=== PATIENT | female | born 1985 | race Caucasian/White ===

== ENCOUNTER 2023-03-22 15:07 | Outpatient (CLI) | payer OTHER, SELFPAY ==
[2023-03-22 16:23] LABS: Erythrocyte Sedimentation Rate 4 mm/hr (0-30)
[2023-03-22 16:25] LABS: Absolute Lymphocyte Count 2.37 X10^3/uL (0.83-4.51); Absolute Neutrophil Count 5.4 X10^3/uL (2.0-7.7); Basophil# 0.05 X10^3/uL; Basophil% 0.6 % (0-1); Eosinophil# 0.21 X10^3/uL; Eosinophils% 2.5 % (0-5); Hematocrit 44.7 % (37-47); Hemoglobin 14.4 g/dL (12.0-15.0); Lymphocyte # 2.37 X10^3/ul (0.83-4.51); Lymphocyte % 27.8 % (19-41); Mean Corp Hgb Conc 32.2 g/dL (32-36); Mean Corpuscular Hgb 28.8 pg (27.0-32.0); Mean Corpuscular Volume 89.4 fL (81-99); Mean Platelet Vol. 10.9 fl (6.2-12.0); Monocyte# 0.48 X10^3/uL; Monocyte% 5.6 % (0-10); NRBC Flagged by Analyzer 0 % (0-5); Neutrophil # 5.37 X10^3/uL (2.7-7.7); Neutrophil % 63.1 % (47-70); Platelet Count 319 K/mm3 (150-450); RBC Distribution Width CV 12.9 % (11.6-14.6); RBC Distribution Width SD 41.8 fl (35.1-43.9); White Blood Count 8.5 K/mm3 (4.4-11.0)
[2023-03-22 16:52] LABS: AST(SGOT) 18 U/L (15-37); Alanine Aminotransfer ALT/SGPT 47 U/L (13-56); Alkaline Phosphatase 62 U/L (45-117); Anion Gap 1 (5-15); BUN 10 mg/dL (7-18); BUN/Creat Ratio 11.5 RATIO (10-20); CRP < 2.90 mg/L (0.0-3.0); Calcium,Total 9.7 mg/dL (8.5-10.1); Chloride 105 mmol/L (98-107); Creatinine, Serum 0.87 mg/dL (0.55-1.02); EST Glomerular Filtration Rate 78 mL/min (>60); Est Glom Filt Rate - Afr Amer 94 mL/min (>60); Globulin 4.1 g/dL (2.2-4.2); Glucose 95 mg/dL (74-106); LDH 151 U/L (84-246); Potassium 4.1 mmol/L (3.5-5.1); Protein, Total 8.1 g/dL (6.4-8.2); Sodium Level 137 mmol/L (136-145); Thyroid Stim Hormone (TSH) 2.92 uIU/mL (0.358-3.74)
[2023-03-22 17:52] LABS: Hemoglobin A1c 5.1 % (3.8-5.6)
[2023-03-24 15:08] LABS: Endomysial Antibody IgA Negative (Negative); Immunoglobulin A 262 mg/dL (87-352); t-Transglutaminase IgA <2 U/mL (0-3)
[2023-03-28 16:09] LABS: Albumin 4.1 g/dL (2.9-4.4); Alpha-1-Globulins 0.2 g/dL (0.0-0.4); Alpha-2-Globulins 0.7 g/dL (0.4-1.0); Angiotensin Convert Enzyme 44 U/L (14-82); Cytoplasmic Ab (C-ANCA) <1:20 titer (Neg:<1:20); Gamma Globulin 1.2 g/dL (0.4-1.8); Immunoglobulin A 244 mg/dL (87-352); Immunoglobulin E 9 IU/mL (6-495); Immunoglobulin G 1259 mg/dL (586-1602); Immunoglobulin M 75 mg/dL (26-217); PROEL- TOTAL PROTEIN 7.5 g/dL (6.0-8.5); Perinuclear Ab (P-ANCA) <1:20 titer (Neg:<1:20)
[2023-03-29 10:09] LABS: Anti-Centromere B Ab <0.2 AI (0.0-0.9); Anti-Chromatin <0.2 AI (0.0-0.9); Anti-Jo <0.2 AI (0.0-0.9); Anti-Scleroderma-70 AB <0.2 AI (0.0-0.9); Anti-dsDNA Ab 2 IU/mL (0-9); Beef <0.10 kU/L (Class 0); Chocolate <0.10 kU/L (Class 0); Clam <0.10 kU/L (Class 0); Codfish <0.10 kU/L (Class 0); Corn <0.10 kU/L (Class 0); Egg, White <0.10 kU/L (Class 0); Egg, Whole <0.10 kU/L (Class 0); Milk (Cow) <0.10 kU/L (Class 0); Peanut <0.10 kU/L (Class 0); Pork <0.10 kU/L (Class 0); RNP Ab <0.2 AI (0.0-0.9); SCALLOP <0.10 kU/L (Class 0); SESAME SEED <0.10 kU/L (Class 0); SJOGREN'S Anti-SS-A test < 0.2 AI (0.0-0.9); SJOGREN'S Anti-SS-B test < 0.2 AI (0.0-0.9); Shrimp <0.10 kU/L (Class 0); Smith Ab <0.2 AI (0.0-0.9); Soybean <0.10 kU/L (Class 0); Walnut, (Food) <0.10 kU/L (Class 0); Wheat <0.10 kU/L (Class 0)
== END 2023-03-22 23:59 | disposition home or self-care (01) ==
PROVIDERS: PCP Family Medicine; Referring Provider Internal Medicine Gastroenterology; Visit Provider Internal Medicine Gastroenterology
DX: K59.00 Constipation, unspecified (principal)
CPT/HCPCS: 36415; 80053; 82164; 82784; 82785; 83036; 83516; 83615; 84165; 84443; 85025; 85652; 86003; 86005; 86140; 86225; 86235; 86255; 86256; 86334

== ENCOUNTER → 2023-04-19 | Outpatient (CLI) | payer OTHER, SELFPAY ==
--- NOTE | 2023-04-19 07:37 | RAD_ITS ---
EXAM: XR ABDOMEN, 1 VIEW CLINICAL INDICATION: SITZ1 TECHNIQUE: Frontal supine view of the abdomen/pelvis. COMPARISON: No relevant prior studies available. FINDINGS: LOWER THORAX: No acute pathology. GASTROINTESTINAL TRACT: There is moderate stool in the colon. Non-obstructive. No bowel or stomach distention. ORGANS: Unremarkable as visualized. No organomegaly. No abnormal calcifications. BONES/JOINTS: No acute pathology. SOFT TISSUES: There are bilateral tubal ligation clips. RAD/Abdomen Single View IMPRESSION: Moderate stool in the colon which may represent constipation. Electronically Signed: Dilan Poe MD at 19:31 EDT ,
== END | disposition home or self-care (01) ==
LOC: RAD 07:34
PROVIDERS: PCP Family Medicine; Referring Provider Internal Medicine Gastroenterology; Visit Provider Internal Medicine Gastroenterology
DX: K59.00 Constipation, unspecified (principal)
CPT/HCPCS: 74018

== ENCOUNTER → 2023-04-21 | Outpatient (CLI) | payer OTHER, SELFPAY ==
--- NOTE | 2023-04-21 07:48 | NM_ITS ---
INDICATION: bloating EXAMINATION: NUCLEAR MEDICINE GASTRIC EMPTYING - NM Gastric Emptying Study (solid, liquid or both) TECHNIQUE: Radiopharmaceutical (solid portion of the exam): 1.1 mCi of Tc99m Sulfur Colloid mixed with oat meal. Oral administration. Imagin minutes COMPARISON: 04/19/2023 x-ray FINDINGS: Gastric emptying time with solids: T1/2: 47 minutes, within normal limits. No gastroesophageal reflux. NM/Gastric Emptying Study IMPRESSION: Normal gastric emptying time with solids. Electronically Signed: Taye Rizvi ([place]), at 9:46 EDT ,
== END | disposition home or self-care (01) ==
PROVIDERS: PCP Family Medicine; Referring Provider Internal Medicine Gastroenterology; Visit Provider Internal Medicine Gastroenterology
DX: K59.00 Constipation, unspecified (principal)
CPT/HCPCS: 78264; A9541

== ENCOUNTER 2025-05-16 06:22 | Day surgery (SDC) | payer OTHER, SELFPAY ==
[2025-05-16] VITALS (9 sets, daily range): BP systolic 119–145; BP diastolic 79–94; PULSE 72–90; RESP 16–18; TEMP 36.6–37.4; O2SAT 99–100; BMI 43.0
--- OUTSIDE RECORDS SUMMARY | 2025-05-16 06:26 | XMS RPT_ITS | CCD ---
Author Organization [facility] Care Team Providers Care Corporate Director Talent Assessment Name Role Phone Mega Dietz MD Primary Care Provider Friend, Dr. Early Attending Provider Mega Dietz MD Primary Care Provider Mega Dietz MD Primary Care Provider CHARLEY NEFF CNP Primary Care Unavailable CHARLEY NEFF CNP Admitting Unavailable CHARLEY NEFF CNP Attending Unavailable CHARLEY NEFF CNP Consulting Unavailable PROVIDER, UNKNOWN Consulting Unavailable PROVIDER, UNKNOWN Consulting Unavailable CHARLEY NEFF CNP Admitting Unavailable TAWANDACHARLEY AN CNP Attending Unavailable CHARLEY NEFF CNP Consulting Unavailable CHARLEY NEFF CNP Primary Care Unavailable PROVIDER, UNKNOWN Consulting Unavailable PROVIDER, UNKNOWN Consulting Unavailable CHARLEY NEFF CNP Admitting Unavailable TAWANDACHARLEY AN CNP Attending Unavailable CHARLEY NEFF CNP Consulting Unavailable CHRALEY NEFF CNP Primary Care Unavailable PROVIDER, UNKNOWN Consulting Unavailable PROVIDER, UNKNOWN Consulting Unavailable CHARLEY NEFF CNP Consulting Unavailable UNGERER, EL SUPERVISOR CELL OPERATION Admitting Unavailable UNGERER, EL SUPERVISOR CELL OPERATION Attending Unavailable UNGERER, EL SUPERVISOR CELL OPERATION Primary Care Unavailable PROVIDER, UNKNOWN Consulting Unavailable PROVIDER, UNKNOWN Consulting Unavailable CHARLEY NEFF CNP Admitting Unavailable ALAYNA LAGUNA DO Consulting Unavailable CHARLEY NEFF CNP Attending Unavailable CHARLEY NEFF CNP Primary Care Unavailable PROVIDER, UNKNOWN Consulting Unavailable PROVIDER, UNKNOWN Consulting Unavailable Dillard CATERING SERVICE MANAGER.REGULATORY AFFAIRS ANALYST, Jeanette Unavailable [phone] Yang CATERING SERVICE MANAGER.FLAT GRINDER OPERATOR, Shanon Unavailable Yang CATERING SERVICE MANAGER.FLAT GRINDER OPERATOR, Shanon Unavailable Unavailable Primary Care Provider UnavailFABRICIO Perkins Attending Unavailable DEISI PIKE Referring Unavailable TALAMPAS, MEGA D Primary Care Unavailable SELF Referring Unavailable TALAMPAS, MEGA D Primary Care Unavailable MARLEY BUTLER Attending Unavailable MARISA MANN Attending Unavailable HAURYKALEB Attending Unavailable TALAMPAS, MEGA D Primary Care Unavailable KALEB CERNA Referring Unavailable TALAMPAS, MEGA D Primary Care Unavailable Cosmo Fuentes Attending Unavailable Frakowski, Alayna Primary Care Unavailable Frakowski, Alayna Referring Unavailable Frakowski, Alayna Referring Unavailable Leny Sanchez Attending Unavailable Frakowski, Alayna Primary Care Unavailable Cosmo Fuentes Attending Unavailable Cosmo Fuentes Referring Unavailable Frakowski, Alayna Primary Care Unavailable Sharath Gonzalez Attending Unavailable Frakowski, Alayna Primary Care Unavailable Frakowski, Alayna Primary Care Unavailable Cosmo Fuentes Attending Unavailable Frakowski, Alayna Referring Unavailable Allergies Allergy Classification Reported Allergen(s) Allergy Type Date of Onset Reaction(s) Facility (20 sources) Latex; Translations: [LATEX] Drug Allergy 09-24-20 19 Hives [facility] Work Phone: (20 sources) Phenylephrine / Promethazine; Translations: [PROMETHAZINE-PHE NYLEPHRINE] Drug Allergy 09-04-20 15 Mental Status Change [facility] Work Phone: (20 sources) [id number] Antimigraine Agents; Translations: [[id number]-[id number] ANTIMIGRAINE AGENTS] Drug Intolerance 07-13-20 Other: See Comments [facility] Work Phone: (3 sources) Promethazine; Translations: [promethazine HCl] Drug Allergy 01-06-20 [address] [facility] (2 sources) SUMAtriptan Drug Allergy 01-06-20 23 Chest tightness [facility] (8 sources) [id number] Antimigraine Agents Drug Intolerance 07-13-20 Other: See Comments [facility] Work Phone: (1 source) Latex Drug allergy (disorder) 05-12-[address] [facility] (1 source) SUMAtriptan Drug Allergy 05-12-[address] [facility] Medications Current Medications Medication Drug Class(es) Dates Sig (Normalized) Sig (Original) acetaminophen 325 mg / oxyCODONE hydrochloride 5 mg oral tablet (2 sources) Opioid Agonist Start: 04-15-2016 take 1 tablet by mouth every four hours as needed Oxycodone-Acetamin ophen Active 1 TABLET PO EVERY 4 HOURS NEEDED April 15, 2016 12:00am 24 hr buPROPion hydrochloride 150 mg extended release oral tablet (11 sources) Aminoketone Start: 05-14-2024 take 1 tablet by mouth every hour buPROPion XL (WELLBUTRIN XL) 150 mg 24 hr tablet Take 1 tablet by mouth every afternoon. 05/14/2024 Active escitalopram 20 mg oral tablet (16 sources) Serotonin Reuptake Inhibitor Start: 11-14-2022 End: 05-03-2023 take 1 tablet by mouth once daily escitalopram oxalate (LEXAPRO) 20 mg tablet Take 1 tablet by mouth once daily. 0 11/14/2022 05/03/2023 Discontinued (Side Effects) Start: 04-19-2022 End: 11-14-2022 escitalopram oxalate (LEXAPR O) 10 mg tablet 10 mg. 0 04/19/2022 11/14/2022 Discontinued Comment on above: 10 mg. Take 1 tablet by tyler th once daily. famotidine 20 mg oral tablet (20 sources) Histamine-2 Receptor Antagonist Start: End: take 1 tablet by mouth once daily famotidine (PEPCID) 20 mg tablet Take 20 mg by mouth once daily. 04/21/2022 06/06/2024 Discontinued Comment on above: Take 20 mg by mouth once daily. fexofenadine hydrochloride 180 mg oral tablet (11 sources) Histamine-1 Receptor Antagonist take 1 tablet by mouth once daily fexofenadine (ROSA) 180 mg tablet Take 180 mg by mouth once daily. Active 1 ml galcanezumab-gnlm 120 mg/ml auto-injector (20 sources) Start: End: inject 1 mL by subcutaneous injection every month galcanezumab-gnlm 120 mg/mL subcutaneous pen injector (EMGALITY) Indications: Migraine without aura and without status migrainosus, not intractable , Migraine with aura and without status migrainosus, not intractable Inject 1 mL subcutaneously once every month. Do not shake. 3 mL 3 01/17/2025 01/12/2026 Active Start: 08-12-2022 End: 08-12-2022 galcanezumab-gnlm 120 mg/mL subcutaneous pen injector (EMGALITY) Indications: Migraine without aura and without status migrainosus, not intractable , Migraine with aura and without status migrainosus, not intractable Inject 2 mL subcutaneously one time only for 1 dose. This is the loading dose. Do not shake. 2 mL 0 08/12/2022 08/12/2022 Active Start: 03-04-2022 inject 1 mL by subcu taneous injection every month galcanezumab-gnlm (EMGALITY PEN) 120 mg/mL pen Inject 1 mL subcutaneously once every month. Do not shake. 1 Pen 3 03/04/2022 Active Start: 03-04-2022 inject 1 mL by subcu taneous injection every month galcanezumab-gnlm (EMGALITY PEN) 120 mg/mL pen Inject 1 mL subcutaneously once every month. Do not shake. 1 Pen 3 03/04/2022 Active Start: 03-04-2022 inject 1 mL by subcu taneous injection every month galcanezumab-gnlm (EMGALITY PEN) 120 mg/mL pen Inject 1 mL subcutaneously once every month. Do not shake. 1 Pen 3 03/04/2022 Active Start: 02-11-2022 End: 02-11-2022 galcanezumab-gnlm (EMGALITY PEN) 120 mg/mL pen Inject 2 mL subcutaneously one time only for 1 dose. Do not shake. 2 Pen 0 02/11/2022 02/11/2022 Active Comment on above: Inject 2 mL subcutan eously one time only for 1 dose. Do not shake. Inject 1 mL subcutan eously once every month. Do not shake. Inject 2 mL subcutan eously one time only for 1 dose. This is the loading dose. Do not shake. ibuprofen 800 mg oral tablet (20 sources) Nonsteroidal Anti-inflammatory Drug Start: take 1 tablet by mouth every six hours as needed ibuprofen (MOTRIN) 800 mg tablet Take 1 tablet by mouth every 6 hours as needed. 30 tablet 1 01/19/2021 Active Start: 04-15-2016 take 600 mg by mouth every six hours as needed Ibuprofen Active 600 MG PO EVERY 6 HOURS NEEDED April 15, 2016 12:00am Comment on above: Take 1 tablet by tyler th every 6 hours as needed. lubiprostone 0.008 mg oral capsule (6 sources) Chloride Channel Activator take 1 capsule by mouth twice daily at mealtime lubiprostone (AMITIZA) 8 mcg capsule Take 8 mcg by mouth two times a day with meals. Active Multivitamin capsule (17 sources) End: 3 take 1 capsule by mouth once daily Multivitamin capsule Take 1 capsule by mouth once daily. 0 12/30/2022 Discontinued take 1 capsule by mouth once carlos ly Multivitamin capsule Take 1 capsule by mouth once daily. 0 Active Comment on above: Take 1 capsule by mo uth once daily. omeprazole 40 mg delayed release oral capsule (11 sources) Proton Pump Inhibitor take 1 capsule by mouth once daily omeprazole (PRILOSEC) 40 mg capsule Take 40 mg by mouth once daily. Active ondansetron 4 mg disintegrating oral tablet (20 sources) Serotonin-3 Receptor Antagonist Start: 09-29-20 End: 01-18-20 25 take 1 tablet by mouth every eight hours as needed for nausea ondansetron orally disintegrating (ZOFRAN ODT) 4 mg disintegrating tablet Indications: Migraine without aura and without status migrainosus, not intractable , Nausea Take 1 tablet by mouth every 8 hours as needed (for nausea with migraines). 20 tablet 5 01/17/2025 Active Start: 01-05-2023 take 4 mg by mouth e very eight hours Ondansetron Hcl Active 4 MG PO Q8H January 05, 2023 12:00am Start: 05-13-2022 take 1 tablet by tyler th every eight hours as needed for nausea and nausea ondansetron orally disintegrating (ZOFRAN ODT) 4 mg disintegrating tablet Indications: Nausea Take 1 tablet by mouth every 8 hours as needed (for nausea with migraines). 20 tablet 3 05/13/2022 Active Comment on above: Take 1 tablet by tyler th every 8 hours as needed (for nausea with migraines). Vit,[id number] (Prenatabs Fa) 1 TABLET tablet (2 sources) Start: 04-13-20 16 take 1 tablet by mouth once daily Vit,[id number] (Prenatabs Fa) 1 TABLET tablet Active 1 TABLET PO DAILY April 13, 2016 12:00am rimegepant 75 mg disintegrating oral tablet (6 sources) Start: 01-18-20 25 take 1 tablet by mouth once daily as needed for headache, then take 1 tablet by mouth every twenty-four hours as needed for headache rimegepant (NURTEC ODT) 75 mg disintegrating tablet Indications: Migraine without aura and without status migrainosus, not intractable , Migraine with aura and without status migrainosus, not intractable Take 1 tablet by mouth once daily as needed for migraine headache (see administration instructions). No more than 1 dose in 24 hours. Do not swallow whole. Allow tablet to dissolve in mouth. 16 tablet 11 01/17/2025 Active topiramate 25 mg oral tablet (20 sources) Start: 11-29-19 End: 05-03-20 23 take 2 tablets by mouth once daily at bedtime topiramate (TOPAMAX) 25 mg tablet Indications: Migraine without aura and without status migrainosus, not intractable , Migraine with aura and without status migrainosus, not intractable Take 2 tablets by mouth daily at bedtime. Take with 100 mg tab for a total of 150 mg at bedtime. 60 tablet 1 11/29/2022 05/03/2023 Discontinued (Course of therapy completed) Start: 06-03-2022 End: 05-03-2023 take 1 tablet by mouth once daily Topiramate (Topamax) 100 mg tablet Active 100 MG PO DAILY January 05, 2023 12:00am Start: 06-03-2022 take 1 tablet by tyler th once daily at bedtime topiramate (TOPAMAX) 100 mg tablet Indications: Migraine without aura and without status migrainosus, not intractable Take 1 tablet by mouth daily at bedtime. 30 tablet 3 06/03/2022 Active Start: 05-13-2022 End: 01-13-2023 take 1 tablet by mouth once daily at bedtime topiramate (TOPAMAX) 25 mg tablet Indications: Migraine without aura and without status migrainosus, not intractable , Migraine with aura and without status migrainosus, not intractable Take 1 tablet by mouth daily at bedtime. Take with 100 mg tab for a total of 125 mg at bedtime. 30 tablet 1 11/14/2022 11/29/2022 Discontinued Comment on above: Take 1 tablet by tyler th daily at bedtime for 7 days, THEN 2 tablets daily at bedtime for 7 days, THEN 3 tablets daily at bedtime for 7 days. Then switch to 100 mg tablet and stay at that dose.. Take 1 tablet by tyler th daily at bedtime. Take 1 tablet by tyler th daily at bedtime. Take with 100 mg tab for a total of 125 mg at bedtime. Take 1 tablet by tyler th daily at bedtime. Take with 25 mg tab for a total of 125 mg at bedtime. Take 2 tablets by mo uth daily at bedtime. Take with 100 mg tab for a total of 150 mg at bedtime. zonisamide 100 mg oral capsule (6 sources) Anti-epileptic Agent Start: 11-19-2023 End: 06-06-2024 take 1 capsule by mouth once daily zonisamide (ZONEGRAN) 100 mg capsule Indications: Status migrainosus Take 1 capsule by mouth once daily. Start this prescription once you reach the 100 mg dose and are tolerating 30 capsule 5 01/01/2024 06/06/2024 Discontinued Start: 10-20-2023 End: 01-01-2024 zonisamide (ZONEGRAN) 25 mg capsule Indications: Status migrainosus Take 25 mg at bedtime for 1 week. Then, increase by 25 mg at bedtime each week until at 100 mg. 70 capsule 0 10/20/2023 01/01/2024 Discontinued Comment on above: Take 25 mg at bedtim e for 1 week. Then, increase by 25 mg at bedtime each week until at 100 mg. Take 1 capsule by mo uth once daily. Start this prescription once you reach the 100 mg dose and are tolerating Completed/Discontinued Medications Medication Drug Class(es) Dates Sig (Normalized) Sig (Original) 1 ml erenumab-aooe 140 mg/ml auto-injector (3 sources) Start: 11-05-2021 End: 11-05-2022 inject 140 mg by subcutaneous injection every month erenumab-aooe (AIMOVIG AUTOINJECTOR) 140 mg/mL auto-injector INJECT 140 MG UNDER THE SKIN ONCE EVERY MONTH. 3 mL 3 11/05/2021 02/11/2022 Discontinued (Changing Therapy/Dosage Form) Comment on above: INJECT 140 MG UNDER THE SKIN ONCE EVERY MONTH. 1.5 ml fremanezumab-vfrm 150 mg/ml auto-injector (2 sources) Start: 03-03-2022 End: 05-13-2022 inject 1.5 mL by subcutaneous injection every month fremanezumab-vfrm (AJOVY AUTOINJECTOR) 225 mg/1.5 mL auto-injector Indications: Migraine without aura and without status migrainosus, not intractable Inject 1.5 mL subcutaneously once every month. Do not shake. 1 Pen 3 03/03/2022 05/13/2022 Discontinued (Not on Formulary) Comment on above: Inject 1.5 mL subcut aneously once every month. Do not shake. pantoprazole 40 mg delayed release oral tablet (8 sources) Proton Pump Inhibitor Start: 07-13-2020 End: 08-12-2022 take 1 tablet by mouth once daily pantoprazole DR (PROTONIX) 40 mg tablet Take 1 tablet by mouth once daily. 0 07/13/2020 08/12/2022 Discontinued Comment on above: Take 1 tablet by tyler once daily. spironolactone 50 mg oral tablet (17 sources) Aldosterone Antagonist Start: 05-09-2024 End: 01-29-2025 take 1 tablet by mouth once spironolactone (ALDACTONE) 50 mg tablet Take 1 tablet by mouth every afternoon. 05/09/2024 01/29/2025 Discontinued (Discontinued by Patient) Start: 08-10-2022 End: 12-30-2022 spironolactone (ALDACTONE) 5 0 mg tablet once daily. 0 08/10/2022 12/30/2022 Discontinued Comment on above: once daily. ubrogepant 100 mg oral tablet (20 sources) Start: 01-05-2023 take 1 tablet by mouth once Ubrogepant (Ubrelvy) 100 mg tablet Active 100 MG PO ONCE January 05, 2023 12:00am as a single dose; may repeat once in >=2 hours after first dose if needed Start: 11-05-2021 End: 07-08-2024 ubrogepant (UBRELVY) 100 mg tablet Indications: Migraine without aura and without status migrainosus, not intractable , Migraine with aura and without status migrainosus, not intractable Take 1 tablet by mouth as needed for migraine. Take at first sign of migraine. You may repeat 1 tablet 2 hours later if needed. Max daily dose 200 mg. 16 tablet 11 05/03/2023 07/08/2024 Discontinued (Lack of Efficacy) Comment on above: Take 1 tablet by tyler th as needed. Take 1 tablet by tyler th as needed (for migraine). Take at first sign of migraine. You may repeat 1 tablet 2 hours later if needed. Max daily dose 200 mg. Take 1 tablet by tyler th as needed for migraine. Take at first sign of migraine. You may repeat 1 tablet 2 hours later if needed. Max daily dose 200 mg. 24 hr divalproex sodium 500 mg extended release oral tablet (1 source) Mood Stabilizer, Anti-epileptic Agent Start: 09-29-2023 take 2 tablets by mouth every twenty-four hours at bedtime, then take 1 tablet by mouth at bedtime divalproex ER (DEPAKOTE ER) 500 mg 24 hr tablet Indications: Migraine without aura and without status migrainosus, not intractable , Status migrainosus Take 2 tabs by mouth at bedtime for 5 days; then take 1 tab at bedtime for 5 days; then stop. 15 tablet 0 09/29/2023 Active Comment on above: Take 2 tabs by mouth at bedtime for 5 days; then take 1 tab at bedtime for 5 days; then stop. Problems Active Problems Problem Classification Problem Date Documented Da te Episodic/Chronic Disorders of lipid metabolism (1 source) Hyperlipidemia, unspecified; Translations: [Hyperlipidemia, unspecified] Onset: 08-04-2023 Chronic Headache; including migraine (20 sources) Migraine without aura, not refractory ; Translations: [Migraine without aura, not intractable, without status migrainosus] Onset: 11-07-2019 11-07-2019 Chronic Nausea and vomiting (4 sources) Nausea; Translations: [Nausea] Episodic Nonmalignant breast conditions (1 source) Fibrocystic changes of bilateral breasts; Translations: [Diffuse cystic mastopathy of right breast] 01-29-2025 Chronic Nonmalignant breast conditions (5 sources) Unspecified lump in the left breast, unspecified quadrant; Translations: [Lump in lower inner quadrant of left breast] Onset: 07-26-2024 01-29-2025 Episodic Nonspecific chest pain (4 sources) Chest pain; Translations: [Chest pain, unspecified] 03-22-2023 Episodic Other aftercare (8 sources) Patient encounter status; Translations: [Other intermediate accountant (current) drug therapy] Episodic Other diseases of kidney and ureters (1 source) Disorder of kidney and ureter, unspecified; Translations: [Disorder of kidney and ureter, unspecified] Onset: 08-01-2024 Episodic Other gastrointestinal disorders (2 sources) Abdominal bloating; Translations: [Abdominal distension (gaseous)] 03-22-2023 Episodic Other gastrointestinal disorders (2 sources) Constipation; Translations: [Constipation, unspecified] 03-22-2023 Episodic Other inflammatory condition of skin (1 source) Psoriasis, unspecified; Translations: [Psoriasis, unspecified] Onset: 11-03-2023 Chronic Other nutritional; endocrine; and metabolic disorders (20 sources) Body mass index 40+ - severely obese; Translations: [Morbid (severe) obesity due to excess calories] Onset: 06-11-2020 06-11-2020 Chronic Other screening for suspected conditions (not mental disorders or infectious disease) (7 sources) Cancer cervix screening status; Translations: [Encounter for screening for malignant neoplasm of cervix] Onset: 08-04-2023 06-06-2024 Episodic Other skin disorders (1 source) Eruption; Translations: [Rash and other nonspecific skin eruption] 08-01-2024 Episodic Spondylosis; intervertebral disc disorders; other back problems (1 source) Neck pain; Translations: [Cervicalgia] Episodic Past or Other Problems Problem Classification Problem Date Documented Da te Episodic/Chronic Administrative/social admission (2 sources) Encounter for pre-employment examination; Translations: [Encounter for pre-employment examination] Onset: 02-06-2025 Episodic Anal and rectal conditions (1 source) Other specified diseases of anus and rectum; Translations: [Other specified diseases of anus and rectum] Onset: 12-18-2024 Episodic Cardiac dysrhythmias (1 source) Palpitations; Translations: [Palpitations] Onset: 09-22-2023 Episodic Headache; including migraine (20 sources) Chronic daily headache; Translations: [Chronic daily headache] Onset: 11-07-2019 11-07-2019 Episodic Hemorrhoids (1 source) Unspecified hemorrhoids; Translations: [Unspecified hemorrhoids] Onset: 12-18-2024 Episodic Immunizations and screening for infectious disease (1 source) Encounter for screening for infections with a predominantly sexual mode of transmission; Translations: [Screening for STD (sexually transmitted disease)] Onset: 06-06-2024 Episodic Other aftercare (1 source) Other intermediate accountant (current) drug therapy; Translations: [Medication management] Onset: 07-08-2024 Episodic Other complications of (11 sources) Maternal obesity complicating , childbirth and the puerperium, antepartum; Translations: [Obesity complicating , unspecified trimester] Onset: 09-04-2015 Resolved: 05-30-2016 05-30-2016 Chronic Other gastrointestinal disorders (3 sources) Abdominal distension (gaseous); Translations: [Flatulence, eructation, and gas pain] Onset: 12-18-2024 03-22-2023 Episodic Other gastrointestinal disorders (3 sources) Constipation, unspecified; Translations: [Constipation, unspecified] Onset: 12-18-2024 03-22-2023 Episodic Results Test Name Value Interpretation Reference Range [facility] IRLANDA [facility] ([id number]) 1985 F Date Time Provider Department 03/20/25 MARISA ORTEGA NREUS2 During your visit today, we recorded the following information about you: Marisa Ortega, Research Coordinator 03/20/2025 1:50 PM Signed 03.20.2025: Follow up call to patient regarding research study [id number] Pain Avoidance Migraine. She has decided to decline participation in this study at this time. Allergies As of Date: 03/20/2025 Noted Allergy Reaction LATEX 09/24/2019 4 - Hives PHENERGAN VC (PROMETHAZINE-PHENYL *09/04/2015 1 - Mental Status Change [id number] ANTIMIGRAINE [id number]/13/2020 14 - Other: See Comments Comments: Intense squeezing tightness, chest, neck throat and jaw Date Reviewed: 01/29/2025 Reviewed by: Taylor Mcmillan LPN - Fully Assessed Reason for Visit: Research [[id number]] Cmt: [id number] Pain Avoidance Behavior in Migraine Patients Prescriptions as of 03/20/2025 - lubiprostone (AMITIZA) 8 mcg capsule Take 8 mcg by mouth two times a day with meals. - galcanezumab-gnlm 120 mg/mL subcutaneous pen injector (EMGALITY) Inject 1 mL subcutaneously once every month. Do not shake. - ondansetron orally disintegrating (ZOFRAN ODT) 4 mg disintegrating tablet Take 1 tablet by mouth every 8 hours as needed (for nausea with migraines). - rimegepant (NURTEC ODT) 75 mg disintegrating tablet Take 1 tablet by mouth once daily as needed for migraine headache (see administration instructions). No more than 1 dose in 24 hours. Do not swallow whole. Allow tablet to dissolve in mouth. - buPROPion XL (WELLBUTRIN XL) 150 mg 24 hr tablet Take 1 tablet by mouth every afternoon. - omeprazole (PRILOSEC) 40 mg capsule Take 40 mg by mouth once daily. - fexofenadine (ROSA) 180 mg tablet Take 180 mg by mouth once daily. - ibuprofen (MOTRIN) 800 mg tablet Take 1 tablet by mouth every 6 hours as needed. Problem List As Of Date 03/20/2025 Noted Resolved Obesity complicating [O99.210] 09/04/2015 05/30/2016 Chronic daily headache [R51.9] 11/07/2019 Migraine without aura and without status migrai*11/07/2019 Migraine with aura and without status migrainos*11/07/2019 Chronic migraine without aura, with intractable*11/07/19 Intractable chronic migraine without aura and w*11/07/2019 Obesity, Class III, BMI >= 40 [E66.813] 06/11/2020 Encounter Status:Closed by MARISA ORTEGA on 03/20/25 [facility] Juan Carlos 02-18-2025 CNPN Telephone (NREUS2) GARRETTIRLANDA KNUTSON ([id number]) 1985 F Date Time Provider Department 02/18/25 MARISA ORTEGA NREUS2 During your visit today, we recorded the following information about you: Marisa Ortega, Research Coordinator 02/18/2025 1:52 PM Signed Patient was reviewed and referred for research study Pain Avoidance Behavior in Migraine Patients by Dr. Huff. 02.18.25: called and spoke with Irlanda and discussed the details of research study [id number]. 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 She mentioned she will reach back on if she would like to proceed or not with scheduling Allergies As of Date: 02/18/2025 Noted Allergy Reaction LATEX 09/24/2019 4 - Hives PHENERGAN VC (PROMETHAZINE-PHENYL *09/04/2015 1 - Mental Status Change [id number] ANTIMIGRAINE [id number]/13/2020 14 - Other: See Comments Comments: Intense squeezing tightness, chest, neck throat and jaw Date Reviewed: 01/29/2025 Reviewed by: Taylor Mcmillan LPN - Fully Assessed Reason for Visit: Research [293] Cmt: 02-310 Pain Avoidance Behavior in Migraine PAtients Prescriptions as of 02/18/2025 - lubiprostone (AMITIZA) 8 mcg capsule Take 8 mcg by mouth two times a day with meals. - galcanezumab-gnlm 120 mg/mL subcutaneous pen injector (EMGALITY) Inject 1 mL subcutaneously once every month. Do not shake. - ondansetron orally disintegrating (ZOFRAN ODT) 4 mg disintegrating tablet Take 1 tablet by mouth every 8 hours as needed (for nausea with migraines). - rimegepant (NURTEC ODT) 75 mg disintegrating tablet Take 1 tablet by mouth once daily as needed for migraine headache (see administration instructions). No more than 1 dose in 24 hours. Do not swallow whole. Allow tablet to dissolve in mouth. - buPROPion XL (WELLBUTRIN XL) 150 mg 24 hr tablet Take 1 tablet by mouth every afternoon. - omeprazole (PRILOSEC) 40 mg capsule Take 40 mg by mouth once daily. - fexofenadine (ROSA) 180 mg tablet Take 180 mg by mouth once daily. - ibuprofen (MOTRIN) 800 mg tablet Take 1 tablet by mouth every 6 hours as needed. Problem List As Of Date 02/18/2025 Noted Resolved Obesity complicating [O99.210] 09/04/2015 05/30/2016 Chronic daily headache [R51.9] 11/07/2019 Migraine without aura and without status migrai*11/07/2019 Migraine with aura and without status migrainos*11/07/2019 Chronic migraine without aura, with intractable*11/07/19 Intractable chronic migraine without aura and w*11/07/2019 Obesity, Class III, BMI >= 40 [E66.813] 06/11/2020 Encounter Status:Closed by MARISA ORTEGA on 02/18/25 [facility] Office Visit Reporton 2024 Office Visit Report [facility] [address] [place] [address] OFFICE VISIT Date of Service: 02/06/25 MR#: [id number] Acct: [id number] Patient: IRLANDA TUCKER Rep #: [id number] : 1985 Provider: EVANGELINA Juarez Age/Sex: 39/F Location: [facility] Status: Signed Intake Vital Signs 12/18/24 15:37 Height 5 ft 7 in Weight: 271 lb 5 oz BMI 42.5 BP 126/85 H Respiration 20 H Pulse 104 H Pulse Oximetry (%) 95 Oxygen Delivery Method room air Intake Visit Reasons: PE NON DOT FIT TEST, QUANTIFERON/ WEST VIEW Chief Complaint: hemorrhoids Allergies latex Allergy (Intermediate, Verified 02/06/25 16:27) Other sumatriptan Allergy (Intermediate, Verified 02/06/25 16:27) Chest tightness promethazine HCl (From Phenergan) Allergy (Verified 02/06/25 16:27) Other Office Procedures [facility] Billing Sheet Testing Pre-Employment PE: Yes Respirator Fit Testing: Yes Occquant-Quantiferon : Yes 02/13/25 1232 Date Cosmo HUTCHINSON Cosigner Signature: Date (if applicable) CC: Normal [facility] Quantiferon TB-Gold+on 02-08 QFT MITOGEN ADAM > 10.00 Normal . [facility] Comment on above: Performed By: #### L 3400.8000 #### [facility] [address] [place], [place], [id number] QFT NIL VALUE 0.03 IU/mL Normal . [facility] Comment on above: Performed By: #### L [id number] #### [facility] [address] [place], [place], [id number] QFT TB GOLD+ Comment Normal . [facility] Comment on above: Result Comment: Juan Ramon tiFERON-TB Gold Plus is a qualitative indirect test for M tuberculosis infection (including disease) and is intended for use in conjunction with risk assessment, radiography, and other medical and diagnostic evaluations. The QuantiFERON-TB Gold Plus result is determined by subtracting the Nil value from either TB antigen (Ag) value. The Mitogen tube serves as a control for the test. Performed By: #### L [id number] #### [facility] [address] [place], [place], [id number] QFT TB POS CRIT Negative Normal Negative [facility] Comment on above: Result Comment: No r esponse to M tuberculosis antigens detected. Infection with M tuberculosis is unlikely, but high risk individuals should be considered for additional testing (ATS/IDSA/CDC Clinical Practice Guidelines, 2017). The reference range is an Antigen minus Nil result of <0.35 IU/mL. The specimen received for QuantiFERON testing was incubated by the ordering institution. Specific procedures outlined in our Directory of Services and in the package insert for the QuantiFERON Gold (In Tube) test must be followed to enable for proper stimulation of cells for the production of interferon gamma. Chemiluminescence immunoassay methodology Performed at: [address] [id number] Painting Contractor: Nikita Lemus PhD, Phone: [phone] Performed By: #### L [id number] #### [facility] [address] [place], [address] QFT TB1+ AG ADAM 0.03 IU/mL Normal . [facility] Comment on above: Performed By: #### L [id number] #### [facility] [address] [place], [address] QFT TB2+ AG ADAM 0.03 IU/mL Normal . [facility] Comment on above: Performed By: #### L [id number] #### [facility] [address] [place], [address] Urgent Care Visit Reporton 0 02-06-2025 Urgent Care Visit Report [facility] [address], [address] [place], [place] [address] OFFICE VISIT Date of Service: 02/06/25 MR#: [id number] Acct: [id number] Name: IRLANDA TUCKER Rep #: [id number] : 1985 Provider: EVANGELINA Juarez Age/Sex: 39/F Location: [facility] Status: Signed Intake Vital Signs 12/18/24 15:37 Height 5 ft 7 in Weight: 271 lb 5 oz BMI 42.5 BP 126/85 H Respiration 20 H Pulse 104 H Pulse Oximetry (%) 95 Oxygen Delivery Method room air Intake Visit Reasons: PE NON DOT PHYSICAL/ WEST VIEW Accompanied by: Self Allergies latex Allergy (Intermediate, Verified 02/06/25 16:27) Other sumatriptan Allergy (Intermediate, Verified 02/06/25 16:27) Chest tightness promethazine HCl (From Phenergan) Allergy (Verified 02/06/25 16:27) Other Medications ???Medication ???Instructions ???Recorded ???Confirmed ???Type galcanezumab-gnlm 120 mg/mL 120 mg subcut QMONTH 01/05/23/02/07 History subcutaneous pen injector (Emgality Pen) ondansetron HCl 4 mg tablet 4 mg PO Q8H 01/05/23 12/18/24 Hist ory Diltiazem 2% / Lidocaine 5% #30 grams 12/18/24 12/18/24 Rx ointment (compound) bupropion HCl 150 mg 24 hr tablet, 150 mg PO QAM 12/18/24 02/06/25 History extended release (Wellbutrin XL) docusate sodium 100 mg capsule 200 mg PO QDAY 12/18/24 12/18/24 H istory (Colace) hydroxyzine pamoate 25 mg capsule 25 mg PO QHS 12/18/24 02/06/25 Hi story omeprazole 40 mg capsule,delayed 40 mg PO QDAY 12/18/24 02/06/25 Hi story release sodium sul 1.479 gram-potas ch See Rx Instructions PO PER PKG DIR 12/18/24 12/18/24 Rx 0.188 gram-magnes sul 0.225 gram #24 tabs tablet (Sutab) lubiprostone 8 mcg capsule 8 mcg PO BID #60 caps 01/07/25 Rx (Amitiza) Nurse's Note: Patient here for a pre-employment physical. [facility] Medical History Chronic migraine PCOS (polycystic ovarian syndrome) HLD (hyperlipidemia) PMDD (premenstrual dysphoric disorder) Unspecified perforation of tympanic membrane, right ear Hair loss Low back pain Left breast mass Localized edema Depression GERD (gastroesophageal reflux disease) Surgical History History of tympanoplasty Previous section History of tonsillectomy and adenoidectomy H/O tubal ligation Family History Grandmother Esophageal cancer CVA (cerebral vascular accident) Mother HLD (hyperlipidemia) Migraines Social History Smoking Status: Former smoker alcohol intake: current HPI HPI Details: IRLANDA TUCKER, is a 39 F who presents to the office today for preemployment physical. Please see corresponding scanned documents with today's date. Office Procedures Physical Exam Coding PE Coding Pre-employment PE: Yes Coding Level of Care Code No Charge Diagnoses Encounter for pre-employment health screening examination Z02.1 Assessment and Plan Assessment and Plan (1) Encounter for pre-employment health screening examination: Status: Acute Orders: Orders Quantiferon TB-Gold+ Today Z02.1 - Encounter for pre-employment examination 02/06/25 1645 Date Cosmo Persaud Signature: Date (if applicable) CC: [facility] 01-31-2025 [facility] Telephone (NHMNS2) IRLANDA TUCKER ([id number]) 1985 F Date Time Provider Department 01/31/25 MARLEY BUTLER [facility] During your visit today, we recorded the following information about you: Hoda Vivas 01/31/2025 9:42 AM Signed Prior authorization has been submitted via CoverMyMeds Included clinical notes from 01/17/25. Medication: Nurtec (rimegepant) Dosage/frequency: 75mg Insurance Name: [employer] Nowak (if available): [id number] Was authorization approved, denied, or still pending? PENDING If approved, effective dates: Shara Linton 02/25/2025 3:45 PM Signed Received denial via fax from [employer] for [facility]. An appeal can be filed by faxing to [phone]. Case ID [id number] Uploaded to chart via OnBase Allergies As of Date: 01/31/2025 Noted Allergy Reaction LATEX 09/24/2019 4 - Hives PHENERGAN VC (PROMETHAZINE-PHENYL *09/04/2015 1 - Mental Status Change [id number] ANTIMIGRAINE [id number]/13/2020 14 - Other: See Comments Comments: Intense squeezing tightness, chest, neck throat and jaw Date Reviewed: 01/29/2025 Reviewed by: Taylor Mcmillan LPN - Fully Assessed Reason for Visit: Insurance Authorization [1693] [facility] [Other] Prescriptions as of 2025 - lubiprostone (AMITIZA) 8 mcg capsule Take 8 mcg by mouth two times a day with meals. - galcanezumab-gnlm 120 mg/mL subcutaneous pen injector (EMGALITY) Inject 1 mL subcutaneously once every month. Do not shake. - ondansetron orally disintegrating (ZOFRAN ODT) 4 mg disintegrating tablet Take 1 tablet by mouth every 8 hours as needed (for nausea with migraines). - rimegepant (NURTEC ODT) 75 mg disintegrating tablet Take 1 tablet by mouth once daily as needed for migraine headache (see administration instructions). No more than 1 dose in 24 hours. Do not swallow whole. Allow tablet to dissolve in mouth. - buPROPion XL (WELLBUTRIN XL) 150 mg 24 hr tablet Take 1 tablet by mouth every afternoon. - omeprazole (PRILOSEC) 40 mg capsule Take 40 mg by mouth once daily. - fexofenadine (ROSA) 180 mg tablet Take 180 mg by mouth once daily. - ibuprofen (MOTRIN) 800 mg tablet Take 1 tablet by mouth every 6 hours as needed. Problem List As Of Date 01/31/2025 Noted Resolved Obesity complicating [O99.210] 09/04/2015 05/30/2016 Chronic daily headache [R51.9] 11/07/2019 Migraine without aura and without status migrai*11/07/2019 Migraine with aura and without status migrainos*11/07/2019 Chronic migraine without aura, with intractable*11/07/19 20 Intractable chronic migraine without aura and w*11/07/2019 Obesity, Class III, BMI >= 40 [E66.813] 06/11/2020 Encounter Status:Closed by HODA VIVAS on 01/31/25 [facility] Telephone (NHMNS2) IRLANDA TUCKER ([id number]) 1985 F Date Time Provider Department 01/31/25 MARLEY BUTLER [facility] During your visit today, we recorded the following information about you: Hoda Vivas 01/31/2025 9:43 AM Signed Prior authorization has been submitted via CoverMeds Included clinical notes from 01/17/25. Medication: Galcanezumab (Emgality) Dosage/frequency: 120 mg/mL Insurance Name: Maximo Nowak (if available): [id number] Was authorization approved, denied, or still pending? PENDING If approved, effective dates: Shara Linton 02/25/2025 2:47 PM Signed Rec'd approval via fax. Effective 02/01/25-02/01/26 Approval scanned to chart via OnBase Patient informed via [employer]. Allergies As of Date: 01/31/2025 Noted Allergy Reaction LATEX 09/24/2019 4 - Hives PHENERGAN VC (PROMETHAZINE-PHENYL *09/04/2015 1 - Mental Status Change [id number] ANTIMIGRAINE [id number]/13/2020 14 - Other: See Comments Comments: Intense squeezing tightness, chest, neck throat and jaw Date Reviewed: 01/29/2025 Reviewed by: Taylor Mcmillan LPN - Fully Assessed Reason for Visit: Insurance Authorization [1693] Em[employer]ality renewal, [employer] [Other] Prescriptions as of 02/25/2025 - lubiprostone (AMITIZA) 8 mcg capsule Take 8 mcg by mouth two times a day with meals. - galcanezumab-gnlm 120 mg/mL subcutaneous pen injector (EMGALITY) Inject 1 mL subcutaneously once every month. Do not shake. - ondansetron orally disintegrating (ZOFRAN ODT) 4 mg disintegrating tablet Take 1 tablet by mouth every 8 hours as needed (for nausea with migraines). - rimegepant (NURTEC ODT) 75 mg disintegrating tablet Take 1 tablet by mouth once daily as needed for migraine headache (see administration instructions). No more than 1 dose in 24 hours. Do not swallow whole. Allow tablet to dissolve in mouth. - buPROPion XL (WELLBUTRIN XL) 150 mg 24 hr tablet Take 1 tablet by mouth every afternoon. - omeprazole (PRILOSEC) 40 mg capsule Take 40 mg by mouth once daily. - fexofenadine (ROSA) 180 mg tablet Take 180 mg by mouth once daily. - ibuprofen (MOTRIN) 800 mg tablet Take 1 tablet by mouth every 6 hours as needed. Problem List As Of Date 01/31/2025 Noted Resolved Obesity complicating [O99.210] 09/04/2015 05/30/2016 Chronic daily headache [R51.9] 11/07/2019 Migraine without aura and without status migrai*11/07/2019 Migraine with aura and without status migrainos*11/07/2019 Chronic migraine without aura, with intractable*11/07/19 20 Intractable chronic migraine without aura and w*11/07/2019 Obesity, Class III, BMI >= 40 [E66.813] 06/11/2020 Encounter Status:Closed by HODA VIVAS on 01/31/25 [facility] Nusrat 01-29-2025 CNOV Office Visit (OBGYWM) IRLANDA TUCKER ([id number]) 1985 F Date Time Provider Department 01/29/25 9:30 AM MARISA MANN OBGYWBlanca During your visit today, we recorded the following information about you: Blood pressure Weight Last Period 124/78 123.1 kg 01/03/25 Marisa Mann APRN.CN 01/29/2025 9:53 AM Signed Patient declined spareribs trimmer. Irlanda Tucker is a 39 year old female who presents for problem visit lump (LT) breast for 1 week(s). Patient denied nipple discharge, breast pain. HPI: Approximately 1 week ago she felt a small bump in lower, inner area of left breast. She denies any pain or tenderness. No history of breast lumps or concerns. OB History Gravida4 Para3 Term3 Preterm0 AB1 Living3 SAB1 IAB0 Ectopic0 Multiple0 Live Births3 Comment: C/s for NRFHTs- 10 pounds 9 ounces, planned repeat 06/12/13 op report reviewed, LTCS, small adhesions Office Assistance History LMP: 05/22/2024, Having periods Age at Menarche: Age at First : Age at Menopause: Office Assistance History Comments: Sexual Activity: Yes; Male Contraception: Tubal Ligation PAST MEDICAL HISTORY Diagnosis Date GERD (gastroesophageal reflux disease) High cholesterol Diet Controlled Migraines PAST SURGICAL HISTORY Procedure Laterality Date DELIVERY ONLY , low transverse DELIVERY ONLY , low transverse DELIVERY ONLY 04/15/16 , low transverse LIG/TRNSXJ FLP TUBE ABDL/VAG APPR UNI/BI 04/15/16 Tubal ligation TONSILLECTOMY AND ADENOIDECTOMY Adenoids Removed Twice TYMPANIC MEMB RPR W/WO PREPJ PERFOR PATCH Tympanoplasty FAMILY HISTORY Problem Relation Age of Onset Lipids Mother other (Lung Issues) Mother other (Migraine) Mother Lipids Maternal Grandmother Cancer Maternal Grandmother Lipids Maternal Grandfather Heart Maternal Grandfather Coronary Artery Disease Maternal Grandfather 4 By-pass Surgeries Diabetes Maternal Grandfather Type 2 Lipids Daughter High Cholesterol Social History Tobacco Use Smoking status: Former Smokeless tobacco: Never Vaping Use Vaping status: Never Used Substance Use Topics Alcohol use: No Drug use: Never Current Outpatient Medications Medication Sig lubiprostone (AMITIZA) 8 mcg capsule Take 8 mcg by mouth two times a day with meals. galcanezumab-gnlm 120 mg/mL subcutaneous pen injector (EMGALITY) Inject 1 mL subcutaneously once every month. Do not shake. ondansetron orally disintegrating (ZOFRAN ODT) 4 mg disintegrating tablet Take 1 tablet by mouth every 8 hours as needed (for nausea with migraines). rimegepant (NURTEC ODT) 75 mg disintegrating tablet Take 1 tablet by mouth once daily as needed for migraine headache (see administration instructions). No more than 1 dose in 24 hours. Do not swallow whole. Allow tablet to dissolve in mouth. buPROPion XL (WELLBUTRIN XL) 150 mg 24 hr tablet Take 1 tablet by mouth every afternoon. omeprazole (PRILOSEC) 40 mg capsule Take 40 mg by mouth once daily. spironolactone (ALDACTONE) 50 mg tablet Take 1 tablet by mouth every afternoon. fexofenadine (ROSA) 180 mg tablet Take 180 mg by mouth once daily. ibuprofen (MOTRIN) 800 mg tablet Take 1 tablet by mouth every 6 hours as needed. No current facility-administere d medications for this visit. Allergies As of Date: 01/29/2025 Allergen Noted Reaction LATEX 09/24/2019 Jennifer GREY VC [PROMETHAZINE-PHENYL *09/04/2015 Mental Status Change FBAATEYJ-[id number] ANTIMIGRAINE [id number]/13/2020 Other: See Comments Fully Assessed 01/17/2025 REVIEW OF SYSTEMS Abdomen: No abdominal pain, nausea, vomiting, diarrhea, or constipation. Bladder: No dysuria, gross hematuria, urinary frequency, urinary urgency, or incontinence. Breast: Breast lump(s) noted. Expanded ROS: N/A Allergies and current medication updated:Yes SENSITIVE EXAM: The sensitive examination was discussed with the Patient or Patient's Authorized Deburrer Machine. As applicable, any other physician, advance practice provider, medical student, or other health professional student that will be observing or involved in the sensitive examination for educational or training purposes was discussed with the Patient or Authorized Deburrer Machine. The Patient or Authorized Deburrer Machine has agreed to proceed with the sensitive examination. (Sensitive examination includes inspection and/or palpation of the breasts, pelvis, prostate and anorectal regions). EXAM: LMP 05/22/2024 GENERAL: pleasant, female in no apparent distress BREAST: soft, non-tender, symmetric, normal nipple-areolar complex, no nipple discharge, fibrocystic changes, and small area lower inner quadrant of left breast with pea size, mobile bump. No tenderness with palpation. ASSESSMENT AND PLAN: Assessment AND Plan Mass of lower inner quadrant of left breast Fibrocystic melba (more content not included)... Normal [facility] Gastroenterology Visit Repor ton 12-18-2024 Gastroenterology Visit Report [facility]enter[facility] [address] [place] [address] OFFICE VISIT Date of Service: 12/18/24 MR#: [id number] Acct: [id number] Name: IRLANDA TUCKER Rep #: [id number] : 1985 Provider: SPENCER dominguez Age/Sex: 39/F Location: [facility] Status: Signed Intake Vital Signs 04/13/16 13:13 12/18/24 15:37 Height 5 ft 7 in 5 ft 7 in Weight: 271 lb 5 oz BMI 42.5 BP 126/85 H Respiration 20 H Pulse 104 H Pulse Oximetry (%) 95 Oxygen Delivery Method room air Intake Visit Reasons: Hemorrhoids Chief Complaint: hemorrhoids Dry Cleaner Hand Required: No Is patient in pain?: No Allergies latex Allergy (Intermediate, Verified 12/18/24 15:33) Other sumatriptan Allergy (Intermediate, Verified 12/18/24 15:33) Chest tightness promethazine HCl (From Phenergan) Allergy (Verified 12/18/24 15:33) Other Medications ???Medication ???Instructions ???Recorded ???Confirmed ???Type galcanezumab-gnlm 120 mg/mL 120 mg subcut QMONTH 01/05/23/03/09 History subcutaneous pen injector (Emgality Pen) ondansetron HCl 4 mg tablet 4 mg PO Q8H 01/05/23 12/18/24 Hist ory Diltiazem 2% / Lidocaine 5% #30 grams 12/18/24 12/18/24 Rx ointment (compound) bupropion HCl 150 mg 24 hr tablet, 150 mg PO QAM 12/18/24 12/18/24 History extended release (Wellbutrin XL) docusate sodium 100 mg capsule 200 mg PO QDAY 12/18/24 12/18/24 H istory (Colace) hydroxyzine pamoate 25 mg capsule 25 mg PO QHS 12/18/24 12/18/24 Hi story linaclotide 145 mcg capsule 145 mcg PO QAM #90 caps 12/18/24 0 12/18/24 Rx (Linzess) omeprazole 40 mg capsule,delayed 40 mg PO QDAY 12/18/24 12/18/24 Hi story release sodium sul 1.479 gram-potas ch See Rx Instructions PO PER PKG DIR 12/18/24 12/18/24 Rx 0.188 gram-magnes sul 0.225 gram #24 tabs tablet (Sutab) PFSH Medical History Chronic migraine PCOS (polycystic ovarian syndrome) HLD (hyperlipidemia) PMDD (premenstrual dysphoric disorder) Unspecified perforation of tympanic membrane, right ear Hair loss Low back pain Left breast mass Localized edema Depression GERD (gastroesophageal reflux disease) Surgical History History of tympanoplasty Previous section History of tonsillectomy and adenoidectomy H/O tubal ligation Family History Grandmother Esophageal cancer CVA (cerebral vascular accident) Mother HLD (hyperlipidemia) Migraines Social History Smoking Status: Former smoker alcohol intake: current HPI HPI Chief Complaint: hemorrhoids Details: IRLANDA TUCKER, is a 39 F who presents to the office today for 39y/o female presents for consultation with complaints of hemorrhoids. She was last seen by Dr. Gonzalez 03/22/2023 for CIC and GERD. Food allergen testing, IBD panel, GES were all unremarkable. KUB completed 04/19/2023 revealed moderate stool retention, no retained sitz markers. GES 04/21/2023 normal KUB 04/19/2023 Moderate stool in the colon which may represent constipation. - c/o external hemorrhoids - tried witch akin, hemorrhoids OTC creams - chronic constipation - feels like she tore her ass hole - has tried ice packs - BRBPR - symptoms present x2 months - does not want to have a BM due to the pain - has a BM One a week - with Colace she can go 2 maybe 3x a week - she has always had hard infrequent stools - denies any abdominal pain - denies any family h/o colon CA - denies any weight loss - reports her water intake is really good B: avocado L: parker chicken wrap - reports she does eat vegetables - she tried a Metamucil in the past - causes vomiting - Benefiber did not help - she will take Dulcolax laxative PRN but causes nausea - Mag Citrate 1/2 bottle when needed - Senna and Correctol caused too much pain/cramping - Miralax daily in coffee - Omeprazole 40mg daily - has been on this since July 2024 - has been on and off PPI for the past 20+ years - Maternal GM with esophageal CA - reports EGD many years ago was negative ROS Const Constitutional: No fatigue, fever(s) or weight change ENT ENT: No difficulty swallowing Gastro GI: Positive for bloating, constipation, heartburn and Blood in stool; No abdominal pain, belching, change in bowel habits, change in stool character, coffee ground emesis, cramping, diarrhea, difficulty swallowing, feeling full early, excessive flatus, incontinent of stools, Vomiting blood/hematemesis, loose stools, Black,tarry stools, nausea/dyspepsia, pain with swallowing, vomiting or other Musc Musculoskeletal: No anabella (more content not included)... Normal [facility] CMP with eGFRon 08-01-2024 AGE 39 years Normal [facility] Comment on above: Performed By: #### 2 [id number] #### [facility],[address] [place] [address] Albumin [Mass/Vol] 3.9 g/dL Normal 3.4 - 5.0 [facility] Comment on above: Performed By: #### [id number] #### [facility],[address] [place] [address] Albumin/Globulin [Mass ratio] 0.9 {ratio} Normal 0.9 - 1.6 [facility] Comment on above: Performed By: #### 2 [id number] #### [facility],[address] [place] [id number] ALK PHOS 55 U/L Normal 46 - 116 [facility] Comment on above: Performed By: #### 2 [id number] #### [facility],[address] [place] [address] ALT [Catalytic activity/Vol] 33 U/L Normal 16 - 63 [facility] Comment on above: Performed By: #### 2 [id number] #### [facility],[address] [place] [address] Anion gap [Moles/Vol] 13 mmol/L Normal 10 - 20 [facility] Comment on above: Performed By: #### 2 54468 #### [facility],[address] [place], [place] [id number] AST [Catalytic activity/Vol] 17 U/L Normal 13 - 39 [facility] Comment on above: Performed By: #### 2 59750 #### [facility],[address] [place] [address] 03109 B/C RATIO 9 ratio Normal 0 - 30 [facility] Comment on above: Performed By: #### 2 32521 #### [facility],[address] [place] [address] 84027 Bilirubin [Mass/Vol] 0.4 mg/dL Normal 0.2 - 1.0 [facility] Comment on above: Performed By: #### 2 99657 #### [facility],[address] [place] [address] 02069 Calcium [Mass/Vol] 9.2 mg/dL Normal 8.5 - 10.1 [facility] Comment on above: Performed By: #### 2 70898 #### [facility],[address] [place], [place] [id number] Chloride [Moles/Vol] 104 mmol/L Normal 98 - 107 [facility] Comment on above: Performed By: #### 2 70945 #### [facility],[address] [place] [address] 99726 CMP with eGFR Normal [facility] Comment on above: Result Comment: COMP REHENSIVE METABOLIC PANEL Performed By: #### 2 31777 #### [facility],[address] [place] [address] 37149 CO2 [Moles/Vol] 26.6 mmol/L Normal 21.0 - 32.0 [facility] Comment on above: Performed By: #### 2 11345 #### [facility],[address] [place] [address] Creatinine [Mass/Vol] 1.13 mg/dL High 0.55 - 1.02 [facility] Comment on above: Performed By: #### 2 37320 #### [facility],[address] [place], [place] [id number] eGFR 54 ML/MINUTE Low 60 - 999 [facility] Comment on above: Performed By: #### 2 48023 #### [facility],[address] [place] [address] 53152 GFR/1.73 sq M.predicted among non-blacks MDRD (S/P/Bld) [Vol rate/Area] mL/min/{1.73_m2} Normal 60 - 999 [facility] Comment on above: Result Comment: ACCO RDING TO THE NATIONAL KIDNEY DISEASE EDUCATION PROGRAM(NKDE), A NORMAL eGFR IS A VALUE GREATER THAN OR EQUAL TO 60 ML/MIN/1.73 SQ METERS. CHRONIC KIDNEY DISEASE: <60mL/MIN/1.73 SQ METERS KIDNEY FAILURE: <15mL/MIN/1.73 SQ METERS THIS TEST SHOULD ONLY BE USED FOR PATIENTS 18 YEARS OF AGE AND OLDER. Performed By: #### 2 28310 #### [facility],[address] [place] [address] 60444 Globulin (S) [Mass/Vol] 4.2 g/dL High 1.5 - 3.8 [facility] Comment on above: Performed By: #### 2 77871 #### [facility],[address] [place] [address] 12717 Glucose [Mass/Vol] 89 mg/dL Normal 74 - 106 [facility] Comment on above: Performed By: #### 2 31041 #### [facility],[address] [place] [address] 69287 Potassium [Moles/Vol] 4.5 mmol/L Normal 3.5 - 5.1 [facility] Comment on above: Performed By: #### 2 23692 #### [facility],[address] [place] [address] 42520 Protein [Mass/Vol] 8.1 g/dL Normal 6.4 - 8.2 [facility] Comment on above: Performed By: #### 2 10948 #### [facility],[address] [place] [address] 47317 Sodium [Moles/Vol] 139 mmol/L Normal 136 - 145 [facility] Comment on above: Performed By: #### 2 92489 #### [facility],[address] [place] [address] 31310 Urea nitrogen [Mass/Vol] 10 mg/dL Normal 7 - 18 [facility] Comment on above: Performed By: #### 2 58936 #### [facility],[address] [place] [address] 52837 CBC + DIFFon 07-26-2024 Baso # 0.02 x10EE3/UL Normal 0.00 - 0.10 [facility] Comment on above: Performed By: #### 2 44704 #### [facility],[address] [place] [address] 60531 Basophils/100 WBC (Bld) 0.2 % Normal 0.0 - 2.0 [facility] Comment on above: Performed By: #### 2 68980 #### [facility],[address] [place] [address] 55060 CBC + DIFF Normal [facility] Comment on above: Result Comment: CBC- COMPLETE BLOOD COUNT Performed By: #### 2 59087 #### [facility],[address] [place] [address] 49713 EO # 0.14 x10EE3/UL Normal 0.00 - 0.50 [facility] Comment on above: Performed By: #### 2 99733 #### [facility],[address] [place] [address] 18763 Eosinophils/100 WBC (Bld) 2.2 % Normal 0.0 - 7.0 [facility] Comment on above: Performed By: #### 2 07821 #### [facility],[address] [place] [address] Erythrocyte distribution width (RBC) [Ratio] 13.6 % Normal 12.0 - 15.6 [facility] Comment on above: Performed By: #### 2 48773 #### [facility],[address] [place], [place] [phone] Hematocrit (Bld) [Volume fraction] 41.6 % Normal 34.0 - 46.0 [facility] Comment on above: Performed By: #### 2 98830 #### [facility],[address] [place], [place] [address] Hemoglobin (Bld) [Mass/Vol] 13.8 g/dL Normal 12.0 - 16.0 [facility] Comment on above: Performed By: #### 2 34244 #### [facility],[address] [place] [address] 18810 Lymph # 1.58 x10EE3/UL Normal 0.80 - 2.80 [facility] Comment on above: Performed By: #### 2 89277 #### [facility],[address] [place] [address] 11735 Lymphocytes/100 WBC (Bld) 24.3 % Normal 20.0 - 45.0 [facility] Comment on above: Performed By: #### 2 99203 #### [facility],[address] [place] [address] MANUAL DIFF N/A Normal [facility] Comment on above: Performed By: #### 2 12326 #### [facility],[address] [place] [address] MCH (RBC) [Entitic mass] 29 pg Normal 27 - 33 [facility] Comment on above: Performed By: #### 2 71636 #### [facility],[address] [place] [address] MCHC 33 X10 3 Normal 32 - 36 [facility] Comment on above: Performed By: #### 2 70028 #### [facility],[address] [place] [address] MCV (RBC) [Entitic vol] 87 fL Normal 80 - 99 [facility] Comment on above: Performed By: #### 2 22087 #### [facility],[address] [place] [address] Throckmorton # 0.36 x10EE3/UL Normal 0.20 - 1.00 [facility] Comment on above: Performed By: #### 2 89873 #### [facility],[address] [place] [address] MONOS % 5.5 % Normal 0.0 - 10.0 [facility] Comment on above: Performed By: #### 2 45854 #### [facility],[address] [place], [place] [phone] Morphology Bryan (Bld) [Interp] N/A Normal [facility] Comment on above: Performed By: #### 2 86164 #### [facility],[address] [place] [address] Neut # 4.41 x10EE3/UL Normal 1.50 - 7.10 [facility] Comment on above: Performed By: #### 2 55837 #### [facility],[address] [place] [address] 91111 Neutrophils/100 WBC (Bld) 67.8 % Normal 46.0 - 76.0 [facility] Comment on above: Performed By: #### 2 29797 #### [facility],[address] [place] [address] 51363 PLATELET 345 x10EE3/UL Normal 150 - 450 [facility] Comment on above: Performed By: #### 2 08668 #### [facility],[address] [place] [address] 66818 Platelet mean volume (Bld) [Entitic vol] 9.2 fL Normal 6.6 - 10.5 [facility] Comment on above: Result Comment: AUTO MATED DIFFERENTIAL Performed By: #### 2 15299 #### [facility],[address] [place] [address] 73351 RBC 4.79 x 10EE6/UL Normal 4.10 - 5.30 [facility] Comment on above: Performed By: #### 2 79273 #### [facility],[address] [place] [address] 98184 WBC 6.5 x 10EE3/UL Normal 4.5 - 10.8 [facility] Comment on above: Performed By: #### 2 18298 #### [facility],[address] [place] [address] 75631 CMP with eGFRon 07-26-2024 AGE 39 years Normal [facility] Comment on above: Performed By: #### 2 58569 #### [facility],[address] [place] [address] 24843 Albumin [Mass/Vol] 3.6 g/dL Normal 3.4 - 5.0 [facility] Comment on above: Performed By: #### 2 69554 #### [facility],[address] [place] [address] 10952 Albumin/Globulin [Mass ratio] 0.9 {ratio} Normal 0.9 - 1.6 [facility] Comment on above: Performed By: #### 2 08076 #### [facility],[address] [place] [address] 74691 ALK PHOS 54 U/L Normal 46 - 116 [facility] Comment on above: Performed By: #### 2 48874 #### [facility],[address] [place] [address] 87047 ALT [Catalytic activity/Vol] 33 U/L Normal 16 - 63 [facility] Comment on above: Performed By: #### 2 22151 #### [facility],[address] [place] [address] 76611 Anion gap [Moles/Vol] 9 mmol/L Low 10 - 20 [facility] Comment on above: Performed By: #### 2 67795 #### [facility],[address] [place], [place] [id number] AST [Catalytic activity/Vol] 13 U/L Normal 13 - 39 [facility] Comment on above: Performed By: #### 2 45927 #### [facility],[address] [place] [address] 53873 B/C RATIO 8 ratio Normal 0 - 30 [facility] Comment on above: Performed By: #### 2 36217 #### [facility],[address] [place] [address] 28957 Bilirubin [Mass/Vol] 0.4 mg/dL Normal 0.2 - 1.0 [facility] Comment on above: Performed By: #### 2 27056 #### [facility],[address] [place] [address] 12506 Calcium [Mass/Vol] 9.3 mg/dL Normal 8.5 - 10.1 [facility] Comment on above: Performed By: #### 2 13788 #### [facility],[address] [place] [address] 98609 Chloride [Moles/Vol] 103 mmol/L Normal 98 - 107 [facility] Comment on above: Performed By: #### 2 20618 #### [address] [address] CMP with eGFR Normal [facility] Comment on above: Result Comment: COMP REHENSIVE METABOLIC PANEL Performed By: #### 2 07619 #### [address] [address] CO2 [Moles/Vol] 29.2 mmol/L Normal 21.0 - 32.0 [facility] Comment on above: Performed By: #### 2 69966 #### [place] [id number] Creatinine [Mass/Vol] 1.11 mg/dL High 0.55 - 1.02 [facility] Comment on above: Performed By: #### 2 16764 #### [facility],[address] [place], [place] [id number] eGFR 55 ML/MINUTE Low 60 - 999 [facility] Comment on above: Performed By: #### 2 63134 #### [address] [address] GFR/1.73 sq M.predicted among non-blacks MDRD (S/P/Bld) [Vol rate/Area] mL/min/{1.73_m2} Normal 60 - 999 [facility] Comment on above: Result Comment: ACCO RDING TO THE NATIONAL KIDNEY DISEASE EDUCATION PROGRAM(NKDE), A NORMAL eGFR IS A VALUE GREATER THAN OR EQUAL TO 60 ML/MIN/1.73 SQ METERS. CHRONIC KIDNEY DISEASE: <60mL/MIN/1.73 SQ METERS KIDNEY FAILURE: <15mL/MIN/1.73 SQ METERS THIS TEST SHOULD ONLY BE USED FOR PATIENTS 18 YEARS OF AGE AND OLDER. Performed By: #### 2 41862 #### [facility],[address] [place] [address] 28730 Globulin (S) [Mass/Vol] 3.9 g/dL High 1.5 - 3.8 [facility] Comment on above: Performed By: #### 2 62301 #### [facility],[address] [place] [address] 79355 Glucose [Mass/Vol] 89 mg/dL Normal 74 - 106 [facility] Comment on above: Performed By: #### 2 09326 #### [facility],[address] [place] [address] 42389 Potassium [Moles/Vol] 4.0 mmol/L Normal 3.5 - 5.1 [facility] Comment on above: Performed By: #### 2 48561 #### [facility],[address] [place] [address] 49947 Protein [Mass/Vol] 7.5 g/dL Normal 6.4 - 8.2 [facility] Comment on above: Performed By: #### 2 37250 #### [facility],[address] [place] [address] 56886 Sodium [Moles/Vol] 137 mmol/L Normal 136 - 145 [facility] Comment on above: Performed By: #### 2 67441 #### [facility],[address] [place] [address] 75280 Urea nitrogen [Mass/Vol] 9 mg/dL Normal 7 - 18 [facility] Comment on above: Performed By: #### 2 25634 #### [facility],[address] [place] [address] 03629 LIPID PROFILEon 07-26-2024 Cholesterol [Mass/Vol] 191 mg/dL Normal 0 - 240 [facility] Comment on above: Performed By: #### 2 07347 #### [facility],[address] [place] [address] 37994 Cholesterol in HDL [Mass/Vol] 48 mg/dL Normal 40 - 60 [facility] Comment on above: Performed By: #### 2 67423 #### [facility],[address] [place] [address] 60071 Cholesterol in LDL [Mass/Vol] 119 mg/dL Normal 0 - 129 [facility] Comment on above: Performed By: #### 2 07909 #### [facility],[address] [place] [address] 23839 Cholesterol.total/Choles terol in HDL [Mass ratio] 4.0 {ratio} Normal 0.0 - 5.0 [facility] Comment on above: Performed By: #### 2 89169 #### [facility],[address] [place] [address] 73860 Lipid 1996 panel Normal [facility] Comment on above: Result Comment: LIPI D PROFILE Performed By: #### 2 76124 #### [facility],[address] [place] [address] 46762 Triglyceride [Mass/Vol] 119 mg/dL Normal 0 - 150 [facility] Comment on above: Performed By: #### 2 18612 #### [facility],[address] [place] [address] 10328 C. trachomatis+N. gonorrhoea e DNA CONSUELO+probe Ql (Unsp spec)on 06-06-2024 C. trachomatis rRNA CONSUELO+probe Ql (Unsp spec) Negative Normal Negative for Chlamydia trachomatis by amplificaton [facility] Comment on above: Order Comment: Speci men Type: SWABOrdering Facility: [facility] Address: [address] [place] [address] Performed By: #### T RVAMP, 92955-0 ####[facility] LABCLIA [id number] [place] [address] [place] N. gonorrhoeae rRNA CONSUELO+probe Ql (Unsp spec) Negative Normal Negative for Neisseria gonorrhoeae by amplification [facility] Comment on above: Order Comment: Speci men Type: SWABOrdering Facility: [facility] Address: [address] [place] [address] Performed By: #### T RVAMP, 08932-5 ####[facility] LABKARL [id number] [place] [id number] [place] CNOVon 06-06-2024 CNOV Office Visit (OBGYWM) IRLANDA TUCKER ([id number]) 1985 F Date Time Provider Department 06/06/24 7:45 AM KALEB CERNA OBGYWM During your visit today, we recorded the following information about you: Blood pressure Weight Height Last Period 118/78 126.1 kg 1.702 m 05/22/24 Kaleb Cerna APRN.FLAT GRINDER OPERATOR 06/06/2024 8:12 AM Signed Hoop Punch And Coiler Operator offered: Patient declinesEdgar Fournier is a 39 year old who presents for an annual gynecologic exam without complaints. Recently had a rash to left groin that she took Valtrex ofr and used clobetasol cream. It has resolved. Was itchy, not painful. Menses: cycles every 30 days and 5-7 days of flow. Contraception: tubal sterilization HPV vaccine: No Last Pap: 10/25/2019 normal HPV: 10/27/2019 negative History of abnormal pap: Yes, thinks around [phone] Last mammogram: Has had mastitis - was hospitalized Sexually active: Sometimes History of STDS: Yes, but unknown , possible HSV? Patient concerns for STD exposure: No. Pain with intercourse: No Postcoital bleeding: No Exercise: daily, running OB History T3 L3 SAB1 IAB0 Ectopic0 Multiple0 Live Births3 Comment: C/s for NRFHTs- 10 pounds 9 ounces, planned repeat 06/12/13 op report reviewed, LTCS, small adhesions Office Assistance History LMP: 05/22/2024, Having periods Age at Menarche: Age at First : Age at Menopause: Office Assistance History Comments: Sexual Activity: Yes; Male Contraception: Tubal Ligation PAST MEDICAL HISTORY No date: GERD (gastroesophageal reflux disease) No date: High cholesterol Comment: Diet Controlled No date: MigrainesPAST SURGICAL HISTORY No date: DELIVERY ONLY Comment: , low transverse No date: DELIVERY ONLY Comment: , low transverse 04/15/16: DELIVERY ONLY Comment: , low transverse 04/15/16: LIG/TRNSXJ FLP TUBE ABDL/VAG APPR UNI/BI Comment: Tubal ligation No date: TONSILLECTOMY AND ADENOIDECTOMY Comment: Adenoids Removed Twice No date: TYMPANIC MEMB RPR W/WO PREPJ PERFOR PATCH Comment: Tympanoplasty FAMILY HISTORY Problem Relation Age of Onset Lipids Mother other (Lung Issues) Mother other (Migraine) Mother Lipids Maternal Grandmother Cancer Maternal Grandmother Lipids Maternal Grandfather Heart Maternal Grandfather Coronary Artery Disease Maternal Grandfather 4 By-pass Surgeries Diabetes Maternal Grandfather Type 2 Lipids Daughter High Cholesterol SOCIAL HISTORY Social History Tobacco Use Smoking status: Former Smokeless tobacco: Never Vaping Use Vaping status: Never Used Substance Use Topics Alcohol use: No Drug use: Never REVIEW OF SYSTEMS Abdomen: No abdominal pain, nausea, vomiting, diarrhea, or constipation. No bloating, early satiety, indigestion, or increased flatulence. + hemorrhoids Bladder: No dysuria, gross hematuria, urinary frequency, urinary urgency, or incontinence. Breast: No breast lumps, nipple d/c, overlying skin changes, redness or skin retraction. Allergies and current medication updated:Yes EXAM: BP 118/78 Ht 5' 7 (1.70m) Wt 278 lb (126.1kg) LMP 05/22/2024 BMI 43.53 kg/(m2). GENERAL: pleasant, female in no apparent distress HEENT: Normocephalic, atraumatic, mucus membranes moist, and no lesions NECK: Supple, full range of motion, no adenopathy, and thyroid normal DERMATOLOGY: Normal, without lesions, non-icteric, and non-hirsute + resolving rash to left groin BREAST: soft, non-tender, symmetric, no dominant mass, normal nipple-areolar complex, no lymphadenopathy, and no nipple discharge CHEST: Normal inspiratory effort ABDOMEN: soft, non-tender, and no masses PELVIC: external genitalia normal, normal Bartholin's glands, urethra, Rushmore's glands, no vulvar lesions, no cervical lesions, good vaginal support, physiologic discharge present, normal appearing perineal body and perianal region BIMANUAL: uterus normal size, shape and consistency, no adnexal masses, and non-tender, limited due to habitus RECTOVAGINAL: deferred. NEURO: alert and oriented x3,exam grossly non-focal EXTREMITIES: normal ASSESSMENT/PLAN: 1) Health maintenance: Pap done with HPV. Nutrition, exercise and routine health maintenance exams reviewed. HPV vaccine: interested, literature given 2) Contraception: tubal sterilization. 3) STD screening: Accepted STD check for Gonorrhea and Chlamydia. 4) Follow up one year or sooner as needed RTO if rash occurs again and annually or sooner as needed. LUCIANO Abbott Emily, APRN.CNP 06/06/2024 7:55 AM Signed A 3-dose schedule is recommended for people who get the first dose on or after their 15th birthday, and for people with certain immunocompromising conditions. In a 3-dose series, the second dose should be given 1-2 months after the first dose, and the third dose should b (more content not included)... Normal [facility] HBV surface Ag Ser Qlon 05-17 HBV surface Ag Ql (S) Negative Normal Negative [facility] Comment on above: Order Comment: Speci men Type: BLOOD SPECIMENOrdering Facility: [facility] Address: [address] [place] [address] Performed By: #### 3 1201-7, 56090-6, 5195-3 ####[facility] LABCLIA [id number] [place] [address] [place] HCV Ab Ser Qlon 06-06-2024 HCV Ab Ql (S) Negative Normal Negative [facility] Comment on above: Order Comment: Speci men Type: BLOOD SPECIMENOrdering Facility: [facility] Address: [address] [place] [address] Result Comment: The result suggests no evidence of active infection with Hepatitis C virus. Should recent infection be suspected, repeat testing may be considered 4-6 weeks after this draw. Performed By: #### 1 6128-1 ####[facility] LABIA [id number] [place] [address] [place] HIGH RISK HUMAN PAPILLOMA SANTIAGO (HPV), PCR FOR DETECTION AND GENOTYPINGon 06-06-2024 HPV 16 Ag Ql (Unsp spec) Not detected Normal Not detec dinesh [facility] Comment on above: Order Comment: Speci men Type: FLUID SPECIMENOrdering Facility: [facility] Address: [address] [place] [address] Performed By: #### L [id number], HPVHRT ####[facility] [id number] [place] [address] [place] HPV 18 Ag Ql (Unsp spec) Not detected Normal Not detec dinesh [facility] Comment on above: Order Comment: Speci men Type: FLUID SPECIMENOrdering Facility: [facility] Address: [address] [place] [address] Performed By: #### L [id number], HPVHRT ####[facility] [id number] [place] [address] [place] HPV 31+33+35+39+45+51+52+56+ 58+59+66+68 DNA CONSUELO+probe Ql (Cvx) Not detected Normal Not detected [facility] Comment on above: Order Comment: Speci men Type: FLUID SPECIMENOrdering Facility: [facility] Address: [address] [place] [address] Result Comment: High Risk HPV Other Type includes HPV types 31, 33, 35, 39, 45, 51, 52, 56, 58, 59, 66 and 68. Performed By: #### L [id number], HPVHRT ####[facility] [id number] [place] [address] [place] HIV 1+2 Ab IA Qlon 4 HIV 1 and 2 Ab IA.rapid Nom (S/P/Bld) Normal [facility] Comment on above: Order Comment: Speci men Type: BLOOD SPECIMENOrdering Facility: [facility] Address: [address] [place] [address] Result Comment: Test not indicated. Performed By: #### 3 1201-7, 28126-1, 5195-3 ####[facility] LABCLIA [id number] [place] [address] [place] HIV 1+2 Ab+HIV1 p24 Ag IA Ql Non-Reactive Normal Nonreactive [facility] Comment on above: Order Comment: Speci men Type: BLOOD SPECIMENOrdering Facility: [facility] Address: [address] [place] [address] Performed By: #### 3 1201-7, 74195-5, 5195-3 ####[facility] LABIA [id number] [place] [address] [place] HIV immunoassay testing algorithm interpretation (S/P/Bld) [Interp] Normal [facility] Comment on above: Order Comment: Speci men Type: BLOOD SPECIMENOrdering Facility: [facility] Address: [address] [place] [address] Result Comment: No e vidence of HIV-1 or HIV-2 infection. Should recent infection be suspected, repeat testing may be considered 2-3 weeks after this draw. [place] Rev. Code 3701.243(E): This information has been disclosed to you from confidential records protected from disclosure by state law. ???You shall make no further disclosure of this information without the specific, written, and informed release of the individual to whom it pertains or as otherwise permitted by state law. A general authorization for the release of medical or other information is not sufficient for the purpose of the release of HIV test results or diagnoses. Performed By: #### 3 1201-7, 77808-2, 5195-3 ####[facility] LABIA [id number] [place] [address] [place] PAP TESTon 06-06-2024 ADEQUACY Normal [facility] Comment on above: Order Comment: Speci men Type: FLUID SPECIMENOrdering Facility: [facility] Address: [address] [place] [address] Result Comment: Sati sfactory for interpretation. No endocervical component Performed By: #### L [id number], HPVHRT ####[facility] LABCLIA [id number] [place] [address] [place] CASE REPORT Normal [facility] Comment on above: Order Comment: Speci men Type: FLUID SPECIMENOrdering Facility: [facility] Address: [address] [place] [address] Result Comment: Gyne cologic Cytology Report Case: [id number] Authorizing Provider: Kaleb Cerna APRN.FLAT GRINDER OPERATOR Collected: 06/06/2024 08:16 AM Ordering Location: OB/Gynecology Received: 06/06/2024 12:03 PM First Screen: Clapacs, Viky Specimen: Pap Test, ThinPrep, Cervix Performed By: #### L [id number], HPVHRT ####[facility] LABCLIA [id number] [place] [address] [place] CLINICAL HISTORY, CYTOLOGY, LATHE OPERATOR Routine Exam Normal [facility] Comment on above: Order Comment: Speci men Type: FLUID SPECIMENOrdering Facility: [facility] Address: [address] [place] [address] Performed By: #### L [id number], HPVHRT ####[facility] LABCLIA [id number] [place] [address] [place] CYTOLOGY PAP OTHER INT Predominance of coccobacilli consistent with shift in vaginal laurie Normal [facility] Comment on above: Order Comment: Speci men Type: FLUID SPECIMENOrdering Facility: [facility] Address: [address] [place] [address] Performed By: #### L [id number], HPVHRT ####[facility] LABCLIA [id number] [place] [address] [place] FINAL PERFORMING LAB Normal [facility] Comment on above: Order Comment: Speci men Type: FLUID SPECIMENOrdering Facility: [facility] Address: [address] [place], [place] [id number] Result Comment: Tech nical component, logistics research engineer screening performed at [facility], [address] [place] [address] [place] [address] CLIA# [id number] Diagnostic interpretation performed at [facility], [address] [place] [address] [place] [address] CLIA# [id number] Knitting Machine Operator: Thee Eugene M.D. Performed By: #### L [id number], HPVHRT ####[facility] LABCLIA [id number] [place] [address] [place] HPV REFLEX Yes HPV Normal [facility] Comment on above: Order Comment: Speci men Type: FLUID SPECIMENOrdering Facility: [facility] Address: [address] [place] [address] Performed By: #### L [id number], HPVHRT ####[facility] LABCLIA [id number] [place] [address] [place] INTERPRETATION, CYTOLOGY, LATHE OPERATOR Normal [facility] Comment on above: Order Comment: Speci men Type: FLUID SPECIMENOrdering Facility: [facility] Address: [address] [place] [address] Result Comment: Nega tive for intraepithelial lesion or malignancy. Performed By: #### L [id number], HPVHRT ####[facility] LABCLIA [id number] [address] [address] [place] LMP 05/22/[address] [facility] Comment on above: Order Comment: Speci men Type: FLUID SPECIMENOrdering Facility: [facility] Address: [address] [place] [address] Performed By: #### L [id number], HPVHRT ####[facility] LABCLIA [id number] [place] [id number] [place] PAP DISCLAIMER COMMENT The Pap Smear is a screening test for cervical cancer. False negative results occur with all screening tests, emphasizing the need for rescreening at recommended intervals, and clinical correlation. Normal [facility] Comment on above: Order Comment: Speci men Type: FLUID SPECIMENOrdering Facility: [facility] Address: [address] [place] [address] Performed By: #### L [id number], HPVHRT ####[facility] LABIA [id number] [place] [address] [place] PAP WET SANDER COMMENT This specimen has been analyzed by the ThinPrep Imaging System, an automated imaging and review system, which assists the laboratory in evaluating cells on ThinPrep Pap tests. Following automated imaging, selected arredondo from every slide are reviewed by a logistics research engineer. Normal [facility] Comment on above: Order Comment: Speci men Type: FLUID SPECIMENOrdering Facility: [facility] Address: [address] [place] [address] Performed By: #### L [id number], HPVHRT ####[facility] LABIA [id number] [place] [address] [place] Reagin and Treponema pallidu m IgG and IgM [Interp]on 06-06-2024 T. pallidum IgG+IgM IA Ql (S) Non-Reactive Normal Nonreactive [facility] Comment on above: Order Comment: Speci [facility] Type: BLOOD SPECIMENOrdering Facility: [facility] Address: [address] [place] [address] Performed By: #### 3 1201-7, 11396-9, 5195-3 ####[facility] LABIA [id number] [place] [address] [place] Reagin+T pallidum IgG+IgM Se rPl-Impon 06-06-2024 Reagin and Treponema pallidum IgG and IgM [Interp] Cannot exclude recent Treponemal infection if specimen collected within 7-10 days after appearance of suspect lesions or 2-3 weeks after an exposure. Clinical correlation is required. Normal [facility] Comment on above: Order Comment: Speci men Type: BLOOD SPECIMENOrdering Facility: [facility] Address: [address] [place] [address] Performed By: #### 3 1201-7, 45226-5, 5195-3 ####[facility] LABCLIA [id number] [place] [address] [place] TRICHOMONAS VAGINALIS NAATon 06-06-2024 T. vaginalis DNA CONSUELO+probe Ql (Unsp spec) Negative Normal Negative for Trichomonas vaginalis by amplification [facility] Comment on above: Order Comment: Speci men Type: SWABOrdering Facility: [facility] Address: [address] [place] [address] Performed By: #### T RVAMP, 06427-1 ####[facility] LABCLIA [id number] [place] [address] [place] COTY BY IFA SCREEN [CCL]on Nuclear Ab IF (S) [Titer] Negative Normal Negative [facility] Comment on above: Result Comment: Anti -nuclear antibody test is used as an aid in diagnosis of systemic autoimmune diseases. Where positive and clinically warranted, follow-up using disease-specific testing is recommended. Low positive titers are not uncommon with advanced age, certain chronic infections, and malignancies among others. Test methodology: Indirect fluorescence immunoassay (IFA) using HEp-2 cells. [facility] [employer] [address] [place] [address] Thee Eugene III, M.D. [id number] Performed By: #### 2 84498 #### [facility],[address] [place] [address] RHEUMATOID FACTOR [CCL]on Rheumatoid Factor <10 Normal <16 [facility] Comment on above: Result Comment: [facility] [employer] [address] [place] [address] Thee Eugene III, M.D. [id number] Performed By: #### 2 97941 #### [facility],[address] [place] [address]10 T4-FREE (FREE THYROXINE)on 0 11-03-2023 Free T4 [Mass/Vol] 0.90 ng/dL Normal 0.76 - 1.46 [facility] Comment on above: Result Comment: P otential of falsely elevated results when biotin concentrations are > 10 ng/mL. Performed By: #### 2 62506 #### [facility],[address] [place] [address]109 TSHon 11-03-2023 TSH Qn 2.25 m[IU]/L Normal 0.35 - 3.74 [facility] Comment on above: Performed By: #### 2 84859 #### [facility],[address] [place] [address] 48747 CBC + DIFFon 08-04-2023 Baso # 0.10 x10EE3/UL Normal 0.00 - 0.10 [facility] Comment on above: Performed By: #### 2 92411 #### [facility],[address] [place] [address] 14024 Basophils/100 WBC (Bld) 1.1 % Normal 0.0 - 2.0 [facility] Comment on above: Performed By: #### 2 40244 #### [facility],[address] [place] [address] 19185 CBC + DIFF Normal [facility] Comment on above: Result Comment: CBC- COMPLETE BLOOD COUNT Performed By: #### 2 20860 #### [facility],[address] [place] [address] 54026 EO # 0.30 x10EE3/UL Normal 0.00 - 0.50 [facility] Comment on above: Performed By: #### 2 55836 #### [facility],[address] [place] [address] 41693 Eosinophils/100 WBC (Bld) 4.1 % Normal 0.0 - 7.0 [facility] Comment on above: Performed By: #### 2 01004 #### [facility],[address] [place] [address] Erythrocyte distribution width (RBC) [Ratio] 13.8 % Normal 12.0 - 15.6 [facility] Comment on above: Performed By: #### 2 67757 #### [facility],[address] [place] [address] Hematocrit (Bld) [Volume fraction] 41.1 % Normal 34.0 - 46.0 [facility] Comment on above: Performed By: #### 2 81409 #### [facility],[address] [place] [address] Hemoglobin (Bld) [Mass/Vol] 13.3 g/dL Normal 12.0 - 16.0 [facility] Comment on above: Performed By: #### 2 77265 #### [facility],[address] [place] [address] Lymph # 2.10 x10EE3/UL Normal 0.80 - 2.80 [facility] Comment on above: Performed By: #### 2 53290 #### [facility],[address] [place] [address] Lymphocytes/100 WBC (Bld) 29.8 % Normal 20.0 - 45.0 [facility] Comment on above: Performed By: #### 2 73432 #### [facility],[address] [place], [place] [id number] MANUAL DIFF N/A Normal [facility] Comment on above: Performed By: #### 2 20491 #### [facility],[address] [place], [place] [phone] MCH (RBC) [Entitic mass] 28 pg Normal 27 - 33 [facility] Comment on above: Performed By: #### 2 98066 #### [facility],[address] [place] [address] MCHC 32 X10 3 Normal 32 - 36 [facility] Comment on above: Performed By: #### 2 82628 #### [facility],[address] [place], [place] [phone] MCV (RBC) [Entitic vol] 87 fL Normal 80 - 99 [facility] Comment on above: Performed By: #### 2 80260 #### [facility],[address] [place] [address] Throckmorton # 0.50 x10EE3/UL Normal 0.20 - 1.00 [facility] Comment on above: Performed By: #### 2 78018 #### [facility],[address] [place] [address] MONOS % 6.4 % Normal 0.0 - 10.0 [facility] Comment on above: Performed By: #### 2 45345 #### [place] [address] Morphology Bryan (Bld) [Interp] N/A Normal [facility] Comment on above: Result Comment: {CD] Performed By: #### 2 21729 #### [place] [address] Neut # 4.20 x10EE3/UL Normal 1.50 - 7.10 [facility] Comment on above: Performed By: #### 2 29443 #### [place] [address] Neutrophils/100 WBC (Bld) 58.6 % Normal 46.0 - 76.0 [facility] Comment on above: Performed By: #### 2 12363 #### [place] [id number] PLATELET 263 x10EE3/UL Normal 150 - 450 [facility] Comment on above: Performed By: #### 2 58963 #### [place] [address] Platelet mean volume (Bld) [Entitic vol] 9.8 fL Normal 6.6 - 10.5 [facility] Comment on above: Result Comment: AUTO MATED DIFFERENTIAL Performed By: #### 2 24728 #### [facility],[address] [place] [address]6863 RBC 4.75 x 10EE6/UL Normal 4.10 - 5.30 [facility] Comment on above: Performed By: #### 2 75119 #### [facility],[address] [place] [address]32 WBC 7.2 x 10EE3/UL Normal 4.5 - 10.8 [facility] Comment on above: Performed By: #### 2 29887 #### [facility],[address] [place] [address]15 CMP with eGFRon 08-04-2023 AGE 38 years Normal [facility] Comment on above: Performed By: #### 2 17075 #### [facility],[address] [place] [address] 79465 Albumin [Mass/Vol] 3.7 g/dL Normal 3.4 - 5.0 [facility] Comment on above: Performed By: #### 2 24324 #### [facility],[address] [place] [address] 87959 Albumin/Globulin [Mass ratio] 1.1 {ratio} Normal 0.9 - 1.6 [facility] Comment on above: Performed By: #### 2 73514 #### [facility],[address] [place] [address] 33630 ALK PHOS 48 U/L Normal 46 - 116 [facility] Comment on above: Performed By: #### 2 05917 #### [facility],[address] [place] [address] 01141 ALT [Catalytic activity/Vol] 30 U/L Normal 14 - 59 [facility] Comment on above: Performed By: #### 2 30485 #### [facility],[address] [place] [address] 07867 Anion gap [Moles/Vol] 11 mmol/L Normal 10 - 20 [facility] Comment on above: Performed By: #### 2 77943 #### [facility],[address] [place] [address] 83721 AST [Catalytic activity/Vol] 14 U/L Normal 13 - 39 [facility] Comment on above: Performed By: #### 2 90360 #### [facility],[address] [place] [address] 98002 B/C RATIO 11 ratio Normal 0 - 30 [facility] Comment on above: Performed By: #### 2 96065 #### [facility],[address] [place] [address] 14296 Bilirubin [Mass/Vol] 0.4 mg/dL Normal 0.2 - 1.0 [facility] Comment on above: Performed By: #### 2 18087 #### [facility],[address] [place] [address] 31100 Calcium [Mass/Vol] 8.7 mg/dL Normal 8.5 - 10.1 [facility] Comment on above: Performed By: #### 2 48766 #### [facility],[address] [place] [address]389 Chloride [Moles/Vol] 105 mmol/L Normal 98 - 107 [facility] Comment on above: Performed By: #### 2 08042 #### [facility],[address] [place] [address]1981 CMP with eGFR Normal [facility] Comment on above: Result Comment: COMP REHENSIVE METABOLIC PANEL Performed By: #### 2 70943 #### [facility],[address] [place] [address] 07509 CO2 [Moles/Vol] 29.1 mmol/L Normal 21.0 - 32.0 [facility] Comment on above: Performed By: #### 2 61888 #### [facility],[address] [place] [address] 21548 Creatinine [Mass/Vol] 0.90 mg/dL Normal 0.55 - 1.02 [facility] Comment on above: Performed By: #### 2 03115 #### [facility],[address] [place] [address] 41511 GFR/1.73 sq M.predicted among non-blacks MDRD (S/P/Bld) [Vol rate/Area] mL/min/{1.73_m2} Normal 60 - 999 [facility] Comment on above: Performed By: #### 2 69568 #### [facility],[address] [place], [place] [address] Result Comment: ACCO RDING TO THE NATIONAL KIDNEY DISEASE EDUCATION PROGRAM(NKDE), A NORMAL eGFR IS A VALUE GREATER THAN OR EQUAL TO 60 ML/MIN/1.73 SQ METERS. CHRONIC KIDNEY DISEASE: <60mL/MIN/1.73 SQ METERS KIDNEY FAILURE: <15mL/MIN/1.73 SQ METERS THIS TEST SHOULD ONLY BE USED FOR PATIENTS 18 YEARS OF AGE AND OLDER. Globulin (S) [Mass/Vol] 3.5 g/dL Normal 1.5 - 3.8 [facility] Comment on above: Performed By: #### 2 96622 #### [facility],[address] [place] [address] 24631 Glucose [Mass/Vol] 89 mg/dL Normal 74 - 106 [facility] Comment on above: Performed By: #### 2 00596 #### [facility],[address] [place] [address] 74031 Potassium [Moles/Vol] 4.6 mmol/L Normal 3.5 - 5.1 [facility] Comment on above: Performed By: #### 2 50183 #### [facility],[address] [place] [address] 30318 Protein [Mass/Vol] 7.2 g/dL Normal 6.4 - 8.2 [facility] Comment on above: Performed By: #### 2 04261 #### [facility],[address] [place] [address] 59432 Sodium [Moles/Vol] 140 mmol/L Normal 136 - 145 [facility] Comment on above: Performed By: #### 2 41318 #### [facility],[address] [place] [address] 85227 Urea nitrogen [Mass/Vol] 10 mg/dL Normal 7 - 18 [facility] Comment on above: Performed By: #### 2 45581 #### [facility],[address] [place] [address] 99355 LIPID PROFILEon 08-04-2023 Cholesterol [Mass/Vol] 176 mg/dL Normal 0 - 240 [facility] Comment on above: Performed By: #### 2 61061 #### [facility],[address] [place] [address] 98569 Cholesterol in HDL [Mass/Vol] 51 mg/dL Normal 40 - 60 [facility] Comment on above: Performed By: #### 2 70673 #### [facility],[address] [place] [address] 05917 Cholesterol in LDL [Mass/Vol] 104 mg/dL Normal 0 - 129 [facility] Comment on above: Performed By: #### 2 72008 #### [facility],[address] [place] [address] 41403 Cholesterol.total/Choles terol in HDL [Mass ratio] 3.5 {ratio} Normal 0.0 - 5.0 [facility] Comment on above: Performed By: #### 2 41577 #### [facility],[address] [place] [address] 20620 Lipid 1996 panel Normal [facility] Comment on above: Result Comment: LIPI D PROFILE Performed By: #### 2 18878 #### [facility],[address] [place] [address] 92697 Triglyceride [Mass/Vol] 104 mg/dL Normal 0 - 150 [facility] Comment on above: Performed By: #### 2 43336 #### [facility],[address] [place] [address] Absolute lymphocyte countOrd ered By: Sharath Gonzalez on 03-22-2023 Lymphocytes Auto (Unsp spec) [#/Vol] 2.37 10*3/uL 0.83-4.[address] [facility] Albumin Elph [Mass/Vol]Order ed By: Sharath Gonzalez on 03-22-2023 Albumin [Mass/Vol] 4.1 g/dL 2.9-4.4 [facility] Atypical perinuclear antineu trophil cytoplasmic antibodies measurementOrdered By: Sharath Gonzalez on 03-22-2023 Neutrophil cytoplasmic Ab.perinuclear.atypical IF (S) [Titer] <1:20 titer Neg:<1:[address] [facility] Comment on above: The atypical pANCA p attern has been observed in asignificant percentage of patients with ulcerative colitis,primary sclerosing cholangitis and autoimmune hepatitis. Basophil percentageOrdered B y: Sharath Gonzalez on 03-22-2023 Basophil percentage < 0.2 AI 0.0-0.9 [facility] Basophils/100 WBC (Bld) 0.6 % 0-1 [facility] Bilirubin [Mass/Vol] 0.30 mg/dL 0.20-1.00 [facility] Comment on above: For patients on eltr ombopag therapy, use of Dimension [place] TBIL is not recommended. Chloride [Moles/Vol] 105 mmol/L 98-107 [facility] Eosinophils/100 WBC (Bld) 2.5 % 0-[address] [facility] Glucose [Mass/Vol] 95 mg/dL 74-106 [facility] LDH [Catalytic activity/Vol] 151 U/L 84-[address] [facility] Neutrophils (Bld) [#/Vol] 5.4 10*3/uL 2.0-7.[address] [facility] Neutrophils/100 WBC (Bld) 63.1 % 47-[address] [facility] Potassium [Moles/Vol] 4.1 mmol/L 3.5-5.1 [facility] Protein [Mass/Vol] 8.1 g/dL 6.4-8.2 [facility] Sodium [Moles/Vol] 137 mmol/L 136-145 [facility] WBC (Bld) [#/Vol] 8.5 10*3/uL 4.4-11.0 [facility] Blood erythrocytes count (nu mber/volume)Ordered By: Sharath Gonzalez on 03-22-2023 RBC (Bld) [#/Vol] 5.00 10*6/uL 4.2-5.4 [facility] Blood hemoglobin measurement (mass/volume)Ordered By: Sharath Gonzalez on 03-22-2023 Hemoglobin (Bld) [Mass/Vol] 14.4 g/dL 12.0-15.[address] [facility] Blood lymphocytes/100 leukoc ytesOrdered By: Sharath Gonzalez on 03-22-2023 Lymphocytes/100 WBC (Bld) 27.8 % 19-[address] [facility] Blood monocytes/100 leukocyt esOrdered By: Sharath Gonzalez on 03-22-2023 Monocytes/100 WBC (Bld) 5.6 % 0-10 [facility] Blood platelet mean volumeOr dered By: Sharath Gonzalez on 03-22-2023 Platelet mean volume (Bld) [Entitic vol] 10.9 fL 6.2-12.[address] [facility] Chocolate RASTOrdered By: Ra meron Gonzalez on 03-22-2023 Chocolate IgE Qn (S) <0.10 kU/L Class 0 [facility] Comment on above: Performed at: [address] [id number] Director: Nikita Lemus PhD, Phone: [phone] at: - [facility] [id number] Director: Darian Fields MD, Phone: [phone] Determination of erythrocyte mean corpuscular volume (MCV)Ordered By: Sharath Gonzalez on 03-22-2023 MCV (RBC) [Entitic vol] 89.4 fL 81-99 [facility] Erythrocyte sedimentation ra teOrdered By: Sharath Gonzalez on 03-22-2023 ESR (Bld) [Velocity] 4 mm/h 0-30 [facility] Hematocrit Auto (Bld) [Volum e fraction]Ordered By: Sharath Gonzalez on 03-22-2023 Hematocrit (Bld) [Volume fraction] 44.7 % 37-[address] [facility] Interpretation of serum or p lasma protein pattern by immunofixation (narrative resultOrdered By: Sharath Gonzalez on 03-22-2023 Protein Fractions Immunofixation Bryan [Interp] See comment [facility] Comment on above: NOT OBSERVED Laboratory - Chemistry and C hemistry - challengeOrdered By: Sharath Gonzalez on 03-22-2023 ALP [Catalytic activity/Vol] 62 U/L 45-[address] [facility] ALT [Catalytic activity/Vol] 47 U/L 13-[address] [facility] CO2 [Moles/Vol] 31.0 mmol/L 21.0-32.[address] [facility] Urea nitrogen/Creatinine [Mass ratio] 11.5 mg/mg 10-[address] [facility] Laboratory - Hematology and Cell countsOrdered By: Sharath Gonzalez on 03-22-2023 Erythrocyte distribution width (RBC) [Entitic vol] 41.8 fL 35.1-43.[address] [facility] Erythrocyte distribution width (RBC) [Ratio] 12.9 % 11.6-14.[address] [facility] Immature granulocytes/100 WBC (Bld) 0.400 % 0.0-0.[address] [facility] Comment on above: IG% - Immature Granu locytes (promyelocytes, myelocytes and metamyelocytes) > 1% indicates that a LEFT SHIFT is Present. MCH (RBC) [Entitic mass] 28.8 pg 27.0-32.[address] [facility] Nucleated RBC/100 WBC (Bld) [Ratio] 0 % 0-[address] [facility] Laboratory - Miscellaneous t estsOrdered By: Sharath Gonzalez on 03-22-2023 Service comment (Unsp spec) [Interp] Comment . [facility] Comment on above: Levels of Specific I gE Class Description of Class ----- < 0.10 0 Negative 0.10 - 0.31 0/I Equivocal/Low 0.32 - 0.55 I Low 0.56 - 1.40 II Moderate 1.41 - 3.90 III High 3.91 - 19.00 IV Very High 19.01 - 100.00 V Very High >100.00 Very High MCHC Auto (RBC) [Mass/Vol]Or dered By: Sharath Gonzalez on 03-22-2023 MCHC (RBC) [Mass/Vol] 32.2 g/dL 32-36 [facility] No Panel InformationOrdered By: Sharath Gonzalez on 03-22-2023 Addendum Document Comment . [facility] Comment on above: Protein electrophore sis scan will follow via computer,mail, or door opener delivery. Centromere B Antibody <0.2 AI 0.0-0.9 [facility] Endomysial IgA Antibody Negative Negative [facility] Estimated GFR (MDRD) Amer 94 mL/min >[address] [facility] Comment on above: GFR Calc Estimated GFR (MDRD) Non-Af Amer 78 mL/min >[address] [facility] Comment on above: Non- GFR Calc Immunoglobulin E 9 IU/mL 6-[address] [facility] Comment on above: Performed at: [address] [id number] Director: Nikita Lemus PhD, Phone: [phone] at: [facility] Lab[address] [id number] Director: Darian Fields MD, Phone: [phone] TIER IN Antibody <0.2 AI 0.0-0.[address] [facility] Scallop Allergen <0.10 kU/L Class [address] [facility] Seafood Group Allergens (RAST) Negative . [facility] Comment on above: Allergens in this mi x are: Blue mussel Fish Sciota Shrimp Tuna Sesame Seed Allergen IgE Antibody <0.10 kU/L Class [address] [facility] Shrimp Allergen <0.10 kU/L Class [address] [facility] Thyroid Stimulating Hormone (TSH) 2.92 uIU/mL 0.358-3.[address] [facility] Platelets bldOrdered By: Jeanmarie Gonzalez on 03-22-2023 Platelets (Bld) [#/Vol] 319 10*3/uL 150-[address] [facility] Serum DNA double strand anti body assay (units/volume)Ordered By: Sharath Gonzalez on 03-22-2023 DNA double strand Ab Qn (S) 2 [IU]/mL 0-[address] [facility] Comment on above: Negative <5 Equivoca l 5 - 9 Positive >9 Serum Anabella-1 antibody assay (u nits/volume)Ordered By: Sharath Gonzalez on 03-22-2023 Anabella-1 extractable nuclear Ab Qn (S) <0.2 AI 0.0-0.[address] [facility] Serum Scl-70 extractable nuc lear antibody assay (units/volume)Ordered By: Sharath Gonzalez on 03-22-2023 SCL-70 extractable nuclear Ab Qn (S) <0.2 AI 0.0-0.[address] [facility] Serum Colon extractable nucl ear antibody detectionOrdered By: Sharath Gonzalez on 03-22-2023 Colon extractable nuclear Ab Ql (S) <0.2 AI 0.0-0.[address] [facility] Serum lehec-1-nygdcblv measu rement by electrophoresisOrdered By: Sharath Gonzalez on 03-22-2023 Alpha 1 globulin Elph [Mass/Vol] 0.2 g/dL 0.0-0.[address] [facility] Alpha 1 globulin Elph [Mass/Vol] 0.7 g/dL 0.4-1.[address] [facility] Serum beef IgE antibody assa y (units/volume)Ordered By: Sharath Gonzalez on 03-22-2023 Beef IgE Qn (S) <0.10 kU/L Class [address] [facility] Serum black walnut IgE antib keith assay (units/volume)Ordered By: Sharath Gonzalez on 03-22-2023 Black Magna IgE Qn (S) <0.10 kU/L Class 0 [facility] Serum clam IgE antibody assa y (units/volume)Ordered By: Sharath Gonzalez on 03-22-2023 Clam IgE Qn (S) <0.10 kU/L Class [address] [facility] Serum classic neutrophil cyt oplasmic antibody assay (units/volume)Ordered By: Sharath Gonzalez on 03-22-2023 Neutrophil cytoplasmic Ab.classic Qn (S) <1:20 titer Neg:<1:[address] [facility] Serum codfish IgE antibody a ssay (units/volume)Ordered By: Sharath Gonzalez on 03-22-2023 Codfish IgE Qn (S) <0.10 kU/L Class 0 [facility] Serum corn IgE antibody assa y (units/volume)Ordered By: Sharath Gonzalez on 03-22-2023 Glenvil IgE Qn (S) <0.10 kU/L Class [address] [facility] Serum cow milk IgE antibody assay (units/volume)Ordered By: Sharath Gonzalez on 03-22-2023 Cow milk IgE Qn (S) <0.10 kU/L Class 0 [facility] Serum egg white IgE antibody assay (units/volume)Ordered By: Sharath Gonzalez on 03-22-2023 Egg white IgE Qn (S) <0.10 kU/L Class 0 [facility] Serum globulin measurement ( mass/volume)Ordered By: Sharath Gonzalez on 03-22-2023 Globulin (S) [Mass/Vol] 3.4 g/dL 2.2-3.9 [facility] Serum or plasma C reactive p rotein measurement (mass/volume)Ordered By: Sharath Gonzalez on 03-22-2023 CRP [Mass/Vol] mg/L 0.0-3.[address] [facility] Comment on above: C-Reactive Protein ( CRP) provides useful information for thediagnosis, therapy and monitoring of inflammatory processesand associated diseases. For the evaluation of Relative Riskfor Cardiovascular Disease, a High Sensitivity CRP (HSCRP)should be ordered. Serum or plasma IgA measurem ent (mass/volume)Ordered By: Sharath Gonzalez on 03-22-2023 IgA [Mass/Vol] 244 mg/dL 87-[address] [facility] Serum or plasma IgG measurem ent (mass/volume)Ordered By: Sharath Gonzaelz on 03-22-2023 IgG [Mass/Vol] 1259 mg/dL [phone] [facility] Serum or plasma IgM measurem ent (mass/volume)Ordered By: Sharath Gonzalez on 03-22-2023 IgM [Mass/Vol] 75 mg/dL 26-[address] [facility] Serum or plasma albumin naye urement (mass/volume)Ordered By: Sharath Gonzalez on 03-22-2023 Albumin [Mass/Vol] 4.0 g/dL 3.2-5.0 [facility] Serum or plasma albumin/glob ulin mass ratioOrdered By: Sharath Gonzalez on 03-22-2023 Albumin/Globulin [Mass ratio] 1.0 {ratio} 0.9-2.[address] [facility] Serum or plasma angiotensin converting enzyme measurement (enzymatic activity/volume)Ordered By: Sharath Gonzalez on 03-22-2023 Angiotensin converting enzyme [Catalytic activity/Vol] 44 U/L 14-[address] [facility] Serum or plasma beta globuli n measurement by electrophoresis (mass/volume)Ordered By: Sharath Gonzalez on 03-22-2023 Beta globulin Elph [Mass/Vol] 1.2 g/dL 0.7-1.[address] [facility] Serum or plasma calcium naye urement (mass/volume)Ordered By: Sharath Gonzalez on 03-22-2023 Calcium [Mass/Vol] 9.7 mg/dL 8.5-10.1 [facility] Serum or plasma creatinine m easurement (mass/volume)Ordered By: Sharath Gonzalez on 03-22-2023 Creatinine [Mass/Vol] 0.87 mg/dL 0.55-1.02 [facility] Comment on above: The validity of the calculated GFR & GFRAA in patients over 70 years has not been determined. Clinical correlation is essential. Serum or plasma gamma globul in measurement by electrophoresis (mass/volume)Ordered By: Sharath Gonzalez on 03-22-2023 Gamma globulin Elph [Mass/Vol] 1.2 g/dL 0.4-1.[address] [facility] Serum or plasma immunoelectr ophoresis interpretation (nominal result)Ordered By: Sharath Gonzalez on 03-22-2023 Interpretation IEP [Interp] Comment . [facility] Comment on above: No monoclonality det ected. Serum or plasma urea nitroge n measurement (mass/volume)Ordered By: Sharath Gonzaelz on 03-22-2023 Urea nitrogen [Mass/Vol] 10 mg/dL 7-[address] [facility] Serum peanut IgE antibody as say (units/volume)Ordered By: Sharath Gonzalez on 03-22-2023 Peanut IgE Qn (S) <0.10 kU/L Class [address] [facility] Serum perinuclear neutrophil cytoplasmic antibody titer by immunofluorescenceOrdered By: Sharath Gonzalez on 03-22-2023 Neutrophil cytoplasmic Ab.perinuclear IF (S) [Titer] <1:20 titer Neg:<1:[address] [facility] Comment on above: The presence of posi tive fluorescence exhibiting P-ANCA orC-ANCA patterns alone is not specific for the diagnosis ofWegener's Granulomatosis (WG) or microscopic polyangiitis.Decisions about treatment should not be based solely onANCA IFA results. The International ANCA Group Consensusrecommends follow up testing of positive sera with both CO-3 and MPO-ANCA enzyme immunoassays. As many as 5% serumsamples are positive only by EIA. Ref. AM J Clin [id number];111:507-513. Serum pork IgE antibody assa y (units/volume)Ordered By: Sharath Gonzalez on 03-22-2023 Pork IgE Qn (S) <0.10 kU/L Class [address] [facility] Serum soybean IgE antibody a ssay (units/volume)Ordered By: Sharath Gonzalez on 03-22-2023 Soybean IgE Qn (S) <0.10 kU/L Class 0 [facility] Serum tissue transglutaminas e IgA antibody assay (units/volume)Ordered By: Sharath Gonzalez on 03-22-2023 tTG IgA Qn (S) <2 U/mL 0-[address] [facility] Comment on above: Negative 0 - 3 Weak Positive 4 - 10 Positive >10 Tissue Transglutaminase (tTG) has been identified as the endomysial antigen. Studies have demonstr- ated that endomysial IgA antibodies have over 99% specificity for gluten sensitive enteropathy. Serum wheat IgE antibody ass ay (units/volume)Ordered By: Sharath Gonzalez on 03-22-2023 Wheat IgE Qn (S) <0.10 kU/L Class [address] [facility] Serum whole egg IgE antibody assay (units/volume)Ordered By: Sharath Gonzalez on 03-22-2023 Whole Egg IgE Qn (S) <0.10 kU/L Class 0 [facility] Thin prep Papanicolaou smear with manual screeningOrdered By: Sharath Gonzalez on 03-22-2023 Thin prep Papanicolaou smear with manual screening 18 U/L 15-[address] [facility] Thin prep Papanicolaou smear with manual screening 1 5-[address] [facility] Thin prep Papanicolaou smear with manual screening 1.3 0.7-1.[address] [facility] Total protein bloodOrdered B y: Sharath Gonzalez on 03-22-2023 Protein [Mass/Vol] 7.5 g/dL 6.0-8.5 [facility] Whole blood hemoglobin A1c/t otal hemoglobin ratio (mass fraction)Ordered By: Sharath Gonzalez on 03-22-2023 HbA1c (Bld) [Mass fraction] 5.1 % 3.8-5.[address] [facility] Comment on above: Normal < 5.7 % Predi abetic 5.7 - 6.4 % Diabetic >or= 6.5 % Please note range changes. Office Assistance Cytology Reporton 2020 Office Assistance Cytology Report . Pathology Reports Accession: Collected Date/Time: Received Date/Time: Pathologist: [id number] 08/20/2021 12:46 EDT 08/20/2021 18:00 EDT Office Assistance Cytology Report SPECIMEN: Specimen Description: Liquid Prep w/ HPV Specimen: Cervical Screening or Diagnostic: Screening RELEVANT HISTORY: LMP: 07-20-21 [id number] SPECIMEN ADEQUACY: SATISFACTORY FOR EVALUATION ENDOCERVICAL/TRANSFO RMATIONAL ZONE COMPONENT PRESENT INTERPRETATION/RESUL TS: NEGATIVE FOR INTRAEPITHELIAL LESION OR MALIGNANCY. ABUNDANT BACTERIA PRESENT. HIGH RISK HPV TESTING: High Risk HPV Typing: Negative HPV Types 16, 18, 31, 33, 35, 39, 45, 51, 52, 56, 58, 59, 66 and 68 DNA were undetectable or below the pre-set threshold. The elder High-Risk HPV DNA Test is not intended for use as a screening device for Pap normal women under age 30 and is not intended to substitute for regular Pap screening. The elder High-Risk HPV DNA Test is designed to augment existing methods for the detection of cervical disease and should be used in conjunction with clinical information derived from other diagnostic and screening tests, physical examinations and full medical history in accordance with appropriate patient management procedures. NOTE: A negative result does not preclude the presence of HPV infection because results depend on adequate specimen collection, absence of inhibitors and sufficient DNA to be detected. COMMENT: This Pap Test was successfully processed and evaluated with the assistance of the [employer] ThinPrep Test Imaging System. Electronically Signed by Pathology report verified by [facility] Screened by: KK Electronically signed by Vera CHAND (ASCP) Sign-Out Date: 08/31/2021 15:22 Performing Lab: [facility], [address] [place] [address] Disclaimer The Pap test is a screening test for cervical cancer. As evidenced by published data, it is subject to both inherent false negative and false positive results. Your patient's results should be interpreted in context with pertinent clinical history including gynecological examination. Normal [facility] [place] HPVon 08-27-2021 HPV Interp Normal See Interp HPVN [facility] [place] Comment on above: Order Comment: Order placed by AP_HPV_ORDER rule from [id number] Result Comment: High Risk HPV Typing: NEGATIVE HPV types 16, 18, 31, 33, 35, 39, 45, 51, 52, 56, 58, 59, 66 and 68 DNA were undetectable or below the pre-set threshold. The elder High-Risk HPV DNA Test is not intended for use as a screening device for Pap normal women under age 30 and is not intended to substitute for regular Pap screening. The elder High-Risk HPV DNA Test is designed to augment existing methods for the detection of cervical disease and should be used in conjunction with clinical information derived from other diagnostic and screening tests, physical examinations and full medical history in accordance with appropriate patient management procedures. NOTE: A negative result does not preclude the presence of HPV infection because results depend on adequate specimen collection, absence of inhibitors and sufficient DNA to be detected. See Interp HPVN Performed By: #### H PV #### [address] [address] HPV Source Cervix Normal [facility] [place] Comment on above: Order Comment: Order placed by AP_HPV_ORDER rule from [id number] Performed By: #### H PV #### [facility] [address] [place], [place] [address] B TestoSHBG,fem,chilon 06-21 Sex Hormon Bind Glb 28 nmol/L Low 30-135 [facility] Reference Lab Comment on above: Performed By: #### H BA1C #### [facility] Routine Lab [address] [place], [place] [address] Testos Bioavail 18.5 ng/dL Normal 4.1-25.5 [facility] Reference Lab Comment on above: Performed By: #### H BA1C #### [facility] Routine Lab [address] [place], [place] [address] Testosterone [Mass/Vol] 36 ng/dL Normal 9-55 C [facility] Reference Lab Comment on above: Performed By: #### H BA1C #### [facility] Routine Lab [address] [place] [phone] Testosterone Free 6.4 pg/mL Normal 1.3-9.2 [facility] Reference Lab Comment on above: Performed By: #### H BA1C #### [facility] Routine Lab [address] [place], [place] [address] Hemoglobin A1con 06-17-2021 Glucose [Mass/Vol] 103 mg/dL Normal [facility] Reference Lab Comment on above: Performed By: #### H BA1C #### [facility] Routine Lab [address] [place], [place] [address] HbA1c (Bld) [Mass fraction] 5.2 % Normal 4.3-5.6 [facility] Reference Lab Comment on above: Performed By: #### H BA1C #### [facility] Routine Lab [address] [place], [place] [id number] HepB SurfaceAb,Quanton 01-21 HepB SurfaceAb,Quant 70.78 mIU/mL High <8.00 [facility] Reference Lab Comment on above: Performed By: #### M EASLG, AHBSQ, MUMPSG, RUBIGG #### [facility] Routine Lab [address] [place], [place] [address] Measles IgG Antibodyon 01-21 Measles IgG Ab, Qual Abnormal Negative [facility] Lab Comment on above: Result Comment: Posi tive Presence of detectable measles virus IgG antibodies. A positive result generally indicates exposure to measles virus or previous vaccination. Performed By: #### M EASLG, AHBSQ, MUMPSG, RUBIGG #### [facility] Routine Lab [address] [place], [place] [address] Measles IgG Antibody Normal [facility] Lab Comment on above: Result Comment: 96.4 AU/mL Negative Specimens <13.5 Equivocal Specimens >=13.5 to <16.5 Positive Specimens >=16.5 The magnitude of the measured result, above the cutoff, is not indicative of the amount of antibody present. Value Negative Specimens <13.5 Equivocal Specimens >=13.5 to <16.5 Positive Specimens >=16.5 The magnitude of the measured result, above the cutoff, is not indicative of the amount of antibody present. interpreted as Negative Specimens <13.5 Equivocal Specimens >=13.5 to <16.5 Positive Specimens >=16.5 The magnitude of the measured result, above the cutoff, is not indicative of the amount of antibody present. follows: Negative Specimens <13.5 Equivocal Specimens >=13.5 to <16.5 Positive Specimens >=16.5 The magnitude of the measured result, above the cutoff, is not indicative of the amount of antibody present. Performed By: #### M EASLG, AHBSQ, MUMPSG, RUBIGG #### [facility] Routine Lab [address] [place], [place] [address] Mumps IgG Abon 01-21-2021 Mumps IgG Ab 63.2 AU/mL Normal [facility] Lab Comment on above: Performed By: #### M EASLG, AHBSQ, MUMPSG, RUBIGG #### [facility] Routine Lab [address] [place], [place] [address] Mumps IgG, Qual Positive Abnormal Negative [facility] Reference Lab Comment on above: Performed By: #### M EASLG, AHBSQ, MUMPSG, RUBIGG #### [facility] Routine Lab [address] [place], [place] [address] Rubella IgG Antibodyon 01-21 Rubella IgG Ab 1.33 Index Value Normal [facility] Reference Lab Comment on above: Performed By: #### M EASLG, AHBSQ, MUMPSG, RUBIGG #### [facility] Routine Lab [address] [place], [place] [address] Rubella IgG Ab, Qual Positive Abnormal Negative [facility] Reference Lab Comment on above: Performed By: #### M EASLG, AHBSQ, MUMPSG, RUBIGG #### [facility] Routine Lab [address] [place], [place] [address] NOVEL CORONAVIRUS (COVID-19) on 04-07-2020 SARS-COV-2 Not Detected Normal Not Detected [facility] Comment on above: Order Comment: This assay was performed by Nucleic Acid Amplification (CONSUELO) on the Aptima??? [place]??? System ([employer] [place], [place]) using Ore Smelter Mediated Amplification (TMA) technology. This test was developed, and its performance characteristics determined by [facility] [employer]. The Aptima??? SARS-CoV-2 assay is for use only under Emergency Use Authorization (EUA) in the [place] laboratories certified under the Clinical Laboratory Improvement Amendments of 1988 (CLIA), 42 U.S.C. ???263a, to perform high complexity tests. Performed By: #### C OVID19 #### [facility] [address] [place], [address] T-SPOT TBon 11-06-2019 T-SPOT LIMITS SEE COMMENT Normal [facility] Comment on above: Order Comment: T-SPO T SENT TO [facility] LAB 11/05/19 0837 PURA TANG Result Comment: MURRAY MORRISON - 1.) A FALSE NEGATIVE result can be caused by incorrect blood sample collection or improper handling of the specimen, affecting lymphocyte function. 2.) The performance of T-SPOT.TB has not been adequately evaluated with specimens from individuals younger than 17 years, in pregnatnt women, and in patients with hemophilia. 3.) A FALSE POSITIVE result was obtained for T-SPOT.TB when tested in subjects with M.xenopi, M.kansasii, and M.gordonae. While ESAT-6 and CFP-10 antigens are absent from BCG strains of M.bovis and from most enviromental mycobacteria, it is possible that a POSITIVE T-SPOT.TB result may be due to infection with M.kansasii, M.szulgai, M.gordonae, or M.marinum. Alternative tests would be required if these infections are suspected. 4.) A NEGATIVE test result does not exclude the possiblility of exposure to, or infection with M.tuberculosis. Patients with recent exposure to TB infected individuals exhibiting a negative T-SPOT.TB should be considered for retesting within 6 weeks or if other relevant clinical symptoms indicate possible infections. 5.) A POSITIVE test result does not rule in active TB disease: other tests should be performed to confirm the diagnosis of active TB disease such as sputum smear and culture, PCR and chest radiography. 6.) T-SPOT.TB test has not been evaluated in subjects who have received >1 month of anti-TB therapy. 7.) Refrigerated and frozen samples are not recommended for use with T-SPOT.TB test. TESTING PERFORMED AT [facility], [address] [place] [address]. Performed By: #### L 700.72323 #### [address] [phone] T-SPOT NOTE SEE COMMENT [facility] Comment on above: Order Comment: T-SPO T SENT TO [facility] LAB 11/05/19 0837 PURA TANG Result Comment: NOTE : Diagnosing or excluding Tuberculosis disease, and assessing the probability of LTBI, requires a combination of epidemiological, historical, medical and diagnostic findings that should be taken into account when interpreting T-SPOT.TB. Refer to the most rescent CDC Guidance (HTTP://WWW.CDC.GOV/NCHSTP/TB) for detailed recommendations about diagnosing TB infections (including disease) and selecting persons for testing. Performed By: #### L 700.99866 #### [facility] [address] [place] [address] T-SPOT RESULT Negative Normal NEGATIVE [facility] Comment on above: Order Comment: T-SPO T SENT TO [facility] LAB 11/05/19 0837 PURA TANG Blanca Performed By: #### L 700.87832 #### [facility] [address] [place] [address] MUMPS IGG ABon 11-05-2019 MUMPS IGG AB 81.3 AU/mL Normal Immune >10.9 [facility] Comment on above: Order Comment: Nilsonu s: NC Result Comment: Nega tive <9.0 Equivocal 9.0 - 10.9 Positive >10.9 A positive result generally indicates past exposure to Mumps virus or previous vaccination. Performed By: #### L 750.02681, L750.58435, L750.47726 #### [facility] [address] [place] [address] RUBEOLA IGG ABon 11-05-2019 RUBEOLA IGG AB 131.0 AU/mL Normal Immune >16.4 [facility] Comment on above: Order Comment: Nilsonu s: NC Result Comment: Nega tive <13.5 Equivocal 13.5 - 16.4 Positive >16.4 Presence of antibodies to Rubeola is presumptive evidence of immunity except when acute infection is suspected. Performed At: [facility] [address] [place], [place] [id number] Mariah Shelton PhD [phone] Performed By: #### L 750.26965, L750.43155, L750.85691 #### [facility] [address] [place] [address] V ZOSTER IGG ABon 11-05-2019 V ZOSTER IGG AB 717 index Normal Immune >165 [facility] Comment on above: Order Comment: Campu s: NC Result Comment: Nega tive <135 Equivocal 135 - 165 Positive >165 A positive result generally indicates exposure to the pathogen or administration of specific immunoglobulins, but it is not indication of active infection or stage of disease. Performed By: #### L 750.24898, L750.41524, L750.14428 #### [address] [address] HEP B AB QUANTon 11-04-2019 HEP B AB QUANT 37.90 mIU/mL High 0.00-9.99 [facility] Comment on above: Order Comment: Johana s: NABIL SPECIMEN SOURCE: BLOOD Result Comment: STAT US OF IMMUNITY Protective Immunity: greater than or equal to 10 mIU/mL (Traceable to WHO International Reference Preparation) No Protective Immuniity: less than 10 mIU/mL Note: The magnitude of the measured result above the cutoff is not indicative of the total amount of antibody present. Performed By: #### L 540.60346 #### LABORATORY [address] [place] [address] RUBELLA IGG ABon 11-04-2019 RUBELLA IGG AB IMMUNE Normal [facility] Comment on above: Order Comment: Johana sparks: NABIL Result Comment: <5 I U/ML- Non-Immune for IgG antibodies to Rubella Virus. >= 5-9.9 IU/ML- Equivocal for IgG antibodies to Rubella Virus. Obtain a new specimen and test using Centaur Rubella IgG assay. >= 10 IU/ML- Immune for IgG antibodies to Rubella Virus. <5 IU/ML- Non-Immune for IgG antibodies to Rubella Virus. >= 5-9.9 IU/ML- Equivocal for IgG antibodies to Rubella Virus. Obtain a new specimen and test using Centaur Rubella IgG assay. >= 10 IU/ML- Immune for IgG antibodies to Rubella Virus. Performed By: #### L [id number] #### LABORATORY [address] [place] [address] Vital Signs Date Time Vital Sign Value Performing Clinician Tyi litkarina 01-29-2025 09:24-0400 Body mass index (BMI) [Ratio] 42.51 kg/m2 Marisa Plotts CATERING SERVICE MANAGER.CNM Work Phone: [facility] 01-29-2025 09:24-0400 Body weight 123.11 kg Marisa Plotts CATERING SERVICE MANAGER.CNM Work Phone: [facility] 01-29-2025 09:24-0400 Diastolic blood pressure 78 mm[Hg] Marisa Plotts CATERING SERVICE MANAGER.CNM Work Phone: [facility] 01-29-2025 09:24-0400 Systolic blood pressure 124 mm[Hg] Marisa Plotts CATERING SERVICE MANAGER.CNM Work Phone: [facility] 06-06-2024 07:41-0400 Body height 170.2 cm Kaleb Haury CATERING SERVICE MANAGER.FLAT GRINDER OPERATOR Work Phone: [facility] 06-06-2024 07:41-0400 Body mass index (BMI) [Ratio] 43.54 kg/m2 Kaleb Haury CATERING SERVICE MANAGER.FLAT GRINDER OPERATOR Work Phone: [facility] 06-06-2024 07:41-0400 Body weight 126.1 kg Kaleb Haury CATERING SERVICE MANAGER.FLAT GRINDER OPERATOR Work Phone: [facility] 06-06-2024 07:41-0400 Diastolic blood pressure 78 mm[Hg] Kaleb Haury CATERING SERVICE MANAGER.FLAT GRINDER OPERATOR Work Phone: [facility] 06-06-2024 07:41-0400 Systolic blood pressure 118 mm[Hg] Kaleb Haury CATERING SERVICE MANAGER.FLAT GRINDER OPERATOR Work Phone: [facility] Encounters Encounter Date Encounter Type Care Provider Facility Start: 03-20-2025 End: 03-20-2025 Telephone encounter Marisa Ortega Research Coordinator Work Phone: [facility] Comment on above: Research ([id number] Karine n Avoidance Behavior in Migraine Patients) Start: 02-18-2025 End: 02-18-2025 Telephone encounter Marisa Ortega Research Coordinator Work Phone: [facility] Comment on above: Research ([id number] Karine n Avoidance Behavior in Migraine PAtients) Start: 02-06-2025 End: 02-06-2025 ambulatory Cosmo HUTCHINSON Facility:[facility] Start: 01-31-2025 End: 01-31-2025 Telephone encounter Marley Butler LUCIANO Work Phone: Neurology Comment on above: Insurance Authorizat ion; [employer], [employer] Insurance Authorizat ion; Emgality renewal, [employer] Start: 01-29-2025 End: 01-29-2025 Patient encounter procedure Marisa Mann APRN.CNM Work Phone: OB/Gynecology Comment on above: Mass of lower inner quadrant of left breast (Primary Dx); Fibrocystic breast changes of both breasts Start: 01-29-2025 End: 01-29-2025 ambulatory MARISA MANN Facility:[facility] Start: 01-17-2025 End: 01-17-2025 ambulatory Marley Butler LUCIANO Work Phone: Neurology Comment on above: Migraine without aur a and without status migrainosus, not intractable; Migraine with aura and without status migrainosus, not intractable; Nausea Start: 01-17-2025 End: 01-17-2025 Telemedicine consultation with patient Marley Butler LUCIANO Work Phone: Neurology Start: 12-18-2024 End: 12-18-2024 ambulatory Alayna Laguna Facility:[facility] Start: 10-07-2024 End: 10-07-2024 ambulatory No Pcp CATERING SERVICE MANAGER Appointment Center Start: 10-07-2024 End: 10-07-2024 Patient encounter procedure No Pcp CATERING SERVICE MANAGER Appointment Center Start: 09-30-2024 End: 09-30-2024 ambulatory No Pcp CATERING SERVICE MANAGER Appointment Center Start: 09-30-2024 End: 09-30-2024 Patient encounter procedure No Pcp CATERING SERVICE MANAGER Appointment Center Start: 08-01-2024 End: 08-01-2024 ambulatory CHARLEY GOLDENLER Rafa [facility] Start: 07-31-2024 End: 08-01-2024 ambulatory Kaleb Cerna APRN.CNP Work Phone: OB/Gynecology Comment on above: Following up Start: 07-26-2024 End: 07-26-2024 ambulatory [facility] Start: 07-08-2024 End: 07-08-2024 Telemedicine consultation with patient Fabricio Infante APRAUDELIA Work Phone: Neurology Start: 07-08-2024 End: 07-08-2024 ambulatory Fabricio Infante LUCIANO Work Phone: Neurology Comment on above: Migraine without aur a and without status migrainosus, not intractable; Migraine with aura and without status migrainosus, not intractable Start: 06-06-2024 End: 06-06-2024 ambulatory KALEB CERNA Facility:[facility] Start: 06-06-2024 End: 06-06-2024 ambulatory KALEB CERNA Facility:[facility] Start: 06-06-2024 End: 06-06-2024 Patient encounter procedure Kaleb Cerna APRN.CNP Work Phone: OB/Gynecology Comment on above: Encounter for gyneco logical examination (general) (routine) without abnormal findings (Primary Dx); Screening for cervical cancer; Encounter for screening for human papillomavirus (HPV); Screening for STD (sexually transmitted disease) Start: 06-06-2024 End: 06-06-2024 Patient encounter status Kaleb Nehemiah WOLF Work Phone: [facility] Start: 01-01-2024 End: 01-01-2024 ambulatory Deisi Shahzad WOLF Work Phone: Neurology Headache [facility] Comment on above: Medication managemen t (Primary Dx); Migraine without aura and without status migrainosus, not intractable; Status migrainosus Start: 01-01-2024 End: 01-01-2024 Telemedicine consultation with patient Deisi Pike LUCIANO Work Phone: [facility] Start: 11-20-2023 Telephone encounter Karlene huerta RN Work Phone: [facility] Home Delivery Comment on above: Insurance Authorizat ion (Emgality 120MG/ML auto-injectors (migraine)/) Start: 11-03-2023 End: 11-03-2023 ambulatory CHARLEY NIELSEN [facility] Start: 10-02-2023 ambulatory Leny Tessa perry CATERING SERVICE MANAGERAUDELIA Work Phone: Neurology Comment on above: Cycle breaker Start: 09-22-2023 End: 09-22-2023 ambulatory CHARLEY NIELSEN [facility] Start: 08-04-2023 End: 08-04-2023 ambulatory CHARLEY NIELSEN [facility] Start: 07-25-2023 Telephone encounter Leny hurst APRN.CNP Work Phone: Neurology Comment on above: Insurance Authorizat ion (Ubrelvy ) Start: 05-03-2023 End: 05-03-2023 ambulatory Leny Sae CATERING SERVICE MANAGERAUDELIA Work Phone: Neurology Comment on above: Migraine without aur a and without status migrainosus, not intractable (Primary Dx); Medication management; Migraine with aura and without status migrainosus, not intractable Start: 05-03-2023 End: 05-03-2023 Telemedicine consultation with patient Leny Sae WOLF Work Phone: [facility] Start: 04-21-2023 End: 04-21-[address] Sharath Gonzalez Work Phone: [facility] Work Phone: Start: 04-21-2023 End: 04-21-[address] Sharath Gonzalez Work Phone: [facility]-Nuclear Medicine, [facility] Work Phone: Start: 04-19-2023 End: 04-19-[address] Sharath Gonzalez Work Phone: [facility] Work Phone: Start: 04-19-2023 End: 04-19-[address] Sharath Gonzalez Work Phone: [facility]-Radiology, [facility] Work Phone: Start: 03-22-2023 End: 03-22-[address] Sharath Gonzalez Work Phone: [facility]-Laboratory Work Phone: Start: 03-22-2023 End: 03-22-[address] Sharath Gonzalez Work Phone: [facility] Work Phone: Start: 02-13-2023 Telephone encounter Karlene huerta RN Work Phone: [facility] Home Delivery Comment on above: Insurance Authorizat ion (Ubrelvy 100MG tablets/) Start: 12-30-2022 End: 12-30-2022 ambulatory Leny Biddlecom CATERING SERVICE MANAGER.FLAT GRINDER OPERATOR Work Phone: Neurology Comment on above: Medication managemen t (Primary Dx); Migraine without aura and without status migrainosus, not intractable; Migraine with aura and without status migrainosus, not intractable; Nausea Start: 12-30-2022 End: 12-30-2022 Telemedicine consultation with patient Leny Josepdlecom CATERING SERVICE MANAGER.FLAT GRINDER OPERATOR Work Phone: [facility] Start: 11-28-2022 ambulatory Leny Biddl ecom CATERING SERVICE MANAGER.FLAT GRINDER OPERATOR Work Phone: Neurology Comment on above: Topamax Start: 11-25-2022 ambulatory Leny Biddl ecom CATERING SERVICE MANAGER.FLAT GRINDER OPERATOR Work Phone: Neurology Comment on above: Emgality denial Start: 11-14-2022 End: 11-14-2022 ambulatory Leny Biddlecom CATERING SERVICE MANAGER.FLAT GRINDER OPERATOR Work Phone: Neurology Comment on above: Migraine without aur a and without status migrainosus, not intractable (Primary Dx); Migraine with aura and without status migrainosus, not intractable; Medication management Start: 11-14-2022 End: 11-14-2022 Telemedicine consultation with patient Leny Cardlecom CATERING SERVICE MANAGER.FLAT GRINDER OPERATOR Work Phone: [facility] Start: 11-08-2022 Telephone encounter Karlene huerta RN Work Phone: [facility] Home Delivery Comment on above: Insurance Authorizat ion (Emgality) Start: 10-14-2022 Refill Leny perry APRN.CNP Work Phone: Neurology Comment on above: Refill Request Start: 10-13-2022 Patient Update Lidia Looney [facility] Home Delivery Comment on above: Medication Update (R efill Auth Consent/ ) Start: 08-18-2022 Telephone encounter Karlene huerta RN Work Phone: [facility] Home Delivery Comment on above: Insurance Authorizat ion (Emgality 120MG/ML auto-injectors (migraine)/) Start: 08-15-2022 ambulatory No Pcp [employer] Start: 08-12-2022 End: 08-12-2022 ambulatory Leny Phelps APRN.FLAT GRINDER OPERATOR Work Phone: Neurology Comment on above: Migraine without aur a and without status migrainosus, not intractable (Primary Dx); Migraine with aura and without status migrainosus, not intractable; Nausea Start: 08-12-2022 End: 08-12-2022 Telemedicine consultation with patient Leny Phelps APRN.CNP Work Phone: [facility] Start: 05-13-2022 End: 05-13-2022 ambulatory Leny Phelps APRN.FLAT GRINDER OPERATOR Work Phone: Neurology Comment on above: Migraine without aur a and without status migrainosus, not intractable (Primary Dx); Nausea; Medication management; Cervicalgia; Chronic migraine w/o aura w/o status migrainosus, not intractable Start: 05-13-2022 End: 05-13-2022 Telemedicine consultation with patient Leny Phelps APRN.CNP Work Phone: [facility] Start: 03-10-2022 Telephone encounter Karlene huerta RN Work Phone: [facility] Home Delivery Comment on above: Insurance Authorizat ion (AJOVY (fremanezumab-vfrm) injection 225MG/1.5ML auto-injectors) Start: 02-28-2022 Telephone encounter Karlene huerta RN Work Phone: [facility] Home Delivery Comment on above: Insurance Authorizat ion (Ubrelvy 100MG tablets) Insurance Authorizat ion (Emgality 120MG/ML auto-injectors (migraine)) Start: 02-11-2022 End: 02-11-2022 ambulatory Marcia Ohara APRN.FLAT GRINDER OPERATOR Work Phone: Neurology Comment on above: Migraine without aur a and without status migrainosus, not intractable (Primary Dx); Migraine with aura and without status migrainosus, not intractable; Chronic migraine w/o aura w/o status migrainosus, not intractable Start: 02-11-2022 End: 02-11-2022 Telemedicine consultation with patient Marcia Lev VELASQUEZFLAT GRINDER OPERATOR Work Phone: [facility] Start: 02-07-2022 ambulatory Christine french APRN.FLAT GRINDER OPERATOR Work Phone: Neurology Comment on above: Migraines Start: 11-05-2021 Telephone encounter Christine Griffith APRN.FLAT GRINDER OPERATOR Work Phone: Neurology Comment on above: Insurance Authorizat ion (Ubrelvy) Procedures Date Procedure Procedure Detail Performing Clinician Start: 04-21-[address]23 [address] empt[address] study Dr. Sharath Gonzalez Work Phone: Start: 04-19-2023 Diagnostic radiograp hy of abdomen Dr. Sharath Gonzalez Work Phone: Start: 05-12-2022 Adult depression scr eening assessment Leny Phelps APRN.FLAT GRINDER OPERATOR Work Phone: Start: 02-11-2022 Adult depression scr eening assessment Marcia Ohara APRN.FLAT GRINDER OPERATOR Work Phone: Start: 01-17-2021 Adult depression scr eening assessment Christine Pineda APRN.FLAT GRINDER OPERATOR Work Phone: Plan of Treatment Date Care Activity Detail Author Start: 06-06-2029 Screening for malign ant neoplasm of cervix Cervical Cancer Screening [facility] Start: 02-03-2026 Urine microalbumin profile [facility] Start: 06-16-2025 Influenza vaccination Influenz a Vaccine (Season Ended) [facility] Start: 06-06-2025 End: 06-06-2025 Patient encounter procedure 06/06/2025 7:15 AM EDT Office Visit OB/Gynecology [address] [place] [address] Kaleb Cerna APRN.FLAT GRINDER OPERATOR [address] [place] [address] Annual OB/Gynecology Comment on above: Annual Start: 05-16-2025 ambulatory Ambulatory Facility:[facility] Start: 03-12-2025 End: 03-12-2025 Patient encounter procedure Mammogram Comment on above: Mass of lower inner quadrant of left breast [N63.24] Start: 10-23-2024 HPV TESTING HPV TESTING [facility] Start: 10-23-2024 PAP TESTING PAP TESTING [facility] Start: 10-23-2024 Screening for malign ant neoplasm of cervix [facility] Start: 07-08-2024 End: 07-08-2024 Follow-up encounter 07/08/2024 5:00 PM EDT [facility] [address] [place] [address] Fabricio Infante, CATERING SERVICE MANAGER.FLAT GRINDER OPERATOR [address] [place] [address] Follow up, prior auth for medication Neurology Comment on above: Follow up, prior aut h for medication Start: 06-16-2024 Covid-19 Vaccine ( season) Covid-19 Vaccine ( season) [facility] Start: 06-16-2024 Influenza vaccination Influenza Vacc ine (#1) [facility] Start: 06-06-2024 End: 06-06-2024 ambulatory 06/06/2024 2:30 PM EDT Results Only [facility] Draw Station [address] [place] [address] [place] [facility] Draw Station Start: 06-06-2024 End: 09-05-2024 Hepatitis B virus surface Ag [Presence] in Serum HEPATITIS B SURFACE ANTIGEN Lab Routine Screening for STD (sexually transmitted disease) Expected: 06/06/2024, Expires: 09/05/2024 [facility] Comment on above: Expected: 06/06/2024 , Expires: 09/05/2024 Start: 06-06-2024 End: 09-05-2024 Hepatitis C virus Ab [Presence] in Serum HEPATITIS C ANTIBODY IA WITH CONFIRMATION Lab Routine Screening for STD (sexually transmitted disease) Expected: 06/06/2024, Expires: 09/05/2024 [facility] Comment on above: Expected: 06/06/2024 , Expires: 09/05/2024 Start: 06-06-2024 End: 09-05-2024 HIV 1+2 Ab [Presence] in Serum or Plasma by Immunoassay HIV 1/2 COMBO WITH REFLEX TO DIFFERENTIATION Lab Routine Screening for STD (sexually transmitted disease) Expected: 06/06/2024, Expires: 09/05/2024 [facility] Comment on above: Expected: 06/06/2024 , Expires: 09/05/2024 Start: 06-06-2024 End: 09-05-2024 SYPHILIS TOTAL W/REFLEX SYPHILIS TOTAL W/REFLEX Lab Routine Screening for STD (sexually transmitted disease) Expected: 06/06/2024, Expires: 09/05/2024 [facility] Work Phone: Comment on above: Expected: 06/06/2024 , Expires: 09/05/2024 Start: 10-16-2023 [facility] Start: 06-16-2023 Covid-19 Vaccine () Covid-19 Vaccine () [facility] Start: 06-16-2023 Influenza vaccination [facility] Start: 05-12-2023 Adult depression screening assessment DEPRESSION SCREENING [facility] Start: 02-11-2023 Adult depression screening assessment DEPRESSION SCREENING [facility] Start: 10-16-2022 DEPRESSION ASSESSMENT DEPRESSION ASS ESSMENT [facility] Start: 06-16-2022 Influenza vaccination [facility] Start: 05-13-2022 End: 05-13-2023 CBC panel - Blood by Automated count CBC Lab Routine Medication management Expected: 05/13/2022, Expires: 05/13/2023 [facility] Work Phone: Comment on above: Expected: 05/13/2022 , Expires: 05/13/2023 Start: 05-13-2022 End: 05-13-2023 Comprehensive metabolic 2000 panel - Serum or Plasma COMP METABOLIC PANEL Lab Routine Medication management Expected: 05/13/2022, Expires: 05/13/2023 [facility] Work Phone: Comment on above: Expected: 05/13/2022 , Expires: 05/13/2023 Start: 01-17-2022 Adult depression screening assessment DEPRESSION SCREENING [facility] Start: 10-16-2021 DEPRESSION ASSESSMENT DEPRESSION ASS [facility] Start: 10-13-2021 COVID-19 VACCINE (4 - Booster for Pfizer series) COVID-19 VACCINE (4 - Booster for Pfizer series) [facility] Start: 10-13-2021 COVID-19 VACCINE (4 - Pfizer series) COVID-19 VACCINE (4 - Pfizer series) [facility] Start: 2005 Hepatitis B Vaccine (1 of 3 - 19+ 3-dose series) Hepatitis B Vaccine (1 of 3 - 19+ 3-dose series) [facility] Start: 02-27-2004 Anxiety Screening Anxiety Screening [facility] Start: 02-27-2004 Depression Screening Depression Scre ening [facility] Start: 02-27-2004 HEPATITIS C SCREENING HEPATITIS C [facility] Start: 02-27-2004 Hepatitis C screening Hepatitis C [facility] Start: 1986 HEPATITIS B (1 of 3 - 3-dose series) HEPATITIS B (1 of 3 - 3-dose series) [facility] Start: 1986 Hepatitis B Vaccine (1 of 3 - 3-dose series) Hepatitis B Vaccine (1 of 3 - 3-dose series) [facility] Chlamydia trachomatis+Neisseria gonorrhoeae DNA [Presence] in Unspecified specimen by CONSUELO with probe detection GONORRHEA/CHLAMYDIA NAAT Lab Routine Screening for STD (sexually transmitted disease) 06/06/2024 8:16 AM EDT [facility] End: 02-28-2026 MG Breast - left Diagnostic for implant [facility] LEFT Radiology Routine Mass of lower inner quadrant of left breast 1 Occurrences starting 01/29/2025 until 02/28/2026 [facility] Work Phone: Comment on above: 1 Occurrences starti ng 01/29/2025 until 02/28/2026 PAP TEST PAP TEST Lab [place] Screening for cervical cancer Encounter for screening for human papillomavirus (HPV) 06/06/2024 8:16 AM EDT [facility] TRICHOMONAS VAGINALI S NAAT TRICHOMONAS VAGINALIS NAAT Lab Routine Screening for STD (sexually transmitted disease) 06/06/2024 8:16 AM EDT [facility] End: 02-28-2026 US Breast - left limited US BREAST LTD LEFT Radiology Routine Mass of lower inner quadrant of left breast 1 Occurrences starting 01/29/2025 until 02/28/2026 [facility] Comment on above: 1 Occurrences starti ng 01/29/2025 until 02/28/2026 XR Abdomen Single view [facility] Immunizations Immunization Date Immunization Notes Care Provider [facility] 07-27-2020 influenza virus vacc ine, unspecified formulation Leny Phelps APRN.CNP Work Phone: [facility] 02-04-2016 tetanus toxoid, redu yoel diphtheria toxoid, and acellular pertussis vaccine, adsorbed Christine Pineda APRN.FLAT GRINDER OPERATOR Work Phone: [facility] Payers Date Payer Category Payer Self-pay 2021 Private Health Insurance MMO [employer] PPO [id number] 2021 Unknown MMO MMO [employer] [id number] 2021-Present [phone] [address] [place] [address] PPO [id number] 2021 Unknown [id number] 2021 Unknown [id number] 2015 Unknown ANTHEM [id number] 1986 Unknown [id number] 1986 Unknown [id number] 1986 Unknown [id number] 1986 Unknown [id number] 1986 Unknown [id number] 651 Unknown [id number] Unknown [id number] 462 Unknown [id number] Unknown [id number] 462 Unknown [id number] Social History Date Type Detail Facility Start: 09-04-2015 End: 06-06-2024 Tobacco smoking status NHIS Ex-smoker [facility] Work Phone: Start: 09-04-2015 End: 06-06-2024 Tobacco use and exposure Smokeless tobacco non-user [facility] Work Phone: Start: 09-17-2020 End: 01-29-2025 Alcohol intake Current non-drinker of alcohol (finding) [facility] Start: 09-17-2020 History SDOH Alcohol Frequency 3 [facility] Start: 09-17-2020 History SDOH Alcohol Std Drinks 2 [facility] Start: 09-17-2020 History SDOH Social Connections Phone 1 [facility] Start: 09-17-2020 History SDOH Social Connections Get Together 5 [facility] Start: 09-16-2020 Education 15 [facility] Start: 1985 Sex Assigned At Female C [facility] Start: 01-31-2022 End: 02-10-2022 Exposure to SARS-CoV-2 (event) Not sure [facility] History of tobacco use Current smoker [facility] Work Phone: Start: 03-22-2023 Tobacco smoking stat us WIIS Unknown if ever smoked [facility] Start: 09-16-2020 End: 09-29-2023 History of Social function [facility] Start: 09-16-2020 End: 09-29-2023 Social connection and isolation panel [facility] Do you belong to any clubs or organizations such as oriental orthodox groups, unions, fraternal or athletic groups, or school groups? No [facility] Are you now , , , , never or living with a partner? [facility] How often to you hav e a drink containing alcohol? 2-4 times a month [facility] How many standard dr inks containing alcohol do you have on a typical day? 3 or 4 [facility] How often do you hav e 6 or more drinks on 1 occasion? Less than monthly [facility] How hard is it for y ou to pay for the very basics like food, housing, medical care, and heating Not hard at all [facility] Do you feel stress - tense, restless, nervous, or anxious, or unable to sleep at night because your mind is troubled all the time - these days [OSQ] To some extent [facility] (I/We) worried wheth er (my/our) food would run out before (I/we) got money to buy more. Never true [facility] Start: 07-09-2020 Gender identity Identifies as female gender (finding) [facility] Clinical Notes 09-04-2015 to 03-20-2025 Telephone Encounter - Marisa Ortega Research Coordinator - 03/20/2025 1:48 PM EDTTelephone Encounter - Marisa Ortega Research Coordinator - 03/20/2025 1:48 PM EDTPatient Instructions Note Date & Type Note Facility 03-20-2025 Telephone encounter Note 03.20.2025: Follow up call to patient regarding research study [id number] Pain Avoidance Migraine. She has decided to decline participation in this study at this time. [facility] Work Phone: 03-20-2025 Miscellaneous Notes 03.20.2025: Follow up call to patient regarding research study [id number] Pain Avoidance Migraine. She has decided to decline participation in this study at this time. documented in this encounter [facility] 02-18-2025 Telephone encounter Note Patient was reviewed and referred for research study Pain Avoidance Behavior in Migraine Patients by Dr. Huff. 5..25: called and spoke with Irlanda and discussed the details of research study [id number]. 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 She mentioned she will reach back on if she would like to proceed or not with scheduling [facility] Work Phone: 02-18-2025 Miscellaneous Notes Patient was reviewed and referred for research study Pain Avoidance Behavior in Migraine Patients by Dr. Huff. 525: called and spoke with Irlanda and discussed the details of research study [id number]. 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 She mentioned she will reach back on if she would like to proceed or not with scheduling documented in this encounter [facility] 02-08-2025 Note HNO ID: [id number] Author: ABEL HUFF MD Service: ? Author Type: Physician Type: Progress Notes Filed: 02/08/2025 21:39 Note Text: IRB#: [id number] Rn Clinical Research: Dr. Manoj Adames Study Name: Neurophysiological Correlates of Pain Avoidance Behavior in Migraine Patients Date: February 08, 2025 Patient I have reviewed this patient's chart and deemed them as eligible for the Pain Avoidance Behavior in Migraine Patients research study (IRB #[id number]) based on the inclusion/exclusion criteria. Research coordinators are able to initiate contact with the patient to see if they are interested in participation. Please indicate below Yes or No for the following: Super Responder: Yes Non -Responder: No Abel Huff MD [facility] 01-31-2025 Telephone encounter Note Prior authorization has been submitted via CoverMyMeds Included clinical notes from 01/17/25. Medication: Galcanezumab (Emgality) Dosage/frequency: 120 mg/mL Insurance Name: Maximo Nowak (if available): [id number] Was authorization approved, denied, or still pending? PENDING If approved, effective dates: [facility] 01-31-2025 Miscellaneous Notes Prior authorization has been submitted via CoverMyMeds Included clinical notes from 01/17/25. Medication: Galcanezumab (Emgality) Dosage/frequency: 120 mg/mL Insurance Name: Boitus Nowak (if available): [id number] Was authorization approved, denied, or still pending? PENDING If approved, effective dates: documented in this encounter [facility] 01-31-2025 Telephone encounter Note Prior authorization has been submitted via CoverMyMeds Included clinical notes from 01/17/25. Medication: Nurtec (rimegepant) Dosage/frequency: 75mg Insurance Name: Boitus Nowak (if available): [id number] Was authorization approved, denied, or still pending? PENDING If approved, effective dates: [facility] 01-31-2025 Miscellaneous Notes Prior authorization has been submitted via CoverMyMeds Included clinical notes from 01/17/25. Medication: Nurtec (rimegepant) Dosage/frequency: 75mg Insurance Name: Boitus Nowak (if available): [id number] Was authorization approved, denied, or still pending? PENDING If approved, effective dates: documented in this encounter [facility] 01-29-2025 Note HNO ID: [id number] Author: MARISA MANN APRN.CNM Service: ? Author Type: Construction Specialist Type: Progress Notes Filed: 01/29/2025 09:53 Note Text: Patient declined spareribs trimmer. Irlanda Tucker is a 39 year old female who presents for problem visit lump (LT) breast for 1 week(s). Patient denied nipple discharge, breast pain. HPI: Approximately 1 week ago she felt a small bump in lower, inner area of left breast. She denies any pain or tenderness. No history of breast lumps or concerns. OB History Gravida4 Para3 Term3 Preterm0 AB1 Living3 SAB1 IAB0 Ectopic0 Multiple0 Live Births3 Comment: C/s for NRFHTs- 10 pounds 9 ounces, planned repeat 06/12/13 op report reviewed, LTCS, small adhesions Office Assistance History LMP: 05/22/2024, Having periods Age at Menarche: Age at First : Age at Menopause: Office Assistance History Comments: Sexual Activity: Yes; Male Contraception: Tubal Ligation PAST MEDICAL HISTORY Diagnosis Date GERD (gastroesophageal reflux disease) High cholesterol Diet Controlled Migraines PAST SURGICAL HISTORY Procedure Laterality Date DELIVERY ONLY , low transverse DELIVERY ONLY , low transverse DELIVERY ONLY 04/15/16 , low transverse LIG/TRNSXJ FLP TUBE ABDL/VAG APPR UNI/BI 04/15/16 Tubal ligation TONSILLECTOMY AND ADENOIDECTOMY Adenoids Removed Twice TYMPANIC MEMB RPR W/WO PREPJ PERFOR PATCH Tympanoplasty FAMILY HISTORY Problem Relation Age of Onset Lipids Mother other (Lung Issues) Mother other (Migraine) Mother Lipids Maternal Grandmother Cancer Maternal Grandmother Lipids Maternal Grandfather Heart Maternal Grandfather Coronary Artery Disease Maternal Grandfather 4 By-pass Surgeries Diabetes Maternal Grandfather Type 2 Lipids Daughter High Cholesterol Social History Tobacco Use Smoking status: Former Smokeless tobacco: Never Vaping Use Vaping status: Never Used Substance Use Topics Alcohol use: No Drug use: Never Current Outpatient Medications Medication Sig lubiprostone (AMITIZA) 8 mcg capsule Take 8 mcg by mouth two times a day with meals. galcanezumab-gnlm 120 mg/mL subcutaneous pen injector (EMGALITY) Inject 1 mL subcutaneously once every month. Do not shake. ondansetron orally disintegrating (ZOFRAN ODT) 4 mg disintegrating tablet Take 1 tablet by mouth every 8 hours as needed (for nausea with migraines). rimegepant (NURTEC ODT) 75 mg disintegrating tablet Take 1 tablet by mouth once daily as needed for migraine headache (see administration instructions). No more than 1 dose in 24 hours. Do not swallow whole. Allow tablet to dissolve in mouth. buPROPion XL (WELLBUTRIN XL) 150 mg 24 hr tablet Take 1 tablet by mouth every afternoon. omeprazole (PRILOSEC) 40 mg capsule Take 40 mg by mouth once daily. spironolactone (ALDACTONE) 50 mg tablet Take 1 tablet by mouth every afternoon. fexofenadine (ROSA) 180 mg tablet Take 180 mg by mouth once daily. ibuprofen (MOTRIN) 800 mg tablet Take 1 tablet by mouth every 6 hours as needed. No current facility-administered medications for this visit. Allergies As of Date: 01/29/2025 Allergen Noted Reaction LATEX 09/24/2019 Hives PHENERGAN VC [PROMETHAZINE-PHENYL*09/04/2015 Mental Status Change [id number] ANTIMIGRAINE [id number]/13/2020 Other: See Comments Fully Assessed 01/17/2025 REVIEW OF SYSTEMS Abdomen: No abdominal pain, nausea, vomiting, diarrhea, or constipation. Bladder: No dysuria, gross hematuria, urinary frequency, urinary urgency, or incontinence. Breast: Breast lump(s) noted. Expanded ROS: N/A Allergies and current medication updated:Yes SENSITIVE EXAM: The sensitive examination was discussed with the Patient or Patient's Authorized Deburrer Machine. As applicable, any other physician, advance practice provider, medical student, or other health professional student that will be observing or involved in the sensitive examination for educational or training purposes was discussed with the Patient or Authorized Deburrer Machine. The Patient or Authorized Deburrer Machine has agreed to proceed with the sensitive examination. (Sensitive examination includes inspection and/or palpation of the breasts, pelvis, prostate and anorectal regions). EXAM: LMP 05/22/2024 GENERAL: pleasant, female in no apparent distress BREAST: soft, non-tender, symmetric, normal nipple-areolar complex, no nipple discharge, fibrocystic changes, and small area lower inner quadrant of left breast with pea size, mobile bump. No tenderness with palpation. ASSESSMENT AND PLAN: Assessment AND Plan Mass of lower inner quadrant of left breast Fibrocystic breast changes of both breasts - Left breast- diagnostic mammogram - Left breast ultrasound - Reviewed fibrocystic changes in bilateral breasts - Will follow up with patient after imaging Marisa Mann APRN.[facility] 01-29-2025 History of Present illness Narrative Patient declined spareribs trimmer. Irlanda Tucker is a 39 year old female who presents for problem visit lump (LT) breast for 1 week(s). Patient denied nipple discharge, breast pain. HPI: Approximately 1 week ago she felt a small bump in lower, inner area of left breast. She denies any pain or tenderness. No history of breast lumps or concerns. OB History Gravida4 Para3 Term3 Preterm0 AB1 Living3 SAB1 IAB0 Ectopic0 Multiple0 Live Births3 Comment: C/s for NRFHTs- 10 pounds 9 ounces, planned repeat 06/12/13 op report reviewed, LTCS, small adhesions Office Assistance History LMP: 05/22/2024, Having periods Age at Menarche: Age at First : Age at Menopause: Office Assistance History Comments: Sexual Activity: Yes; Male Contraception: Tubal Ligation PAST MEDICAL HISTORY Diagnosis Date GERD (gastroesophageal reflux disease) High cholesterol Diet Controlled Migraines PAST SURGICAL HISTORY Procedure Laterality Date DELIVERY ONLY , low transverse DELIVERY ONLY , low transverse DELIVERY ONLY 04/15/16 , low transverse LIG/TRNSXJ FLP TUBE ABDL/VAG APPR UNI/BI 04/15/16 Tubal ligation TONSILLECTOMY & ADENOIDECTOMY <AGE 13 Adenoids Removed Twice TYMPANIC MEMB RPR W/WO PREPJ PERFOR PATCH Tympanoplasty FAMILY HISTORY Problem Relation Age of Onset Lipids Mother other (Lung Issues) Mother other (Migraine) Mother Lipids Maternal Grandmother Cancer Maternal Grandmother Lipids Maternal Grandfather Heart Maternal Grandfather Coronary Artery Disease Maternal Grandfather 4 By-pass Surgeries Diabetes Maternal Grandfather Type 2 Lipids Daughter High Cholesterol Social History Tobacco Use Smoking status: Former Smokeless tobacco: Never Vaping Use Vaping status: Never Used Substance Use Topics Alcohol use: No Drug use: Never Current Outpatient Medications Medication Sig lubiprostone (AMITIZA) 8 mcg capsule Take 8 mcg by mouth two times a day with meals. galcanezumab-gnlm 120 mg/mL subcutaneous pen injector (EMGALITY) Inject 1 mL subcutaneously once every month. Do not shake. ondansetron orally disintegrating (ZOFRAN ODT) 4 mg disintegrating tablet Take 1 tablet by mouth every 8 hours as needed (for nausea with migraines). rimegepant (NURTEC ODT) 75 mg disintegrating tablet Take 1 tablet by mouth once daily as needed for migraine headache (see administration instructions). No more than 1 dose in 24 hours. Do not swallow whole. Allow tablet to dissolve in mouth. buPROPion XL (WELLBUTRIN XL) 150 mg 24 hr tablet Take 1 tablet by mouth every afternoon. omeprazole (PRILOSEC) 40 mg capsule Take 40 mg by mouth once daily. spironolactone (ALDACTONE) 50 mg tablet Take 1 tablet by mouth every afternoon. fexofenadine (ROSA) 180 mg tablet Take 180 mg by mouth once daily. ibuprofen (MOTRIN) 800 mg tablet Take 1 tablet by mouth every 6 hours as needed. No current facility-administered medications for this visit. Allergies As of Date: 01/29/2025 Allergen Noted Reaction LATEX 09/24/2019 Hives PHENERGAN VC [PROMETHAZINE-PHENYL*09/04/2015 Mental Status Change [id number] ANTIMIGRAINE [id number]/13/2020 Other: See Comments Fully Assessed 01/17/2025 REVIEW OF SYSTEMS Abdomen: No abdominal pain, nausea, vomiting, diarrhea, or constipation. Bladder: No dysuria, gross hematuria, urinary frequency, urinary urgency, or incontinence. Breast: Breast lump(s) noted. Expanded ROS: N/A Allergies and current medication updated:Yes SENSITIVE EXAM: The sensitive examination was discussed with the Patient or Patient's Authorized Deburrer Machine. As applicable, any other physician, advance practice provider, medical student, or other health professional student that will be observing or involved in the sensitive examination for educational or training purposes was discussed with the Patient or Authorized Deburrer Machine. The Patient or Authorized Deburrer Machine has agreed to proceed with the sensitive examination. (Sensitive examination includes inspection and/or palpation of the breasts, pelvis, prostate and anorectal regions). EXAM: LMP 05/22/2024 GENERAL: pleasant, female in no apparent distress BREAST: soft, non-tender, symmetric, normal nipple-areolar complex, no nipple discharge, fibrocystic changes, and small area lower inner quadrant of left breast with pea size, mobile bump. No tenderness with palpation. ASSESSMENT AND PLAN: Assessment & Plan Mass of lower inner quadrant of left breast Fibrocystic breast changes of both breasts - Left breast- diagnostic mammogram - Left breast ultrasound - Reviewed fibrocystic changes in bilateral breasts - Will follow up with patient after imaging Marisa Mann APRN.CNM documented in this encounter [facility] 01-17-2025 Instructions Marley Butler APRN.CNP - 01/17/2025 9:18 AM EDT Rimegepant ([facility]) - 75 mg ODT CGRP antagonist. Take 1 tablet at onset of headache/migraine. Only take 1 tablet as single dose in 24 hour period. Potential side effects include nausea. Can use up to 20 times per month without rebound headache risk. 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 [facility] - Follow up Virtual Visit This visit was conducted as a virtual visit, with patient's permission, via Zoom. Patient location - [place], [place] Irlanda Tucker was identified by name and and consented to the video evaluation and its limitations. Based on this evaluation it may be necessary for them to schedule a follow up evaluation with me or other neurologists for formal physical examination and if necessary,other studies. I have communicated my name and active licensure. The patient's identity and physical location were verified at the time of this visit. Either the patient or their legal independent sales representative has been informed of the risks and benefits of -- and alternatives to -- treatment through a remote evaluation and consents to proceed with the evaluation remotely. Accompanied by: Self Primary Problem List: ACTIVE PROBLEM LIST Chronic Daily Headache Migraine Without Aura and Without Status Migrainosus, Not Intractable Migraine With Aura and Without Status Migrainosus, Not Intractable Chronic Migraine Without Aura, With Intractable Migraine, So Stated, With Status Migrainosus Intractable Chronic Migraine Without Aura and Without Status Migrainosus Obesity, Class III, BMI >= 40 Chief Complaint: migraines Impression and Plan from last visit: 07/08/24 with Fabricio Infante APRN-[facility] IMPRESSION: Migraine without aura and without status migrainosus, not intractable Migraine with aura and without status migrainosus, not intractable Irlanda Tucker is a 39 year old year old female, with a history of GERD, HLD who presents with episodic migraines on Emgality. Her neurological examination is essentially normal at this visit. No longer on Zonisamide as her headaches remain well controlled. She is happy with her current treatment plan and would not like to make any changes at this time. Will see her back in 6 months, or sooner if needed. PLAN: -Continue Emgality for migraine prevention -Continue Ibuprofen PRN -Follow up 6 months Interval Headache History: Irlanda Tucker is a 39 year old year old female, with a history of GERD, HLD, IBS with chronic constipation, and migraines presenting today for 6 month follow up. Overall, she does very well with Emgality with 1-2 migraines per month. She has had repeated issues with [facility] pharmacy getting her her medications on time, so she is often late with Emgality injection. She had been doing so well, that she skipped December injection to see what would happen. This turned into daily AM migraine. She self-administered last dose this past Monday, and today is without migraine. She generally uses excedrin for rescue, which works half of the time. She had used Ubrelvy previously, which stopped working for her. She cannot tolerate triptans. Of note, she was recently started on Amitiza for chronic constipation. She reports that Emgality does not make her constipation worse. Headache 1 Location: occipital, retro-orbital, right and left Quality/Description: squeezing, pressure and throbbing (shooting pain on left side retroorbitally and radiating back) Associated Symptoms: Photophobia: yes Phonophobia: yes Nausea: yes Vomiting: no Other symptoms: osmophobia, dizziness and neck pain Worse with activity: yes Number of migraine headache days/month: 25 Migraine headache severity: 5/10 Number of NON-migraine headache days/month: 0 Total Number of headache days/month: 25 Number of headache free days/month: 5 Current preventive treatment: Emgality Current abortive treatment: Excedrin Triggers: weather changes, stress, odors, flickering lights and bright lights Relieving factors: ice pack, meds, Most common time of day for headache to begin: anytime Prodrome: none Aura: loss of peripheral vision - blue/green. Days missed from work or school in the last month: 2 days Headache status since the last visit: worse Preventative: Emgality Abortive: Excedrin, zofran Analgesic Butalbital/acetaminophen/caffeine (Fioricet) Anti-Convulsant Topiramate (Topamax, Trokendi XL, Qudexy) helpful, but was able to wean after starting CGRP mAb Anti-Depressant and Antipsychotic Amitriptyline (Elavil) Escitalopram (Lexapro) Fluoxetine (Prozac) Antiemetics Promethazine Anti-Migraine Eletriptan (Relpax) intense squeezing tightness in neck chest throat and jaw Naratriptan (Amerge) with all the triptans Rizatriptan (Maxalt) Sumatriptan (Imitrex, Sumavel) Sumatriptan/naproxen sodium (Treximet) Zolmitriptan (Zomig) Blood Pressure Propranolol (Inderal) MABs Erenumab (Aimovig) building up tolerance, not working as well; causing constipation Fremanezumab (Ajovy) Galcanezumab (Emgality) GEPANTS Ubrogepant (Ubrelvy) lack of efficacy Over the Counter Medications Acetaminophen/Aspirin/Caffeine (Excedrin, Goody s) Ibuprofen (Advil, Motrin) Naproxen sodium (Aleve) PAST MEDICAL HISTORY Diagnosis Date GERD (gastroesophageal reflux disease) High cholesterol Diet Controlled Migraines PAST SURGICAL HISTORY Procedure Laterality Date DELIVERY ONLY , low transverse DELIVERY ONLY , low transverse DELIVERY ONLY 04/15/16 , low transverse LIG/TRNSXJ FLP TUBE ABDL/VAG APPR UNI/BI 04/15/16 Tubal ligation TONSILLECTOMY & ADENOIDECTOMY <AGE 13 Adenoids Removed Twice TYMPANIC MEMB RPR W/WO PREPJ PERFOR PATCH Tympanoplasty ALLERGIES Allergen Reactions Latex Hives Phenergan Vc [Prome* Mental Status Change [id number]-[id number] Anti* Other: See Comments Intense squeezing tightness, chest, neck throat and jaw Current Medications: lubiprostone (AMITIZA) 8 mcg capsule Take 8 mcg by mouth two times a day with meals. buPROPion XL (WELLBUTRIN XL) 150 mg 24 hr tablet Take 1 tablet by mouth every afternoon. omeprazole (PRILOSEC) 40 mg capsule Take 40 mg by mouth once daily. fexofenadine (ROSA) 180 mg tablet Take 180 mg by mouth once daily. galcanezumab-gnlm 120 mg/mL subcutaneous pen injector (EMGALITY) Inject 1 mL subcutaneously once every month. Do not shake. ondansetron orally disintegrating (ZOFRAN ODT) 4 mg disintegrating tablet Take 1 tablet by mouth every 8 hours as needed (for nausea with migraines). rimegepant (NURTEC ODT) 75 mg disintegrating tablet Take 1 tablet by mouth once daily as needed for migraine headache (see administration instructions). No more than 1 dose in 24 hours. Do not swallow whole. Allow tablet to dissolve in mouth. spironolactone (ALDACTONE) 50 mg tablet Take 1 tablet by mouth every afternoon. ibuprofen (MOTRIN) 800 mg tablet Take 1 tablet by mouth every 6 hours as needed. I have reviewed the Health Status Assessment responses and discussed these with the patient: yes Marley Butler APRN.FLAT GRINDER OPERATOR HEADACHE SCORES: 12/30/2023 07/01/2024 01/16/2025 Headache Questions ER visits since last office visit: 0 0 0 Hospital stays since last office visit 0 0 0 Limited ADLs in the last month: 2 2 2 Days missed from work or school in the last month: 0 0 0 Days headache pain free in the last month: 28 28 21 Days per month with ALL of the following symptoms - decreased productivity, light sensitivity and nausea: 2 2 2 Initial improvement of headache after botox injection at last visit: Not applicable, I did not have a botox injection at my last visit Not applicable, I did not have a botox injection at my last visit Not applicable, I did not have a botox injection at my last visit PRN medication usage in the last month: 2 2 7 Patient impression of improvement since last visit: Much improved Much improved Minimally worse 12/30/2023 07/01/2024 01/16/2025 HIT-6 HIT-6 65 (Severe impact) 68 (Severe impact) 68 (Severe impact) 12/30/2023 07/01/2024 01/16/2025 TERRENCE - 2/7 SCORES TERRENCE-2 Score 0 0 0 12/30/2023 07/01/2024 01/16/2025 Migraine Specific QOL - Higher scores indicate better HRQL Role Function-Restrictive Transformed Score (range: 0-100) 60 80 60 Role Function-Preventive Transformed Score (range: 0-100) 70 90 80 Emotional Function Transformed Score (range: 0-100) 53.33 66.67 13.33 12/30/2023 07/01/2024 01/16/2025 PHQ-9 Score 0 0 4 Studies to Review: No MRI Head/Brain - Last 2 Impressions No resulted procedures found. MRA Head and/or Neck - Last 2 Impressions No resulted procedures found. MRI Cervical Spine - Last 2 Impressions No resulted procedures found. CT Head/Brain - Last 2 Impressions No resulted procedures found. CTA Head and/or Neck - Last 2 No resulted procedures found. Labs to Review: No - Most recent CMP and CBC below Latest Ref Rng & Units 06/11/2020 CMP Sodium 136 - 144 mmol/L 140 Potassium 3.7 - 5.1 mmol/L 4.6 Chloride 97 - 105 mmol/L 106 CO2 22 - 30 mmol/L 25 Glucose 74 - 99 mg/dL 96 BUN 7 - 21 mg/dL 8 Creatinine 0.58 - 0.96 mg/dL 0.85 EGFR-All Other Races . >60 EGFR- >60 Protein, Total 6.3 - 8.0 g/dL 6.8 Albumin 3.9 - 4.9 g/dL 4.2 Calcium 8.5 - 10.2 mg/dL 9.3 Bilirubin, Total 0.2 - 1.3 mg/dL 0.2 AST 13 - 35 U/L 19 ALT 7 - 38 U/L 31 Alkaline Phosphatase 34 - 123 U/L 42 Latest Ref Rng & Units 06/11/2020 CBC WBC 3.70 - 11.00 k/uL 6.29 RBC 3.90 - 5.20 m/uL 4.50 Hemoglobin 11.5 - 15.5 g/dL 13.2 Hematocrit 36.0 - 46.0 % 40.8 MCV 80.0 - 100.0 fL 90.7 MCH 26.0 - 34.0 pG 29.3 MCHC 30.5 - 36.0 g/dL 32.4 RDW-CV 11.5 - 15.0 % 13.3 Platelet Count 150 - 400 k/uL 235 MPV 9.0 - 12.7 fL 11.6 Baso% % 0.8 Abs Neut (ANC) 1.45 - 7.50 k/uL 3.54 Abs Lymph 1.00 - 4.00 k/uL 2.09 Abs Throckmorton <0.87 k/uL 0.45 Abs Eosin <0.46 k/uL 0.14 Abs Baso <0.11 k/uL 0.05 Diff Type Auto Diff New Health Issues: No Review of Systems: Review of system: unchanged from the previous visit unless otherwise stated in HPI (sleep patterns, mood, energy, appetite, stress, exercising). Physical Examination: Vital Signs: No vital signs taken for this visit due to nature of virtual visit. General: well appearing, in no acute distress, alert Pain Behaviors: no pain behaviors observed Neurological: Mental Status: Alert and oriented to person, place and time. Affect is normal. Speech is spontaneous and fluent without dysarthria. Short and detention memory, cognition and general fund of knowledge are good. Attention span and concentration are excellent. HEENT: Head is normocephalic and features were symmetric. Musculoskeletal: Patient able to sit up right in chair for entirety of visit. Cranial Nerves: III, IV, -EOMI: full. VII-face is symmetric without evidence of weakness. VIII-hearing intact. IMPRESSION: Migraine without aura and without status migrainosus, not intractable Migraine with aura and without status migrainosus, not intractable Nausea Irlanda Tucker is a 39 year old year old female, with a history of GERD, HLD, IBS with chronic constipation and migraines. Her neurological examination is essentially normal at this visit although this is limited due to nature of telehealth. She does well when she is on Emgality - recommend continuing. Will send to local pharmacy going forward so that she can ensure she is receiving and administering medication on time. Previously, her insurance had wanted Ubrelvy as rescue over nurtec. Ubrelvy is ineffective, so will submit PA for nurtec and trial that as abortive. Reviewed dosing, administration, and side effects. She should follow up in 3 months for nurtec follow up, or sooner if needed. Patient agreeable to plan of care, and all questions answered. PLAN: Prevention: Continue Emgality Abortive: Trial nurtec 75mg ODT PRN -OK to use excedrin, limiting use to no more than 2 days per week, or <10 days per month to reduce risk of MOH Follow up in 3 months, PRN Headache education was done. Discussed lifestyle modification including increased oral hydration, decreased caffeine, exercise and stress management. Discussed treatment options including preventive and acute medications, natural supplements. Discussed medication overuse headache and to limit use of acute treatments to no more than 2 days/week or 10 days/month. Discussed medication side effects, adverse reactions and drug interactions. Written educational materials and patient instructions outlining all of the above were given. Prior Authorization: Irlanda Tucker has been previously approved for Calcitonin Gene Related Peptide Monoclonal Antibody (CGRP MAB) (Galcanezumab). The patient has demonstrated the following: Patient reduction in overall migraine days: Yes Patient reduction in moderate-severe migraine days: Yes Individual has obtained clinical benefit deemed significant by individual or prescriber: Yes Patient's quality of life and ability to perform ADLs has improved: Yes We suggest the patient continue treatment with CGRP MAB Galcanezumab. The following preventative medications have been tried for three or more months without benefit: Anti-Convulsant Topiramate (Topamax, Trokendi XL, Qudexy) helpful, but was able to wean after starting CGRP mAb Anti-Depressant and Antipsychotic Amitriptyline (Elavil) Escitalopram (Lexapro) Fluoxetine (Prozac) Blood Pressure Propranolol (Inderal) MABs Erenumab (Aimovig) building up tolerance, not working as well; causing constipation Fremanezumab (Ajovy) Galcanezumab (Emgality) The following abortive medications have been tried but require high frequency use which can lead to Medication Overuse Headache: Analgesic Butalbital/acetaminophen/caffeine (Fioricet) Anti-Migraine Eletriptan (Relpax) intense squeezing tightness in neck chest throat and jaw Naratriptan (Amerge) with all the triptans Rizatriptan (Maxalt) Sumatriptan (Imitrex, Sumavel) Sumatriptan/naproxen sodium (Treximet) Zolmitriptan (Zomig) GEPANTS Ubrogepant (Ubrelvy) lack of efficacy Over the Counter Medications Acetaminophen/Aspirin/Caffeine (Excedrin, Goody s) Ibuprofen (Advil, Motrin) Naproxen sodium (Aleve) We will request a precertification for a Calcitonin Gene-Related Peptide Receptor Antagonist (GEPANT) Rimegepant for the rescue treatment of chronic migraine . This patient meets ICHD-3 criteria for treatment of migraine with a small molecule CGRP antagonist GEPANT. The FDA has approved GEPANTS for the treatment of migraine. Specifically, the patient has 25 headaches per month, lasting 4 or more hours/day associated with photophobia, phonophobia, osmophobia, nausea, neck pain for three or more months. Medication overuse headache has been ruled out.Patient will not use with another GEPANT. The patient has a contraindication TRIPTAN ALLERGY The following preventative medications have been tried without benefit: Anti-Convulsant Topiramate (Topamax, Trokendi XL, Qudexy) helpful, but was able to wean after starting CGRP mAb Anti-Depressant and Antipsychotic Amitriptyline (Elavil) Escitalopram (Lexapro) Fluoxetine (Prozac) Blood Pressure Propranolol (Inderal) MABs Erenumab (Aimovig) building up tolerance, not working as well; causing constipation Fremanezumab (Ajovy) Galcanezumab (Emgality) The following abortive medications have been tried but require high frequency use which can lead to Medication Overuse Headache: Analgesic Butalbital/acetaminophen/caffeine (Fioricet) Anti-Migraine Eletriptan (Relpax) intense squeezing tightness in neck chest throat and jaw Naratriptan (Amerge) with all the triptans Rizatriptan (Maxalt) Sumatriptan (Imitrex, Sumavel) Sumatriptan/naproxen sodium (Treximet) Zolmitriptan (Zomig) GEPANTS Ubrogepant (Ubrelvy) lack of efficacy Over the Counter Medications Acetaminophen/Aspirin/Caffeine (Excedrin, Goody s) Ibuprofen (Advil, Motrin) Naproxen sodium (Aleve) HEADACHE MANAGEMENT: (You are the primary guardian of your health and headache. Keep track of all medications: This includes the reason for use, side effects and benefits.) MEDICATION TREATMENT: Medications to Start Taking galcanezumab-gnlm 120 mg/mL subcutaneous pen injector (EMGALITY) Inject 1 mL subcutaneously once every month. Do not shake. ondansetron orally disintegrating (ZOFRAN ODT) 4 mg disintegrating tablet Take 1 tablet by mouth every 8 hours as needed (for nausea with migraines). rimegepant (NURTEC ODT) 75 mg disintegrating tablet Take 1 tablet by mouth once daily as needed for migraine headache (see administration instructions). No more than 1 dose in 24 hours. Do not swallow whole. Allow tablet to dissolve in mouth. Follow-up: 3 months, PRN Level of service: Est level 3 (20-29 min). Time spent 20 min on the day of service, which included preparing to see the patient, [id number] patient care, completing clinical documentation, obtaining and/or reviewing separately obtained history, performing a medically appropriate examination, counseling and educating the patient/family/caregiver, ordering medications, tests, or procedures, and care coordination (not separately reported). Marley Butler APRN.CNP Headache Section [facility] January 17, 2025 documented in this encounter [facility] 01-17-2025 Note HNO ID: [id number] Author: MARLEY BUTLER APRN.CNP Service: ? Author Type: Nurse Practitioner Type: Progress Notes Filed: 01/17/2025 09:18 Note Text: Headache Center - Follow up Virtual Visit This visit was conducted as a virtual visit, with patient's permission, via Zoom. Patient location - [place], [place] Irlanda Tucker was identified by name and and consented to the video evaluation and its limitations. Based on this evaluation it may be necessary for them to schedule a follow up evaluation with me or other neurologists for formal physical examination and if necessary,other studies. I have communicated my name and active licensure. The patient's identity and physical location were verified at the time of this visit. Either the patient or their legal independent sales representative has been informed of the risks and benefits of -- and alternatives to -- treatment through a remote evaluation and consents to proceed with the evaluation remotely. Accompanied by: Self Primary Problem List: ACTIVE PROBLEM LIST Chronic Daily Headache Migraine Without Aura and Without Status Migrainosus, Not Intractable Migraine With Aura and Without Status Migrainosus, Not Intractable Chronic Migraine Without Aura, With Intractable Migraine, So Stated, With Status Migrainosus Intractable Chronic Migraine Without Aura and Without Status Migrainosus Obesity, Class III, BMI >= 40 Chief Complaint: migraines Impression and Plan from last visit: 07/08/24 with Mohammad Hamdan CATERING SERVICE MANAGER-FLAT GRINDER OPERATOR IMPRESSION: Migraine without aura and without status migrainosus, not intractable Migraine with aura and without status migrainosus, not intractable Irlanda Tucker is a 39 year old year old female, with a history of GERD, HLD who presents with episodic migraines on Emgality. Her neurological examination is essentially normal at this visit. No longer on Zonisamide as her headaches remain well controlled. She is happy with her current treatment plan and would not like to make any changes at this time. Will see her back in 6 months, or sooner if needed. PLAN: -Continue Emgality for migraine prevention -Continue Ibuprofen PRN -Follow up 6 months Interval Headache History: Irlanda Tucker is a 39 year old year old female, with a history of GERD, HLD, IBS with chronic constipation, and migraines presenting today for 6 month follow up. Overall, she does very well with Emgality with 1-2 migraines per month. She has had repeated issues with [facility] pharmacy getting her her medications on time, so she is often late with Emgality injection. She had been doing so well, that she skipped December injection to see what would happen. This turned into daily AM migraine. She self-administered last dose this past Monday, and today is without migraine. She generally uses excedrin for rescue, which works half of the time. She had used Ubrelvy previously, which stopped working for her. She cannot tolerate triptans. Of note, she was recently started on Amitiza for chronic constipation. She reports that Emgality does not make her constipation worse. Headache 1 Location: occipital, retro-orbital, right and left Quality/Description: squeezing, pressure and throbbing (shooting pain on left side retroorbitally and radiating back) Associated Symptoms: Photophobia: yes Phonophobia: yes Nausea: yes Vomiting: no Other symptoms: osmophobia, dizziness and neck pain Worse with activity: yes Number of migraine headache days/month: 25 Migraine headache severity: 5/10 Number of NON-migraine headache days/month: 0 Total Number of headache days/month: 25 Number of headache free days/month: 5 Current preventive treatment: Emgality Current abortive treatment: Excedrin Triggers: weather changes, stress, odors, flickering lights and bright lights Relieving factors: ice pack, meds, Most common time of day for headache to begin: anytime Prodrome: none Aura: loss of peripheral vision - blue/green. Days missed from work or school in the last month: 2 days Headache status since the last visit: worse Preventative: Emgality Abortive: Excedrin, zofran Analgesic Butalbital/acetaminophen/caffeine (Fioricet) Anti-Convulsant Topiramate (Topamax, Trokendi XL, Qudexy) helpful, but was able to wean after starting CGRP mAb Anti-Depressant and Antipsychotic Amitriptyline (Elavil) Escitalopram (Lexapro) Fluoxetine (Prozac) Antiemetics Promethazine Anti-Migraine Eletriptan (Relpax) intense squeezing tightness in neck chest throat and jaw Naratriptan (Amerge) with all the triptans Rizatriptan (Maxalt) Sumatriptan (Imitrex, Sumavel) Sumatriptan/naproxen sodium (Treximet) Zolmitriptan (Zomig) Blood Pressure Propranolol (Inderal) MABs Erenumab (Aimovig) building up tolerance, not working as well; causing constipation Fremanezumab (Ajovy) Galcanezumab (Emgality) GEPANTS Ubrogepant (Ubrelvy) lack of (more content not included)... [facility] 10-07-2024 Note HNO ID: [id number] Author: ?, ?, ? Service: ? Author Type: ? Type: Progress Notes Filed: 10/07/2024 09:07 Note Text: POPULATION HEALTH NAVIGATION OUTREACH Action/FYI RP Patient Outreach - 2nd Attempt - Left voicemail for patient to call back to schedule Provider ordered Follow up in Neurology. (Please see Epic order dated for (07/08/2024). Any agent can assist with scheduling. Reason for Outreach Care Gap/HCC or Scheduling Wellness Visits Care Gaps due: Follow-up Appointment Patient Contacted: Unable or unnecessary to reach patient: Left message Navigation Signature: Niru Verdugo [facility] October 07, 2024 9:[address] [facility] 10-07-2024 History of Present illness Narrative POPULATION HEALTH NAVIGATION OUTREACH Action/FYI RP Patient Outreach - 2nd Attempt - Left voicemail for patient to call back to schedule Provider ordered Follow up in Neurology. (Please see Parking[facility] order dated for (07/08/2024). Any agent can assist with scheduling. Reason for Outreach Care Gap/HCC or Scheduling Wellness Visits Care Gaps due: Follow-up Appointment Patient Contacted: Unable or unnecessary to reach patient: Left message Navigation Signature: Niru Verdugo Caryl October 07, 2024 9:07 AM documented in this encounter [facility] 10-07-2024 Note Patient Outreach (AC CC) IRLANDA TUCKER ([id number]) 1985 F Date Time Provider Department 10/07/24 NO PCP [facility] During your visit today, we recorded the following information about you: Niru Ray 10/07/2024 9:07 AM Signed POPULATION HEALTH NAVIGATION OUTREACH Action/FYI RP Patient Outreach - 2nd Attempt - Left voicemail for patient to call back to schedule Provider ordered Follow up in Neurology. (Please see Epic order dated for (07/08/2024). Any agent can assist with scheduling. Reason for Outreach Care Gap/HCC or Scheduling Wellness Visits Care Gaps due: Follow-up Appointment Patient Contacted: Unable or unnecessary to reach patient: Left message Navigation Signature: Niru Verdugo [facility] October 07, 2024 9:07 AM Allergies As of Date: 10/07/2024 Noted Allergy Reaction LATEX 09/24/2019 4 - Hives PHENERGAN VC (PROMETHAZINE-PHENYL*09/04/2015 1 - Mental Status Change [id number] ANTIMIGRAINE [id number]/13/2020 14 - Other: See Comments Comments: Intense squeezing tightness, chest, neck throat and jaw Date Reviewed: 07/08/2024 Reviewed by: Fabricio Infante APRN.FLAT GRINDER OPERATOR - Fully Assessed Prescriptions as of 10/07/2024 - galcanezumab-gnlm 120 mg/mL subcutaneous pen injector (EMGALITY) Inject 1 mL subcutaneously once every month. Do not shake. - buPROPion XL (WELLBUTRIN XL) 150 mg 24 hr tablet Take 1 tablet by mouth every afternoon. - omeprazole (PRILOSEC) 40 mg capsule Take 40 mg by mouth once daily. - spironolactone (ALDACTONE) 50 mg tablet Take 1 tablet by mouth every afternoon. - fexofenadine (ROSA) 180 mg tablet Take 180 mg by mouth once daily. - ondansetron orally disintegrating (ZOFRAN ODT) 4 mg disintegrating tablet Take 1 tablet by mouth every 8 hours as needed (for nausea with migraines). - ibuprofen (MOTRIN) 800 mg tablet Take 1 tablet by mouth every 6 hours as needed. Problem List As Of Date 10/07/2024 Noted Resolved Obesity complicating [O99.210] 09/04/2015 05/30/2016 Chronic daily headache [R51.9] 11/07/2019 Migraine without aura and without status migrai*11/07/2019 Migraine with aura and without status migrainos*11/07/2019 Chronic migraine without aura, with intractable*11/07/2019 Intractable chronic migraine without aura and w*11/07/2019 Obesity, Class III, BMI >= 40 [E66.01] 06/11/2020 Encounter Status:Closed by AMARILYS MARKS, NIRU ULLOA on 10/07/[address] [facility] 09-30-2024 Note HNO ID: [id number] Author: ?, ?, ? Service: ? Author Type: ? Type: Progress Notes Filed: 09/30/2024 12:07 Note Text: POPULATION HEALTH NAVIGATION OUTREACH Action/FYI RP Patient Outreach - Left voicemail for patient to call back to schedule Provider ordered Follow up in Neurology. (Please see Epic order dated for (07/08/2024). Any agent can assist with scheduling. Reason for Outreach Care Gap/HCC or Scheduling Wellness Visits Care Gaps due: Follow-up Appointment Patient Contacted: Unable or unnecessary to reach patient: Left message Navigation Signature: Niru Ulloa Amarilys Marks September 30, 2024 12:[address] [facility] 09-30-2024 History of Present illness Narrative POPULATION HEALTH NAVIGATION OUTREACH Action/FYI RP Patient Outreach - Left voicemail for patient to call back to schedule Provider ordered Follow up in Neurology. (Please see Park[facility] order dated for (07/08/2024). Any agent can assist with scheduling. Reason for Outreach Care Gap/HCC or Scheduling Wellness Visits Care Gaps due: Follow-up Appointment Patient Contacted: Unable or unnecessary to reach patient: Left message Navigation Signature: Niru Verdugo Caryl September 30, 2024 12:06 PM documented in this encounter [facility] 09-30-2024 Note Patient Outreach (AC CC) IRLANDA TUCKER ([id number]) 1985 F Date Time Provider Department 09/30/24 NO PCP [facility] During your visit today, we recorded the following information about you: Niru Ray 09/30/2024 12:07 PM Signed POPULATION HEALTH NAVIGATION OUTREACH Action/FYI RP Patient Outreach - Left voicemail for patient to call back to schedule Provider ordered Follow up in Neurology. (Please see [facility] order dated for (07/08/2024). Any agent can assist with scheduling. Reason for Outreach Care Gap/HCC or Scheduling Wellness Visits Care Gaps due: Follow-up Appointment Patient Contacted: Unable or unnecessary to reach patient: Left message Navigation Signature: Niru Verdugo Pss September 30, 2024 12:06 PM Allergies As of Date: 09/30/2024 Noted Allergy Reaction LATEX 09/24/2019 4 - Hives PHENERGAN VC (PROMETHAZINE-PHENYL*09/04/2015 1 - Mental Status Change [id number] ANTIMIGRAINE [id number]/13/2020 14 - Other: See Comments Comments: Intense squeezing tightness, chest, neck throat and jaw Date Reviewed: 07/08/2024 Reviewed by: Fabricio Infante APRN.FLAT GRINDER OPERATOR - Fully Assessed Prescriptions as of 09/30/2024 - galcanezumab-gnlm 120 mg/mL subcutaneous pen injector (EMGALITY) Inject 1 mL subcutaneously once every month. Do not shake. - buPROPion XL (WELLBUTRIN XL) 150 mg 24 hr tablet Take 1 tablet by mouth every afternoon. - omeprazole (PRILOSEC) 40 mg capsule Take 40 mg by mouth once daily. - spironolactone (ALDACTONE) 50 mg tablet Take 1 tablet by mouth every afternoon. - fexofenadine (ROSA) 180 mg tablet Take 180 mg by mouth once daily. - ondansetron orally disintegrating (ZOFRAN ODT) 4 mg disintegrating tablet Take 1 tablet by mouth every 8 hours as needed (for nausea with migraines). - ibuprofen (MOTRIN) 800 mg tablet Take 1 tablet by mouth every 6 hours as needed. Problem List As Of Date 09/30/2024 Noted Resolved Obesity complicating [O99.210] 09/04/2015 05/30/2016 Chronic daily headache [R51.9] 11/07/2019 Migraine without aura and without status migrai*11/07/2019 Migraine with aura and without status migrainos*11/07/2019 Chronic migraine without aura, with intractable*11/07/2019 Intractable chronic migraine without aura and w*11/07/2019 Obesity, Class III, BMI >= 40 [E66.01] 06/11/2020 Encounter Status:Closed by NIRU RAY on 09/30/[address] [facility] 07-08-2024 History of Present illness Narrative Images from the original note were not included. Answers submitted by the patient for this visit: Headache Questionnaire (Submitted on 07/01/2024) How many days of work or school have you missed due to headaches in the last month? : 0 In the last month, how many headache days did you experience ALL of the following symptoms: decreased productivity, light sensitivity and nausea?: 2 How many days have you been completely free of headache pain in the last month? : 28 Headache Center - Follow up Virtual Visit Patient's headache clinic evaluation was scheduled as a virtual visit using the following platform Zoom Irlanda Tucker was identified by name and and consented to the video evaluation and its limitations. Based on this evaluation it may be necessary for them to schedule a follow up evaluation with me or other neurologists for formal physical examination and if necessary, other studies. I have communicated my name and active licensure. The patient's identity and physical location were verified at the time of this visit. Either the patient or their legal independent sales representative has been informed of the risks and benefits of -- and alternatives to -- treatment through a remote evaluation and consents to proceed with the evaluation remotely. Accompanied by: Self Primary Problem List: ACTIVE PROBLEM LIST Chronic Daily Headache Migraine Without Aura and Without Status Migrainosus, Not Intractable Migraine With Aura and Without Status Migrainosus, Not Intractable Chronic Migraine Without Aura, With Intractable Migraine, So Stated, With Status Migrainosus Intractable Chronic Migraine Without Aura and Without Status Migrainosus Obesity, Class III, BMI >= 40 Chief Complaint: headache follow-up LV: 01/01/24 Jolly Pike CNP Impression and Plan from last visit: No diagnosis found. Irlanda Tucker is a 38 year old year old female, with a history of GERD, HLD, and migraines, much improved with the addition of zonisamide, which she is tolerating well. This in combination with Emgality is working well to prevent her headaches. Their neurological examination is essentially normal at this visit although this is limited due to nature of telehealth. PLAN: She will send recent lab results Cont zonisamide 100 qhs Cont emgality monthly Cont ubrelvy or ibuprofen prn Interval Headache History: Irlanda Tucker is a 39 year old year old female, with a history of GERD, HLD, and migraines following up today virtually for medication refills. Since the last visit, the patient states that her headaches have not changed. She is no longer on Zonisamide, although she did find it to be helpful she is trying to reduce the amount of medications she is on. Continues to do well on Emgality, denies any injection site pain or reaction. Will typically use ibuprofen as needed. Was late on most recent Emgality injection due to shipping issues with home delivery, this had caused her migraines to worsen temporarily. Headache 1 Number of migraine headache days/month: 2 Number of headache free days/month: 28 Days missed from work or school in the last month: 0 days Preventative: emgality, Abortive: ibuprofen, zofran Medications effective? yes # of doses of abortive medications per month: 2 Analgesic Butalbital/acetaminophen/caffeine (Fioricet) Anti-Convulsant Topiramate (Topamax, Trokendi XL, Qudexy) helpful, but was able to wean after starting CGRP mAb Anti-Depressant and Antipsychotic Amitriptyline (Elavil) Escitalopram (Lexapro) Fluoxetine (Prozac) Antiemetics Promethazine Anti-Migraine Eletriptan (Relpax) intense squeezing tightness in neck chest throat and jaw Naratriptan (Amerge) with all the triptans Rizatriptan (Maxalt) Sumatriptan (Imitrex, Sumavel) Sumatriptan/naproxen sodium (Treximet) Zolmitriptan (Zomig) Blood Pressure Propranolol (Inderal) MABs Erenumab (Aimovig) building up tolerance, not working as well; causing constipation Fremanezumab (Ajovy) Galcanezumab (Emgality) GEPANTS Ubrogepant (Ubrelvy) works well! Over the Counter Medications Acetaminophen/Aspirin/Caffeine (Excedrin, Goody s) Ibuprofen (Advil, Motrin) Naproxen sodium (Aleve) PAST MEDICAL HISTORY Diagnosis Date GERD (gastroesophageal reflux disease) High cholesterol Diet Controlled Migraines PAST SURGICAL HISTORY Procedure Laterality Date DELIVERY ONLY , low transverse DELIVERY ONLY , low transverse DELIVERY ONLY 04/15/16 , low transverse LIG/TRNSXJ FLP TUBE ABDL/VAG APPR UNI/BI 04/15/16 Tubal ligation TONSILLECTOMY & ADENOIDECTOMY <AGE 12 Adenoids Removed Twice TYMPANIC MEMB RPR W/WO PREPJ PERFOR PATCH Tympanoplasty ALLERGIES Allergen Reactions Latex Hives Phenergan Vc [Prome* Mental Status Change Ilqegipi-4-Xe7 Anti* Other: See Comments Intense squeezing tightness, chest, neck throat and jaw Current Medications: galcanezumab-gnlm 120 mg/mL subcutaneous pen injector (EMGALITY) Inject 1 mL subcutaneously once every month. Do not shake. buPROPion XL (WELLBUTRIN XL) 150 mg 24 hr tablet Take 1 tablet by mouth every afternoon. omeprazole (PRILOSEC) 40 mg capsule Take 40 mg by mouth once daily. spironolactone (ALDACTONE) 50 mg tablet Take 1 tablet by mouth every afternoon. fexofenadine (ROAS) 180 mg tablet Take 180 mg by mouth once daily. ondansetron orally disintegrating (ZOFRAN ODT) 4 mg disintegrating tablet Take 1 tablet by mouth every 8 hours as needed (for nausea with migraines). ibuprofen (MOTRIN) 800 mg tablet Take 1 tablet by mouth every 6 hours as needed. I have reviewed the [place] Status Assessment responses and discussed these with the patient: yes Fabricio Infante APRN.FLAT GRINDER OPERATOR HEADACHE SCORES: 10/19/2023 12/30/2023 07/01/2024 Headache Questions ER visits since last office visit: 0 0 Hospital stays since last office visit 0 0 Limited ADLs in the last month: 2 2 Days missed from work or school in the last month: 0 0 Days headache pain free in the last month: 28 28 Days per month with ALL of the following symptoms - decreased productivity, light sensitivity and nausea: 2 2 Initial improvement of headache after botox injection at last visit: Not applicable, I did not have a botox injection at my last visit Not applicable, I did not have a botox injection at my last visit PRN medication usage in the last month: 2 2 Patient impression of improvement since last visit: Minimally improved Much improved Much improved 09/28/2023 12/30/2023 07/01/2024 HIT-6 HIT-6 69 (Severe impact) 65 (Severe impact) 68 (Severe impact) 09/28/2023 12/30/2023 07/01/2024 TERRENCE - 2/7 SCORES TERRENCE-2 Score 4 0 0 TERRENCE-7 Score 6 09/28/2023 12/30/2023 07/01/2024 Migraine Specific QOL - Higher scores indicate better HRQL Role Function-Restrictive Transformed Score (range: 0-100) 40 60 80 Role Function-Preventive Transformed Score (range: 0-100) 50 70 90 Emotional Function Transformed Score (range: 0-100) 0 53.33 66.67 09/28/2023 12/30/2023 07/01/2024 PHQ-9 Score 4 0 0 Studies to Review: No Labs to Review: No New Health Issues: No New Family History: No Review of Systems: Review of system: unchanged from the previous visit (sleep patterns, mood, energy, appetite, stress, exercising). Physical Examination: Vital Signs: [facility] 05/22/2024 General: well appearing, in no acute distress, alert Pain Behaviors: no pain behaviors observed Neurological: Mental Status: Alert and oriented to person, place and time. Affect is normal and appropriate. Speech is spontaneous and fluent without dysarthria, normal in rate, volume and articulation, and clear, coherent, and relevant. Short and intermediate accountant memory, cognition and general fund of knowledge are good. Attention span and concentration are excellent. HEENT: Head is normocephalic and features were symmetric. Musculoskeletal: Patient able to sit up right in chair for entirety of visit. Cranial Nerves: III, IV, -EOMI: full. VII-face is symmetric without evidence of weakness. VIII-hearing intact. IMPRESSION: Migraine without aura and without status migrainosus, not intractable Migraine with aura and without status migrainosus, not intractable Irlanda Tucker is a 39 year old year old female, with a history of GERD, HLD who presents with episodic migraines on Emgality. Her neurological examination is essentially normal at this visit. No longer on Zonisamide as her headaches remain well controlled. She is happy with her current treatment plan and would not like to make any changes at this time. Will see her back in 6 months, or sooner if needed. PLAN: -Continue Emgality for migraine prevention -Continue Ibuprofen PRN -Follow up 6 months Prior Authorization: Irlanda Tucker has been previously approved for Calcitonin Gene Related Peptide Monoclonal Antibody (CGRP MAB) (Galcanezumab). The patient has demonstrated the following: Patient reduction in overall migraine days: Yes Patient reduction in moderate-severe migraine days: Yes Individual has obtained clinical benefit deemed significant by individual or prescriber: Yes Patient's quality of life and ability to perform ADLs has improved: Yes We suggest the patient continue treatment with CGRP MAB Galcanezumab. The following preventative medications have been tried for three or more months without benefit: Anti-Convulsant Topiramate (Topamax, Trokendi XL, Qudexy) helpful, but was able to wean after starting CGRP mAb Anti-Depressant and Antipsychotic Amitriptyline (Elavil) Escitalopram (Lexapro) Fluoxetine (Prozac) Blood Pressure Propranolol (Inderal) MABs Erenumab (Aimovig) building up tolerance, not working as well; causing constipation Fremanezumab (Ajovy) Galcanezumab (Emgality) The following abortive medications have been tried but require high frequency use which can lead to Medication Overuse Headache: Analgesic Butalbital/acetaminophen/caffeine (Fioricet) Anti-Migraine Eletriptan (Relpax) intense squeezing tightness in neck chest throat and jaw Naratriptan (Amerge) with all the triptans Rizatriptan (Maxalt) Sumatriptan (Imitrex, Sumavel) Sumatriptan/naproxen sodium (Treximet) Zolmitriptan (Zomig) GEPANTS Ubrogepant (Ubrelvy) works well! Over the Counter Medications Acetaminophen/Aspirin/Caffeine (Excedrin, Goody s) Ibuprofen (Advil, Motrin) Naproxen sodium (Aleve) HEADACHE MANAGEMENT: (You are the primary guardian of your health and headache. Keep track of all medications: This includes the reason for use, side effects and benefits.) MEDICATION TREATMENT: Medications to Start Taking galcanezumab-gnlm 120 mg/mL subcutaneous pen injector (EMGALITY) Inject 1 mL subcutaneously once every month. Do not shake. Discussed pathophysiology of headache. Discussed use of headache diary. Discussed triggers and lifestyle modifications including limiting caffeine consumption. Discussed treatment options, both abortive and preventive medications. Instructed patient about medications. Headache education was done. Discussed lifestyle modification including increased oral hydration, decreased caffeine, exercise and stress management. Discussed treatment options including preventive and acute medications, natural supplements, and infusion therapy. Discussed medication overuse headache and to limit use of acute treatments to no more than 2 days/week or 10 days/month. Discussed medication side effects, adverse reactions and drug interactions. Written educational materials and patient instructions outlining all of the above were given. RESEARCH: None at this time Follow-up: 6 months Level of Service: Virtual Visit 30 minutes Fabricio Infante APRN.CNP Headache Section [facility] July 08, 2024 documented in this encounter [facility] 07-08-2024 Note HNO ID: [id number] Author: FABRICIO INFANTE APRN.FLAT GRINDER OPERATOR Service: ? Author Type: Nurse Practitioner Type: Progress Notes Filed: 07/08/2024 17:06 Note Text: Answers submitted by the patient for this visit: Headache Questionnaire (Submitted on 07/01/2024) How many days of work or school have you missed due to headaches in the last month? : 0 In the last month, how many headache days did you experience ALL of the following symptoms: decreased productivity, light sensitivity and nausea?: 2 How many days have you been completely free of headache pain in the last month? : 28 Headache Center - Follow up Virtual Visit Patient's headache clinic evaluation was scheduled as a virtual visit using the following platform Zoom Irlanda Tucker was identified by name and and consented to the video evaluation and its limitations. Based on this evaluation it may be necessary for them to schedule a follow up evaluation with me or other neurologists for formal physical examination and if necessary, other studies. I have communicated my name and active licensure. The patient's identity and physical location were verified at the time of this visit. Either the patient or their legal independent sales representative has been informed of the risks and benefits of -- and alternatives to -- treatment through a remote evaluation and consents to proceed with the evaluation remotely. Accompanied by: Self Primary Problem List: ACTIVE PROBLEM LIST Chronic Daily Headache Migraine Without Aura and Without Status Migrainosus, Not Intractable Migraine With Aura and Without Status Migrainosus, Not Intractable Chronic Migraine Without Aura, With Intractable Migraine, So Stated, With Status Migrainosus Intractable Chronic Migraine Without Aura and Without Status Migrainosus Obesity, Class III, BMI >= 40 Chief Complaint: headache follow-up LV: 01/01/24 Jolly Pike CNP Impression and Plan from last visit: No diagnosis found. Irlanda Tucker is a 38 year old year old female, with a history of GERD, HLD, and migraines, much improved with the addition of zonisamide, which she is tolerating well. This in combination with Emgality is working well to prevent her headaches. Their neurological examination is essentially normal at this visit although this is limited due to nature of telehealth. PLAN: She will send recent lab results Cont zonisamide 100 qhs Cont emgality monthly Cont ubrelvy or ibuprofen prn Interval Headache History: Irlanda Tucker is a 39 year old year old female, with a history of GERD, HLD, and migraines following up today virtually for medication refills. Since the last visit, the patient states that her headaches have not changed. She is no longer on Zonisamide, although she did find it to be helpful she is trying to reduce the amount of medications she is on. Continues to do well on Emgality, denies any injection site pain or reaction. Will typically use ibuprofen as needed. Was late on most recent Emgality injection due to shipping issues with home delivery, this had caused her migraines to worsen temporarily. Headache 1 Number of migraine headache days/month: 2 Number of headache free days/month: 28 Days missed from work or school in the last month: 0 days Preventative: emgality, Abortive: ibuprofen, zofran Medications effective? yes # of doses of abortive medications per month: 2 Analgesic Butalbital/acetaminophen/caffeine (Fioricet) Anti-Convulsant Topiramate (Topamax, Trokendi XL, Qudexy) helpful, but was able to wean after starting CGRP mAb Anti-Depressant and Antipsychotic Amitriptyline (Elavil) Escitalopram (Lexapro) Fluoxetine (Prozac) Antiemetics Promethazine Anti-Migraine Eletriptan (Relpax) intense squeezing tightness in neck chest throat and jaw Naratriptan (Amerge) with all the triptans Rizatriptan (Maxalt) Sumatriptan (Imitrex, Sumavel) Sumatriptan/naproxen sodium (Treximet) Zolmitriptan (Zomig) Blood Pressure Propranolol (Inderal) MABs Erenumab (Aimovig) building up tolerance, not working as well; causing constipation Fremanezumab (Ajovy) Galcanezumab (Emgality) GEPANTS Ubrogepant (Ubrelvy) works well! Over the Counter Medications Acetaminophen/Aspirin/Caffeine (Excedrin, Goody?s) Ibuprofen (Advil, Motrin) Naproxen sodium (Aleve) PAST MEDICAL HISTORY Diagnosis Date GERD (gastroesophageal reflux disease) High cholesterol Diet Controlled Migraines PAST SURGICAL HISTORY Procedure Laterality Date DELIVERY ONLY , low transverse DELIVERY ONLY , low transverse DELIVERY ONLY 04/15/16 , low transverse LIG/TRNSXJ FLP TUBE ABDL/VAG APPR UNI/BI 04/15/16 Tubal ligation TONSILLECTOMY AND ADENOIDECTOMY Adenoids Removed Twice TYMPANIC MEMB RPR W/WO PREPJ PERFOR PATCH Tympanoplasty ALLERGIES Allergen Reactions Latex Hives Phenergan Vc [Prome* Mental Status Change (more content not included)... [facility] 06-06-2024 Instructions Kaleb Cerna APRN.MORALES - 06/06/2024 7:55 AM EDT A 3-dose schedule is recommended for people who get the first dose on or after their 15th birthday, and for people with certain immunocompromising conditions. In a 3-dose series, the second dose should be given 1-2 months after the first dose, and the third dose should be given 6 months after the first dose (0, 1-2, 6-month schedule). The minimum intervals are 4 weeks between the first and second dose, 12 weeks between the second and third doses, and 5 months between the first and third doses. If a vaccine dose is administered after a shorter interval, it should be re-administered after another minimum interval has elapsed since the most recent dose. If the vaccination schedule is interrupted, vaccine doses do not need to be repeated (no maximum interval). documented in this encounter [facility] 06-06-2024 Note HNO ID: [id number] Author: KALEB CERNA APRN.MORALES Service: ? Author Type: Nurse Practitioner Type: Progress Notes Filed: 06/06/2024 08:12 Note Text: Hoop Punch And Coiler Operator offered: Patient declines. Irlanda is a 39 year old who presents for an annual gynecologic exam without complaints. Recently had a rash to left groin that she took Valtrex ofr and used clobetasol cream. It has resolved. Was itchy, not painful. Menses: cycles every 30 days and 5-7 days of flow. Contraception: tubal sterilization HPV vaccine: No Last Pap: 10/25/2019 normal HPV: 10/27/2019 negative History of abnormal pap: Yes, thinks around [id number] Last mammogram: Has had mastitis - was hospitalized Sexually active: Sometimes History of STDS: Yes, but unknown , possible HSV? Patient concerns for STD exposure: No. Pain with intercourse: No Postcoital bleeding: No Exercise: daily, running OB History T3 L3 SAB1 IAB0 Ectopic0 Multiple0 Live Births3 Comment: C/s for NRFHTs- 10 pounds 9 ounces, planned repeat 06/12/13 op report reviewed, LTCS, small adhesions Office Assistance History LMP: 05/22/2024, Having periods Age at Menarche: Age at First : Age at Menopause: Office Assistance History Comments: Sexual Activity: Yes; Male Contraception: Tubal Ligation PAST MEDICAL HISTORY No date: GERD (gastroesophageal reflux disease) No date: High cholesterol Comment: Diet Controlled No date: MigrainesPAST SURGICAL HISTORY No date: DELIVERY ONLY Comment: , low transverse No date: DELIVERY ONLY Comment: , low transverse 04/15/16: DELIVERY ONLY Comment: , low transverse 04/15/16: LIG/TRNSXJ FLP TUBE ABDL/VAG APPR UNI/BI Comment: Tubal ligation No date: TONSILLECTOMY AND ADENOIDECTOMY Comment: Adenoids Removed Twice No date: TYMPANIC MEMB RPR W/WO PREPJ PERFOR PATCH Comment: Tympanoplasty FAMILY HISTORY Problem Relation Age of Onset Lipids Mother other (Lung Issues) Mother other (Migraine) Mother Lipids Maternal Grandmother Cancer Maternal Grandmother Lipids Maternal Grandfather Heart Maternal Grandfather Coronary Artery Disease Maternal Grandfather 4 By-pass Surgeries Diabetes Maternal Grandfather Type 2 Lipids Daughter High Cholesterol SOCIAL HISTORY Social History Tobacco Use Smoking status: Former Smokeless tobacco: Never Vaping Use Vaping status: Never Used Substance Use Topics Alcohol use: No Drug use: Never REVIEW OF SYSTEMS Abdomen: No abdominal pain, nausea, vomiting, diarrhea, or constipation. No bloating, early satiety, indigestion, or increased flatulence. + hemorrhoids Bladder: No dysuria, gross hematuria, urinary frequency, urinary urgency, or incontinence. Breast: No breast lumps, nipple d/c, overlying skin changes, redness or skin retraction. Allergies and current medication updated:Yes EXAM: BP 118/78 Ht 5' 7 (1.70m) Wt 278 lb (126.1kg) LMP 05/22/2024 BMI 43.53 kg/(m2). GENERAL: pleasant, female in no apparent distress HEENT: Normocephalic, atraumatic, mucus membranes moist, and no lesions NECK: Supple, full range of motion, no adenopathy, and thyroid normal DERMATOLOGY: Normal, without lesions, non-icteric, and non-hirsute + resolving rash to left groin BREAST: soft, non-tender, symmetric, no dominant mass, normal nipple-areolar complex, no lymphadenopathy, and no nipple discharge CHEST: Normal inspiratory effort ABDOMEN: soft, non-tender, and no masses PELVIC: external genitalia normal, normal Bartholin's glands, urethra, Rushmore's glands, no vulvar lesions, no cervical lesions, good vaginal support, physiologic discharge present, normal appearing perineal body and perianal region BIMANUAL: uterus normal size, shape and consistency, no adnexal masses, and non-tender, limited due to habitus RECTOVAGINAL: deferred. NEURO: alert and oriented x3,exam grossly non-focal EXTREMITIES: normal ASSESSMENT/PLAN: 1) Health maintenance: Pap done with HPV. Nutrition, exercise and routine health maintenance exams reviewed. HPV vaccine: interested, literature given 2) Contraception: tubal sterilization. 3) STD screening: Accepted STD check for Gonorrhea and Chlamydia. 4) Follow up one year or sooner as needed RTO if rash occurs again and annually or sooner as needed. Kaleb Cerna APRN.[facility] 06-06-2024 History of Present illness Narrative Hoop Punch And Coiler Operator offered: Patient declines. Irlanda is a 39 year old who presents for an annual gynecologic exam without complaints. Recently had a rash to left groin that she took Valtrex ofr and used clobetasol cream. It has resolved. Was itchy, not painful. Menses: cycles every 30 days and 5-7 days of flow. Contraception: tubal sterilization HPV vaccine: No Last Pap: 10/25/2019 normal HPV: 10/27/2019 negative History of abnormal pap: Yes, thinks around [id number] Last mammogram: Has had mastitis - was hospitalized Sexually active: Sometimes History of STDS: Yes, but unknown , possible HSV? Patient concerns for STD exposure: No. Pain with intercourse: No Postcoital bleeding: No Exercise: daily, running OB History T3 L3 SAB1 IAB0 Ectopic0 Multiple0 Live Births3 Comment: C/s for NRFHTs- 10 pounds 9 ounces, planned repeat 06/12/13 op report reviewed, LTCS, small adhesions Office Assistance History LMP: 05/22/2024, Having periods Age at Menarche: Age at First : Age at Menopause: Office Assistance History Comments: Sexual Activity: Yes; Male Contraception: Tubal Ligation PAST MEDICAL HISTORY No date: GERD (gastroesophageal reflux disease) No date: High cholesterol Comment: Diet Controlled No date: MigrainesPAST SURGICAL HISTORY No date: DELIVERY ONLY Comment: , low transverse No date: DELIVERY ONLY Comment: , low transverse 04/15/16: DELIVERY ONLY Comment: , low transverse 04/15/16: LIG/TRNSXJ FLP TUBE ABDL/VAG APPR UNI/BI Comment: Tubal ligation No date: TONSILLECTOMY & ADENOIDECTOMY <AGE 12 Comment: Adenoids Removed Twice No date: TYMPANIC MEMB RPR W/WO PREPJ PERFOR PATCH Comment: Tympanoplasty FAMILY HISTORY Problem Relation Age of Onset Lipids Mother other (Lung Issues) Mother other (Migraine) Mother Lipids Maternal Grandmother Cancer Maternal Grandmother Lipids Maternal Grandfather Heart Maternal Grandfather Coronary Artery Disease Maternal Grandfather 4 By-pass Surgeries Diabetes Maternal Grandfather Type 2 Lipids Daughter High Cholesterol SOCIAL HISTORY Social History Tobacco Use Smoking status: Former Smokeless tobacco: Never Vaping Use Vaping status: Never Used Substance Use Topics Alcohol use: No Drug use: Never REVIEW OF SYSTEMS Abdomen: No abdominal pain, nausea, vomiting, diarrhea, or constipation. No bloating, early satiety, indigestion, or increased flatulence. + hemorrhoids Bladder: No dysuria, gross hematuria, urinary frequency, urinary urgency, or incontinence. Breast: No breast lumps, nipple d/c, overlying skin changes, redness or skin retraction. Allergies and current medication updated:Yes EXAM: BP 118/78 Ht 5' 7 (1.70m) Wt 278 lb (126.1kg) LMP 05/22/2024 BMI 43.53 kg/(m^2). GENERAL: pleasant, female in no apparent distress HEENT: Normocephalic, atraumatic, mucus membranes moist, and no lesions NECK: Supple, full range of motion, no adenopathy, and thyroid normal DERMATOLOGY: Normal, without lesions, non-icteric, and non-hirsute + resolving rash to left groin BREAST: soft, non-tender, symmetric, no dominant mass, normal nipple-areolar complex, no lymphadenopathy, and no nipple discharge CHEST: Normal inspiratory effort ABDOMEN: soft, non-tender, and no masses PELVIC: external genitalia normal, normal Bartholin's glands, urethra, Rushmore's glands, no vulvar lesions, no cervical lesions, good vaginal support, physiologic discharge present, normal appearing perineal body and perianal region BIMANUAL: uterus normal size, shape and consistency, no adnexal masses, and non-tender, limited due to habitus RECTOVAGINAL: deferred. NEURO: alert and oriented x3,exam grossly non-focal EXTREMITIES: normal ASSESSMENT/PLAN: 1) Health maintenance: Pap done with HPV. Nutrition, exercise and routine health maintenance exams reviewed. HPV vaccine: interested, literature given 2) Contraception: tubal sterilization. 3) STD screening: Accepted STD check for Gonorrhea and Chlamydia. 4) Follow up one year or sooner as needed RTO if rash occurs again and annually or sooner as needed. Kaleb Cerna APRN.MORALES documented in this encounter [facility] 01-01-2024 History of Present illness Narrative Images from the original note were not included. Headache Center - Follow up Virtual Visit This visit was conducted as a virtual visit, with patient's permission, via Zoom. Patient location - [place] Tucker was identified by name and and consented to the video evaluation and its limitations. Based on this evaluation it may be necessary for them to schedule a follow up evaluation with me or other neurologists for formal physical examination and if necessary,other studies. I have communicated my name and active licensure. The patient's identity and physical location were verified at the time of this visit. Either the patient or their legal independent sales representative has been informed of the risks and benefits of -- and alternatives to -- treatment through a remote evaluation and consents to proceed with the evaluation remotely. Accompanied by: Self Primary Problem List: ACTIVE PROBLEM LIST Chronic Daily Headache Migraine Without Aura and Without Status Migrainosus, Not Intractable Migraine With Aura and Without Status Migrainosus, Not Intractable Chronic Migraine Without Aura, With Intractable Migraine, So Stated, With Status Migrainosus Intractable Chronic Migraine Without Aura and Without Status Migrainosus Obesity, Class III, BMI >= 40 Chief Complaint: headaches Impression and Plan from last visit 10/20/2023, Hamdan: IMPRESSION: Status migrainosus (primary encounter diagnosis) Migraine without aura and without status migrainosus, not intractable Irlanda Tucker is a 38 year old year old female, with a history of GERD, migraines, and HLD who presents with status migrainosus. Her neurological examination is essentially normal at this visit. Depakote helped provide some relief for her last headache cycle but her headaches have since returned. She was previously doing very well on combination of Emgality and Ubrelvy. She has not identified any particular triggers for her current headache cycle, will provide Toradol bridge to help break the current cycle. She has been on and off Topamax for the last 20 years, reports this was mostly effective but did have some side effects. Will add on zonisamide in hopes of better tolerability and reevaluate her headaches in 3 months. If headaches do not improve we may consider switching Emgality to Vyepti which was also discussed with patient. Patient agreeable to plan. PLAN: -Toradol x 5 days to break current headache cycle -Zonisamide trial -Continue Emgality for migraine prevention -Continue Ubrelvy for migraine rescue -Future considerations: Vyepti, Qulipta (both were discussed) Interval Headache History: Irlanda Tucker is a 38 year old year old female, with a history of GERD, migraines, and HLD following up today virtually for headaches. Since the last visit, the patient states that their headaches have improved. Zonisamide is working beautifully just like Topamax did, but with no side effects! No h/o kidney stones or plans for . No ae with this or Emgality, and she is functioning much better now. Headache 1 Number of migraine headache days/month: 2 Number of headache free days/month: 28 Days missed from work or school in the last month: 0 days Preventative: emgality, zonisamide 100 qhs Abortive: ubrelvy, ibuprofen Analgesic Butalbital/acetaminophen/caffeine (Fioricet) Anti-Convulsant Topiramate (Topamax, Trokendi XL, Qudexy) helpful, but was able to wean after starting CGRP mAb Anti-Depressant and Antipsychotic Amitriptyline (Elavil) Escitalopram (Lexapro) Fluoxetine (Prozac) Antiemetics Promethazine Anti-Migraine Eletriptan (Relpax) intense squeezing tightness in neck chest throat and jaw Naratriptan (Amerge) with all the triptans Rizatriptan (Maxalt) Sumatriptan (Imitrex, Sumavel) Sumatriptan/naproxen sodium (Treximet) Zolmitriptan (Zomig) Blood Pressure Propranolol (Inderal) MABs Erenumab (Aimovig) building up tolerance, not working as well; causing constipation Fremanezumab (Ajovy) Galcanezumab (Emgality) GEPANTS Ubrogepant (Ubrelvy) works well! Over the Counter Medications Acetaminophen/Aspirin/Caffeine (Excedrin, Goody s) Ibuprofen (Advil, Motrin) Naproxen sodium (Aleve) PAST MEDICAL HISTORY Diagnosis Date GERD (gastroesophageal reflux disease) High cholesterol Diet Controlled Migraines PAST SURGICAL HISTORY Procedure Laterality Date DELIVERY ONLY , low transverse DELIVERY ONLY , low transverse DELIVERY ONLY 04/15/16 , low transverse LIG/TRNSXJ FLP TUBE ABDL/VAG APPR UNI/BI 04/15/16 Tubal ligation TONSILLECTOMY & ADENOIDECTOMY <AGE 12 Adenoids Removed Twice TYMPANIC MEMB RPR W/WO PREPJ PERFOR PATCH Tympanoplasty ALLERGIES Allergen Reactions Latex Hives Phenergan Vc [Prome* Mental Status Change [id number] Anti* Other: See Comments Intense squeezing tightness, chest, neck throat and jaw Current Medications: zonisamide (ZONEGRAN) 25 mg capsule Take 25 mg at bedtime for 1 week. Then, increase by 25 mg at bedtime each week until at 100 mg. zonisamide (ZONEGRAN) 100 mg capsule Take 1 capsule by mouth once daily. Start this prescription once you reach the 100 mg dose and are tolerating ondansetron orally disintegrating (ZOFRAN ODT) 4 mg disintegrating tablet Take 1 tablet by mouth every 8 hours as needed (for nausea with migraines). galcanezumab-gnlm 120 mg/mL subcutaneous pen injector (EMGALITY) Inject 1 mL subcutaneously once every month. Do not shake. ubrogepant (UBRELVY) 100 mg tablet Take 1 tablet by mouth as needed for migraine. Take at first sign of migraine. You may repeat 1 tablet 2 hours later if needed. Max daily dose 200 mg. famotidine (PEPCID) 20 mg tablet Take 20 mg by mouth once daily. ibuprofen (MOTRIN) 800 mg tablet Take 1 tablet by mouth every 6 hours as needed. I have reviewed the Health Status Assessment responses and discussed these with the patient: yes Deisi Pike APRN.FLAT GRINDER OPERATOR HEADACHE SCORES: 09/28/2023 10/19/2023 12/30/2023 Headache Questions ER visits since last office visit: 0 0 Hospital stays since last office visit 0 0 Limited ADLs in the last month: 15 2 Days missed from work or school in the last month: 2 0 Days headache pain free in the last month: 6 28 Days per month with ALL of the following symptoms - decreased productivity, light sensitivity and nausea: 15 2 Initial improvement of headache after botox injection at last visit: Not applicable, I did not have a botox injection at my last visit Not applicable, I did not have a botox injection at my last visit PRN medication usage in the last month: 15 2 Patient impression of improvement since last visit: Much worse Minimally improved Much improved 05/02/2023 09/28/2023 12/30/2023 HIT-6 HIT-6 64 (Severe impact) 69 (Severe impact) 65 (Severe impact) 05/02/2023 09/28/2023 12/30/2023 TERRENCE - 2/7 SCORES TERRENCE-2 Score 0 4 0 TERRENCE-7 Score 6 05/02/2023 09/28/2023 12/30/2023 Migraine Specific QOL - Higher scores indicate better HRQL Role Function-Restrictive Transformed Score (range: 0-100) 62.86 40 60 Role Function-Preventive Transformed Score (range: 0-100) 80 50 70 Emotional Function Transformed Score (range: 0-100) 66.67 0 53.33 12/30/2023 09/28/2023 05/02/2023 PHQ-9 Score 0 4 0 Studies to Review: No MRI Head/Brain - Last 2 Impressions No resulted procedures found. MRA Head and/or Neck - Last 2 Impressions No resulted procedures found. MRI Cervical Spine - Last 2 Impressions No resulted procedures found. CT Head/Brain - Last 2 Impressions No resulted procedures found. CTA Head and/or Neck - Last 2 No resulted procedures found. Labs to Review: No - Most recent CMP and CBC below Latest Ref Rng & Units 06/11/2020 CMP Sodium 136 - 144 mmol/L 140 Potassium 3.7 - 5.1 mmol/L 4.6 Chloride 97 - 105 mmol/L 106 CO2 22 - 30 mmol/L 25 Glucose 74 - 99 mg/dL 96 BUN 7 - 21 mg/dL 8 Creatinine 0.58 - 0.96 mg/dL 0.85 EGFR-All Other Races . >60 EGFR- >60 Protein, Total 6.3 - 8.0 g/dL 6.8 Albumin 3.9 - 4.9 g/dL 4.2 Calcium 8.5 - 10.2 mg/dL 9.3 Bilirubin, Total 0.2 - 1.3 mg/dL 0.2 AST 13 - 35 U/L 19 ALT 7 - 38 U/L 31 Alkaline Phosphatase 34 - 123 U/L 42 Latest Ref Rng & Units 06/11/2020 CBC WBC 3.70 - 11.00 k/uL 6.29 RBC 3.90 - 5.20 m/uL 4.50 Hemoglobin 11.5 - 15.5 g/dL 13.2 Hematocrit 36.0 - 46.0 % 40.8 MCV 80.0 - 100.0 fL 90.7 MCH 26.0 - 34.0 pG 29.3 MCHC 30.5 - 36.0 g/dL 32.4 RDW-CV 11.5 - 15.0 % 13.3 Platelet Count 150 - 400 k/uL 235 MPV 9.0 - 12.7 fL 11.6 Baso% % 0.8 Abs Neut (ANC) 1.45 - 7.50 k/uL 3.54 Abs Lymph 1.00 - 4.00 k/uL 2.09 Abs Throckmorton <0.87 k/uL 0.45 Abs Eosin <0.46 k/uL 0.14 Abs Baso <0.11 k/uL 0.05 Diff Type Auto Diff New Health Issues: No Review of Systems: Review of system: unchanged from the previous visit (sleep patterns, mood, energy, appetite, stress, exercising). Physical Examination: Vital Signs: No vital signs taken for this visit due to nature of virtual visit. General: well appearing, in no acute distress, alert Pain Behaviors: no pain behaviors observed Neurological: Mental Status: Alert and oriented to person, place and time. Affect is normal. Speech is spontaneous and fluent without dysarthria. Short and intermediate accountant memory, cognition and general fund of knowledge are good. Attention span and concentration are excellent. HEENT: Head is normocephalic and features were symmetric. Musculoskeletal: Patient able to sit up right in chair for entirety of visit. Cranial Nerves: III, IV, -EOMI: full. VII-face is symmetric without evidence of weakness. VIII-hearing intact. IMPRESSION: No diagnosis found. Irlanda Tucker is a 38 year old year old female, with a history of GERD, HLD, and migraines, much improved with the addition of zonisamide, which she is tolerating well. This in combination with Emgality is working well to prevent her headaches. Their neurological examination is essentially normal at this visit although this is limited due to nature of telehealth. PLAN: She will send recent lab results Cont zonisamide 100 qhs Cont emgality monthly Cont ubrelvy or ibuprofen prn Prior Authorization: Irlanda Tucker has been previously approved for Calcitonin Gene Related Peptide Monoclonal Antibody (CGRP MAB) (Galcanezumab). The patient has demonstrated the following: Patient reduction in overall migraine days: Yes Patient reduction in moderate-severe migraine days: Yes Individual has obtained clinical benefit deemed significant by individual or prescriber: Yes Patient's quality of life and ability to perform ADLs has improved: Yes We suggest the patient continue treatment with CGRP MAB Galcanezumab. The following preventative medications have been tried for three or more months without benefit: Anti-Convulsant Topiramate (Topamax, Trokendi XL, Qudexy) helpful, but was able to wean after starting CGRP mAb Anti-Depressant and Antipsychotic Amitriptyline (Elavil) Escitalopram (Lexapro) Fluoxetine (Prozac) Blood Pressure Propranolol (Inderal) MABs Erenumab (Aimovig) building up tolerance, not working as well; causing constipation Fremanezumab (Ajovy) Galcanezumab (Emgality) The following abortive medications have been tried but require high frequency use which can lead to Medication Overuse Headache: Analgesic Butalbital/acetaminophen/caffeine (Fioricet) Anti-Migraine Eletriptan (Relpax) intense squeezing tightness in neck chest throat and jaw Naratriptan (Amerge) with all the triptans Rizatriptan (Maxalt) Sumatriptan (Imitrex, Sumavel) Sumatriptan/naproxen sodium (Treximet) Zolmitriptan (Zomig) GEPANTS Ubrogepant (Ubrelvy) works well! Over the Counter Medications Acetaminophen/Aspirin/Caffeine (Excedrin, Goody s) Ibuprofen (Advil, Motrin) Naproxen sodium (Aleve) Irlanda Tucker has been previously approved for an Oral Calcitonin Gene-Related Peptide Receptor Antagonist (GEPANT) Ubrogepant for the treatment of abortive use. The patient has demonstrated the following: Provider attests patient has had a positive clinical response: Yes Patient will not use with another Oral Calcitonin Gene-Related Peptide Receptor Antagonist (GEPANT): Yes Patient's quality of life and ability to perform ADLs has improved: Yes The patient has tried and failed the following : We suggest the patient continue treatment with GEPANT Ubrogepant. The following preventative medications have been tried for three or more months without benefit: Anti-Convulsant Topiramate (Topamax, Trokendi XL, Qudexy) helpful, but was able to wean after starting CGRP mAb Anti-Depressant and Antipsychotic Amitriptyline (Elavil) Escitalopram (Lexapro) Fluoxetine (Prozac) Blood Pressure Propranolol (Inderal) MABs Erenumab (Aimovig) building up tolerance, not working as well; causing constipation Fremanezumab (Ajovy) Galcanezumab (Emgality) The following abortive medications have been tried but require high frequency use which can lead to Medication Overuse Headache: Analgesic Butalbital/acetaminophen/caffeine (Fioricet) Anti-Migraine Eletriptan (Relpax) intense squeezing tightness in neck chest throat and jaw Naratriptan (Amerge) with all the triptans Rizatriptan (Maxalt) Sumatriptan (Imitrex, Sumavel) Sumatriptan/naproxen sodium (Treximet) Zolmitriptan (Zomig) GEPANTS Ubrogepant (Ubrelvy) works well! Over the Counter Medications Acetaminophen/Aspirin/Caffeine (Excedrin, Goody s) Ibuprofen (Advil, Motrin) Naproxen sodium (Aleve) HEADACHE MANAGEMENT: (You are the primary guardian of your health and headache. Keep track of all medications: This includes the reason for use, side effects and benefits.) MEDICATION TREATMENT: Medications to Start Taking None Follow-up: 6 months, PRN Level of Service: Virtual Visit 30 minutes Deisi Pike APRN.FLAT GRINDER OPERATOR Headache Section [facility] January 01, 2024 documented in this encounter [facility] 11-28-2023 Miscellaneous Notes Ambulatory Pharmacy Prior Authorization Note Provider Intervention Required?: No- Pharmacy completed on your behalf. Rx Plan: Other: [facility] Drug: Emgality 120MG/ML auto-injectors (migraine) Cover My Meds [place]: [id number] Determination: Approved Prior Authorization/Case #: n/a Prior Authorization Expiration: 11/27/24 Time to PA Submission in CMM: 15 min Time to PA Determination in CMM: >7 days Additional Information: PLEASE NOTE: Pt will need follow up office visit to review/document efficacy and tolerability of treatment before prior auth expiration. Please ensure a future follow up appt is scheduled with your patient. This will ensure no interruption in patient's ability to obtain medication refills. Prescriptions will now be processed through [facility] for determination of next steps. For questions relating to this submission, please contact [facility] at [phone] [facility] received prescription(s) for Emgality 120MG/ML auto-injectors (migraine). Benefits investigation was conducted, indicating that a prior authorization is required. PA was initiated and pending review through [employer]. All pertinent clinical information was submitted to insurance. [facility] [place]: [id number] Ordering Provider: Karlene Gray RN [facility] P: , F: documented in this encounter [facility] 10-03-2023 Miscellaneous Notes Patient last seeno n 09/29/23. documented in this encounter [facility] 07-25-2023 Miscellaneous Notes Images from the original note were not included. Approval letter attached to chart via Onbase. Recall letter submitted. For additional details please see encounter from 07/13/23. documented in this encounter [facility] 05-03-2023 Instructions Leny Phelps APRN.CNP - 05/03/2023 8:34 AM EDT PLAN: Continue working on lifestyle factors that can impact headaches/migraines: getting 7-9 hours restful sleep every night, staying hydrated with water, limiting caffeine to 200 mg/day, exercise (walking is great exercise), reducing stress levels, eating a healthy/balanced diet, etc. Prevention: Emgality Rescue: Ubrelvy, ibuprofen, zofran prn. Limit pain meds and triptans to no more than 2 days per week to avoid medication overuse headache. This includes limiting OTC pain meds such as tylenol, ibuprofen, Excedrin, aleve, etc. documented in this encounter [facility] 05-03-2023 History of Present illness Narrative Images from the original note were not included. [facility] - Follow up Virtual Visit Zoom- in [place] Irlanda Tucker was identified by name and and consented to the video evaluation and its limitations. Based on this evaluation it may be necessary for them to schedule a follow up evaluation with me or other neurologists for formal physical examination and, if necessary, other studies. I have communicated my name and active licensure. The patient's identity and physical location were verified at the time of this visit. Either the patient or their legal independent sales representative has been informed of the risks and benefits of -- and alternatives to -- treatment through a remote evaluation and consents to proceed with the evaluation remotely. Accompanied by: Self Primary Problem List: ACTIVE PROBLEM LIST Chronic Daily Headache Migraine Without Aura and Without Status Migrainosus, Not Intractable Migraine With Aura and Without Status Migrainosus, Not Intractable Chronic Migraine Without Aura, With Intractable Migraine, So Stated, With Status Migrainosus Intractable Chronic Migraine Without Aura and Without Status Migrainosus Obesity, Class III, BMI >= 40 Chief Complaint: migraines Impression and Plan from last visit: 12/30/22 w/ me IMPRESSION: Irlanda Tucker is a 37 year old year old female, with a history of GERD, migraines, and HLD. Her neurological examination is essentially normal at this visit. Ms. Irlanda Pappass migraines have improved and converted from chronic to episodic with use of topamax and emgality. With emgality, migraines have improved significantly. She'd like to wean off topamax and see how see does without it. Ubrelvy is a good rescue medication. She is seeing PCP today for symptoms she is having with exercise/exertion and she will update us. Red Flags: none PLAN: Labs - get CMP & CBC drawn. You do not have to fast. Hydrate with water before your lab draw. If you are getting lab work completed at a non-[facility] facility/lab, please call our office to have us print and mail your lab order to you (may take 2 weeks to arrive by mail). You can also provide us with the lab's fax # and we can fax them the lab order. You can have the lab fax the results back to us. [facility] . If you are getting your labs at a [facility] lab, then your order is already in the system and you can make an appt OR walk-in to the lab. Prevention: Emgality Wean off topamax. Decrease by 25 mg each week. If headaches increase in frequency or severity as you are tapering off, please let us know. Rescue: Ubrelvy, zofran prn. Ibuprofen prn. Limit pain meds and triptans to no more than 2 days per week to avoid medication overuse headache. This includes limiting OTC pain meds such as tylenol, ibuprofen, Excedrin, aleve, etc. Future Considerations: muscle relaxer, cymbalta Interval Headache History: Irlanda Tucker is a 38 year old year old female, with a history of GERD, migraines, and HLD, following up today virtually for migraine. Since the last visit, the patient states that her headaches have improved. Emgality has helped improved JAIN frequency & severity Preventative: emgality - usually does it around the 5th every month Abortive: ubrelvy, zofran, ibuprofen Medication SEs: none Contraceptive:tubal ligation Medications effective? yes # of doses of abortive medications per month: 4 days ubrelvy - one day she had to take it twice History of [place]/CAD/Stroke: No Concerns today: f/u Headache 1 Location: occipital, retro-orbital, right and left Quality/Description: squeezing, pressure and throbbing (shooting pain on left side retroorbitally and radiating back) Associated Symptoms: Photophobia: yes Phonophobia: yes Nausea: yes Vomiting: no Other symptoms: osmophobia, dizziness and neck pain Worse with activity: yes Number of migraine headache days/month: 4 Migraine headache severity: 5/10 Number of NON-migraine headache days/month: 0 Total Number of headache days/month: 4 Number of headache free days/month: 26 Duration of headaches with treatment: 30 minutes (0.5 hours) Triggers: weather changes, stress, odors, flickering lights and bright lights Relieving factors: ice pack, meds, Most common time of day for headache to begin: anytime Prodrome: none Aura: loss of peripheral vision - blue/green. Days missed from work or school in the last month: 0 days Headache status since the last visit: better Prior Therapies Duration of Use Dose Reason for Discontinuation Analgesic Butalbital/acetaminophen/caffeine (Fioricet) Anti-Convulsant Topiramate (Topamax, Trokendi XL, Qudexy) helpful, but was able to wean after starting CGRP mAb Anti-Depressant and Antipsychotic Amitriptyline (Elavil) Escitalopram (Lexapro) Fluoxetine (Prozac) Antiemetics Promethazine Anti-Migraine Eletriptan (Relpax) intense squeezing tightness in neck chest throat and jaw Naratriptan (Amerge) with all the triptans Rizatriptan (Maxalt) Sumatriptan (Imitrex, Sumavel) Sumatriptan/naproxen sodium (Treximet) Zolmitriptan (Zomig) Blood Pressure Propranolol (Inderal) MABs Erenumab (Aimovig) building up tolerance, not working as well; causing constipation Fremanezumab (Ajovy) Galcanezumab (Emgality) GEPANTS Ubrogepant (Ubrelvy) works well! Over the Counter Medications Acetaminophen/Aspirin/Caffeine (Excedrin, Goody s) Ibuprofen (Advil, Motrin) Naproxen sodium (Aleve) PAST MEDICAL HISTORY Diagnosis Date GERD (gastroesophageal reflux disease) High cholesterol Diet Controlled Migraines PAST SURGICAL HISTORY Procedure Laterality Date DELIVERY ONLY , low transverse DELIVERY ONLY , low transverse DELIVERY ONLY 04/15/16 , low transverse LIG/TRNSXJ FLP TUBE ABDL/VAG APPR UNI/BI 04/15/16 Tubal ligation TONSILLECTOMY & ADENOIDECTOMY <AGE 12 Adenoids Removed Twice TYMPANIC MEMB RPR W/WO PREPJ PERFOR PATCH Tympanoplasty ALLERGIES Allergen Reactions Latex Hives Phenergan Vc [Prome* Mental Status Change [id number] Anti* Other: See Comments Intense squeezing tightness, chest, neck throat and jaw Current Medications: galcanezumab-gnlm 120 mg/mL subcutaneous pen injector (EMGALITY) Inject 1 mL subcutaneously once every month. Do not shake. topiramate (TOPAMAX) 25 mg tablet Take 2 tablets by mouth daily at bedtime. Take with 100 mg tab for a total of 150 mg at bedtime. escitalopram oxalate (LEXAPRO) 20 mg tablet Take 1 tablet by mouth once daily. ubrogepant (UBRELVY) 100 mg tablet Take 1 tablet by mouth as needed (for migraine). Take at first sign of migraine. You may repeat 1 tablet 2 hours later if needed. Max daily dose 200 mg. topiramate (TOPAMAX) 100 mg tablet Take 1 tablet by mouth daily at bedtime. Take with 25 mg tab for a total of 125 mg at bedtime. famotidine (PEPCID) 20 mg tablet Take 20 mg by mouth once daily. ondansetron orally disintegrating (ZOFRAN ODT) 4 mg disintegrating tablet Take 1 tablet by mouth every 8 hours as needed (for nausea with migraines). ibuprofen (MOTRIN) 800 mg tablet Take 1 tablet by mouth every 6 hours as needed. I have reviewed the [place] Status Assessment responses and discussed these with the patient: yes Leny Phelps APRN.FLAT GRINDER OPERATOR HEADACHE SCORES: Headache Questions 05/12/2022 08/11/2022 11/13/2022 ID Migraine Screener: - - - ER visits in the last year: - - - ER visits since last office visit: 0 0 0 Hospital stays in the last year: - - - Hospital stays since last office visit 0 0 0 Limited ADLs in the last month: 16 10 0 Days missed from work or school in the last month: 0 0 0 Days headache pain free in the last month: 14 20 25 Days per month with ALL of the following symptoms - decreased productivity, light sensitivity and nausea: 16 10 6 Initial improvement of headache after botox injection at last visit: Not applicable, I did not have a botox injection at my last visit Not applicable, I did not have a botox injection at my last visit Not applicable, I did not have a botox injection at my last visit PRN medication usage in the last month: 16 10 6 Patient impression of improvement since last visit: Much worse Minimally improved Minimally improved HIT-6 08/11/2022 11/13/2022 12/30/2022 HIT-6 66 (Severe impact) 69 (Severe impact) 66 (Severe impact) TERRENCE - 2/7 SCORES 08/11/2022 11/13/2022 12/30/2022 TERRENCE-2 Score 0 2 0 TERRENCE-7 Score - - - Migraine Specific QOL - Higher scores indicate better HRQL 08/11/2022 11/13/2022 12/30/2022 Role Function-Restrictive Transformed Score (range: 0-100) 40 45.71 65.71 Role Function-Preventive Transformed Score (range: 0-100) 75 50 90 Emotional Function Transformed Score (range: 0-100) 0 0 46.67 PHQ-9 08/11/2022 11/13/2022 12/30/2022 Score 1 0 0 MRI Head/Brain - Last 2 Impressions No resulted procedures found. MRA Head and/or Neck - Last 2 Impressions No resulted procedures found. Labs to Review: Yes, [facility] [place] 03/22/23: CMP & CBC stable New Health Issues: GI issues- labs came back normal and will see Pattern Illustrator in the fall Review of Systems: Review of system: unchanged from the previous visit (sleep patterns, mood, energy, appetite, stress, exercising). Physical Examination: Vital Signs: No vital signs taken due to virtual visit. General: well appearing, in no acute distress, alert Pain Behaviors: no pain behaviors observed Neurological: Mental Status: Alert and oriented to person, place and time. Affect is normal and appropriate. Speech is spontaneous and fluent without dysarthria, normal in rate, volume and articulation, and clear, coherent, and relevant. Short and intermediate accountant memory, cognition and general fund of knowledge are good. Attention span and concentration are good. HEENT: Head is normocephalic and features were symmetric. Musculoskeletal: Patient able to sit upright for visit. Cranial Nerves: III, IV, -EOMI: full. VII-face is symmetric without evidence of weakness. VIII-hearing intact. Physical exam limited due to virtual visit. IMPRESSION: Irlanda Tucker is a 38 year old year old female, with a history of GERD, migraines, and HLD. Her neurological examination is essentially normal at this visit. Ms. Irlanda Tucker's migraines have improved significantly with emgality. It has helped decrease migraine frequency and severity. Ubrelvy is an effective rescue. No changes today as she is happy with her current treatment plan. ICHD-3 Diagnosis: Episodic Migraine Red Flags: none PLAN: Continue working on lifestyle factors that can impact headaches/migraines: getting 7-9 hours restful sleep every night, staying hydrated with water, limiting caffeine to 200 mg/day, exercise (walking is great exercise), reducing stress levels, eating a healthy/balanced diet, etc. Prevention: Emgality Rescue: Ubrelvy, ibuprofen, zofran prn. Limit pain meds and triptans to no more than 2 days per week to avoid medication overuse headache. This includes limiting OTC pain meds such as tylenol, ibuprofen, Excedrin, aleve, etc. Future Considerations: muscle relaxer, cymbalta, ajovy Patient verbalized understanding and agreed to the treatment plan. Many labs have been done looking for underlying reasons of headache and are not necessary at this time. HEADACHE MANAGEMENT: (You are the primary guardian of your health and headache. Keep track of all medications: This includes the reason for use, side effects and benefits.) MEDICATION TREATMENT: Medications to Start Taking ubrogepant (UBRELVY) 100 mg tablet Take 1 tablet by mouth as needed (for migraine). Take at first sign of migraine. You may repeat 1 tablet 2 hours later if needed. Max daily dose 200 mg. galcanezumab-gnlm 120 mg/mL subcutaneous pen injector (EMGALITY) Inject 1 mL subcutaneously once every month. Do not shake. Discussed testing. Written educational materials given. Headache education was done. Discussed triggers and lifestyle modification including increased oral hydration, decreased caffeine, exercise and stress management. Discussed treatment options including preventive and acute medications, natural supplements, and infusion therapy. Discussed medication overuse headache and to limit use of acute treatments to no more than 2 days/week or 10 days/month. Discussed medication side effects, adverse reactions and drug interactions. Written educational materials and patient instructions provided. Prior Authorization: Irlanda Tucker has been previously approved for Calcitonin Gene Related Peptide Monoclonal Antibody (CGRP MAB) (Galcanezumab). The patient has demonstrated the following: Patient reduction in overall migraine days: Yes Patient reduction in moderate-severe migraine days: Yes Individual has obtained clinical benefit deemed significant by individual or prescriber: Yes Patient's quality of life and ability to perform ADLs has improved: Yes We suggest the patient continue treatment with CGRP MAB Galcanezumab. The following preventative medications have been tried for three or more months without benefit: Anti-Convulsant Topiramate (Topamax, Trokendi XL, Qudexy) Anti-Depressant and Antipsychotic Amitriptyline (Elavil) Escitalopram (Lexapro) Fluoxetine (Prozac) Blood Pressure Propranolol (Inderal) MABs Erenumab (Aimovig) building up tolerance, not working as well; causing constipation The following abortive medications have been tried but require high frequency use which can lead to Medication Overuse Headache: Analgesic Butalbital/acetaminophen/caffeine (Fioricet) Anti-Migraine Eletriptan (Relpax) intense squeezing tightness in neck chest throat and jaw Naratriptan (Amerge) with all the triptans Rizatriptan (Maxalt) Sumatriptan (Imitrex, Sumavel) Sumatriptan/naproxen sodium (Treximet) Zolmitriptan (Zomig) GEPANTS Ubrogepant (Ubrelvy) works well! Over the Counter Medications Acetaminophen/Aspirin/Caffeine (Excedrin, Goody s) Ibuprofen (Advil, Motrin) Naproxen sodium (Aleve) Irlanda Tucker has been previously approved for an Oral Calcitonin Gene-Related Peptide Receptor Antagonist (GEPANT) Ubrogepant for the treatment of acute migraine. The patient has demonstrated the following: Provider attests patient has had a positive clinical response: Yes Patient will not use with another Oral Calcitonin Gene-Related Peptide Receptor Antagonist (GEPANT): Yes Patient's quality of life and ability to perform ADLs has improved: Yes We suggest the patient continue treatment with GEPANT Ubrogepant. The following preventative medications have been tried for three or more months without benefit: Anti-Convulsant Topiramate (Topamax, Trokendi XL, Qudexy) Anti-Depressant and Antipsychotic Amitriptyline (Elavil) Escitalopram (Lexapro) Fluoxetine (Prozac) Blood Pressure Propranolol (Inderal) MABs Erenumab (Aimovig) building up tolerance, not working as well; causing constipation The following abortive medications have been tried but require high frequency use which can lead to Medication Overuse Headache: Analgesic Butalbital/acetaminophen/caffeine (Fioricet) Anti-Migraine Eletriptan (Relpax) intense squeezing tightness in neck chest throat and jaw Naratriptan (Amerge) with all the triptans Rizatriptan (Maxalt) Sumatriptan (Imitrex, Sumavel) Sumatriptan/naproxen sodium (Treximet) Zolmitriptan (Zomig) GEPANTS Ubrogepant (Ubrelvy) works well! Over the Counter Medications Acetaminophen/Aspirin/Caffeine (Excedrin, Goody s) Ibuprofen (Advil, Motrin) Naproxen sodium (Aleve) RESEARCH: None at this time Follow-up: 3-6 months, PRN Level of service: Est level 3 (20-29 min). Time spent 25 min on the day of service, which included preparing to see the patient, [id number] patient care, completing clinical documentation, obtaining and/or reviewing separately obtained history, performing a medically appropriate examination, counseling and educating the patient/family/caregiver, and ordering medications, tests, or procedures. Leny Phelps APRN.MORALES Headache Section [facility] May 03, 2023 documented in this encounter [facility] 02-20-2023 Miscellaneous Notes Ambulatory Pharmacy Prior Authorization Note Provider Intervention Required?: No- Pharmacy completed on your behalf. Rx Plan: Other: [facility] Drug: Ubrelvy 100MG tablets Cover My Meds [place]: [id number] Determination: Approved Prior Authorization/Case #: n/a Prior Authorization Expiration: until further notice Time to PA Submission in CMM: 15 min Time to PA Determination in CMM: 3 days Additional Information: PLEASE NOTE: Pt will need follow up office visit to review/document efficacy and tolerability of treatment before prior auth expiration. Please ensure a future follow up appt is scheduled with your patient. This will ensure no interruption in patient's ability to obtain medication refills. Prescriptions will now be processed through [facility] for determination of next steps. For questions relating to this submission, please contact [facility] [phone] [facility] received prescription(s) for Ubrelvy 100MG tablets. Benefits investigation was conducted, indicating that a prior authorization is required. PA was initiated and pending review through [employer]. All pertinent clinical information was submitted to insurance. CM [place]ak: [id number] Ordering Provider: Leny Phelps APRN.Karlene Medrano RN [facility] P: , F: documented in this encounter [facility] 12-30-2022 Instructions Leny Phelps APRN.MORALES - 12/30/2022 7:32 AM EDT PLAN: Labs - get CMP & CBC drawn. You do not have to fast. Hydrate with water before your lab draw. If you are getting lab work completed at a non-[facility] facility/lab, please call our office to have us print and mail your lab order to you (may take 2 weeks to arrive by mail). You can also provide us with the lab's fax # and we can fax them the lab order. You can have the lab fax the results back to us. [facility] . If you are getting your labs at a [facility] lab, then your order is already in the system and you can make an appt OR walk-in to the lab. Prevention: Emgality Wean off topamax. Decrease by 25 mg every 7 days. If headaches increase in frequency or severity as you are tapering off, please let us know. Rescue: Ubrelvy, zofran prn. Ibuprofen prn. Limit pain meds and triptans to no more than 2 days per week to avoid medication overuse headache. This includes limiting OTC pain meds such as tylenol, ibuprofen, Excedrin, aleve, etc. General Headache Education and Headache Prevention Strategies: 1. Maintain a headache diary; learn to identify and avoid triggers. Common triggers include: Emotional triggers: Emotional/Upset family or friends Emotional/Upset occupation Business reversal/success Anticipation anxiety Crisis-serious Post-crisis periodNew job/position Physical triggers: Vacation Day Weekend Strenuous Exercise High Altitude Location New Move Day Physical Illness Oversleep/Not enough sleep Weather changes Light: Photophobia or light sesnitivity treatment involves a balance between desensitization and reduction in overly strong input. Use dark polarized glasses outside, but not inside. Avoid bright or fluorescent light, but do not dim environment to the point that going into a normally lit room hurts. Consider FL-41 tint lenses, which reduce the most irritating wavelengths without blocking too much light. These can be obtained at [employer] or [employer]: see list below. 2. Limit use of acute treatments (jnum-uvp-lpzlvhq medications, triptans, etc.) to no more than 2 days per week or 10 days per month to prevent medication overuse headache (rebound headache). 3. Follow a regular schedule (including weekends and holidays): Don't skip meals. Eat a balanced diet. 8 hours of sleep nightly. Minimize stress. Exercise 30 minutes per day. Walking is great exercise. Being overweight is associated with a 5 times increased risk of chronic migraine. Keep well hydrated and drink 6-8 glasses of water per day. Limit caffeine to 200 mg per day. 4. Initiate non-pharmacologic measures at the earliest onset of your headache. Rest and quiet environment. Relax and reduce stress. Ocmluol0Edpxp is a free lamin that can instruct you on some simple relaxtion and breathing techniques. Http://[employer].TellMi is a free website that provides teaching videos on relaxation. Also, there are many apps that can be downloaded for mindful relaxation. An lamin called YOGA NIDRA will help walk you through mindfulness. Cold compresses. 5. Don't wait!! Take the maximum allowable dosage of prescribed medication at the first sign of migraine. 6. Compliance: Take prescribed medication regularly as directed and at the first sign of a migraine. 7. Communicate: Call your physician when problems arise, especially if your headaches change, increase in frequency/severity, or become associated with neurological symptoms (weakness, numbness, slurred speech, etc.). 8. Headache/pain management therapies: Consider various complementary methods, including meditation, behavioral therapy, psychological counselling, biofeedback, massage therapy, acupuncture, dry needling, and other modalities. Such measures may reduce the need for medications. Counseling for pain management, where patients learn to function and ignore/minimize their pain, seems to work very well. 9. Recommend changing family's attention and focus away from patient's headaches. Instead, emphasize daily activities. If first question of day is 'How are your headaches/Do you have a headache today?', then patient will constantly think about headaches, thus making them worse. Goal is to re-direct attention away from headaches, toward daily activities and other distractions. 10. Helpful Websites: www.AmericanHeadacheSociety.org www.migrainetrust.org www.headaches.org www.migraine.org.uk www.achenet.org 11. HEADACHE EXPECTATIONS: There are many types of headaches, and only a rare few in which complete relief can be expected. In general, there is no cure for headache, especially migraine based headaches. There is nothing available that completely prevents headaches from occurring, breaking through, or having periodic flare-ups and fluctuations. Regardless of what you are using on a daily basis for prevention, episodic headaches should still be expected, and periods where frequency may escalate and fluctuate are unavoidable. There is no quick fix for most headaches. Furthermore, the longer you have had high frequency headaches (such as chronic daily headache), the longer it will likely take to expect any improvement. In fact, some people will never improve, regardless of how many medications or other treatments we try. Our treatment strategy is to evaluate for possible causes of your headache, although testing is usually always normal, even in cases of daily continuous headaches for years. Most types of headache such as migraine are electrical brain disorders (similar to how epilepsy is an electrical brain disorders). Therefore, there is no testing that will reveal this dysfunctional electrical circuitry such on MRI, or other testing. We try to find a medication that may help lessen the frequency and/or severity of your headaches. The goal is not to completely stop them from happening, although if that happens, great! Different people respond to different medications, and some people just don't respond to anything, so it's usually a matter of trying different options. We can not predict if or when exactly you will respond to a treatment that we provide. Preventive headache medications take 4-6 weeks to start working, and 2-3 months to see full effect, assuming you reach an effective dose. Therefore, calling or messaging frequently because you have a headache flare prior to the 3 month héctor is unlikely to change anything, and unfortunately there is nothing available that will expedite this, so please try to avoid this. Our recommendation will generally be to give it adequate time first. If you are unable to wait it out for medications to work, we can also try IV infusions for some temporary relief. In general, the best that preventive medications or other treatments (including Botox) are able to offer in migraine management (variable in other headache types) is a 50% improvement in frequency and/or severity of headache. That is our goal, and any additional benefit is considered a bonus. Some people do significantly better than this, others do not get close to this. Therefore, if your headaches are not improving by at least 3 months on your preventive strategy, contact us and we can discuss further adjustments. Keep in mind that complete headache cure is not a realistic expectation. Our Team: The nursing staff, and medical assistants are a major part of YOUR TREATMENT TEAM and will be handling your phone calls and inquiries, if any. Unless explicitly told otherwise at the time of your office visit, your study results and ensuing treatment plans will be released via [employer] and discussed during your follow-up appointment. Follow-up appointments are primarily provided by the Nurse Practitioners and Physician s Assistants in order to provide timely, accessible care. [employer]: Please ask the schedulers to give you an activation code. The main way of communication is by [employer] rather than phone lines, so if you have not signed up, please do so. [employer] is also the way that you can review your labs and testing. We are not able to contact everyone to tell them results are normal. If you do not hear back from us regarding testing you have had, it should be considered normal or within normal range. If you have any questions about the results, you are free to message us. [employer] is meant for simple questions regarding medications, possible side effects, or other simple straight forward questions in limited sentences, rather than multiple paragraphs of discussion. [employer] is not meant for, or efficient for these complex questions, extensive questions, extensive medication adjustments, complex new symptoms or concerns. These issues beyond simple questions require a follow up visit with myself, one of our physician assistants, nurse practitioners, or a Virtual Visit via computer or smart phone, as detailed further down. Please contact [employer] if you are having issues with [employer] or logging in to your virtual visit appointment. You can reach them at [phone] Refills: Please pay attention to when your refills will need to be renewed. Due to the volume of phone calls daily, this could potentially take a few days, although we certainly try to honor your refill requests as soon as we can. You should call at least 1 week in advance of needing a refill to ensure you do not run out of medication. Keep in mind that refill requests on Fridays may not be filled until the following week. The Headache and Facial Pain Section does not complete disability or any other insurance-related forms/documention. We will complete FMLA forms. All of the office notes, study results, and other pertinent documentation generated as part of your evaluation will be available to you and to your Primary Care Physician (PCP). Use of this material to complete such forms will be at the discretion of your PCP/referring physician. HEADACHE DIET: Foods and beverages which may trigger migraine Note that only 20% of headache patients are food sensitive. You will know if you are food sensitive if you get a headache consistently 20 minutes to 2 hours after eating a certain food. Only cut out a food if it causes headaches, otherwise you might remove foods you enjoy! What matters most for diet is to eat a well balanced healthy diet full of vegetables and low fat protein, and to not miss meals. Chocolate, other sweets ALL cheeses except cottage and cream cheese Dairy products, yogurt, sour cream, ice cream Liver Meat extracts (Bovril, Marmite, meat tenderizers) Meats or fish which have undergone aging, fermenting, pickling or smoking. These include: Hotdogs,salami,Lox,sausage, mortadellas,smoked salmon, pepperoni, Pickled black Pods of broad john (Lao beans, Cay[place] Islander pea pods, Angolan (jono) beans, davila and navy beans Ripe avocado, ripe banana Yeast extracts or active yeast preparations such as Tomas's or Monik's (commercial bakes goods are permitted) Tomato based foods, pizza (lasagna, etc.) MSG (monosodium glutamate) is disguised as many things; look for these common aliases: Monopotassium glutamate Autolysed yeast Hydrolysed protein Sodium caseinate flavorings all natural preservatives Nutrasweet Avoid all other foods that convincingly provoke headaches. documented in this encounter [facility] 12-30-2022 History of Present illness Narrative Images from the original note were not included. [facility] - Follow up Virtual Visit Gloria Tucker was identified by name and and consented to the video evaluation and its limitations. Based on this evaluation it may be necessary for them to schedule a follow up evaluation with me or other neurologists for formal physical examination and, if necessary, other studies. I have communicated my name and active licensure. The patient's identity and physical location were verified at the time of this visit. Either the patient or their legal independent sales representative has been informed of the risks and benefits of -- and alternatives to -- treatment through a remote evaluation and consents to proceed with the evaluation remotely. Accompanied by: Self Primary Problem List: ACTIVE PROBLEM LIST Chronic Daily Headache Migraine Without Aura and Without Status Migrainosus, Not Intractable Migraine With Aura and Without Status Migrainosus, Not Intractable Chronic Migraine Without Aura, With Intractable Migraine, So Stated, With Status Migrainosus Intractable Chronic Migraine Without Aura and Without Status Migrainosus Obesity, Class III, BMI >= 40 Chief Complaint: migraine Impression and Plan from last visit: 11/14/22 w/ me IMPRESSION: Irlanda Tucker is a 37 year old year old female, with a history of GERD, migraines, and HLD. Her neurological examination is essentially normal at this visit. Ms. Irlanda Tucker is doing well on her current treatment plan. Rx insurance changed, so emgality has been delayed and she needs new PA completed. Emgality has helped decrease JAIN frequency & severity. Since emgality has been delayed for 2 weeks she has noticed JAIN worsening over past 2 weeks. She is interested in weaning off topamax, but will wait until she's back on the emgality consistently for a couple months to ensure JAIN are better controlled. Ubrelvy still a great rescue. Labs needed for continued refills. ICHD-3 Diagnosis: Episodic Migraine Red Flags: none PLAN: If JAIN don't improve once back on emgality, and still getting shooting pain on left side, schedule an in-person office visit so we can do an exam and consider if imaging is needed. We will mail your labs. Get CMP & CBC drawn. You do not have to fast. Hydrate with water before your lab draw. If you are getting lab work completed at a non-[facility] facility/lab, please call our office to have us print and mail your lab order to you (may take 2 weeks to arrive by mail). You can also provide us with the lab's fax # and we can fax them the lab order. You can have the lab fax the results back to us. [facility] . If you are getting your labs at a [facility] lab, then your order is already in the system and you can make an appt OR walk-in to the lab. Prevention: Continue topamax and emgality. In about 2 months (once you've been on the emgality consistently), if JAIN are well-controlled and you are interested in weaning off topamax, we will do a slow wean and decrease by 25 mg every 2 weeks. Rescue: Ubrelvy, zofran prn Ibuprofen prn. Limit pain meds and triptans to no more than 2 days per week to avoid medication overuse headache. This includes limiting OTC pain meds such as tylenol, ibuprofen, Excedrin, aleve, etc. Future Considerations: muscle relaxer Interval Headache History: Irlanda Tucker is a 37 year old year old female, with a history of GERD, migraines, and HLD following up today virtually for migraine. Since the last visit, the patient states that her headaches have improved. Emgality appeal sent 11/29/22. Appeal was granted and emgality is approved until nov 2023. She went about 2 months without emgality. She did her injection in early December. She is going to see PCP today for symptoms when working out over the past month: chest pain/tightness, SOB, vision changes (white spots), headache, projectile vomiting, syncopal episodes. Has not need ubrelvy as much now that migraines are better controlled. Labs: not yet drawn Preventative: topamax 150 mg, emgality Abortive: zofran, ibuprofen, ubrelvy Contraceptive: tubal ligation Medications effective? yes Headache 1 Location: occipital, retro-orbital, right and left Quality/Description: squeezing, pressure and throbbing (shooting pain on left side retroorbitally and radiating back) Associated Symptoms: Photophobia: yes Phonophobia: yes Nausea: yes Vomiting: no Other symptoms: osmophobia, dizziness and neck pain Worse with activity: yes Number of migraine headache days/month: 1 Number of NON-migraine headache days/month: 0 Total Number of headache days/month: 1 Duration of headaches with treatment: 30 minutes (0.5 hours) Triggers: weather changes, stress, odors, flickering lights and bright lights Relieving factors: ice pack, meds, Most common time of day for headache to begin: anytime Prodrome: none Aura: loss of peripheral vision - blue/green. Days missed from work or school in the last month: 0 days Headache status since the last visit: better Prior Therapies Duration of Use Dose Reason for Discontinuation Analgesic Butalbital/acetaminophen/caffeine (Fioricet) Anti-Convulsant Topiramate (Topamax, Trokendi XL, Qudexy) Anti-Depressant and Antipsychotic Amitriptyline (Elavil) Escitalopram (Lexapro) Fluoxetine (Prozac) Antiemetics Promethazine Anti-Migraine Eletriptan (Relpax) intense squeezing tightness in neck chest throat and jaw Naratriptan (Amerge) with all the triptans Rizatriptan (Maxalt) Sumatriptan (Imitrex, Sumavel) Sumatriptan/naproxen sodium (Treximet) Zolmitriptan (Zomig) Blood Pressure Propranolol (Inderal) MABs Erenumab (Aimovig) building up tolerance, not working as well; causing constipation GEPANTS Ubrogepant (Ubrelvy) works well! Over the Counter Medications Acetaminophen/Aspirin/Caffeine (Excedrin, Goody s) Ibuprofen (Advil, Motrin) Naproxen sodium (Aleve) PAST MEDICAL HISTORY Diagnosis Date GERD (gastroesophageal reflux disease) High cholesterol Diet Controlled Migraines PAST SURGICAL HISTORY Procedure Laterality Date DELIVERY ONLY , low transverse DELIVERY ONLY , low transverse DELIVERY ONLY 04/15/16 , low transverse LIG/TRNSXJ FLP TUBE ABDL/VAG APPR UNI/BI 04/15/16 Tubal ligation TONSILLECTOMY & ADENOIDECTOMY <AGE 12 Adenoids Removed Twice TYMPANIC MEMB RPR W/WO PREPJ PERFOR PATCH Tympanoplasty ALLERGIES Allergen Reactions Latex Hives Phenergan Vc [Prome* Mental Status Change [id number] Anti* Other: See Comments Intense squeezing tightness, chest, neck throat and jaw Current Medications: topiramate (TOPAMAX) 25 mg tablet Take 2 tablets by mouth daily at bedtime. Take with 100 mg tab for a total of 150 mg at bedtime. escitalopram oxalate (LEXAPRO) 20 mg tablet Take 1 tablet by mouth once daily. galcanezumab-gnlm 120 mg/mL subcutaneous pen injector (EMGALITY) Inject 1 mL subcutaneously once every month. Do not shake. ubrogepant (UBRELVY) 100 mg tablet Take 1 tablet by mouth as needed (for migraine). Take at first sign of migraine. You may repeat 1 tablet 2 hours later if needed. Max daily dose 200 mg. topiramate (TOPAMAX) 100 mg tablet Take 1 tablet by mouth daily at bedtime. Take with 25 mg tab for a total of 125 mg at bedtime. spironolactone (ALDACTONE) 50 mg tablet once daily. famotidine (PEPCID) 20 mg tablet Take 20 mg by mouth once daily. ondansetron orally disintegrating (ZOFRAN ODT) 4 mg disintegrating tablet Take 1 tablet by mouth every 8 hours as needed (for nausea with migraines). ibuprofen (MOTRIN) 800 mg tablet Take 1 tablet by mouth every 6 hours as needed. Multivitamin capsule Take 1 capsule by mouth once daily. I have reviewed the Bradly Status Assessment responses and discussed these with the patient: no, patient did not complete Leny Phelps APRN.FLAT GRINDER OPERATOR HEADACHE SCORES: Headache Questions 05/12/2022 08/11/2022 11/13/2022 ID Migraine Screener: - - - ER visits in the last year: - - - ER visits since last office visit: 0 0 0 Hospital stays in the last year: - - - Hospital stays since last office visit 0 0 0 Limited ADLs in the last month: 16 10 0 Days missed from work or school in the last month: 0 0 0 Days headache pain free in the last month: 14 20 25 Days per month with ALL of the following symptoms - decreased productivity, light sensitivity and nausea: 16 10 6 Initial improvement of headache after botox injection at last visit: Not applicable, I did not have a botox injection at my last visit Not applicable, I did not have a botox injection at my last visit Not applicable, I did not have a botox injection at my last visit PRN medication usage in the last month: 16 10 6 Patient impression of improvement since last visit: Much worse Minimally improved Minimally improved HIT-6 05/12/2022 08/11/2022 11/13/2022 HIT-6 68 (Severe impact) 66 (Severe impact) 69 (Severe impact) TERRENCE - 2/7 SCORES 05/12/2022 08/11/2022 11/13/2022 TERRENCE-2 Score 1 0 2 TERRENCE-7 Score - - - Migraine Specific QOL - Higher scores indicate better HRQL 05/12/2022 08/11/2022 11/13/2022 Role Function-Restrictive Transformed Score (range: 0-100) 34.29 40 45.71 Role Function-Preventive Transformed Score (range: 0-100) 55 75 50 Emotional Function Transformed Score (range: 0-100) 20 0 0 PHQ-9 05/12/2022 08/11/2022 11/13/2022 Score 3 1 0 MRI Head/Brain - Last 2 Impressions No resulted procedures found. MRA Head and/or Neck - Last 2 Impressions No resulted procedures found. Labs to Review: No New Health Issues: No Review of Systems: Review of system: unchanged from the previous visit (sleep patterns, mood, energy, appetite, stress, exercising). Physical Examination: Vital Signs: No vital signs taken due to virtual visit. General: well appearing, in no acute distress, alert, obese Pain Behaviors: rubbing affected body part Neurological: Mental Status: Alert and oriented to person, place and time. Affect is normal and appropriate. Speech is spontaneous and fluent without dysarthria, normal in rate, volume and articulation, and clear, coherent, and relevant. Short and detention memory, cognition and general fund of knowledge are good. Attention span and concentration are good. HEENT: Head is normocephalic and features were symmetric. Musculoskeletal: Patient able to sit upright for visit. Cranial Nerves: III, IV, -EOMI: full. VII-face is symmetric without evidence of weakness. VIII-hearing intact. Physical exam limited due to virtual visit. IMPRESSION: Irlanda Tucker is a 37 year old year old female, with a history of GERD, migraines, and HLD. Her neurological examination is essentially normal at this visit. Ms. Irlanda Tucker's migraines have improved and converted from chronic to episodic with use of topamax and emgality. With emgality, migraines have improved significantly. She'd like to wean off topamax and see how see does without it. Ubrelvy is a good rescue medication. She is seeing PCP today for symptoms she is having with exercise/exertion and she will update us. Red Flags: none PLAN: Labs - get CMP & CBC drawn. You do not have to fast. Hydrate with water before your lab draw. If you are getting lab work completed at a non-[facility] facility/lab, please call our office to have us print and mail your lab order to you (may take 2 weeks to arrive by mail). You can also provide us with the lab's fax # and we can fax them the lab order. You can have the lab fax the results back to us. [facility] . If you are getting your labs at a [facility], then your order is already in the system and you can make an appt OR walk-in to the lab. Prevention: Emgality Wean off topamax. Decrease by 25 mg each week. If headaches increase in frequency or severity as you are tapering off, please let us know. Rescue: Ubrelvy, zofran prn. Ibuprofen prn. Limit pain meds and triptans to no more than 2 days per week to avoid medication overuse headache. This includes limiting OTC pain meds such as tylenol, ibuprofen, Excedrin, aleve, etc. Future Considerations: muscle relaxer, cymbalta Patient verbalized understanding and agreed to the treatment plan. HEADACHE MANAGEMENT: (You are the primary guardian of your health and headache. Keep track of all medications: This includes the reason for use, side effects and benefits.) MEDICATION TREATMENT: Medications to Start Taking galcanezumab-gnlm 120 mg/mL subcutaneous pen injector (EMGALITY) Inject 1 mL subcutaneously once every month. Do not shake. Discussed testing. Written educational materials given. Headache education was done. Discussed triggers and lifestyle modification including increased oral hydration, decreased caffeine, exercise and stress management. Discussed treatment options including preventive and acute medications, natural supplements, and infusion therapy. Discussed medication overuse headache and to limit use of acute treatments to no more than 2 days/week or 10 days/month. Discussed medication side effects, adverse reactions and drug interactions. Written educational materials and patient instructions provided. Prior Authorization: Irlanda Tucker has been previously approved for Calcitonin Gene Related Peptide Monoclonal Antibody (CGRP MAB) (Galcanezumab). The patient has demonstrated the following: Patient reduction in overall migraine days: Yes Patient reduction in moderate-severe migraine days: Yes Individual has obtained clinical benefit deemed significant by individual or prescriber: Yes Patient's quality of life and ability to perform ADLs has improved: Yes We suggest the patient continue treatment with CGRP MAB Galcanezumab. The following preventative medications have been tried for three or more months without benefit: Anti-Convulsant Topiramate (Topamax, Trokendi XL, Qudexy) Anti-Depressant and Antipsychotic Amitriptyline (Elavil) Escitalopram (Lexapro) Fluoxetine (Prozac) Blood Pressure Propranolol (Inderal) MABs Erenumab (Aimovig) building up tolerance, not working as well; causing constipation The following abortive medications have been tried but require high frequency use which can lead to Medication Overuse Headache: Analgesic Butalbital/acetaminophen/caffeine (Fioricet) Anti-Migraine Eletriptan (Relpax) intense squeezing tightness in neck chest throat and jaw Naratriptan (Amerge) with all the triptans Rizatriptan (Maxalt) Sumatriptan (Imitrex, Sumavel) Sumatriptan/naproxen sodium (Treximet) Zolmitriptan (Zomig) GEPANTS Ubrogepant (Ubrelvy) works well! Over the Counter Medications Acetaminophen/Aspirin/Caffeine (Excedrin, Goody s) Ibuprofen (Advil, Motrin) Naproxen sodium (Aleve) Irlanda Tucker has been previously approved for an Oral Calcitonin Gene-Related Peptide Receptor Antagonist (GEPANT) Ubrogepant for the treatment of acute migraine. The patient has demonstrated the following: Provider attests patient has had a positive clinical response: Yes Patient will not use with another Oral Calcitonin Gene-Related Peptide Receptor Antagonist (GEPANT): Yes Patient's quality of life and ability to perform ADLs has improved: Yes We suggest the patient continue treatment with GEPANT Ubrogepant. The following preventative medications have been tried for three or more months without benefit: Anti-Convulsant Topiramate (Topamax, Trokendi XL, Qudexy) Anti-Depressant and Antipsychotic Amitriptyline (Elavil) Escitalopram (Lexapro) Fluoxetine (Prozac) Blood Pressure Propranolol (Inderal) MABs Erenumab (Aimovig) building up tolerance, not working as well; causing constipation The following abortive medications have been tried but require high frequency use which can lead to Medication Overuse Headache: Analgesic Butalbital/acetaminophen/caffeine (Fioricet) Anti-Migraine Eletriptan (Relpax) intense squeezing tightness in neck chest throat and jaw Naratriptan (Amerge) with all the triptans Rizatriptan (Maxalt) Sumatriptan (Imitrex, Sumavel) Sumatriptan/naproxen sodium (Treximet) Zolmitriptan (Zomig) GEPANTS Ubrogepant (Ubrelvy) works well! Over the Counter Medications Acetaminophen/Aspirin/Caffeine (Excedrin, Goody s) Ibuprofen (Advil, Motrin) Naproxen sodium (Aleve) RESEARCH: None at this time Follow-up: 4 months, PRN Level of service: Est level 4 (30-39 min). Time spent 30 min on the day of service, which included preparing to see the patient, [id number] patient care, completing clinical documentation, obtaining and/or reviewing separately obtained history, performing a medically appropriate examination, counseling and educating the patient/family/caregiver, and ordering medications, tests, or procedures. Leny Phelps APRN.MORALES Headache [facility] December 30, 2022 documented in this encounter [facility] 11-29-2022 Miscellaneous Notes The following approved medication requests have been transmitted electronically. Requested Prescriptions Signed Prescriptions Disp Refills topiramate (TOPAMAX) 25 mg tablet 60 tablet 1 Sig: Take 2 tablets by mouth daily at bedtime. Take with 100 mg tab for a total of 150 mg at bedtime. Leny Phelps APRN.CNP This patient gave consent to this Medical Advice Message and is aware that it may result in a bill to their insurance, as well as the possibility of receiving a bill for a copay and/or deductible. They are an established patient, but are not seeking information exclusively about a problem treated during an in person or video visit in the last seven days. I did not recommend an in person or video visit within seven days of my reply. See the [employer] message reply for my assessment and plan. I spent a total of 15 minutes reviewing the patient's prior medical records and current request for medical advice, prescribing medications or ordering tests (if applicable), replying to the patient, and documenting the encounter. Patient last seen on 11/14/22 documented in this encounter [facility] 11-28-2022 Miscellaneous Notes Please appeal emgality denial. Leny Phelps APRN.CNP Patient last seen 11/14/2022. This is what patient found out in regards to her Emgality denial. documented in this encounter [facility] 11-14-2022 Instructions Leny Phelps APRN.CNP - 11/14/2022 8:42 AM EST PLAN: If JAIN don't improve once back on emgality, and still getting shooting pain on left side, schedule an in-person office visit so we can do an exam and consider if imaging is needed. We will mail your labs. Get CMP & CBC drawn. You do not have to fast. Hydrate with water before your lab draw. If you are getting lab work completed at a non-[facility] facility/lab, please call our office to have us print and mail your lab order to you (may take 2 weeks to arrive by mail). You can also provide us with the lab's fax # and we can fax them the lab order. You can have the lab fax the results back to us. [facility] . If you are getting your labs at a [facility] lab, then your order is already in the system and you can make an appt OR walk-in to the lab. Prevention: Continue topamax and emgality. In about 2 months (once you've been on the emgality consistently), if JAIN are well-controlled and you are interested in weaning off topamax, we will do a slow wean and decrease by 25 mg every 2 weeks. Rescue: Ubrelvy, zofran prn Ibuprofen prn. Limit pain meds and triptans to no more than 2 days per week to avoid medication overuse headache. This includes limiting OTC pain meds such as tylenol, ibuprofen, Excedrin, aleve, etc. General Headache Education and Headache Prevention Strategies: 1. Maintain a headache diary; learn to identify and avoid triggers. Common triggers include: Emotional triggers: Emotional/Upset family or friends Emotional/Upset occupation Business reversal/success Anticipation anxiety Crisis-serious Post-crisis periodNew job/position Physical triggers: Vacation Day Weekend Strenuous Exercise High Altitude Location New Move Menstrual Day Physical Illness Oversleep/Not enough sleep Weather changes Light: Photophobia or light sesnitivity treatment involves a balance between desensitization and reduction in overly strong input. Use dark polarized glasses outside, but not inside. Avoid bright or fluorescent light, but do not dim environment to the point that going into a normally lit room hurts. Consider FL-41 tint lenses, which reduce the most irritating wavelengths without blocking too much light. These can be obtained at [employer] or [employer]: see list below. 2. Limit use of acute treatments (txph-wtk-rudelaz medications, triptans, etc.) to no more than 2 days per week or 10 days per month to prevent medication overuse headache (rebound headache). 3. Follow a regular schedule (including weekends and holidays): Don't skip meals. Eat a balanced diet. 8 hours of sleep nightly. Minimize stress. Exercise 30 minutes per day. Walking is great exercise. Being overweight is associated with a 5 times increased risk of chronic migraine. Keep well hydrated and drink 6-8 glasses of water per day. Limit caffeine to 200 mg per day. 4. Initiate non-pharmacologic measures at the earliest onset of your headache. Rest and quiet environment. Relax and reduce stress. [id number] is a free lamin that can instruct you on some simple relaxtion and breathing techniques. Http://Nextance is a free website that provides teaching videos on relaxation. Also, there are many apps that can be downloaded for mindful relaxation. An lamin called YOGA NIDRA will help walk you through mindfulness. Cold compresses. 5. Don't wait!! Take the maximum allowable dosage of prescribed medication at the first sign of migraine. 6. Compliance: Take prescribed medication regularly as directed and at the first sign of a migraine. 7. Communicate: Call your physician when problems arise, especially if your headaches change, increase in frequency/severity, or become associated with neurological symptoms (weakness, numbness, slurred speech, etc.). 8. Headache/pain management therapies: Consider various complementary methods, including meditation, behavioral therapy, psychological counselling, biofeedback, massage therapy, acupuncture, dry needling, and other modalities. Such measures may reduce the need for medications. Counseling for pain management, where patients learn to function and ignore/minimize their pain, seems to work very well. 9. Recommend changing family's attention and focus away from patient's headaches. Instead, emphasize daily activities. If first question of day is 'How are your headaches/Do you have a headache today?', then patient will constantly think about headaches, thus making them worse. Goal is to re-direct attention away from headaches, toward daily activities and other distractions. 10. Helpful Websites: www.AmericanHeadacheSociety.org www.migrainetrust.org www.headaches.org www.migraine.org.uk www.achenet.org 11. HEADACHE EXPECTATIONS: There are many types of headaches, and only a rare few in which complete relief can be expected. In general, there is no cure for headache, especially migraine based headaches. There is nothing available that completely prevents headaches from occurring, breaking through, or having periodic flare-ups and fluctuations. Regardless of what you are using on a daily basis for prevention, episodic headaches should still be expected, and periods where frequency may escalate and fluctuate are unavoidable. There is no quick fix for most headaches. Furthermore, the longer you have had high frequency headaches (such as chronic daily headache), the longer it will likely take to expect any improvement. In fact, some people will never improve, regardless of how many medications or other treatments we try. Our treatment strategy is to evaluate for possible causes of your headache, although testing is usually always normal, even in cases of daily continuous headaches for years. Most types of headache such as migraine are electrical brain disorders (similar to how epilepsy is an electrical brain disorders). Therefore, there is no testing that will reveal this dysfunctional electrical circuitry such on MRI, or other testing. We try to find a medication that may help lessen the frequency and/or severity of your headaches. The goal is not to completely stop them from happening, although if that happens, great! Different people respond to different medications, and some people just don't respond to anything, so it's usually a matter of trying different options. We can not predict if or when exactly you will respond to a treatment that we provide. Preventive headache medications take 4-6 weeks to start working, and 2-3 months to see full effect, assuming you reach an effective dose. Therefore, calling or messaging frequently because you have a headache flare prior to the 3 month hétcor is unlikely to change anything, and unfortunately there is nothing available that will expedite this, so please try to avoid this. Our recommendation will generally be to give it adequate time first. If you are unable to wait it out for medications to work, we can also try IV infusions for some temporary relief. In general, the best that preventive medications or other treatments (including Botox) are able to offer in migraine management (variable in other headache types) is a 50% improvement in frequency and/or severity of headache. That is our goal, and any additional benefit is considered a bonus. Some people do significantly better than this, others do not get close to this. Therefore, if your headaches are not improving by at least 3 months on your preventive strategy, contact us and we can discuss further adjustments. Keep in mind that complete headache cure is not a realistic expectation. Our Team: The nursing staff, and medical assistants are a major part of YOUR TREATMENT TEAM and will be handling your phone calls and inquiries, if any. Unless explicitly told otherwise at the time of your office visit, your study results and ensuing treatment plans will be released via [employer] and discussed during your follow-up appointment. Follow-up appointments are primarily provided by the Nurse Practitioners and Physician s Assistants in order to provide timely, accessible care. [employer]: Please ask the schedulers to give you an activation code. The main way of communication is by [employer] rather than phone lines, so if you have not signed up, please do so. [employer] is also the way that you can review your labs and testing. We are not able to contact everyone to tell them results are normal. If you do not hear back from us regarding testing you have had, it should be considered normal or within normal range. If you have any questions about the results, you are free to message us. [employer] is meant for simple questions regarding medications, possible side effects, or other simple straight forward questions in limited sentences, rather than multiple paragraphs of discussion. [employer] is not meant for, or efficient for these complex questions, extensive questions, extensive medication adjustments, complex new symptoms or concerns. These issues beyond simple questions require a follow up visit with myself, one of our physician assistants, nurse practitioners, or a Virtual Visit via computer or smart phone, as detailed further down. Please contact [employer] if you are having issues with [employer] or logging in to your virtual visit appointment. You can reach them at [phone] Refills: Please pay attention to when your refills will need to be renewed. Due to the volume of phone calls daily, this could potentially take a few days, although we certainly try to honor your refill requests as soon as we can. You should call at least 1 week in advance of needing a refill to ensure you do not run out of medication. Keep in mind that refill requests on Fridays may not be filled until the following week. The Headache and Facial Pain Section does not complete disability or any other insurance-related forms/documention. We will complete FMLA forms. All of the office notes, study results, and other pertinent documentation generated as part of your evaluation will be available to you and to your Primary Care Physician (PCP). Use of this material to complete such forms will be at the discretion of your PCP/referring physician. HEADACHE DIET: Foods and beverages which may trigger migraine Note that only 20% of headache patients are food sensitive. You will know if you are food sensitive if you get a headache consistently 20 minutes to 2 hours after eating a certain food. Only cut out a food if it causes headaches, otherwise you might remove foods you enjoy! What matters most for diet is to eat a well balanced healthy diet full of vegetables and low fat protein, and to not miss meals. Chocolate, other sweets ALL cheeses except cottage and cream cheese Dairy products, yogurt, sour cream, ice cream Liver Meat extracts (Bovril, Marmite, meat tenderizers) Meats or fish which have undergone aging, fermenting, pickling or smoking. These include: Hotdogs,salami,Lox,sausage, mortadellas,smoked salmon, pepperoni, Pickled black Pods of broad john (Lao beans, [place] Islander pea pods, Angolan (jono) beans, davila and navy beans Ripe avocado, ripe banana Yeast extracts or active yeast preparations such as Tomas's or Monik's (commercial bakes goods are permitted) Tomato based foods, pizza (lasagna, etc.) MSG (monosodium glutamate) is disguised as many things; look for these common aliases: Monopotassium glutamate Autolysed yeast Hydrolysed protein Sodium caseinate flavorings all natural preservatives Nutrasweet Avoid all other foods that convincingly provoke headaches. documented in this encounter [facility] 11-14-2022 History of Present illness Narrative Images from the original note were not included. [facility] - Follow up Virtual Visit Gloria Tucker was identified by name and and consented to the video evaluation and its limitations. Based on this evaluation it may be necessary for them to schedule a follow up evaluation with me or other neurologists for formal physical examination and, if necessary, other studies. Accompanied by: Self Primary Problem List: ACTIVE PROBLEM LIST Chronic Daily Headache Migraine Without Aura and Without Status Migrainosus, Not Intractable Migraine With Aura and Without Status Migrainosus, Not Intractable Chronic Migraine Without Aura, With Intractable Migraine, So Stated, With Status Migrainosus Intractable Chronic Migraine Without Aura and Without Status Migrainosus Obesity, Class III, BMI >= 40 Chief Complaint: migraine Impression and Plan from last visit: 08/12/22 w. Me IMPRESSION: Irlanda Tucker is a 37 year old year old female, with a history of GERD, migraines, and HLD. Her neurological examination is essentially normal at this visit. She reports her most recent cholesterol levels are excellent. Mrs. Irlanda Tucker is responding well to topamax and is now episodic migraine. She is still getting about 10 migraines per month, so we will increase topamax and add in a monthly injectable for better coverage to get more improvement in her migraines. Because she is no longer chronic migraine, she cannot do botox for treatment. Now that she has converted to episodic migraine, emgality is a great choice for her migraine prevention. She will likely respond well to emgality b/c she responded well to aimovig, but it eventually lost efficacy & caused constipation. She is still responding very well to ubrelvy for rescue. PLAN: Get labs drawn in the next 2-3 months. Orders were placed last visit. Prevention: Increase topamax to 125 mg daily at bedtime. Start emgality monthly injection for migraine prevention. Rescue: Continue ubrelvy prn. Continue zofran. Continue ibuprofen as needed. Limit pain meds and triptans to no more than 2 days per week to avoid medication overuse headache. This includes limiting OTC pain meds such as tylenol, ibuprofen, Excedrin, aleve, etc. Interval Headache History: Irlanda Tucker is a 37 year old year old female, with a history of GERD, migraines, and HLD, following up today virtually for migraines. Since the last visit, the patient states that her headaches have improved. Last couple weeks she has had more JAIN b/c her emgality has been delayed by about 2 weeks. Emgality helped improved frequency and severity. She hasn't noticed as much nausea and has not needed zofran. She had shooting pain on the left side for 1 day. Emgality: it's going good. Last injection was due 10/30/22, but did not go through insurance approval yet. Her insurance recently changed so she needs PA for new insurance. She had loading dose of emgality and then another month of emgality, but this 3rd month's injection has been delayed for 2 weeks. Preventative: topamax 125 mg, emgality Abortive: ubrelvy, zofran, ibuprofen Medication SEs: altered taste w/ topamax- sodas are flat; SE are tolerable Contraceptive: Tubal ligation Medications effective? yes # of doses of abortive medications per month: Denies OTC pain meds in past month; ubrelvy: 6 days. Had to repeat dose once it was helpful. History of [place]/CAD/Stroke: No Concerns today: F/u Headache 1 This is the current headache. Location: occipital, retro-orbital, right and left Quality/Description: squeezing, pressure and throbbing (shooting pain on left side retroorbitally and radiating back) Associated Symptoms: Photophobia: yes Phonophobia: yes Nausea: yes Vomiting: no Other symptoms: osmophobia, dizziness and neck pain Worse with activity: yes Number of migraine headache days/month: 6 Migraine headache severity: 6/10 Number of NON-migraine headache days/month: 0 Number of headache free days/month: 24 Duration of headaches with treatment: 30 minutes (0.5 hours) Triggers: weather changes, stress, odors, flickering lights and bright lights Relieving factors: ice pack, meds, Most common time of day for headache to begin: anytime Prodrome: none Aura: loss of peripheral vision - blue/green-had an aura 3-4 times last month. Days missed from work or school in the last month: 0 days Headache status since the last visit: better Lifestyle: Sleep: same Diet: same Exercise: same Prior Therapies Duration of Use Dose Reason for Discontinuation Analgesic Butalbital/acetaminophen/caffeine (Fioricet) Anti-Convulsant Topiramate (Topamax, Trokendi XL, Qudexy) Anti-Depressant and Antipsychotic Amitriptyline (Elavil) Escitalopram (Lexapro) Fluoxetine (Prozac) Antiemetics Promethazine Anti-Migraine Eletriptan (Relpax) intense squeezing tightness in neck chest throat and jaw Naratriptan (Amerge) with all the triptans Rizatriptan (Maxalt) Sumatriptan (Imitrex, Sumavel) Sumatriptan/naproxen sodium (Treximet) Zolmitriptan (Zomig) Blood Pressure Propranolol (Inderal) MABs Erenumab (Aimovig) building up tolerance, not working as well; causing constipation GEPANTS Ubrogepant (Ubrelvy) works well! Over the Counter Medications Acetaminophen/Aspirin/Caffeine (Excedrin, Goody s) Ibuprofen (Advil, Motrin) Naproxen sodium (Aleve) PAST MEDICAL HISTORY Diagnosis Date GERD (gastroesophageal reflux disease) High cholesterol Diet Controlled Migraines PAST SURGICAL HISTORY Procedure Laterality Date DELIVERY ONLY , low transverse DELIVERY ONLY , low transverse DELIVERY ONLY 04/15/16 , low transverse LIG/TRNSXJ FLP TUBE ABDL/VAG APPR UNI/BI 04/15/16 Tubal ligation TONSILLECTOMY & ADENOIDECTOMY <AGE 13 Adenoids Removed Twice TYMPANIC MEMB RPR W/WO PREPJ PERFOR PATCH Tympanoplasty ALLERGIES Allergen Reactions Latex Hives Phenergan Vc [Prome* Mental Status Change [id number] Anti* Other: See Comments Intense squeezing tightness, chest, neck throat and jaw Current Medications: spironolactone (ALDACTONE) 50 mg tablet once daily. topiramate (TOPAMAX) 100 mg tablet Take 1 tablet by mouth daily at bedtime. Take with 25 mg tab for a total of 125 mg at bedtime. topiramate (TOPAMAX) 25 mg tablet Take 1 tablet by mouth daily at bedtime. Take with 100 mg tab for a total of 125 mg at bedtime. galcanezumab-[facility] 120 mg/mL subcutaneous pen injector (EMGALITY) Inject 1 mL subcutaneously once every month. Do not shake. escitalopram oxalate (LEXAPRO) 10 mg tablet 10 mg. famotidine (PEPCID) 20 mg tablet Take 20 mg by mouth once daily. ondansetron orally disintegrating (ZOFRAN ODT) 4 mg disintegrating tablet Take 1 tablet by mouth every 8 hours as needed (for nausea with migraines). ubrogepant (UBRELVY) 100 mg tablet Take 1 tablet by mouth as needed (for migraine). Take at first sign of migraine. You may repeat 1 tablet 2 hours later if needed. Max daily dose 200 mg. ibuprofen (MOTRIN) 800 mg tablet Take 1 tablet by mouth every 6 hours as needed. Multivitamin capsule Take 1 capsule by mouth once daily. I have reviewed the [place] Status Assessment responses and discussed these with the patient: yes Leny Phelps APRN.FLAT GRINDER OPERATOR HEADACHE SCORES: Headache Questions 05/12/2022 08/11/2022 11/13/2022 ID Migraine Screener: - - - ER visits in the last year: - - - ER visits since last office visit: 0 0 0 Hospital stays in the last year: - - - Hospital stays since last office visit 0 0 0 Limited ADLs in the last month: 16 10 0 Days missed from work or school in the last month: 0 0 0 Days headache pain free in the last month: 14 20 25 Days per month with ALL of the following symptoms - decreased productivity, light sensitivity and nausea: 16 10 6 Initial improvement of headache after botox injection at last visit: Not applicable, I did not have a botox injection at my last visit Not applicable, I did not have a botox injection at my last visit Not applicable, I did not have a botox injection at my last visit PRN medication usage in the last month: 16 10 6 Patient impression of improvement since last visit: Much worse Minimally improved Minimally improved HIT-6 02/11/2022 05/12/2022 08/11/2022 HIT-6 65 (Severe impact) 68 (Severe impact) 66 (Severe impact) TERRENCE - 2/7 SCORES 02/11/2022 05/12/2022 08/11/2022 TERRENCE-2 Score 2 1 0 TERRENCE-7 Score - - - Migraine Specific QOL - Higher scores indicate better HRQL 02/11/2022 05/12/2022 08/11/2022 Role Function-Restrictive Transformed Score (range: 0-100) 11.43 34.29 40 Role Function-Preventive Transformed Score (range: 0-100) 60 55 75 Emotional Function Transformed Score (range: 0-100) 13.33 20 0 PHQ-9 02/11/2022 05/12/2022 08/11/2022 Score 13 3 1 MRI Head/Brain - Last 2 Impressions No resulted procedures found. MRA Head and/or Neck - Last 2 Impressions No resulted procedures found. Labs to Review: No New Health Issues: No Review of Systems: Review of system: unchanged from the previous visit (sleep patterns, mood, energy, appetite, stress, exercising). Physical Examination: Vital Signs: No vital signs taken due to virtual visit. General: well appearing, in no acute distress, alert Pain Behaviors: rubbing affected body part Neurological: Mental Status: Alert and oriented to person, place and time. Affect is normal and appropriate. Speech is spontaneous and fluent without dysarthria, normal in rate, volume and articulation, and clear, coherent, and relevant. Short and detention memory, cognition and general fund of knowledge are good. Attention span and concentration are good. HEENT: Head is normocephalic and features were symmetric. Musculoskeletal: Patient able to sit upright for visit. Cranial Nerves: III, IV, -EOMI: full. VII-face is symmetric without evidence of weakness. VIII-hearing intact. Physical exam limited due to virtual visit. IMPRESSION: Irlanda Tucker is a 37 year old year old female, with a history of GERD, migraines, and HLD. Her neurological examination is essentially normal at this visit. Ms. Irlanda Tucker is doing well on her current treatment plan. Rx insurance changed, so emgality has been delayed and she needs new PA completed. Emgality has helped decrease JAIN frequency & severity. Since emgality has been delayed for 2 weeks she has noticed JAIN worsening over past 2 weeks. She is interested in weaning off topamax, but will wait until she's back on the emgality consistently for a couple months to ensure JAIN are better controlled. Ubrelvy still a great rescue. Labs needed for continued refills. ICHD-3 Diagnosis: Episodic Migraine Red Flags: none PLAN: If JAIN don't improve once back on emgality, and still getting shooting pain on left side, schedule an in-person office visit so we can do an exam and consider if imaging is needed. We will mail your labs. Get CMP & CBC drawn. You do not have to fast. Hydrate with water before your lab draw. If you are getting lab work completed at a non-[facility] facility/lab, please call our office to have us print and mail your lab order to you (may take 2 weeks to arrive by mail). You can also provide us with the lab's fax # and we can fax them the lab order. You can have the lab fax the results back to us. [facility] . If you are getting your labs at a [facility] lab, then your order is already in the system and you can make an appt OR walk-in to the lab. Prevention: Continue topamax and emgality. In about 2 months (once you've been on the emgality consistently), if JAIN are well-controlled and you are interested in weaning off topamax, we will do a slow wean and decrease by 25 mg every 2 weeks. Rescue: Ubrelvy, zofran prn Ibuprofen prn. Limit pain meds and triptans to no more than 2 days per week to avoid medication overuse headache. This includes limiting OTC pain meds such as tylenol, ibuprofen, Excedrin, aleve, etc. Future Considerations: muscle relaxer Patient verbalized understanding and agreed to the treatment plan. HEADACHE MANAGEMENT: (You are the primary guardian of your health and headache. Keep track of all medications: This includes the reason for use, side effects and benefits.) MEDICATION TREATMENT: Medications to Start Taking escitalopram oxalate (LEXAPRO) 20 mg tablet Take 1 tablet by mouth once daily. galcanezumab-gnlm 120 mg/mL subcutaneous pen injector (EMGALITY) Inject 1 mL subcutaneously once every month. Do not shake. ubrogepant (UBRELVY) 100 mg tablet Take 1 tablet by mouth as needed (for migraine). Take at first sign of migraine. You may repeat 1 tablet 2 hours later if needed. Max daily dose 200 mg. topiramate (TOPAMAX) 100 mg tablet Take 1 tablet by mouth daily at bedtime. Take with 25 mg tab for a total of 125 mg at bedtime. topiramate (TOPAMAX) 25 mg tablet Take 1 tablet by mouth daily at bedtime. Take with 100 mg tab for a total of 125 mg at bedtime. Discussed testing. Written educational materials given. Headache education was done. Discussed triggers and lifestyle modification including increased oral hydration, decreased caffeine, exercise and stress management. Discussed treatment options including preventive and acute medications, natural supplements, and infusion therapy. Discussed medication overuse headache and to limit use of acute treatments to no more than 2 days/week or 10 days/month. Discussed medication side effects, adverse reactions and drug interactions. Written educational materials and patient instructions provided. Prior Authorization: Irlanda Tucker has been previously approved for Calcitonin Gene Related Peptide Monoclonal Antibody (CGRP MAB) (Galcanezumab). The patient has demonstrated the following: Patient reduction in overall migraine days: Yes Patient reduction in moderate-severe migraine days: Yes Individual has obtained clinical benefit deemed significant by individual or prescriber: Yes Patient's quality of life and ability to perform ADLs has improved: Yes We suggest the patient continue treatment with CGRP MAB Galcanezumab. The following preventative medications have been tried for three or more months without benefit: Anti-Convulsant Topiramate (Topamax, Trokendi XL, Qudexy) Anti-Depressant and Antipsychotic Amitriptyline (Elavil) Escitalopram (Lexapro) Fluoxetine (Prozac) Blood Pressure Propranolol (Inderal) MABs Erenumab (Aimovig) building up tolerance, not working as well; causing constipation The following abortive medications have been tried but require high frequency use which can lead to Medication Overuse Headache: Analgesic Butalbital/acetaminophen/caffeine (Fioricet) Anti-Migraine Eletriptan (Relpax) intense squeezing tightness in neck chest throat and jaw Naratriptan (Amerge) with all the triptans Rizatriptan (Maxalt) Sumatriptan (Imitrex, Sumavel) Sumatriptan/naproxen sodium (Treximet) Zolmitriptan (Zomig) GEPANTS Ubrogepant (Ubrelvy) works well! Over the Counter Medications Acetaminophen/Aspirin/Caffeine (Excedrin, Goody s) Ibuprofen (Advil, Motrin) Naproxen sodium (Aleve) Irlanda Tucker has been previously approved for an Oral Calcitonin Gene-Related Peptide Receptor Antagonist (GEPANT) Ubrogepant for the treatment of acute migraine. The patient has demonstrated the following: Provider attests patient has had a positive clinical response: Yes Patient will not use with another Oral Calcitonin Gene-Related Peptide Receptor Antagonist (GEPANT): Yes Patient's quality of life and ability to perform ADLs has improved: Yes We suggest the patient continue treatment with GEPANT Ubrogepant. The following preventative medications have been tried for three or more months without benefit: Anti-Convulsant Topiramate (Topamax, Trokendi XL, Qudexy) Anti-Depressant and Antipsychotic Amitriptyline (Elavil) Escitalopram (Lexapro) Fluoxetine (Prozac) Blood Pressure Propranolol (Inderal) MABs Erenumab (Aimovig) building up tolerance, not working as well; causing constipation The following abortive medications have been tried but require high frequency use which can lead to Medication Overuse Headache: Analgesic Butalbital/acetaminophen/caffeine (Fioricet) Anti-Migraine Eletriptan (Relpax) intense squeezing tightness in neck chest throat and jaw Naratriptan (Amerge) with all the triptans Rizatriptan (Maxalt) Sumatriptan (Imitrex, Sumavel) Sumatriptan/naproxen sodium (Treximet) Zolmitriptan (Zomig) GEPANTS Ubrogepant (Ubrelvy) works well! Over the Counter Medications Acetaminophen/Aspirin/Caffeine (Excedrin, Goody s) Ibuprofen (Advil, Motrin) Naproxen sodium (Aleve) RESEARCH: None at this time Follow-up: 2 months, PRN Level of service: Est level 5 (40-54 min). Time spent 40 min on the day of service, which included preparing to see the patient, [id number] patient care, completing clinical documentation, obtaining and/or reviewing separately obtained history, performing a medically appropriate examination, counseling and educating the patient/family/caregiver, and ordering medications, tests, or procedures. Leny Phelps APRN.CNP Headache Section [facility] November 14, 2022 documented in this encounter [facility] 11-08-2022 Miscellaneous Notes Pt has visit scheduled on 11/14/22. Documentation of efficacy will provided at that time. Leny Phelps APRN.CNP Medication Emgality PA renewal is required; however, there is no follow up office visit to review/document efficacy and tolerability on treatment to justify continuation of therapy. Please send new eRx after office visit to [facility] if plan to continue therapy thereafter. PA renewal will be held until then. Thank you! Karlene Brownlee RN [facility] P: , F: documented in this encounter [facility] 10-14-2022 Miscellaneous Notes Pt has refills at pharmacy. The following approved medication requests have been transmitted electronically. Requested Prescriptions Refused Prescriptions Disp Refills topiramate (TOPAMAX) 100 mg tablet 30 tablet 3 Sig: Take 1 tablet by mouth daily at bedtime. Take with 25 mg tab for a total of 125 mg at bedtime. Refused By: LENY PHELPS Reason for Refusal: Patient has requested refill too soon Leny Phelps APRN.FLAT GRINDER OPERATOR Physician: Sae Call from patient requesting refill. Please E-Scribe Last office visit 08/12/2022 with Sae virtual Next office visit 11/14/2022 with Sae virtual Requested Prescriptions Pending Prescriptions Disp Refills topiramate (TOPAMAX) 100 mg tablet 30 tablet 3 Sig: Take 1 tablet by mouth daily at bedtime. Take with 25 mg tab for a total of 125 mg at bedtime. Pharmacy Name: [facility] documented in this encounter [facility] 10-13-2022 History of Present illness Narrative Refill Authorization Consent Irlanda Tucker was encountered by text or mychart message to obtain consent for pharmacist managed refill authorization. Patient gives consent to the authorization of prescriptions by a pharmacist. Karlene Brownlee RN 10/13/2022 documented in this encounter [facility] 08-22-2022 Miscellaneous Notes Ambulatory Pharmacy Prior Authorization Note Provider Intervention Required?: No- Pharmacy completed on your behalf. Drug: Emgality 120MG/ML auto-injectors (migraine) Cover My Meds [place]: [id number] Determination: Approved Prior Authorization/Case #: [id number] Prior Authorization Expiration: 11/17/22 Time to PA Submission in CMM: 15 min Time to PA Determination in CMM: 2 days Additional Information: PLEASE NOTE: Pt will need follow up office visit to review/document efficacy and tolerability of treatment before prior auth expiration. Please ensure a future follow up appt is scheduled with your patient. This will ensure no interruption in patient's ability to obtain medication refills. Prescriptions will now be processed through [facility] for determination of next steps. For questions relating to this submission, please contact [facility] [phone] [facility] received prescription(s) for Emgality 120MG/ML auto-injectors (migraine) . Benefits investigation was conducted, indicating that a prior authorization is required. PA was initiated and pending review through [employer]. All pertinent clinical information was submitted to insurance. [facility] [place]: [id number] Ordering Provider: Karlene Patricia RN [facility] P: , F: documented in this encounter [facility] 08-15-2022 History of Present illness Narrative POPULATION HEALTH NAVIGATION OUTREACH Action/I Patient Outreach: Left voicemail for patient to call back to schedule in Neurology. (please see Epic order dated for (08/12/2022). Any agent can assist with scheduling. Pt identified by name and : NO Outreach Outcome/Action Unable to reach patient: Left message Did you use a PCP flex slot to schedule this appointment? No Reason for Outreach Care Gap or Scheduling/Wellness visits Payer: Payor: MMO / Plan: MMO SU[employer] PLUS / Product Type: PPO / Care Gap Reviewed:: Follow-up appointment Reminder: Reminder note to check Health Maintenance for items below Health Maintenance items due: HEPATITIS B(1 of 3 - 3-dose series) Never done HEPATITIS C SCREENING Never done COVID-19 VACCINE(4 - Booster for Pfizer series) due on 10/13/2021 DEPRESSION ASSESSMENT Never done INFLUENZA(1) due on 06/16/2022 Message Sent to Practice: No Navigation Signature: Niru Marks August 15, 2022 4:13 PM documented in this encounter [facility] 08-12-2022 Instructions Leny Phelps APRN.FLAT GRINDER OPERATOR - 08/12/2022 9:49 AM EDT PLAN: Get labs drawn in the next 2-3 months. Orders were placed last visit- CMP & CBC. Prevention: Increase topamax to 125 mg daily at bedtime. Start emgality monthly injection for migraine prevention. Rescue: Continue ubrelvy prn. Continue zofran. Continue ibuprofen as needed. Limit pain meds and triptans to no more than 2 days per week to avoid medication overuse headache. This includes limiting OTC pain meds such as tylenol, ibuprofen, Excedrin, aleve, etc. Get labs drawn. You do not have to fast. Hydrate with water before your lab draw. If you are getting lab work completed at a non-[facility] facility/lab, please call our office to have us print and mail your lab order to you (may take 2 weeks to arrive by mail). You can also provide us with the lab's fax # and we can fax them the lab order. You can have the lab fax the results back to us. [facility]ache Clinic . If you are getting your labs at a [facility] lab, then your order is already in the system and you can make an appt OR walk-in to the lab. Emgality Information Start Emgality (also known as: galcanezumab-gnlm) once monthly injection for migraine prevention. We will submit for prior authorization for your insurance to approve this. Prior authorization may take a few weeks. Contact us if you don't have any updates in 3 weeks. Emgality is a CGRP monoclonal antibody (MAB) migraine treatment that was specifically developed to bind to CGRP, a substance in the brain that may play a [place] role in migraine, and block its binding to the receptor. Emgality is for adults only with 4 or more migraine headache days per month. For patients with migraine, your first month's dose will be a loading dose of 240 mg, or 2 injections of 120 mg each. Inject the first dose of Emgality subcutaneously into fat tissue (stomach, thighs) and 1 minute later inject the 2nd dose into fat tissue (near the same site or at a different site). The following months you will inject 1 dose of Emgality. Try to inject on the same date each month (such as the of each month or the 15th of each month) so that you can keep track of when your injection is due. Most patients tolerate Emgality very well. The most common side effects are injection site reactions (bleeding, bruising, rash). Go to the website to learn more about Emgality, download the savings card, and watch the video to learn how to give the injection. https://www.Fast[employer].TellMi/what-is- emgality#about-emgality Pediatric Neurology info: [email or web address] [email or web address]/[email or web address] atri-neurology Appt center phone [phone] General Headache Education and Headache Prevention Strategies: 1. Maintain a headache diary; learn to identify and avoid triggers. Common triggers include: Emotional triggers: Emotional/Upset family or friends Emotional/Upset occupation Business reversal/success Anticipation anxiety Crisis-serious Post-crisis periodNew job/position Physical triggers: Vacation Day Weekend Strenuous Exercise High Altitude Location New Move Menstrual Day Physical Illness Oversleep/Not enough sleep Weather changes Light: Photophobia or light sesnitivity treatment involves a balance between desensitization and reduction in overly strong input. Use dark polarized glasses outside, but not inside. Avoid bright or fluorescent light, but do not dim environment to the point that going into a normally lit room hurts. Consider FL-41 tint lenses, which reduce the most irritating wavelengths without blocking too much light. These can be obtained at [employer]TellMi or [employer] Foods: see list below. 2. Limit use of acute treatments (yxbe-ocz-hqyjrwg medications, triptans, etc.) to no more than 2 days per week or 10 days per month to prevent medication overuse headache (rebound headache). 3. Follow a regular schedule (including weekends and holidays): Don't skip meals. Eat a balanced diet. 8 hours of sleep nightly. Minimize stress. Exercise 30 minutes per day. Walking is great exercise. Being overweight is associated with a 5 times increased risk of chronic migraine. Keep well hydrated and drink 6-8 glasses of water per day. Limit caffeine to 200 mg per day. 4. Initiate non-pharmacologic measures at the earliest onset of your headache. Rest and quiet environment. Relax and reduce stress. Omkfucq5Axedx is a free lamin that can instruct you on some simple relaxtion and breathing techniques. Http://Nextance is a free website that provides teaching videos on relaxation. Also, there are many apps that can be downloaded for mindful relaxation. An lamin called YOGA NIDRA will help walk you through mindfulness. Cold compresses. 5. Don't wait!! Take the maximum allowable dosage of prescribed medication at the first sign of migraine. 6. Compliance: Take prescribed medication regularly as directed and at the first sign of a migraine. 7. Communicate: Call your physician when problems arise, especially if your headaches change, increase in frequency/severity, or become associated with neurological symptoms (weakness, numbness, slurred speech, etc.). 8. Headache/pain management therapies: Consider various complementary methods, including medication, behavioral therapy, psychological counselling, biofeedback, massage therapy, acupuncture, dry needling, and other modalities. Such measures may reduce the need for medications. Counseling for pain management, where patients learn to function and ignore/minimize their pain, seems to work very well. 9. Recommend changing family's attention and focus away from patient's headaches. Instead, emphasize daily activities. If first question of day is 'How are your headaches/Do you have a headache today?', then patient will constantly think about headaches, thus making them worse. Goal is to re-direct attention away from headaches, toward daily activities and other distractions. 10. Helpful Websites: www.AmericanHeadacheSociety.org www.migrainetrust.org www.headaches.org www.migraine.org.uk www.achenet.org 11. HEADACHE EXPECTATIONS: There are many types of headaches, and only a rare few in which complete relief can be expected. In general, there is no cure for headache, especially migraine based headaches. There is nothing available that completely prevents headaches from occurring, breaking through, or having periodic flare-ups and fluctuations. Regardless of what you are using on a daily basis for prevention, episodic headaches should still be expected, and periods where frequency may escalate and fluctuate are unavoidable. There is no quick fix for most headaches. Furthermore, the longer you have had high frequency headaches (such as chronic daily headache), the longer it will likely take to expect any improvement. In fact, some people will never improve, regardless of how many medications or other treatments we try. Our treatment strategy is to evaluate for possible causes of your headache, although testing is usually always normal, even in cases of daily continuous headaches for years. Most types of headache such as migraine are electrical brain disorders (similar to how epilepsy is an electrical brain disorders). Therefore, there is no testing that will reveal this dysfunctional electrical circuitry such on MRI, or other testing. We try to find a medication that may help lessen the frequency and/or severity of your headaches. The goal is not to completely stop them from happening, although if that happens, great! Different people respond to different medications, and some people just don't respond to anything, so it's usually a matter of trying different options. We can not predict if or when exactly you will respond to a treatment that we provide. Preventive headache medications take 4-6 weeks to start working, and 2-3 months to see full effect, assuming you reach an effective dose. Therefore, calling or messaging frequently because you have a headache flare prior to the 3 month héctor is unlikely to change anything, and unfortunately there is nothing available that will expedite this, so please try to avoid this. Our recommendation will generally be to give it adequate time first. If you are unable to wait it out for medications to work, we can also try IV infusions for some temporary relief. In general, the best that preventive medications or other treatments (including Botox) are able to offer in migraine management (variable in other headache types) is a 50% improvement in frequency and/or severity of headache. That is our goal, and any additional benefit is considered a bonus. Some people do significantly better than this, others do not get close to this. Therefore, if your headaches are not improving by at least 3 months on your preventive strategy, contact us and we can discuss further adjustments. Keep in mind that complete headache cure is not a realistic expectation. Our Team: The nursing staff, and medical assistants are a major part of YOUR TREATMENT TEAM and will be handling your phone calls and inquiries, if any. Unless explicitly told otherwise at the time of your office visit, your study results and ensuing treatment plans will be released via [employer] and discussed during your follow-up appointment. Follow-up appointments are primarily provided by the Nurse Practitioners and Physician s Assistants in order to provide timely, accessible care. [employer]: Please ask the schedulers to give you an activation code. The main way of communication is by [employer] rather than phone lines, so if you have not signed up, please do so. [employer] is also the way that you can review your labs and testing. We are not able to contact everyone to tell them results are normal. If you do not hear back from us regarding testing you have had, it should be considered normal or within normal range. If you have any questions about the results, you are free to message us. [employer] is meant for simple questions regarding medications, possible side effects, or other simple straight forward questions in limited sentences, rather than multiple paragraphs of discussion. [employer] is not meant for, or efficient for these complex questions, extensive questions, extensive medication adjustments, complex new symptoms or concerns. These issues beyond simple questions require a follow up visit with myself, one of our physician assistants, nurse practitioners, or a Virtual Visit via computer or smart phone, as detailed further down. Please contact [employer] [facility] if you are having issues with [employer] or logging in to your virtual visit appointment. You can reach them at [phone] Refills: Please pay attention to when your refills will need to be renewed. Due to the volume of phone calls daily, this could potentially take a few days, although we certainly try to honor your refill requests as soon as we can. You should call at least 1 week in advance of needing a refill to ensure you do not run out of medication. Keep in mind that refill requests on Fridays may not be filled until the following week. The Headache and Facial Pain Section does not complete disability or any other insurance-related forms/documention. We will complete FMLA forms. All of the office notes, study results, and other pertinent documentation generated as part of your evaluation will be available to you and to your Primary Care Physician (PCP). Use of this material to complete such forms will be at the discretion of your PCP/referring physician. HEADACHE DIET: Foods and beverages which may trigger migraine Note that only 20% of headache patients are food sensitive. You will know if you are food sensitive if you get a headache consistently 20 minutes to 2 hours after eating a certain food. Only cut out a food if it causes headaches, otherwise you might remove foods you enjoy! What matters most for diet is to eat a well balanced healthy diet full of vegetables and low fat protein, and to not miss meals. Chocolate, other sweets ALL cheeses except cottage and cream cheese Dairy products, yogurt, sour cream, ice cream Liver Meat extracts (Bovril, Marmite, meat tenderizers) Meats or fish which have undergone aging, fermenting, pickling or smoking. These include: Hotdogs,salami,Lox,sausage, mortadellas,smoked salmon, pepperoni, Pickled black Pods of broad john (Lao beans, [place] Islander pea pods, Angolan (jono) beans, davila and navy beans Ripe avocado, ripe banana Yeast extracts or active yeast preparations such as Tomas's or Monik's (commercial bakes goods are permitted) Tomato based foods, pizza (lasagna, etc.) MSG (monosodium glutamate) is disguised as many things; look for these common aliases: Monopotassium glutamate Autolysed yeast Hydrolysed protein Sodium caseinate flavorings all natural preservatives Nutrasweet Avoid all other foods that convincingly provoke headaches. documented in this encounter [facility] 08-12-2022 History of Present illness Narrative Images from the original note were not included. [facility] - Follow up Virtual Visit Gloria Tucker was identified by name and and consented to the video evaluation and its limitations. Based on this evaluation it may be necessary for them to schedule a follow up evaluation with me or other neurologists for formal physical examination and, if necessary, other studies. Accompanied by: Self Primary Problem List: ACTIVE PROBLEM LIST Chronic Daily Headache Migraine Without Aura and Without Status Migrainosus, Not Intractable Migraine With Aura and Without Status Migrainosus, Not Intractable Chronic Migraine Without Aura, With Intractable Migraine, So Stated, With Status Migrainosus Intractable Chronic Migraine Without Aura and Without Status Migrainosus Obesity, Class III, BMI >= 40 Chief Complaint: migraine Impression and Plan from last visit: 05/13/22 w/ me IMPRESSION: Irlanda Tucker is a 37 year old year old female, with a history of GERD, migraines, and HLD. Her neurological examination is essentially normal at this visit. Unfortunately, Ms. Tucker's migraines have worsened due to lack of migraine prevention for the past few months. Her insurance has denied emgality and ajovy. She is unable to try botox or vyepti at this time due to living far away and not being able to make the commute every 3 months. She has previously had success with topamax helping her migraines, so she will restart topamax for migraine prevention. PLAN: Start topamax for migraine prevention. Increase dose by 25 mg each week until you get to 100 mg nightly at bedtime. Continue ubrelvy for rescue. Start zofran for nausea with migraines as needed. Consider starting supplements for migraine prevention- magnesium, riboflavin or coQ10 Get CMP and CBC drawn in the next 6 months. I placed orders or you can get them locally and fax them to: Headache Clinic Future considerations: trokendi, cymbalta, tizanidine, re-submit for ajovy or emgality at next visit Interval Headache History: Irlanda Tucker is a 37 year old year old female, with a history of GERD, migraines, and HLD, following up today virtually for migraines. Since the last visit, the patient states that her headaches have improved. Topamax is working well. She is tolerating it well. Preventative: topamax 100 mg Abortive: ubrelvy, zofran, ibuprofen Medication SEs: altered taste w/ topamax- sodas are flat; Contraceptive: Tubal ligation Medications effective? yes # of doses of abortive medications per month: 4 days of ubrelvy, 2-3 days of zofran, a couple days of ibuprofen History of [place]/CAD/Stroke: No Concerns today: f/u appt, inc topamax Headache 1 This is the current headache. Location: occipital, retro-orbital, right and left Quality/Description: squeezing, pressure and throbbing Associated Symptoms: Photophobia: yes Phonophobia: yes Nausea: yes Vomiting: no Other symptoms: osmophobia, dizziness and neck pain Worse with activity: yes Number of migraine headache days/month: 10 Migraine headache severity: 6/10 Number of NON-migraine headache days/month: 0 Number of headache free days/month: 20 Duration of headaches with treatment: 30 minutes (0.5 hours) Triggers: weather changes, stress, odors, flickering lights and bright lights Most common time of day for headache to begin: anytime Prodrome: none Aura: loss of peripheral vision - blue/green-had an aura 3-4 times last month. Days missed from work or school in the last month: 0 days Headache status since the last visit: better Lifestyle: Sleep: same Diet: same Exercise: same Prior Therapies Duration of Use Dose Reason for Discontinuation Analgesic Butalbital/acetaminophen/caffeine (Fioricet) Anti-Convulsant Topiramate (Topamax, Trokendi XL, Qudexy) Anti-Depressant and Antipsychotic Amitriptyline (Elavil) Escitalopram (Lexapro) Fluoxetine (Prozac) Antiemetics Promethazine Anti-Migraine Eletriptan (Relpax) intense squeezing tightness in neck chest throat and jaw Naratriptan (Amerge) with all the triptans Rizatriptan (Maxalt) Sumatriptan (Imitrex, Sumavel) Sumatriptan/naproxen sodium (Treximet) Zolmitriptan (Zomig) Blood Pressure Propranolol (Inderal) MABs Erenumab (Aimovig) building up tolerance, not working as well; causing constipation GEPANTS Ubrogepant (Ubrelvy) works well! Over the Counter Medications Acetaminophen/Aspirin/Caffeine (Excedrin, Goody s) Ibuprofen (Advil, Motrin) Naproxen sodium (Aleve) PAST MEDICAL HISTORY Diagnosis Date GERD (gastroesophageal reflux disease) High cholesterol Diet Controlled Migraines PAST SURGICAL HISTORY Procedure Laterality Date DELIVERY ONLY , low transverse DELIVERY ONLY , low transverse DELIVERY ONLY 04/15/16 , low transverse LIG/TRNSXJ FLP TUBE ABDL/VAG APPR UNI/BI 04/15/16 Tubal ligation TONSILLECTOMY & ADENOIDECTOMY <AGE 13 Adenoids Removed Twice TYMPANIC MEMB RPR W/WO PREPJ PERFOR PATCH Tympanoplasty ALLERGIES Allergen Reactions Latex Hives Phenergan Vc [Prome* Mental Status Change Ooqhuzqf-[id number] Anti* Other: See Comments Intense squeezing tightness, chest, neck throat and jaw Current Medications: escitalopram oxalate (LEXAPRO) 10 mg tablet 10 mg. famotidine (PEPCID) 20 mg tablet Take 20 mg by mouth once daily. topiramate (TOPAMAX) 25 mg tablet Take 1 tablet by mouth daily at bedtime for 7 days, THEN 2 tablets daily at bedtime for 7 days, THEN 3 tablets daily at bedtime for 7 days. Then switch to 100 mg tablet and stay at that dose.. topiramate (TOPAMAX) 100 mg tablet Take 1 tablet by mouth daily at bedtime. ondansetron orally disintegrating (ZOFRAN ODT) 4 mg disintegrating tablet Take 1 tablet by mouth every 8 hours as needed (for nausea with migraines). ubrogepant (UBRELVY) 100 mg tablet Take 1 tablet by mouth as needed (for migraine). Take at first sign of migraine. You may repeat 1 tablet 2 hours later if needed. Max daily dose 200 mg. ibuprofen (MOTRIN) 800 mg tablet Take 1 tablet by mouth every 6 hours as needed. Multivitamin capsule Take 1 capsule by mouth once daily. pantoprazole DR (PROTONIX) 40 mg tablet Take 1 tablet by mouth once daily. I have reviewed the [place] Status Assessment responses and discussed these with the patient: yes Leny Phelps APRN.FLAT GRINDER OPERATOR HEADACHE SCORES: Headache Questions 02/11/2022 05/12/2022 08/11/2022 ID Migraine Screener: - - - ER visits in the last year: - - - ER visits since last office visit: 0 0 0 Hospital stays in the last year: - - - Hospital stays since last office visit 0 0 0 Limited ADLs in the last month: 14 16 10 Days missed from work or school in the last month: 0 0 0 Days headache pain free in the last month: 14 14 20 Days per month with ALL of the following symptoms - decreased productivity, light sensitivity and nausea: 14 16 10 Initial improvement of headache after botox injection at last visit: Not applicable, I did not have a botox injection at my last visit Not applicable, I did not have a botox injection at my last visit Not applicable, I did not have a botox injection at my last visit PRN medication usage in the last month: 14 16 10 Patient impression of improvement since last visit: Minimally worse Much worse Minimally improved HIT-6 02/11/2022 05/12/2022 08/11/2022 HIT-6 65 (Severe impact) 68 (Severe impact) 66 (Severe impact) TERRENCE - 2/7 SCORES 02/11/2022 05/12/2022 08/11/2022 TERRENCE-2 Score 2 1 0 TERRENCE-7 Score - - - Migraine Specific QOL - Higher scores indicate better HRQL 02/11/2022 05/12/2022 08/11/2022 Role Function-Restrictive Transformed Score (range: 0-100) 11.43 34.29 40 Role Function-Preventive Transformed Score (range: 0-100) 60 55 75 Emotional Function Transformed Score (range: 0-100) 13.33 20 0 PHQ-9 02/11/2022 05/12/2022 08/11/2022 Score 13 3 1 MRI Head/Brain - Last 2 Impressions No resulted procedures found. MRA Head and/or Neck - Last 2 Impressions No resulted procedures found. Labs to Review: Yes, in care everywhere CMP and CBC WNL from Jun 2021 New Health Issues: No Review of Systems: Review of system: unchanged from the previous visit (sleep patterns, mood, energy, appetite, stress, exercising). Physical Examination: Vital Signs: No vital signs taken due to virtual visit. General: well appearing, in no acute distress, alert, obese Pain Behaviors: rubbing affected body part Neurological: Mental Status: Alert and oriented to person, place and time. Affect is normal and appropriate. Speech is spontaneous and fluent without dysarthria, normal in rate, volume and articulation, and clear, coherent, and relevant. Short and detention memory, cognition and general fund of knowledge are good. Attention span and concentration are good. HEENT: Head is normocephalic and features were symmetric. Musculoskeletal: Patient able to sit up right in chair for entirety of visit. Cranial Nerves: III, IV, -EOMI: full. VII-face is symmetric without evidence of weakness. VIII-hearing intact. Physical exam limited due to virtual visit. IMPRESSION: Irlanda Tucker is a 37 year old year old female, with a history of GERD, migraines, and HLD. Her neurological examination is essentially normal at this visit. She reports her most recent cholesterol levels are excellent. Mrs. Irlanda Tucker is responding well to topamax and is now episodic migraine. She is still getting about 10 migraines per month, so we will increase topamax and add in a monthly injectable for better coverage to get more improvement in her migraines. Because she is no longer chronic migraine, she cannot do botox for treatment. Now that she has converted to episodic migraine, emgality is a great choice for her migraine prevention. She will likely respond well to emgality b/c she responded well to aimovig, but it eventually lost efficacy & caused constipation. She is still responding very well to ubrelvy for rescue. ICHD-3 Diagnosis: Episodic Migraine Red Flags: none PLAN: Get labs drawn in the next 2-3 months. Orders were placed last visit. Prevention: Increase topamax to 125 mg daily at bedtime. Start emgality monthly injection for migraine prevention. Rescue: Continue ubrelvy prn. Continue zofran. Continue ibuprofen as needed. Limit pain meds and triptans to no more than 2 days per week to avoid medication overuse headache. This includes limiting OTC pain meds such as tylenol, ibuprofen, Excedrin, aleve, etc. Future Considerations: trokendi, cymbalta, tizanidine, ajovy Patient verbalized understanding and agreed to the treatment plan. Many labs have been done looking for underlying reasons of headache and are not necessary at this time. HEADACHE MANAGEMENT: (You are the primary guardian of your health and headache. Keep track of all medications: This includes the reason for use, side effects and benefits.) MEDICATION TREATMENT: Medications to Start Taking topiramate (TOPAMAX) 100 mg tablet Take 1 tablet by mouth daily at bedtime. Take with 25 mg tab for a total of 125 mg at bedtime. topiramate (TOPAMAX) 25 mg tablet Take 1 tablet by mouth daily at bedtime. Take with 100 mg tab for a total of 125 mg at bedtime. galcanezumab-gnlm 120 mg/mL subcutaneous pen injector (EMGALITY) Inject 2 mL subcutaneously one time only for 1 dose. This is the loading dose. Do not shake. galcanezumab-gnlm 120 mg/mL subcutaneous pen injector (EMGALITY) Starting on 09/09/2022. Inject 1 mL subcutaneously once every month. Do not shake. Written educational materials given. Headache education was done. Discussed triggers and lifestyle modification including increased oral hydration, decreased caffeine, exercise and stress management. Discussed treatment options including preventive and acute medications, natural supplements, and infusion therapy. Discussed medication overuse headache and to limit use of acute treatments to no more than 2 days/week or 10 days/month. Discussed medication side effects, adverse reactions and drug interactions. Written educational materials and patient instructions provided. Prior Authorization: We will get a precert for Calcitonin Gene Related Peptide Monoclonal Antibody, Galcanezumab. This patient meets AHS criteria for treatment with CGRP MAB, She has Episodic Migraine which occurs up to 14 days a month for 4 or more hours. The FDA has approved CGRP MAB for prevention of migraine. Specifically, the patient has 10 migraines per month, lasting 4 or more hours/d associated with photophobia, phonophobia, osmophobia, nausea, neck pain for three or more months. Medication overuse headache has been ruled out. Patient is currently taking a Gepant (Ubrelvy) for acute treatment of her migraine. The following preventative medications have been tried for 3 or more months without benefit or discontinued due and/or side effects. Anti-Convulsant Topiramate (Topamax, Trokendi XL, Qudexy) Anti-Depressant and Antipsychotic Amitriptyline (Elavil) Escitalopram (Lexapro) Fluoxetine (Prozac) Blood Pressure Propranolol (Inderal) MABs Erenumab (Aimovig) building up tolerance, not working as well; causing constipation The following abortive medications have been tried but require high frequency use which can lead to Medication Overuse Headache: Analgesic Butalbital/acetaminophen/caffeine (Fioricet) Anti-Migraine Eletriptan (Relpax) intense squeezing tightness in neck chest throat and jaw Naratriptan (Amerge) with all the triptans Rizatriptan (Maxalt) Sumatriptan (Imitrex, Sumavel) Sumatriptan/naproxen sodium (Treximet) Zolmitriptan (Zomig) GEPANTS Ubrogepant (Ubrelvy) works well! Over the Counter Medications Acetaminophen/Aspirin/Caffeine (Excedrin, Goody s) Ibuprofen (Advil, Motrin) Naproxen sodium (Aleve) Irlanda Tucker has been previously approved for an Oral Calcitonin Gene-Related Peptide Receptor Antagonist (GEPANT) Ubrogepant for the treatment of acute migraine. The patient has demonstrated the following: Provider attests patient has had a positive clinical response: Yes Patient will not use with another Oral Calcitonin Gene-Related Peptide Receptor Antagonist (GEPANT): Yes Patient's quality of life and ability to perform ADLs has improved: Yes We suggest the patient continue treatment with GEPANT Ubrogepant. The following preventative medications have been tried for three or more months without benefit: Anti-Convulsant Topiramate (Topamax, Trokendi XL, Qudexy) Anti-Depressant and Antipsychotic Amitriptyline (Elavil) Escitalopram (Lexapro) Fluoxetine (Prozac) Blood Pressure Propranolol (Inderal) MABs Erenumab (Aimovig) building up tolerance, not working as well; causing constipation The following abortive medications have been tried but require high frequency use which can lead to Medication Overuse Headache: Analgesic Butalbital/acetaminophen/caffeine (Fioricet) Anti-Migraine Eletriptan (Relpax) intense squeezing tightness in neck chest throat and jaw Naratriptan (Amerge) with all the triptans Rizatriptan (Maxalt) Sumatriptan (Imitrex, Sumavel) Sumatriptan/naproxen sodium (Treximet) Zolmitriptan (Zomig) GEPANTS Ubrogepant (Ubrelvy) works well! Over the Counter Medications Acetaminophen/Aspirin/Caffeine (Excedrin, Goody s) Ibuprofen (Advil, Motrin) Naproxen sodium (Aleve) RESEARCH: None at this time Follow-up: 3 months, PRN Level of service: Est level 4 (30-39 min). Time spent 39 min on the day of service, which included preparing to see the patient, [id number] patient care, completing clinical documentation, obtaining and/or reviewing separately obtained history, performing a medically appropriate examination, counseling and educating the patient/family/caregiver, and ordering medications, tests, or procedures. Leny Phelps APRN.CNP Headache Section [facility] August 12, 2022 documented in this encounter [facility] 05-13-2022 Instructions Leny Phelps APRN.CNP - 05/13/2022 10:10 AM EDT PLAN: Start topamax for migraine prevention. Increase dose by 25 mg each week until you get to 100 mg nightly at bedtime. Continue ubrelvy for rescue. Start zofran for nausea with migraines as needed. Consider starting supplements for migraine prevention- magnesium, riboflavin, coQ10 Get CMP and CBC drawn in the next 6 months (no need to fast). I placed orders or you can get them locally and fax them to: Headache Clinic We can consider trokendi at our next visit if you have side effects with topamax Topamax It's believed that Topamax helps migraines by calming overactive nerve cells in the brain that lead to migraine attacks. Topamax (topiramate) Instructions: Days 1-7 take 25mg (1 tab) at night. Days 7-14 take 50mg (2 tabs) at night. Days 15-21 take 75mg (3 tabs) at night. Day 22 and forward switch to 100 mg tablet and take 100mg (1 tab) at night. If you get numbness and tingling in your hands and feet, buy potassium 99 mg OTC and use twice a day. Carbonated beverages may have a metallic taste. Other side effects may include word searching or brain fog. Side effects that may occur are cognitive slowing (word finding problems), paresthesias (tingling in hands and feet), weight loss due to decreased appetite, and rarely kidney stones or reversible acute glaucoma. Monitor your weight. Drink plenty of water while taking this medication. Inform the office if you are or planning on getting as this medication is not safe during . Do not abruptly stop taking this medication. Please advise, it may take 4 to 6 weeks to show benefit for your pain. https://[email or web address] n.org/resource-library/topiramate -abtwqty-gywbcafa-eymatffuia/ Vitamins and Supplements that show potential Magnesium (400-500 mg at bedtime) has a relaxant effect on smooth muscles such as blood vessels. Individuals suffering from frequent or daily headache usually have low magnesium levels which can be increase with daily supplementation of 400-800 mg. Three trials found 40-90% average headache reduction when used as a preventative. Magnesium also demonstrated the benefit in menstrually related migraine. Magnesium is part of the messenger system in the serotonin cascade and it is a good muscle relaxant. Good sources include nuts, whole grains, and tomatoes. Magnesium glycinate is a good choice for those with a sensitive stomach who have gastrointestinal side effects such as diarrhea with other forms of magnesium. It is anecdotally also helpful with anxiety and sleep. Magnesium threonate also has low risk of gastrointestinal side effects and anecdotally helpful with cognitive function and brain fog symptoms. Magnesium malate has low gastrointestinal side effects and is reportedly more energizing and anecdotally often helpful in fibromyalgia and chronic fatigue syndrome. Magnesium citrate is one of the most studied, popular, and well-absorbed forms of magnesium. It can also be mixed easily with liquids if you can t take pills. However, it comes with a higher risk of diarrhea and gastrointestinal side effects, although this could be helpful for those with constipation. Magnesium oxide is also well studied, cheap, and often used for heartburn and indigestion. However, it is not well absorbed and can have some laxative side effects as well, so can also be helpful for constipation. If you have an aura you can take 1 additional magnesium pill per day at the onset of your aura to help abort the aura. Riboflavin/Vitamin B2 (400 mg daily) This vitamin assists nerve cells in the production of ATP a principal energy storing molecule. It is necessary for many chemical reactions in the body. There have been at least 3 clinical trials of riboflavin using 400 mg per day all of which suggested that migraine frequency can be decreased. All 3 trials showed significant improvement in over half of migraine sufferers. The supplement is found in bread, cereal, milk, meat, and poultry. Most Americans get more riboflavin than the recommended daily allowance, however riboflavin deficiency is not necessary for the supplements to help prevent headache. This can be energizing, so take it in the morning. You will have to get this online to get the dosage we need. Coenzyme Q10: (200-300 mg daily) This is present in almost all cells in the body and is critical component for the conversion of energy. Recent studies have shown that a nutritional supplement of CoQ10 can reduce the frequency of migraine attacks by improving the energy production of cells as with riboflavin. This can be energizing, so take it in the morning. This can be expensive, but is more affordable at [employer]. Melatonin: Increasing evidence shows correlation between melatonin secretion and headache conditions. Melatonin supplementation has decreased headache intensity and duration. It is widely used as a sleep aid. Sleep is nature's way of dealing with migraine. A dose of 5 mg is recommended to start for difficulty sleeping and for headaches including cluster headache. The rationale behind using melatonin for cluster is that many theories regarding the cause of Cluster headache center around the disruption of the normal circadian rhythm in the brain. This helps restore the normal circadian rhythm.Higher doses up to 20 mg have been used. Melatonin should be taken 2-4 hours before bedtime. Kristen: Kristen has a small amount of antihistamine and anti-inflammatory action which may help headache. It is primarily used for nausea and may aid in the absorption of other medications. Feverfew: Feverfew is a common garden herb [place] and popular in [place] as a treatment for disorders typically controlled by aspirin. The mechanism of action is unknown but is believed to be related to a chemical called parthenolide which helps the body use serotonin more effectively. Serotonin helps prevent migraine and assists with resolution when it occurs. Parthenolide also inhibits the release of histamine which is linked to pain and inflammation. Consistency of active ingredients in different products can be a problem. Some formulations don't have the active ingredient (parthenolide) that prevents migraine. A parthenolide content of 0.2% is generally recommended. Typical dosage is one capsule 3 times a day. It may take 3-6 months of taking a supplement daily before you notice an improvement in headaches. We like patients to remain on the supplement for at least 6 months to know if it is effective or not. Look for the GMP or RETIREMENT seal/stamp on all vitamins and supplements. Seeing the stamp on a dietary supplement label indicates that the product contains the ingredients listed on the label, in the declared potency and amounts. Tests have shown that contents of some supplements don't match the label and some contain significantly less or more than the claimed amount of nowak ingredients. RETIREMENT or GMP stamps help assure customers that they are getting the value they expect from a product they are purchasing. Avoiding Medication Overuse Headache (Rebound Headache): Based on current research, the medications listed below and their frequency of use may convert an episodic headache (particularly migraine) into a chronic daily headache (any headache occurring 15 or more days per month for at least 4 hours per day): ---> Over the counter medications, NSAIDS and combination analgesics: -If taken more than 2 days per week, or more than 10 days per month these can lead to rebound headache. -These include medications such as Acetaminophen (Tylenol), Naproxen (Aleve), Ibuprofen (Advil, Motrin), Acetaminophen/Caffeine (Excedrin), Indocin (Indomethacin), Acetaminophen/Dichloralphenazone/ Isometheptene (Midrin), Aspirin (ok to continue if taking for medical reasons), cold remedies and sleep-promoting agents, among others. ---> Triptans: -If taken more than 2 days per week, or more than 10 days per month these can lead to rebound headache. -These include Sumatriptan (Imitrex), Sumatriptan/Naproxen (Treximet), Rizatriptan (Maxalt), Almotriptan (Axert), Zolmitriptan (Zomig), Eletriptan (Relpax), Naratriptan (Amerge), Frovatriptan (Frova). ---> Opiates/Opioids (Narcotics): -If taken 8 days or more per month these can lead to rebound headache. Some research suggests that even infrequent use of these medications makes migraine specific medications such as triptans and NSAIDs less effective. -These include any narcotics such as Acetaminophen/Hydrocodone (Vicodin), Acetaminophen/Oxycodone (Percocet), Acetaminophen/Propoxyhene (Darvocet), Acetaminophen/Codeine (Tylenol #3, #4), Tramadol (Ultram), Acetaminophen/Tramadol (Ultracet), Oxycodone (OxyContin), Hydromorphone (Dilaudid), Fentanyl, Butorphanol (Stadol), Morphine or any form of a Morphine derivative. ---> Butalbital containing medications: -If taken 5 or more days per month these can lead to rebound headache. These are the worst offenders. -These include Acetaminophen/Butalbital/Caffeine (Fioricet, Esgic) Acetaminophen/Butalbital/Caffeine /Codeine (Fioricet with Codeine), Aspirin/Butalbital/Caffeine (Fiorinal), Aspirin/Butalbital/Caffeine/Codei ne (Fiorinal with Codeine). Limit use of acute treatments (including opioids, butalbital, triptans, and [id number]-mzf-ektcubl medications such as tylenol, ibuprofen, naproxen, excedrin, etc.) to no more than 2 days per week or less than 10 days per month to prevent medication overuse headache (rebound headache). Using these medications more than 9 days per month can worsen headaches and cause a rebound headache. Limit use of all acute treatments combined to less than 10 days per month. General Headache Education and Headache Prevention Strategies: 1. Maintain a headache diary; learn to identify and avoid triggers. Common triggers include: Emotional triggers: Emotional/Upset family or friends Emotional/Upset occupation Business reversal/success Anticipation anxiety Crisis-serious Post-crisis periodNew job/position Physical triggers: Vacation Day Weekend Strenuous Exercise High Altitude Location New Move Menstrual Day Physical Illness Oversleep/Not enough sleep Weather changes Light: Photophobia or light sesnitivity treatment involves a balance between desensitization and reduction in overly strong input. Use dark polarized glasses outside, but not inside. Avoid bright or fluorescent light, but do not dim environment to the point that going into a normally lit room hurts. Consider FL-41 tint lenses, which reduce the most irritating wavelengths without blocking too much light. These can be obtained at [employer] or [employer]: see list below. 2. Limit use of acute treatments (hkbn-[id number]-yncvgth medications, triptans, etc.) to no more than 2 days per week or 10 days per month to prevent medication overuse headache (rebound headache). 3. Follow a regular schedule (including weekends and holidays): Don't skip meals. Eat a balanced diet. 8 hours of sleep nightly. Minimize stress. Exercise 30 minutes per day. Walking is great exercise. Being overweight is associated with a 5 times increased risk of chronic migraine. Keep well hydrated and drink 6-8 glasses of water per day. 4. Initiate non-pharmacologic measures at the earliest onset of your headache. Rest and quiet environment. Relax and reduce stress. Lsqdswk2Rykkf is a free lamin that can instruct you on some simple relaxtion and breathing techniques. Http://Nextance is a free website that provides teaching videos on relaxation. Also, there are many apps that can be downloaded for mindful relaxation. An lamin called YOGA NIDRA will help walk you through mindfulness. Cold compresses. 5. Don't wait!! Take the maximum allowable dosage of prescribed medication at the first sign of migraine. 6. Compliance: Take prescribed medication regularly as directed and at the first sign of a migraine. 7. Communicate: Call your physician when problems arise, especially if your headaches change, increase in frequency/severity, or become associated with neurological symptoms (weakness, numbness, slurred speech, etc.). 8. Headache/pain management therapies: Consider various complementary methods, including medication, behavioral therapy, psychological counselling, biofeedback, massage therapy, acupuncture, dry needling, and other modalities. Such measures may reduce the need for medications. Counseling for pain management, where patients learn to function and ignore/minimize their pain, seems to work very well. 9. Recommend changing family's attention and focus away from patient's headaches. Instead, emphasize daily activities. If first question of day is 'How are your headaches/Do you have a headache today?', then patient will constantly think about headaches, thus making them worse. Goal is to re-direct attention away from headaches, toward daily activities and other distractions. 10. Helpful Websites: www.AmericanHeadacheSociety.org www.migrainetrust.org www.headaches.org www.migraine.org.uk www.achenet.org 11. HEADACHE EXPECTATIONS: There are many types of headaches, and only a rare few in which complete relief can be expected. In general, there is no cure for headache, especially migraine based headaches. There is nothing available that completely prevents headaches from occurring, breaking through, or having periodic flare-ups and fluctuations. Regardless of what you are using on a daily basis for prevention, episodic headaches should still be expected, and periods where frequency may escalate and fluctuate are unavoidable. There is no quick fix for most headaches. Furthermore, the longer you have had high frequency headaches (such as chronic daily headache), the longer it will likely take to expect any improvement. In fact, some people will never improve, regardless of how many medications or other treatments we try. Our treatment strategy is to evaluate for possible causes of your headache, although testing is usually always normal, even in cases of daily continuous headaches for years. Most types of headache such as migraine are electrical brain disorders (similar to how epilepsy is an electrical brain disorders). Therefore, there is no testing that will reveal this dysfunctional electrical circuitry such on MRI, or other testing. We try to find a medication that may help lessen the frequency and/or severity of your headaches. The goal is not to completely stop them from happening, although if that happens, great! Different people respond to different medications, and some people just don't respond to anything, so it's usually a matter of trying different options. We can not predict if or when exactly you will respond to a treatment that we provide. Preventive headache medications take 4-6 weeks to start working, and 2-3 months to see full effect, assuming you reach an effective dose. Therefore, calling or messaging frequently because you have a headache flare prior to the 3 month héctor is unlikely to change anything, and unfortunately there is nothing available that will expedite this, so please try to avoid this. Our recommendation will generally be to give it adequate time first. If you are unable to wait it out for medications to work, we can also try IV infusions for some temporary relief. In general, the best that preventive medications or other treatments (including Botox) are able to offer in migraine management (variable in other headache types) is a 50% improvement in frequency and/or severity of headache. That is our goal, and any additional benefit is considered a bonus. Some people do significantly better than this, others do not get close to this. Therefore, if your headaches are not improving by at least 3 months on your preventive strategy, contact us and we can discuss further adjustments. Keep in mind that complete headache cure is not a realistic expectation. Our Team: The nursing staff, and medical assistants are a major part of YOUR TREATMENT TEAM and will be handling your phone calls and inquiries, if any. Unless explicitly told otherwise at the time of your office visit, your study results and ensuing treatment plans will be released via [employer] and discussed during your follow-up appointment. Follow-up appointments are primarily provided by the Nurse Practitioners and Physician s Assistants in order to provide timely, accessible care. MyChart: Please ask the schedulers to give you an activation code. The main way of communication is by [employer] rather than phone lines, so if you have not signed up, please do so. [employer] is also the way that you can review your labs and testing. We are not able to contact everyone to tell them results are normal. If you do not hear back from us regarding testing you have had, it should be considered normal or within normal range. If you have any questions about the results, you are free to message us. [employer] is meant for simple questions regarding medications, possible side effects, or other simple straight forward questions in limited sentences, rather than multiple paragraphs of discussion. [employer] is not meant for, or efficient for these complex questions, extensive questions, extensive medication adjustments, complex new symptoms or concerns. These issues beyond simple questions require a follow up visit with myself, one of our physician assistants, nurse practitioners, or a Virtual Visit via computer or smart phone, as detailed further down. Refills: Please pay attention to when your refills will need to be renewed. Due to the volume of phone calls daily, this could potentially take a few days, although we certainly try to honor your refill requests as soon as we can. You should call at least 1 week in advance of needing a refill to ensure you do not run out of medication. Keep in mind that refill requests on Fridays may not be filled until the following week. The Headache and Facial Pain Section does not complete disability or any other insurance-related forms/documention. We will complete FMLA forms. All of the office notes, study results, and other pertinent documentation generated as part of your evaluation will be available to you and to your Primary Care Physician (PCP). Use of this material to complete such forms will be at the discretion of your PCP/referring physician. HEADACHE DIET: Foods and beverages which may trigger migraine Note that only 20% of headache patients are food sensitive. You will know if you are food sensitive if you get a headache consistently 20 minutes to 2 hours after eating a certain food. Only cut out a food if it causes headaches, otherwise you might remove foods you enjoy! What matters most for diet is to eat a well balanced healthy diet full of vegetables and low fat protein, and to not miss meals. Chocolate, other sweets ALL cheeses except cottage and cream cheese Dairy products, yogurt, sour cream, ice cream Liver Meat extracts (Bovril, Marmite, meat tenderizers) Meats or fish which have undergone aging, fermenting, pickling or smoking. These include: Hotdogs,salami,Lox,sausage, mortadellas,smoked salmon, pepperoni, Pickled black Pods of broad john (Lao beans, [place] Islander pea pods, Angolan (jono) beans, davila and navy beans Ripe avocado, ripe banana Yeast extracts or active yeast preparations such as Tomas's or Monik's (commercial bakes goods are permitted) Tomato based foods, pizza (lasagna, etc.) MSG (monosodium glutamate) is disguised as many things; look for these common aliases: Monopotassium glutamate Autolysed yeast Hydrolysed protein Sodium caseinate flavorings all natural preservatives Nutrasweet Avoid all other foods that convincingly provoke headaches. documented in this encounter [facility] 05-13-2022 History of Present illness Narrative Headache Center - Follow up Virtual Visit During this COVID-19 pandemic, patient's headache clinic evaluation was scheduled as a virtual visit using the following platform Kellyom Irlanda Tucker was identified by name and and consented to the video evaluation and its limitations. Based on this evaluation it may be necessary for them to schedule a follow up evaluation with me or other neurologists for formal physical examination and, if necessary, other studies. Accompanied by: Self Primary Problem List: ACTIVE PROBLEM LIST Chronic Daily Headache Migraine Without Aura and Without Status Migrainosus, Not Intractable Migraine With Aura and Without Status Migrainosus, Not Intractable Chronic Migraine Without Aura, With Intractable Migraine, So Stated, With Status Migrainosus Intractable Chronic Migraine Without Aura and Without Status Migrainosus Obesity, Class III, BMI >= 40 Chief Complaint: migraine Impression and Plan from last visit: 02/11/22 jayna Littlejohn & Rivka Villavicencio IMPRESSION: Irlanda Tucker is a 36 year old year old female, with a history of GERD, migraines, and HLD. Her neurological examination is essentially normal at this visit. Irlanda is currently using aimovig 140 mg monthly injection, but it is no longer as effective as it previously was and she is interested in trying a different preventative. She started initially taking 70 mg aimovig and moved up to 140 mg/month and it was working very well. She changed insurance a few months ago and had to resubmit for prior authorization for aimovig and she ended up missing 2 months of this medication. She restarted aimovig 2 months ago and has done 2 injections since then, with her 3rd due today. However, the aimovig is causing constipation and no longer working as well. She was previously getting 5 JAIN days/month while on aimovig when it was working well. She is currently getting 16 headaches/month, 14 of which are migraines each month. We discussed the following options: Trying a different MAB- emgality or ajovy. Pt is most interested in monthly injections Trying a new oral medication such as zonisamide or cymbalta. She was previously on topamax but had some nasty side effects and can't remember to take a daily pill, so a daily oral med is not the best option for her. Botox Vyepti infusions Changing ubrelvy to 16 tablets each month (she is currently getting 10 tabs/mo) so that she has more rescue medication without the risk of MOH. PLAN: Continue ibuprofen and ubrelvy as your rescue medication. We are submitting 16 tabs/month of ubrelvy to your insurance to see if they will approve the extra 6 tabs/month. Take your Aimovig injection today and then stop aimovig. We will submit for prior authorization for emgality. Start emgality next month (end of February 2022) on the same day that aimovig would be due. If emgality does not work, in the future we can consider: Ajovy or Vyepti infusions Trying a new oral medication such as zonisamide or cymbalta Botox Muscle relaxer for neck pain Update: emgality was denied, so we submitted for ajovy Interval Headache History: Irlanda Tucker is a 37 year old year old female, with a history of GERD, migraines, and HLD, following up today virtually for migraines. Since the last visit, the patient states that her headaches are much worse. Emgality and ajovy were both denied and her insurance would like her to try botox. She is interested in restarting topamax since she has not been able to get emgality or ajovy approved, and aimovig was losing efficacy and causing constipation. She has previously been on topamax and had mild SEs of altered taste, fatigue. She didn't like a daily oral medication, but feels it may be her best option now d/t insurance issues with the monthly injectables. Contraception: Tubal ligation Denies kidney stones Preventative: none Abortive: ubrelvy, ibuprofen Medications effective? yes # of doses of abortive medications per month: 15 days of ubrelvy History of [place]/CAD/Stroke: No Headache 1 This is the current headache. Location: occipital, retro-orbital, right and left Quality/Description: squeezing, pressure and throbbing Associated Symptoms: Photophobia: yes Phonophobia: yes Nausea: yes Vomiting: no Other symptoms: osmophobia, dizziness and neck pain Worse with activity: yes Number of migraine headache days/month: 16 Migraine headache severity: 6/10 Number of NON-migraine headache days/month: 4 Non-migraine headache severity: 2 Number of headache free days/month: 10 Duration of headaches with treatment: 30 minutes (0.5 hours) Triggers: weather changes, stress, odors, flickering lights and bright lights Most common time of day for headache to begin: anytime Prodrome: none Aura: loss of peripheral vision - blue/green-had an aura 3-4 times last month. Days missed from work or school in the last month: 0 days Headache status since the last visit: worse Prior Therapies Duration of Use Dose Reason for Discontinuation Analgesic Butalbital/acetaminophen/caffeine (Fioricet) Anti-Convulsant Topiramate (Topamax, Trokendi XL, Qudexy) Anti-Depressant and Antipsychotic Amitriptyline (Elavil) Escitalopram (Lexapro) Fluoxetine (Prozac) Antiemetics Promethazine Anti-Migraine Eletriptan (Relpax) intense squeezing tightness in neck chest throat and jaw Naratriptan (Amerge) with all the triptans Rizatriptan (Maxalt) Sumatriptan (Imitrex, Sumavel) Sumatriptan/naproxen sodium (Treximet) Zolmitriptan (Zomig) Blood Pressure Propranolol (Inderal) MABs Erenumab (Aimovig) building up tolerance, not working as well; causing constipation GEPANTS Ubrogepant (Ubrelvy) works well! Over the Counter Medications Acetaminophen/Aspirin/Caffeine (Excedrin, Goody s) Ibuprofen (Advil, Motrin) Naproxen sodium (Aleve) PAST MEDICAL HISTORY Diagnosis Date GERD (gastroesophageal reflux disease) High cholesterol Diet Controlled Migraines PAST SURGICAL HISTORY Procedure Laterality Date DELIVERY ONLY , low transverse DELIVERY ONLY , low transverse DELIVERY ONLY 04/15/16 , low transverse LIG/TRNSXJ FLP TUBE ABDL/VAG APPR UNI/BI 04/15/16 Tubal ligation TONSILLECTOMY & ADENOIDECTOMY <AGE 12 Adenoids Removed Twice TYMPANIC MEMB RPR W/WO PREPJ PERFOR PATCH Tympanoplasty ALLERGIES Allergen Reactions Latex Hives Phenergan Vc [Prome* Mental Status Change Tkamqecx-1-At4 Anti* Other: See Comments Intense squeezing tightness, chest, neck throat and jaw Current Medications: fremanezumab-vfrm (AJOVY AUTOINJECTOR) 225 mg/1.5 mL auto-injector Inject 1.5 mL subcutaneously once every month. Do not shake. ubrogepant (UBRELVY) 100 mg tablet Take 1 tablet by mouth as needed (for migraine). Take at first sign of migraine. You may repeat 1 tablet 2 hours later if needed. Max daily dose 200 mg. ibuprofen (MOTRIN) 800 mg tablet Take 1 tablet by mouth every 6 hours as needed. Multivitamin capsule Take 1 capsule by mouth once daily. pantoprazole (PROTONIX) 40 mg tablet Take 1 tablet by mouth once daily. I have reviewed the [place] Status Assessment responses and discussed these with the patient: yes Leny Phelps APRN.FLAT GRINDER OPERATOR HEADACHE SCORES: Headache Questions 01/17/2021 02/11/2022 05/12/2022 ID Migraine Screener: - - - ER visits in the last year: - - - ER visits since last office visit: 0 0 0 Hospital stays in the last year: - - - Hospital stays since last office visit 0 0 0 Limited ADLs in the last month: 0 14 16 Days missed from work or school in the last month: 0 0 0 Days headache pain free in the last month: 26 14 14 Days per month with ALL of the following symptoms - decreased productivity, light sensitivity and nausea: 5 14 16 Initial improvement of headache after botox injection at last visit: Not applicable, I did not have a botox injection at my last visit Not applicable, I did not have a botox injection at my last visit Not applicable, I did not have a botox injection at my last visit PRN medication usage in the last month: 5 14 16 Patient impression of improvement since last visit: No change Minimally worse Much worse HIT-6 07/09/2020 01/17/2021 02/11/2022 HIT-6 69 (Severe impact) 66 (Severe impact) 65 (Severe impact) TERRENCE - 2/7 SCORES 07/09/2020 01/17/2021 02/11/2022 TERRENCE-2 Score 6 0 2 TERRENCE-7 Score 17 - - Migraine Specific QOL - Higher scores indicate better HRQL 07/09/2020 01/17/2021 02/11/2022 Role Function-Restrictive Transformed Score (range: 0-100) 22.85 82.85 11.43 Role Function-Preventive Transformed Score (range: 0-100) 50 95 60 Emotional Function Transformed Score (range: 0-100) 0 93.33 13.33 PHQ-9 07/09/2020 01/17/2021 02/11/2022 Score 6 3 13 Studies to Review: No Labs to Review: Yes, in care everywhere CMP and CBC WNL from Jun 2021 Review of Systems: Review of system: unchanged from the previous visit (sleep patterns, mood, energy, appetite, stress, exercising). Physical Examination: Vital Signs: No vital signs taken due to virtual visit. General: well appearing, in no acute distress, alert, obese Pain Behaviors: grimacing, rubbing affected body part and squinting Neurological: Mental Status: Alert and oriented to person, place and time. Affect is normal and appropriate. Speech is spontaneous and fluent without dysarthria, normal in rate, volume and articulation and clear, coherent, and relevant. Short and detention memory, cognition and general fund of knowledge are good. Attention span and concentration are good. HEENT: Head is normocephalic and features were symmetric. Musculoskeletal: Patient able to sit up right in chair for entirety of visit. Cranial Nerves: III, IV, -EOMI: full. VII-face is symmetric without evidence of weakness. VIII-hearing intact. Physical exam limited due to virtual visit. IMPRESSION: Irlanda Tucker is a 37 year old year old female, with a history of GERD, migraines, and HLD. Her neurological examination is essentially normal at this visit. Unfortunately, Ms. Tucker's migraines have worsened due to lack of migraine prevention for the past few months. Her insurance has denied emgality and ajovy. She is unable to try botox or vyepti at this time due to living far away and not being able to make the commute every 3 months. She has previously had success with topamax helping her migraines, so she will restart topamax for migraine prevention. Diagnosis: Migraine without aura and without status migrainosus, not intractable (primary encounter diagnosis) Nausea Medication management Cervicalgia Chronic migraine w/o aura w/o status migrainosus, not intractable Irlanda Tucker has been previously approved for an Oral Calcitonin Gene-Related Peptide Receptor Antagonist (GEPANT) Ubrogepant for the treatment of acute migraine. The patient has demonstrated the following: Provider attests patient has had a positive clinical response: Yes Patient will not use with another Oral Calcitonin Gene-Related Peptide Receptor Antagonist (GEPANT): Yes Patient's quality of life and ability to perform ADLs has improved: Yes We suggest the patient continue treatment with GEPANT Ubrogepant. The following preventative medications have been tried for three or more months without benefit: Anti-Convulsant Topiramate (Topamax, Trokendi XL, Qudexy) Anti-Depressant and Antipsychotic Amitriptyline (Elavil) Escitalopram (Lexapro) Fluoxetine (Prozac) Blood Pressure Propranolol (Inderal) MABs Erenumab (Aimovig) building up tolerance, not working as well; causing constipation The following abortive medications have been tried but require high frequency use which can lead to Medication Overuse Headache: Analgesic Butalbital/acetaminophen/caffeine (Fioricet) Anti-Migraine Eletriptan (Relpax) intense squeezing tightness in neck chest throat and jaw Naratriptan (Amerge) with all the triptans Rizatriptan (Maxalt) Sumatriptan (Imitrex, Sumavel) Sumatriptan/naproxen sodium (Treximet) Zolmitriptan (Zomig) GEPANTS Ubrogepant (Ubrelvy) works well! Over the Counter Medications Acetaminophen/Aspirin/Caffeine (Excedrin, Goody s) Ibuprofen (Advil, Motrin) Naproxen sodium (Aleve) Red Flags: none PLAN: Start topamax for migraine prevention. Increase dose by 25 mg each week until you get to 100 mg nightly at bedtime. Continue ubrelvy for rescue. Start zofran for nausea with migraines as needed. Consider starting supplements for migraine prevention- magnesium, riboflavin or coQ10 Get CMP and CBC drawn in the next 6 months. I placed orders or you can get them locally and fax them to: [facility]ache [facility] Future considerations: trokendi, cymbalta, tizanidine, re-submit for ajovy or emgality at next visit Patient verbalized understanding and agreed to the treatment plan. Headaches can be associated with systemic abnormalities; we will check the following: Labs: Comp Metabolic Panel CBC HEADACHE MANAGEMENT: (You are the primary guardian of your health and headache. Keep track of all medications: This includes the reason for use, side effects and benefits.) MEDICATION TREATMENT: Medications to Start Taking topiramate (TOPAMAX) 25 mg tablet Take 1 tablet by mouth daily at bedtime for 7 days, THEN 2 tablets daily at bedtime for 7 days, THEN 3 tablets daily at bedtime for 7 days. Then switch to 100 mg tablet and stay at that dose.. topiramate (TOPAMAX) 100 mg tablet Starting on 06/03/2022. Take 1 tablet by mouth daily at bedtime. ondansetron orally disintegrating (ZOFRAN ODT) 4 mg disintegrating tablet Take 1 tablet by mouth every 8 hours as needed (for nausea with migraines). Discussed triggers and lifestyle modifications including limiting caffeine consumption. Discussed treatment options, both abortive and preventive medications. Instructed patient about medications. Discussed potential adverse effects and drug interactions of medications. Headache education was done. Discussed lifestyle modification including increased oral hydration, decreased caffeine, exercise and stress management. Discussed treatment options including preventive and acute medications, natural supplements, and infusion therapy. Discussed medication overuse headache and to limit use of acute treatments to no more than 2 days/week or 10 days/month. Discussed medication side effects, adverse reactions and drug interactions. Written educational materials and patient instructions outlining all of the above were given. RESEARCH: None at this time Follow-up: 3 months Level of Service: Virtual Visit 40 minutes Leny Phelps APRN.CNP Headache Section [facility] May 13, 2022 documented in this encounter [facility] 03-11-2022 Miscellaneous Notes Please appeal this Ajovy denial. Irlanda is chronic migraine. She had 16 JAIN days last month, 14 of which were migraine and 2 tension, and she's had migraines for more than 3 months. Also, ajovy is approved for episodic and chronic migraine. She was on Aimovig which helped decrease her migraine days, and now that Aimovig is losing efficacy, she's back to more migraine days, so she's chronic migraine. Thanks, Leny Phelps APRN.CNP March 11, 2022 Images from the original note were not included. Ambulatory Pharmacy Prior Authorization Note Provider Intervention Required?: No- Pharmacy completed on your behalf. Drug: AJOVY (fremanezumab-vfrm) injection 225MG/1.5ML auto-injectors Cover My Meds [place]: [id number] Determination: Denied PA Denied because: Medical necessity not met Prior Authorization/Case #: [id number] Prior Authorization Expiration: n/a Time to PA Submission in CMM: 15 min Time to PA Determination in CMM: Same day Additional Information: Full letter scanned into chart for reference, please review letter for full details. Next Steps- Please notify the patient of Denial. Your office can submit appeal if you would like to pursue. If overturned, please feel free to send new eRx to [facility] Home Delivery at that time. No further action by [facility] Pharm[facility] for now and existing order to be profiled. Karlene Brownlee RN [facility] P: , F: For questions relating to this submission, please contact [facility] [phone] [facility] received prescription(s) for AJOVY (fremanezumab-vfrm) injection 225MG/1.5ML auto-injectors . Benefits investigation was conducted, indicating that a prior authorization is required. PA was initiated and pending review through [employer]. All pertinent clinical information was submitted to insurance. [facility] [place]: [id number] Ordering Provider: LUCIANO Guillory Alisha, RN [facility] P: , F: documented in this encounter [facility] 03-01-2022 Miscellaneous Notes Noted. Leny Phelps APRN.CNP Ambulatory Pharmacy Prior Authorization Note Provider Intervention Required?: No- Pharmacy completed on your behalf. Drug: Ubrelvy 100MG tablets Cover My Meds [place]: [id number] Determination: Approved Prior Authorization/Case #: [id number] Prior Authorization Expiration: 05/30/22 Time to PA Submission in CMM: 15 min Time to PA Determination in CMM: 1 day Additional Information: PLEASE NOTE: Pt will need follow up office visit to review/document efficacy and tolerability of treatment before prior auth expiration. Please ensure a future follow up appt is scheduled with your patient. This will ensure no interruption in patient's ability to obtain medication refills. Prescriptions will now be processed through [facility] for determination of next steps. For questions relating to this submission, please contact [facility] [phone] [facility] received prescription(s) for Ubrelvy 100MG tablets . Benefits investigation was conducted, indicating that a prior authorization is required. PA was initiated and pending review through [employer]. All pertinent clinical information was submitted to insurance. [facility] [place]: [id number] Ordering Provider: Leny Phelps APRN.Karlene Medrano RN [facility] P: , F: documented in this encounter [facility] 03-01-2022 Miscellaneous Notes Images from the original note were not included. Ambulatory Pharmacy Prior Authorization Note Provider Intervention Required?: No- Pharmacy completed on your behalf. Drug: Emgality 120MG/ML auto-injectors (migraine) Cover My Meds [place]: [id number] Determination: Denied PA Denied because: Step therapy requirement Prior Authorization/Case #: [id number] Prior Authorization Expiration: n/a Time to PA Submission in CMM: 15 min Time to PA Determination in CMM: Same day Additional Information: Full letter scanned into chart for reference, please review letter for full details. Next Steps- Please notify the patient of Denial. Your office can submit appeal if you would like to pursue. If overturned, please feel free to send new eRx to [facility] Delivery at that time. No further action by [facility] Pharm[facility] for now and existing order to be profiled. Karlene Brownlee RN [facility] P: , F: For questions relating to this submission, please contact [facility] [phone] [facility] received prescription(s) for Emgality 120MG/ML auto-injectors (migraine) . Benefits investigation was conducted, indicating that a prior authorization is required. PA was initiated and pending review through [employer]. All pertinent clinical information was submitted to insurance. CMM [place]: [id number] Ordering Provider: Leny Phelps APRN.Karlene Medrano RN [facility] P: , F: documented in this encounter [facility] 02-11-2022 Instructions Leny Phelps APRN.FLAT GRINDER OPERATOR - 02/11/2022 10:42 AM EDT Images from the original note were not included. Take your Aimovig injection today. We will submit for prior authorization for Emgality. Start emgality next month (end of February 2022) on the same day that aimovig would be due. Continue ibuprofen and ubrelvy as your rescue medication. We are submitting 16 tabs/month of ubrelvy to your insurance to see if they will approve the extra 6 tabs/month. Limit use of acute treatments (including opioids, butalbital, triptans, and gptt-ihx-yvhaqww medications such as tylenol, ibuprofen, excedrin, etc.) to no more than 2 days per week or 9 days per month to prevent medication overuse headache (rebound headache). Using these medications more than 9 days per month can worsen headaches and cause a rebound headache. Limit use ibuprofen to less than 9 days per month. You can take the ubrelvy more than 9 days/month, if necessary, without the risk of rebound headache. Go to the Emgality website and look up the medication and watch the video about it. Emgality is for adults only. For patients with migraine, your first dose will be a loading dose of 240 mg, or 2 injections of 120 mg each. After that, you can inject 1 dose of EMGALITY 1 month from the date of your last dose to get back on a monthly dosing schedule. Leave the pen at room temperature for 30 minutes before injecting. Wash your hands, select an injection site, clean it with an alcohol wipe, and let it dry before you inject. Inspect the pen and the medicine. Make sure the pen is locked and the base cap is on until you inject. 1. Uncap the pen Twist off base cap and throw it away. Do not put the base cap back on, as this could damage the needle. Do not touch the needle. 2. Place and unlock Place the clear base flat and firmly at the injection site and unlock the pen. 3. Press, hold, and listen Press and hold the teal button. Listen for a loud click. Keep holding the pen against your skin. After about 10 seconds, you will hear a second click. That means the full dose has been delivered.You can inject in your abdomen (at least 2 inches away from belly button) or front of thighs (at least 2 inches above the knee and 2 inches below the groin). Another person can inject in the back of your arm or buttocks. Rotate the injection site After using your Emgality Pen, dispose of it safely in a sharps container. Do not throw the Emgality Pen in the trash. The most common side effects of Emgality are injection site reactions. Leny Phelps APRN.MORALES documented in this encounter [facility] 02-11-2022 History of Present illness Narrative Headache Center - Follow up Virtual Visit Patient's headache clinic evaluation was scheduled as a virtual visit using the following platform Gloria Tucker was identified by name and and consented to the video evaluation and its limitations. Based on this evaluation it may be necessary for them to schedule a follow up evaluation with me or other neurologists for formal physical examination and if necessary,other studies. Accompanied by: Self Primary Problem List: ACTIVE PROBLEM LIST Chronic Daily Headache Migraine Without Aura and Without Status Migrainosus, Not Intractable Migraine With Aura and Without Status Migrainosus, Not Intractable Chronic Migraine Without Aura, With Intractable Migraine, So Stated, With Status Migrainosus Intractable Chronic Migraine Without Aura and Without Status Migrainosus Obesity, Class III, BMI >= 40 Chief Complaint: migraine Impression and Plan from last visit: Virtual visit 11/05/2021 with Christine Pineda CNP. Ms. Tucker is a 36-year-old female with history significant for migraine, elevated cholesterol, obesity and GERD. At her last visit she was to: Apply for Aimovig with new insurance Apply for Ubrelvy as an abortive as she cannot tolerate the triptans Interval Headache History: Irlanda has been on aimovig. She started on 70 mg and she's currently at 140 mg. She's worried that she is building up a tolerance to the aimovig. She was previously getting about 5 days per month with the aimovig, but now she's getting headaches about 16 days/month. She has done 2 doses of aimovig since restarting it (she missed a couple months d/t change in insurance and having to resubmit for prior auth) and her next injection is due today. The aimovig was working wonderfully before, but now she isn't responding as well to the aimovig. She also has tried ubrelvy as her rescue, but only gets 10 per month. She has taken them and has only needed to repeat the dose 1 time. Her main concerns are that the aimovig is not working as well anymore and she's having more breakthrough headaches. Aimovig is also causing constipation. Headache 1 This is the current headache. Onset: - Headache Location: occipital, retro-orbital, right and left Quality/Description: squeezing, pressure, exploding and throbbing Associated Symptoms: Photophobia: yes Phonophobia: yes Nausea: yes Vomiting: no Other symptoms: osmophobia, dizziness and neck pain Worse with activity: no Number of migraine headache days/month: 14 Migraine headache severity: 6 (range 2-7/10)/10 Number of NON-migraine headache days/month: 2 Non-migraine headache severity: 2 Number of headache free days/month: 14 Duration of headaches with treatment: 30 minutes (0.5 hours) Triggers: weather changes, stress and odors Onset of headache to peak: abrupt Relieving factors: ibuprofen -, ubrelvy- takes away throbbing and soreness will remain- makes them tolerable; stopped taking tylenol and excedrin Most common time of day for headache to begin: anytime Prodrome: none Aura: loss of peripheral vision - blue/purple- had an aura 3-4 times last month. Days missed from work or school in the last month: 0 days Preventative: Aimovig 140 mg Abortive: [id number] mg and ibuprofen- has used 10 days in past month; takes ibuprofen first and then ubrelvy if it doesn't work Medications effective? sometimes # of doses of abortive medications per month: 10 Analgesic Butalbital/acetaminophen/caffeine (Fioricet) Anti-Convulsant Topiramate (Topamax, Trokendi XL, Qudexy) Anti-Depressant and Antipsychotic Amitriptyline (Elavil) Fluoxetine (Prozac) Antiemetics Promethazine Anti-Migraine Eletriptan (Relpax) intense squeezing tightness in neck chest throat and jaw Naratriptan (Amerge) with all the triptans Rizatriptan (Maxalt) Sumatriptan (Imitrex, Sumavel) Sumatriptan/naproxen sodium (Treximet) Zolmitriptan (Zomig) Blood Pressure Propranolol (Inderal) MABs Erenumab (Aimovig) building up tolerance, not working as well; causing constipation GEPANTS Ubrogepant (Ubrelvy) denied by previous insurance Over the Counter Medications Acetaminophen/Aspirin/Caffeine (Excedrin, Goody s) Ibuprofen (Advil, Motrin) Naproxen sodium (Aleve) PAST MEDICAL HISTORY Diagnosis Date GERD (gastroesophageal reflux disease) High cholesterol Diet Controlled Migraines PAST SURGICAL HISTORY Procedure Laterality Date DELIVERY ONLY , low transverse DELIVERY ONLY , low transverse DELIVERY ONLY 04/15/16 , low transverse LIGATE FALLOPIAN TUBE 04/15/16 Tubal ligation REMOVE TONSILS/ADENOIDS,<12 Y/O Adenoids Removed Twice TYP MEMBR REP W OR W/O PATCH Tympanoplasty ALLERGIES Allergen Reactions Latex Hives Phenergan Vc [Prome* Mental Status Change Gwabfscm-5-Gt4 Anti* Other: See Comments Intense squeezing tightness, chest, neck throat and jaw Issues and questions to be addressed: Medications ubrogepant (UBRELVY) 100 mg tablet Take 1 tablet by mouth as needed. erenumab-aooe (AIMOVIG AUTOINJECTOR) 140 mg/mL auto-injector INJECT 140 MG UNDER THE SKIN ONCE EVERY MONTH. ibuprofen (MOTRIN) 800 mg tablet Take 1 tablet by mouth every 6 hours as needed. Multivitamin capsule Take 1 capsule by mouth once daily. pantoprazole DR (PROTONIX) 40 mg tablet Take 1 tablet by mouth once daily. I have reviewed the [place] Status Assessment responses and discussed these with the patient: Yes, Marcia Ohara APRN.FLAT GRINDER OPERATOR HEADACHE SCORES: Headache Questions 07/09/2020 01/17/2021 02/11/2022 ID Migraine Screener: - - - Migraine days per month: - - - ER visits in the last year: - - - ER visits since last office visit: 0 0 0 Hospital stays in the last year: - - - Hospital stays since last office visit 0 0 0 Limited ADLs in the last month: 0 0 14 Time missed from work or school in the last month: - 0 0 Days headache pain free in the last month: 25 26 14 Days per month with ALL of the following symptoms - decreased productivity, light sensitivity and nausea: 5 5 14 Days per month with non-migraine headache: - -1 2 Initial improvement of headache after botox injection at last visit: Not applicable, I did not have a botox injection at my last visit Not applicable, I did not have a botox injection at my last visit Not applicable, I did not have a botox injection at my last visit PRN medication usage in the last month: 5 5 14 Patient impression of improvement since last visit: Much improved No change Minimally worse HIT-6 07/09/2020 07/09/2020 01/17/2021 HIT-6 72 (Severe impact) 69 (Severe impact) 66 (Severe impact) TERRENCE - 2/7 SCORES 11/05/2019 07/09/2020 01/17/2021 TERRENCE-2 Score 0 6 0 TERRENCE-7 Score - 17 - Migraine Specific QOL - Higher scores indicate better HRQL 07/09/2020 07/09/2020 01/17/2021 Role Function-Restrictive Transformed Score (range: 0-100) 20 22.85 82.85 Role Function-Preventive Transformed Score (range: 0-100) 60 50 95 Emotional Function Transformed Score (range: 0-100) 0 0 93.33 PHQ-9 11/05/2019 07/09/2020 01/17/2021 Score 0 6 3 Studies to Review: No Review of Systems: Review of system: unchanged from the previous visit (sleep patterns, mood, energy, appetite, stress, exercising). Physical Examination: Vital Signs: No vital signs were taken for this visit due to nature of virtual visit. General: Well appearing, in no acute distress, alert. Pain Behaviors: Tearful and squinting. Neurological: Mental Status: Alert and oriented to person, place and time. Affect is normal and appropriate. Speech is spontaneous and fluent without dysarthria, normal in rate, volume and articulation and clear, coherent, and relevant. Short and intermediate accountant memory, cognition and general fund of knowledge are good. Attention span and concentration are good. HEENT: Head is normocephalic and features were symmetric. Musculoskeletal: No gross joint deformities. Cranial Nerves: III, IV, -EOMI: full. VII-face is symmetric without evidence of weakness. VIII-hearing intact. IMPRESSION: Irlanda Tucker is a 36 year old year old female, with a history of GERD, migraines, and HLD. Her neurological examination is essentially normal at this visit. Irlanda is currently using aimovig 140 mg monthly injection, but it is no longer as effective as it previously was and she is interested in trying a different preventative. She started initially taking 70 mg aimovig and moved up to 140 mg/month and it was working very well. She changed insurance a few months ago and had to resubmit for prior authorization for aimovig and she ended up missing 2 months of this medication. She restarted aimovig 2 months ago and has done 2 injections since then, with her 3rd due today. However, the aimovig is causing constipation and no longer working as well. She was previously getting 5 JAIN days/month while on aimovig when it was working well. She is currently getting 16 headaches/month, 14 of which are migraines each month. We discussed the following options: Trying a different MAB- emgality or ajovy. Pt is most interested in monthly injections Trying a new oral medication such as zonisamide or cymbalta. She was previously on topamax but had some nasty side effects and can't remember to take a daily pill, so a daily oral med is not the best option for her. Botox Vyepti infusions Changing ubrelvy to 16 tablets each month (she is currently getting 10 tabs/mo) so that she has more rescue medication without the risk of MOH. PLAN: Continue ibuprofen and ubrelvy as your rescue medication. We are submitting 16 tabs/month of ubrelvy to your insurance to see if they will approve the extra 6 tabs/month. Take your Aimovig injection today and then stop aimovig. We will submit for prior authorization for emgality. Start emgality next month (end of February 2022) on the same day that aimovig would be due. If emgality does not work, in the future we can consider: Ajovy or Vyepti infusions Trying a new oral medication such as zonisamide or cymbalta Botox Muscle relaxer for neck pain Patient verbalized understanding and agreed to the treatment plan. ICHD-3 Diagnosis: Migraine without aura and without status migrainosus, not intractable (primary encounter diagnosis) Migraine with aura and without status migrainosus, not intractable Chronic migraine w/o aura w/o status migrainosus, not intractable We will get a precert for Calcitonin Gene Related Peptide Monoclonal Antibody, Galcanezumab. This patient meets AHS criteria for treatment with CGRP MAB, She has Chronic Migraine Headache (CM), Chronic Migraine without aura, without mention of intractable migraine without mention of status migrainosus which occurs at least 15 days per month for at least 4 hours per day. The FDA has approved CGRP MAB for prevention of migraine. Specifically, the patient has 14 migraines per month, lasting 4 or more hours/d associated with photophobia, phonophobia, osmophobia, nausea, vertigo, neck pain for three or more months. Medication overuse headache has been ruled out. Patient is currently taking a Gepant (Ubrelvy) for acute treatment of her migraine. The following preventative medications have been tried for 3 or more months without benefit or discontinued due and/or side effects. Anti-Convulsant Topiramate (Topamax, Trokendi XL, Qudexy) Anti-Depressant and Antipsychotic Amitriptyline (Elavil) Fluoxetine (Prozac) Blood Pressure Propranolol (Inderal) MABs Erenumab (Aimovig) building up tolerance, not working as well; causing constipation The following abortive medications have been tried but require high frequency use which can lead to Medication Overuse Headache: Analgesic Butalbital/acetaminophen/caffeine (Fioricet) Anti-Migraine Eletriptan (Relpax) intense squeezing tightness in neck chest throat and jaw Naratriptan (Amerge) with all the triptans Rizatriptan (Maxalt) Sumatriptan (Imitrex, Sumavel) Sumatriptan/naproxen sodium (Treximet) Zolmitriptan (Zomig) GEPANTS Ubrogepant (Ubrelvy) denied by previous insurance Over the Counter Medications Acetaminophen/Aspirin/Caffeine (Excedrin, Goody s) Ibuprofen (Advil, Motrin) Naproxen sodium (Aleve) Irlanda Tucker has been previously approved for an Oral Calcitonin Gene-Related Peptide Receptor Antagonist (GEPANT) Ubrogepant for the treatment of acute migraine. The patient has demonstrated the following: Provider attests patient has had a positive clinical response: Yes Patient will not use with another Oral Calcitonin Gene-Related Peptide Receptor Antagonist (GEPANT): Yes Patient's quality of life and ability to perform ADLs has improved: Yes We suggest the patient continue treatment with GEPANT Ubrogepant. The following preventative medications have been tried for three or more months without benefit: Anti-Convulsant Topiramate (Topamax, Trokendi XL, Qudexy) Anti-Depressant and Antipsychotic Amitriptyline (Elavil) Fluoxetine (Prozac) Blood Pressure Propranolol (Inderal) MABs Erenumab (Aimovig) building up tolerance, not working as well; causing constipation The following abortive medications have been tried but require high frequency use which can lead to Medication Overuse Headache: Analgesic Butalbital/acetaminophen/caffeine (Fioricet) Anti-Migraine Eletriptan (Relpax) intense squeezing tightness in neck chest throat and jaw Naratriptan (Amerge) with all the triptans Rizatriptan (Maxalt) Sumatriptan (Imitrex, Sumavel) Sumatriptan/naproxen sodium (Treximet) Zolmitriptan (Zomig) GEPANTS Ubrogepant (Ubrelvy) denied by previous insurance Over the Counter Medications Acetaminophen/Aspirin/Caffeine (Excedrin, Goody s) Ibuprofen (Advil, Motrin) Naproxen sodium (Aleve) HEADACHE MANAGEMENT: (You are the primary guardian of your health and headache. Keep track of all medications: This includes the reason for use, side effects and benefits.) MEDICATION TREATMENT: The following approved medication requests have been transmitted electronically. Signed Prescriptions Disp Refills ubrogepant (UBRELVY) 100 mg tablet 16 tablet 5 Sig: Take 1 tablet by mouth as needed (for migraine). Take at first sign of migraine. You may repeat 1 tablet 2 hours later if needed. Max daily dose 200 mg. galcanezumab-gnlm (EMGALITY PEN) 120 mg/mL pen 2 Pen 0 Sig: Inject 2 mL subcutaneously one time only for 1 dose. Do not shake. galcanezumab-gnlm (EMGALITY PEN) 120 mg/mL pen 1 Pen 3 Sig: Inject 1 mL subcutaneously once every month. Do not shake. Discussed triggers and lifestyle modifications including limiting caffeine consumption. Discussed treatment options, both abortive and preventive medications. Instructed patient about medications. Discussed BOTOX in detail including possible benefits and risks. Discussed potential adverse effects and drug interactions of medications. Written educational materials given. Headache education was done. Discussed lifestyle modification including increased oral hydration, decreased caffeine, exercise and stress management. Discussed treatment options including preventive and acute medications, natural supplements, and infusion therapy. Discussed medication overuse headache and to limit use of acute treatments to no more than 2 days/week or 10 days/month. Discussed medication side effects, adverse reactions and drug interactions. Written educational materials and patient instructions outlining all of the above were given. RESEARCH: None at this time Follow-up: 3 months Level of service: Est level 4 (30-39 min). Time spent 39 min on the day of service, which included preparing to see the patient, [id number] patient care, completing clinical documentation, obtaining and/or reviewing separately obtained history, performing a medically appropriate examination, counseling and educating the patient/family/caregiver and ordering medications, tests, or procedures. Leny Phelps APRN.CNP Patient was seen with Leny Phelps APRN.CNP who is in orientation at this time. I personally have reviewed the history and physical obtained and documented by the nurse practitioner and I have examined the patient. I have discussed the management options and their respective risks and benefits with the patient. I also made the necessary revisions in the above documentation and the note reflects my changes in italics. I discussed the case and the plans with Leny Phelps APRN.CNP and I agree with the recommendations as outlined above. Marcia Ohara APRN.CNP documented in this encounter [facility] 02-08-2022 Miscellaneous Notes She should schedule an appointment to go over medications and other treatment options. Christine documented in this encounter [facility] 11-10-2021 Miscellaneous Notes PA submitted via [employer]Ranks. Irlanda Tucker Nowak: [id number] EVANGELINA Rx #: [id number] Drug: Ubrelvy 100MG tablets Form: [employer] Electronic PA Form (2016 [facility]) Status: Sent to Plan today Zeinab Hanna RN Images from the original note were not included. Received faxed notification from [employer] stating PA needed on Ubrelvy. documented in this encounter [facility] 09-04-2015 History of Past i llness Narrative Problem Noted Date Resolved Date Obesity complicating 09/04/2015 0 05/30/2016 documented as of this encounter (statuses as of 02/08/2022) [facility] History of Past illness Narrative* Problem Noted Date Resolved Date Obesity complicating 09/04/2015 0 05/30/2016 documented as of this encounter (statuses as of 02/11/2022) [address]20-2015 History of Past illness Narrative* Problem Noted Date Resolved Date Obesity complicating 09/04/2015 0 05/30/2016 documented as of this encounter (statuses as of 03/01/2022) [facility] History of Past illness Narrative* Problem Noted Date Resolved Date Obesity complicating 09/04/2015 0 05/30/2016 documented as of this encounter (statuses as of 03/04/2022) [facility] History of Past illness Narrative* Problem Noted Date Resolved Date Obesity complicating 09/04/2015 0 05/30/2016 documented as of this encounter (statuses as of 03/11/2022) [facility] History of Past illness Narrative* Problem Noted Date Resolved Date Obesity complicating 09/04/2015 0 05/30/2016 documented as of this encounter (statuses as of 05/13/2022) [facility] History of Past illness Narrative* Problem Noted Date Resolved Date Obesity complicating 09/04/2015 0 05/30/2016 documented as of this encounter (statuses as of 08/12/2022) [address]20-2015 History of Past illness Narrative* Problem Noted Date Resolved Date Obesity complicating 09/04/2015 0 05/30/2016 documented as of this encounter (statuses as of 08/15/2022) [facility] History of Past illness Narrative* Problem Noted Date Resolved Date Obesity complicating 09/04/2015 0 05/30/2016 documented as of this encounter (statuses as of 08/22/2022) [address]20-2015 History of Past illness Narrative* Problem Noted Date Resolved Date Obesity complicating 09/04/2015 0 05/30/2016 documented as of this encounter (statuses as of 10/19/2022) [address]20-2015 History of Past illness Narrative* Problem Noted Date Resolved Date Obesity complicating 09/04/2015 0 05/30/2016 documented as of this encounter (statuses as of 10/19/2022) [address]20-2015 History of Past illness Narrative* Problem Noted Date Resolved Date Obesity complicating 09/04/2015 0 05/30/2016 documented as of this encounter (statuses as of 11/08/2022) [address]20-2015 History of Past illness Narrative* Problem Noted Date Resolved Date Obesity complicating 09/04/2015 0 05/30/2016 documented as of this encounter (statuses as of 11/14/2022) [address] History of Past illness Narrative* Problem Noted Date Resolved Date Obesity complicating 09/04/2015 0 05/30/2016 documented as of this encounter (statuses as of 11/29/2022) [address]20-2015 History of Past illness Narrative* Problem Noted Date Resolved Date Obesity complicating 09/04/2015 0 05/30/2016 documented as of this encounter (statuses as of 11/29/2022) [address]20-2015 History of Past illness Narrative* Problem Noted Date Resolved Date Obesity complicating 09/04/2015 0 05/30/2016 documented as of this encounter (statuses as of 12/30/2022) [address]20-2015 History of Past illness Narrative* Problem Noted Date Resolved Date Obesity complicating 09/04/2015 0 05/30/2016 documented as of this encounter (statuses as of 02/21/2023) [address]20-2015 History of Past illness Narrative* Problem Noted Date Diagnosed Date Resolved Date Obesity complicating 09/04/2015 05/30/2016 documented as of this encounter (statuses as of 05/03/2023) [address]20-2015 History of Past illness Narrative* Problem Noted Date Diagnosed Date Resolved Date Obesity complicating 09/04/2015 05/30/2016 documented as of this encounter (statuses as of 07/26/2023) [address] History of Past illness Narrative* Problem Noted Date Diagnosed Date Resolved Date Obesity complicating 09/04/2015 05/30/2016 documented as of this encounter (statuses as of 10/04/2023) [facility] History of Past illness Narrative* Problem Noted Date Diagnosed Date Resolved Date Obesity complicating 09/04/2015 05/30/2016 documented as of this encounter (statuses as of 11/28/2023) [facility] History of Past illness Narrative* Problem Noted Date Diagnosed Date Resolved Date Obesity complicating 09/04/2015 05/30/2016 documented as of this encounter (statuses as of 01/02/2024) [facility] Diagnosis Migraine without aura and without status migrainosus, not intractable- Primary Migraine without aura, without mention of intractable migraine without mention of status migrainosus Migraine with aura and without status migrainosus, not intractable Migraine with aura, without mention of intractable migraine without mention of status migrainosus Chronic migraine w/o aura w/o status migrainosus, not intractable Chronic migraine without aura, without mention of intractable migraine without mention of status migrainosus [facility] Diagnosis Migraine without aura and without status migrainosus, not intractable- Primary Migraine without aura, without mention of intractable migraine without mention of status migrainosus Nausea Nausea alone Medication management Encounter for long-term (current) use of other medications Cervicalgia Chronic migraine w/o aura w/o status migrainosus, not intractable Chronic migraine without aura, without mention of intractable migraine without mention of status migrainosus [facility] Diagnosis Migraine without aura and without status migrainosus, not intractable- Primary Migraine without aura, without mention of intractable migraine without mention of status migrainosus Migraine with aura and without status migrainosus, not intractable Migraine with aura, without mention of intractable migraine without mention of status migrainosus Nausea Nausea alone Migraine without aura and without status migrainosus, not intractable Migraine without aura, without mention of intractable migraine without mention of status migrainosus [facility] Diagnosis Migraine without aura and without status migrainosus, not intractable Migraine without aura, without mention of intractable migraine without mention of status migrainosus Migraine with aura and without status migrainosus, not intractable Migraine with aura, without mention of intractable migraine without mention of status migrainosus [facility] Diagnosis Migraine without aura and without status migrainosus, not intractable- Primary Migraine without aura, without mention of intractable migraine without mention of status migrainosus Migraine with aura and without status migrainosus, not intractable Migraine with aura, without mention of intractable migraine without mention of status migrainosus Medication management Encounter for long-term (current) use of other medications [facility] Diagnosis Medication management- Primary Encounter for long-term (current) use of other medications Migraine without aura and without status migrainosus, not intractable Migraine without aura, without mention of intractable migraine without mention of status migrainosus Migraine with aura and without status migrainosus, not intractable Migraine with aura, without mention of intractable migraine without mention of status migrainosus [facility] Diagnosis Medication management- Primary Encounter for long-term (current) use of other medications Migraine without aura and without status migrainosus, not intractable Migraine without aura, without mention of intractable migraine without mention of status migrainosus Migraine with aura and without status migrainosus, not intractable Migraine with aura, without mention of intractable migraine without mention of status migrainosus Nausea Nausea alone [facility] Diagnosis Onset Date Resolution Status Abdominal bloating acute Chest pain acute Constipation chronic [facility] Work Phone: Evaluation note* Diagnosis Migraine without aura and without status migrainosus, not intractable- Primary Migraine without aura, without mention of intractable migraine without mention of status migrainosus Medication management Encounter for long-term (current) use of other medications Migraine with aura and without status migrainosus, not intractable Migraine with aura, without mention of intractable migraine without mention of status migrainosus [facility] Diagnosis Medication management- Primary Encounter for long-term (current) use of other medications Migraine without aura and without status migrainosus, not intractable Migraine without aura, without mention of intractable migraine without mention of status migrainosus Status migrainosus Variants of migraine, not elsewhere classified, without mention of intractable migraine without mention of status migrainosus [facility] Diagnosis Encounter for gynecological examination (general) (routine) without abnormal findings- Primary Screening for cervical cancer Screening for malignant neoplasm of the cervix Encounter for screening for human papillomavirus (HPV) Special screening examination for human papillomavirus (HPV) Screening for STD (sexually transmitted disease) Screening examination for venereal disease [facility] Diagnosis Migraine without aura and without status migrainosus, not intractable Migraine without aura, without mention of intractable migraine without mention of status migrainosus Migraine with aura and without status migrainosus, not intractable Migraine with aura, without mention of intractable migraine without mention of status migrainosus [facility] Rash- Primary Rash and other nonspecific skin eruption [facility] Diagnosis Migraine without aura and without status migrainosus, not intractable Migraine without aura, without mention of intractable migraine without mention of status migrainosus Migraine with aura and without status migrainosus, not intractable Migraine with aura, without mention of intractable migraine without mention of status migrainosus Nausea Nausea alone [facility] Diagnosis Mass of lower inner quadrant of left breast- Primary Fibrocystic breast changes of both breasts documented in this encounter [facility] Summary Purpose Family History No Family History Records Found Relationship Condition Age at Onset Recorded Date/T elvin grandmother Malignant neoplasm of esophagus Unknown Cerebrovascular accident (CVA) Unknown mother Hyperlipidemia Unknown Migraine headache Unknown Advance Directives No Advanced Directives Records Found Advance Directive Response Recorded Date/ Time Living Will No April 13, 2016 1:22pm Power of Surgical Pathologist No April 13 6 1:22pm Reason for Referral Specialty Diagnoses / Procedures Referred By Contac t Referred To Contact Diagnoses Migraine with aura and without status migrainosus, not intractable Migraine without aura and without status migrainosus, not intractable Procedures PROVIDER ORDERED FOLLOW UP OFFICE/OUTPATIENT [facility] 60-74 MINUTES Leny Phelps APRN.FLAT GRINDER OPERATOR [address] [place] [address] Referral ID Status Reason Start Date Expiration Date Visits Requested Visits Authorized [id number] Authorized PCP Requested Referral 05/13/2022 02/11/2023 1 1 Specialty Diagnoses / Procedures Referred By Contac t Referred To Contact Diagnoses Migraine without aura and without status migrainosus, not intractable Procedures PROVIDER ORDERED FOLLOW UP OFFICE/OUTPATIENT [facility] 60-74 MINUTES Leny Phelps APRN.FLAT GRINDER OPERATOR [address] [place] [address] Referral ID Status Reason Start Date Expiration Date Visits Requested Visits Authorized [id number] Authorized PCP Requested Referral 2 05/13/2023 1 1 Specialty Diagnoses / Procedures Referred By Contac t Referred To Contact Diagnoses Migraine without aura and without status migrainosus, not intractable Migraine with aura and without status migrainosus, not intractable Nausea Procedures PROVIDER ORDERED FOLLOW UP OFFICE/OUTPATIENT [facility] 60-74 MINUTES Leny Phelps APRN.FLAT GRINDER OPERATOR [address] [id number] Referral ID Status Reason Start Date Expiration Date Visits Requested Visits Authorized [id number] Authorized PCP Requested Referral 11/12/2022 08/12/2023 1 1 Specialty Diagnoses / Procedures Referred By Contac t Referred To Contact Diagnoses Migraine without aura and without status migrainosus, not intractable Migraine with aura and without status migrainosus, not intractable Procedures PROVIDER ORDERED FOLLOW UP OFFICE/OUTPATIENT [facility] 60-74 MINUTES Leny Phelps APRN.FLAT GRINDER OPERATOR [address] [place] [address] Referral ID Status Reason Start Date Expiration Date Visits Requested Visits Authorized [id number] Authorized PCP Requested Referral 01/12/2023 11/14/2023 1 1 Referral ID Status Reason Start Date Expiration Date Visits Requested Visits Authorized [id number] Authorized PCP Requested Referral 05/01/2023 12/30/2023 1 1 Referral ID Status Reason Start Date Expiration Date Visits Requested Visits Authorized [id number] Authorized PCP Requested Referral 3 05/02/2024 1 1 Specialty Diagnoses / Procedures Referred By Contac t Referred To Contact Diagnoses Medication management Migraine without aura and without status migrainosus, not intractable Procedures PROVIDER ORDERED FOLLOW UP OFFICE/OUTPATIENT NEW [facility] 60 MINUTES Deisi Pike, CATERING SERVICE MANAGER.FLAT GRINDER OPERATOR [address] [place] [address] Referral ID Status Reason Start Date Expiration Date Visits Requested Visits Authorized [id number] Authorized PCP Requested Referral 07/03/2024 12/31/2024 1 1 Specialty Diagnoses / Procedures Referred By Contac t Referred To Contact Diagnoses Migraine without aura and without status migrainosus, not intractable Migraine with aura and without status migrainosus, not intractable Procedures PROVIDER ORDERED FOLLOW UP OFFICE/OUTPATIENT [facility] 60 MINUTES Fabricio Infante, CATERING SERVICE MANAGER.FLAT GRINDER OPERATOR [address] [place], [place] [id number] Referral ID Status Reason Start Date Expiration Date Visits Requested Visits Authorized [id number] Authorized PCP Requested Referral 01/05/2025 07/08/2025 1 1 Specialty Diagnoses / Procedures Referred By Contac t Referred To Contact Dermatology Diagnoses Rash Procedures CONSULT TO DERMATOLOGY Kaleb Cerna, CATERING SERVICE MANAGER.FLAT GRINDER OPERATOR [address] [place] [address] Referral ID Status Reason Start Date Expiration Date Visits Requested Visits Authorized [id number] Ref Not Required PCP Requested Referral 08/01/2025 1 1 Chief Complaint and Reason for Visit Chief Complaint Consult BLOATING, CONSTIPATION Reason for Visit Abdominal bloating Chest pain Constipation Additional Source Comments INFORMATION SOURCE (unrecogn ized section and content) DATE CREATED AUTHOR 11/06/2019 [facility] Rianna Todd DATE CREATED AUTHOR AUTHOR'S ORGANIZ ATION 05/04/2020 [facility] DATE CREATED AUTHOR AUTHOR'S ORGANIZ ATION 06/21/2021 [facility] DATE CREATED AUTHOR AUTHOR'S ORGANIZ ATION 09/01/2021 [facility] ([facility]) DATE CREATED AUTHOR AUTHOR'S ORGANIZ ATION 08/03/2024 [facility] DATE CREATED AUTHOR AUTHOR'S ORGANIZ ATION 03/21/[address] [facility] DATE CREATED AUTHOR AUTHOR'S ORGANIZ ATION 05/13/2025 [facility] Source Comments (unrecognize d section and content) In the event this informatio n is protected by the Federal Confidentiality of Alcohol and Drug Abuse Patient Records regulations: The Federal rules restrict any use of the information to criminally investigate or prosecute any alcohol or drug abuse patient.[facility] HospitalIn the event this information is protected by the Federal Confidentiality of Alcohol and Drug Abuse Patient Records regulations: The Federal rules restrict any use of the information to criminally investigate or prosecute any alcohol or drug abuse patient.[facility] HospitalIn the event this information is protected by the Federal Confidentiality of Alcohol and Drug Abuse Patient Records regulations: The Federal rules restrict any use of the information to criminally investigate or prosecute any alcohol or drug abuse patient.[facility] HospitalIn the event this information is protected by the Federal Confidentiality of Alcohol and Drug Abuse Patient Records regulations: The Federal rules restrict any use of the information to criminally investigate or prosecute any alcohol or drug abuse patient.[facility] HospitalIn the event this information is protected by the Federal Confidentiality of Alcohol and Drug Abuse Patient Records regulations: The Federal rules restrict any use of the information to criminally investigate or prosecute any alcohol or drug abuse patient.[facility] HospitalIn the event this information is protected by the Federal Confidentiality of Alcohol and Drug Abuse Patient Records regulations: The Federal rules restrict any use of the information to criminally investigate or prosecute any alcohol or drug abuse patient.[facility] HospitalIn the event this information is protected by the Federal Confidentiality of Alcohol and Drug Abuse Patient Records regulations: The Federal rules restrict any use of the information to criminally investigate or prosecute any alcohol or drug abuse patient.[facility] HospitalIn the event this information is protected by the Federal Confidentiality of Alcohol and Drug Abuse Patient Records regulations: The Federal rules restrict any use of the information to criminally investigate or prosecute any alcohol or drug abuse patient.[facility] HospitalIn the event this information is protected by the Federal Confidentiality of Alcohol and Drug Abuse Patient Records regulations: The Federal rules restrict any use of the information to criminally investigate or prosecute any alcohol or drug abuse patient.[facility] HospitalIn the event this information is protected by the Federal Confidentiality of Alcohol and Drug Abuse Patient Records regulations: The Federal rules restrict any use of the information to criminally investigate or prosecute any alcohol or drug abuse patient.[facility] HospitalIn the event this information is protected by the Federal Confidentiality of Alcohol and Drug Abuse Patient Records regulations: The Federal rules restrict any use of the information to criminally investigate or prosecute any alcohol or drug abuse patient.[facility] HospitalIn the event this information is protected by the Federal Confidentiality of Alcohol and Drug Abuse Patient Records regulations: The Federal rules restrict any use of the information to criminally investigate or prosecute any alcohol or drug abuse patient.[facility] HospitalIn the event this information is protected by the Federal Confidentiality of Alcohol and Drug Abuse Patient Records regulations: The Federal rules restrict any use of the information to criminally investigate or prosecute any alcohol or drug abuse patient.[facility] HospitalIn the event this information is protected by the Federal Confidentiality of Alcohol and Drug Abuse Patient Records regulations: The Federal rules restrict any use of the information to criminally investigate or prosecute any alcohol or drug abuse patient.[facility] HospitalIn the event this information is protected by the Federal Confidentiality of Alcohol and Drug Abuse Patient Records regulations: The Federal rules restrict any use of the information to criminally investigate or prosecute any alcohol or drug abuse patient.[facility] HospitalIn the event this information is protected by the Federal Confidentiality of Alcohol and Drug Abuse Patient Records regulations: The Federal rules restrict any use of the information to criminally investigate or prosecute any alcohol or drug abuse patient.[facility] HospitalIn the event this information is protected by the Federal Confidentiality of Alcohol and Drug Abuse Patient Records regulations: The Federal rules restrict any use of the information to criminally investigate or prosecute any alcohol or drug abuse patient.[facility] HospitalIn the event this information is protected by the Federal Confidentiality of Alcohol and Drug Abuse Patient Records regulations: The Federal rules restrict any use of the information to criminally investigate or prosecute any alcohol or drug abuse patient.[facility] HospitalIn the event this information is protected by the Federal Confidentiality of Alcohol and Drug Abuse Patient Records regulations: The Federal rules restrict any use of the information to criminally investigate or prosecute any alcohol or drug abuse patient.[facility] HospitalIn the event this information is protected by the Federal Confidentiality of Alcohol and Drug Abuse Patient Records regulations: The Federal rules restrict any use of the information to criminally investigate or prosecute any alcohol or drug abuse patient.[facility] HospitalIn the event this information is protected by the Federal Confidentiality of Alcohol and Drug Abuse Patient Records regulations: The Federal rules restrict any use of the information to criminally investigate or prosecute any alcohol or drug abuse patient.[facility] HospitalIn the event this information is protected by the Federal Confidentiality of Alcohol and Drug Abuse Patient Records regulations: The Federal rules restrict any use of the information to criminally investigate or prosecute any alcohol or drug abuse patient.[facility] HospitalIn the event this information is protected by the Federal Confidentiality of Alcohol and Drug Abuse Patient Records regulations: The Federal rules restrict any use of the information to criminally investigate or prosecute any alcohol or drug abuse patient.[facility] HospitalIn the event this information is protected by the Federal Confidentiality of Alcohol and Drug Abuse Patient Records regulations: The Federal rules restrict any use of the information to criminally investigate or prosecute any alcohol or drug abuse patient.[facility] HospitalIn the event this information is protected by the Federal Confidentiality of Alcohol and Drug Abuse Patient Records regulations: The Federal rules restrict any use of the information to criminally investigate or prosecute any alcohol or drug abuse patient.[facility] HospitalIn the event this information is protected by the Federal Confidentiality of Alcohol and Drug Abuse Patient Records regulations: The Federal rules restrict any use of the information to criminally investigate or prosecute any alcohol or drug abuse patient.[facility] HospitalIn the event this information is protected by the Federal Confidentiality of Alcohol and Drug Abuse Patient Records regulations: The Federal rules restrict any use of the information to criminally investigate or prosecute any alcohol or drug abuse patient.[facility] HospitalIn the event this information is protected by the Federal Confidentiality of Alcohol and Drug Abuse Patient Records regulations: The Federal rules restrict any use of the information to criminally investigate or prosecute any alcohol or drug abuse patient.[facility] HospitalIn the event this information is protected by the Federal Confidentiality of Alcohol and Drug Abuse Patient Records regulations: The Federal rules restrict any use of the information to criminally investigate or prosecute any alcohol or drug abuse patient.[facility] HospitalIn the event this information is protected by the Federal Confidentiality of Alcohol and Drug Abuse Patient Records regulations: The Federal rules restrict any use of the information to criminally investigate or prosecute any alcohol or drug abuse patient.[facility] HospitalIn the event this information is protected by the Federal Confidentiality of Alcohol and Drug Abuse Patient Records regulations: The Federal rules restrict any use of the information to criminally investigate or prosecute any alcohol or drug abuse patient.[facility] HospitalIn the event this information is protected by the Federal Confidentiality of Alcohol and Drug Abuse Patient Records regulations: The Federal rules restrict any use of the information to criminally investigate or prosecute any alcohol or drug abuse patient.[facility] HospitalIn the event this information is protected by the Federal Confidentiality of Alcohol and Drug Abuse Patient Records regulations: The Federal rules restrict any use of the information to criminally investigate or prosecute any alcohol or drug abuse patient.[facility] HospitalIn the event this information is protected by the Federal Confidentiality of Alcohol and Drug Abuse Patient Records regulations: The Federal rules restrict any use of the information to criminally investigate or prosecute any alcohol or drug abuse patient.[facility] Care Teams (unrecognized sec tion and content) Corporate Director Talent Assessment Relationship Specialty Start Date End Date Mega Dietz MD [address] [place], [place] [id number] PCP - General Internal Medicine 09/24/19 Corporate Director Talent Assessment Relationship Specialty Start Date End Date Mega Dietz MD [address] [place] [address] PCP - General Internal Medicine 09/24/19 Corporate Director Talent Assessment Relationship Specialty Start Date End Date Mega Dietz MD [facility] [place] [address] PCP - General Internal Medicine 09/24/19 Corporate Director Talent Assessment Relationship Specialty Start Date End Date Mega Dietz MD [address] [place] [address], [place] [address] PCP - General Internal Medicine 09/24/19 Corporate Director Talent Assessment Relationship Specialty Start Date End Date Mega Dietz MD [address] [place] [address], [place] [address] PCP - General Internal Medicine 09/24/19 Corporate Director Talent Assessment Relationship Specialty Start Date End Date Mega Dietz MD [address] [place] [address], [place] [address] PCP - General Internal Medicine 09/24/19 Corporate Director Talent Assessment Relationship Specialty Start Date End Date Mega Dietz MD [address] [place] [address], [place] [address] PCP - General Internal Medicine 09/24/19 Corporate Director Talent Assessment Relationship Specialty Start Date End Date Mega Dietz MD [address] [place] [address], [place] [address] PCP - General Internal Medicine 09/24/19 Corporate Director Talent Assessment Relationship Specialty Start Date End Date Mega Dietz MD [address] [place] [address], [place] [address] PCP - General Internal Medicine 09/24/19 Corporate Director Talent Assessment Relationship Specialty Start Date End Date Mega Dietz MD [address] [place] [address], [place] [address] PCP - General Internal Medicine 09/24/19 Corporate Director Talent Assessment Relationship Specialty Start Date End Date Mega Dietz MD [address] [place] [address] PCP - General Internal Medicine 09/24/19 Corporate Director Talent Assessment Relationship Specialty Start Date End Date Mega Dietz MD [address] [place] [address] PCP - General Internal Medicine 09/24/19 Corporate Director Talent Assessment Relationship Specialty Start Date End Date Mega Dietz MD [address] [place] [address] PCP - General Internal Medicine 09/24/19 Team Status: Active Member Role Status Dates Dr. Alayna Laguna , DO Primary Care Provider Active Team Status: Inactive Member Role Status Dates Dr. Sharath Gonzalez , DO Attending Provider Active Team Status: Inactive Member Role Status Dates Dr. Alayna Laguna , DO Primary Care Provider Active Dr. Sharath Gonzalez , DO Attending Provider, Referring Provider Active Team Status: Active Member Role Status Dates Dr. Alayna Laguna , DO Primary Care Provider Active Dr. Sharath Gonzalez , Attending Provider, Referring Provider Active Corporate Director Talent Assessment Relationship Specialty Start Date End Date Mega Dietz MD [address] [place] [address] PCP - General Internal Medicine 09/24/19 Corporate Director Talent Assessment Relationship Specialty Start Date End Date Mega Dietz MD [address] [place], [place] [address] PCP - General Internal Medicine 09/24/19 Corporate Director Talent Assessment Relationship Specialty Start Date End Date Mega Dietz MD [address] [place], [place] [address] [phone] PCP - General Internal Medicine 09/24/19 Corporate Director Talent Assessment Relationship Specialty Start Date End Date Mega Dietz MD [address] [place] [address] PCP - General Internal Medicine 09/24/19 Corporate Director Talent Assessment Relationship Specialty Start Date End Date Mega Dietz MD [address] [place] [address] PCP - General Internal Medicine 09/24/19 Corporate Director Talent Assessment Relationship Specialty Start Date End Date Mega Dietz MD [address] [place] [address] PCP - General Internal Medicine 09/24/19 Corporate Director Talent Assessment Relationship Specialty Start Date End Date Mega Dietz MD [address] [place] [address] PCP - General Internal Medicine 09/24/19 Corporate Director Talent Assessment Relationship Specialty Start Date End Date Mega Dietz MD [address] [place] [address] PCP - General Internal Medicine 09/24/19 Corporate Director Talent Assessment Relationship Specialty Start Date End Date Mega Dietz MD [address] [place] [address] PCP - General Internal Medicine 09/24/19 Jeanette Dillard APRN.REGULATORY AFFAIRS ANALYST [address] [place] [address] Human Resources Leader Internal Medicine 09/23/24 Shanon Soria CATERING SERVICE MANAGER.FLAT GRINDER OPERATOR [address] [place] [address] [facility] Internal Medicine 09/23/24 Corporate Director Talent Assessment Relationship Specialty Start Date End Date Mega Dietz MD [address] [place] [address] PCP - General Internal Medicine 09/24/19 Jeanette Dillard, CATERING SERVICE MANAGER.REGULATORY AFFAIRS ANALYST [address] [place] [address] [facility] Internal Medicine 09/23/24 Shanon Soria CATERING SERVICE MANAGER.FLAT GRINDER OPERATOR [address] [place] [address] [facility] Internal Medicine 01/07/25 Reason for Visit (unrecogniz ed section and content) Reason Comments Migraine Specialty Diagnoses / Procedures Referred By Contac t Referred To Contact Diagnoses Medication management Migraine without aura and without status migrainosus, not intractable Procedures PROVIDER ORDERED FOLLOW UP OFFICE/OUTPATIENT NEW HIGH MDM 60 MINUTES Deisi Pike APRN.FLAT GRINDER OPERATOR [address] [place] [address] Referral ID Status Reason Start Date Expiration Date V isits Requested Visits Authorized [id number] Closed PCP Requested Referral 07/03/2024 12/31/2024 1 1 Reason Comments Chronic Migraine Reason Comments Insurance Authorization Ubrelvy 100MG ta blets Reason Comments Insurance Authorization Emgality 120MG/M L auto-injectors (migraine) Reason Comments Insurance Authorization Ubrelvy Reason Comments Insurance Authorization AJOVY (fremanezu [id number]) injection 225MG/1.5ML auto-injectors Specialty Diagnoses / Procedures Referred By Contac t Referred To Contact Diagnoses Migraine with aura and without status migrainosus, not intractable Migraine without aura and without status migrainosus, not intractable Procedures PROVIDER ORDERED FOLLOW UP OFFICE/OUTPATIENT NEW HIGH MDM 60-74 MINUTES Leny Phelps CATERING SERVICE MANAGER.FLAT GRINDER OPERATOR [address] [place] [address] Referral ID Status Reason Start Date Expiration Date V isits Requested Visits Authorized [id number] Closed PCP Requested Referral 05/13/2022 02/11/2023 1 1 Specialty Diagnoses / Procedures Referred By Contac t Referred To Contact Diagnoses Migraine without aura and without status migrainosus, not intractable Procedures PROVIDER ORDERED FOLLOW UP OFFICE/OUTPATIENT NEW HIGH [facility] 60-74 MINUTES Leny Phelps APRN.FLAT GRINDER OPERATOR [address] [place] [address] Referral ID Status Reason Start Date Expiration Date V isits Requested Visits Authorized [id number] Closed PCP Requested Referral 08/13/2022 05/13/2023 1 1 Reason Comments Medication Update Refill Auth Consent Reason Onset Date Comments Refill Request 10/14/2022 Reason Comments Insurance Authorization Emgality Specialty Diagnoses / Procedures Referred By Contac t Referred To Contact Diagnoses Migraine without aura and without status migrainosus, not intractable Migraine with aura and without status migrainosus, not intractable Nausea Procedures PROVIDER ORDERED FOLLOW UP OFFICE/OUTPATIENT [facility] 60-74 MINUTES Leny Phelps APRN.FLAT GRINDER OPERATOR [address] [place] [address] Referral ID Status Reason Start Date Expiration Date V isits Requested Visits Authorized [id number] Closed PCP Requested Referral 11/12/2022 08/12/2023 1 1 Specialty Diagnoses / Procedures Referred By Contac t Referred To Contact Diagnoses Migraine without aura and without status migrainosus, not intractable Migraine with aura and without status migrainosus, not intractable Procedures PROVIDER ORDERED FOLLOW UP OFFICE/OUTPATIENT [facility] 60-74 MINUTES Leny Phelps, AVNI.FLAT GRINDER OPERATOR [address] [place] [address] Referral ID Status Reason Start Date Expiration Date V isits Requested Visits Authorized [id number] Closed PCP Requested Referral 05/01/2023 12/30/2023 1 1 Reason Comments Insurance Authorization Ubrelvy Reason Comments Headache Reason Comments Yearly Exam Reason Comments Problem Visit Reason Comments Insurance Authorization Nur[employer], [employer] Reason Comments Insurance Authorization Emgality renewal, [employer] Reason Comments Research 24-339 Pain Avoidanc e Behavior in Migraine PAtients Reason Comments Research 24-339 Pain Avoidanc e Behavior in Migraine Patients Goals (unrecognized section and content) Goals may be documented in a n alternate sectionGoals may be documented in an alternate section FOR RECORDS PERTAINING TO PATIENTS WHO ARE OR HAVE BEEN ENROLLED IN A CHEMICAL DEPENDENCY/SUBSTANCEABUSE PROGRAM, SOME INFORMATION MAY BE OMITTED. This clinical summary was aggregated from multiple sources. Caution should be exercised in using it in the provision of clinical care. This summary normalizes information from multiple sources, and as a consequence, information in this document may materially change the coding, format and clinical context of patient data. In addition, data may be omitted in some cases. CLINICAL DECISIONS SHOULD BE BASED ON THE PRIMARY CLINICAL RECORDS. [facility] [facility]. provides no warranty or guarantee of the accuracy or completeness of information in this document.
[2025-05-16] MEDS: Lactated Ringers 1,000 ML 15 ML IV (06:47)
--- NOTE | 2025-05-16 07:20 | PCM.PRE.AN2 ---
ASA Classification* ASA Classification ASA Classification: 3 Assessment & Plan Anesthesia* Anesthesia Assessment Anesthesia Assessment: Discussed sedation and/or anesthesia options, risks, benefits, and alternatives with patient/parents/legal guardian/POA. Questions invited. The patient/parents/legal guardian/POA seems to understand and agrees to proceed with anesthesia plan. Reviewed the physical assessment, medical history, allergy history and patient home medications list prior to surgery/procedure/anesthetic and documented any changes. Performed airway and anesthesia risk assessments. Anesthesia Type Anesthesia Type: MAC History Source History Obtained from:: Patient and Chart Anesthesia Focused Assessment* Temperature: 97.8 F Pulse Rate: 86 Blood Pressure: 130/84 Respiratory Rate: 16 Pulse Ox: 99 Oxygen Delivery Method: Room Air Airway Assessment Mouth opens: >3 cm Mallampati Score: III Teeth Condition: Partial (They will come out.) Neck Range of motion (ROM): Full ROM Labs Anesthesia Preop lab: CBC WBC 8.5 K/mm3 (4.4-11.0) 03/22/23 15:17 03/22/23 RBC 5.00 M/mm3 (4.2-5.4) 03/22/23 15:17 03/22/23 Hgb 14.4 g/dL (12.0-15.0) 03/22/23 15:17 03/22/23 Hct 44.7 % (37-47) 03/22/23 15:17 03/22/23 Plt Count 319 K/mm3 (150-450) 03/22/23 15:17 03/22/23 CHEMISTRY Potassium 4.1 mmol/L (3.5-5.1) 03/22/23 15:17 03/22/23 Sodium 137 mmol/L (136-145) 03/22/23 15:17 03/22/23 BUN 10 mg/dL (7-18) 03/22/23 15:17 03/22/23 Creatinine 0.87 mg/dL (0.55-1.02) 03/22/23 15:17 03/22/23 Glucose 95 mg/dL (74-106) 03/22/23 15:17 03/22/23 TSH 2.92 uIU/mL (0.358-3.74) 03/22/23 15:17 06/07/23 COAG Pre-Assessment Diagnosis/Proposed Procedure Planned Operative Procedure(s): COLONOSCOPY/EGD Anesthesia History 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 When Was Last Pacemaker Check QUESTION #4 FULL TEXT: You/Your Family Experience fever (hyperthermia) with Anesthesia Last Oral Intake Last Oral intake: Last Oral Intake NPO since 03:00 05/16/25 06:45 Meds taken in AM with sips of 0100 last prep water? Meds patient instructed to take am of surgery Any additional information?: No PONV PONV - gas plant specialist: PONV - gas plant specialist Female Yes 05/12/25 12:15 HX of Motion Sickness No 05/12/25 12:15 HX of N/V After Surgery No 05/12/25 12:15 Non-Smoker Yes 05/12/25 12:15 Duration of Surgery greater No 05/12/25 12:15 than 60 minutes Number of Risk Factors 2 05/12/25 12:15 PONV Score Moderate Risk 05/12/25 12:15 Height & Weight Height & Weight: Anesthesia: Height & Weight Height 5 ft 7 in 05/16/25 06:45 Weight: 124.5 kg 05/16/25 06:45 Body Mass Index (BMI) 43.0 05/16/25 06:45 Respiratory Assessment Respiratory Assessment - gas plant specialist: Respiratory Tract Infection Hx - gas plant specialist Hx Respiratory Tract Infection No 05/12/25 12:15 Any additional information?: No STOP Sleep Apnea STOP Sleep Apnea - gas plant specialist: STOP Sleep Apnea - gas plant specialist Hx Hypertension No 05/12/25 12:15 Hx Sleep Apnea No 05/12/25 12:15 CPAP BIPAP Do you snore loudly (louder No 05/12/25 12:15 than talking or can be heard Do you often feel tired/ No 05/12/25 12:15 fatigued/ sleepy during daytime? Has anyone observed you stop No 05/12/25 12:15 breathing during sleep? STOP Results Negative 05/12/25 12:15 QUESTION #5 FULL TEXT : Do you snore loudly (louder than talking or can be heard through closed doors)? 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 Specify any problems Hx of Preganancy in last 3 No 05/12/25 12:15 Months Nurse Filling Out Transfusion VCHRISTIN 05/12/25 12:15 & Questions: Date: 05/12/25 05/12/25 12:15 Time: 12:16 05/12/25 12:15 Patient unable to answer at this time (ie. confused, unrespo Any additional information?: No /Reproduction History /Reproductive History - gas plant specialist: /Reproductive Hx- gas plant specialist Hx Now No 05/12/25 12:15 Gestational Age (in weeks): EDC: Hx Hx Para Hx Section SAB No 05/12/25 12:15 Any additional information?: No Active Medications Active Medications: Current Medications Generic Name Dose Route Start Last Admin Trade Name Freq PRN Reason Stop Dose Admin Lactated Ringer's 1,000 mls @ 15 mls/hr 05/16/25 06:45 05/16/25 06:47 IV 15 mls/hr .Q48H ANA Administration PFSH Medical History Wears partial dentures Wears glasses Anxiety Migraine headache Gastric reflux Non-smoker Asthma Chronic migraine PCOS (polycystic ovarian syndrome) HLD (hyperlipidemia) PMDD (premenstrual dysphoric disorder) Unspecified perforation of tympanic membrane, right ear Hair loss Low back pain Left breast mass Localized edema Depression GERD (gastroesophageal reflux disease) Home Medications ?Medication ?Instructions ?Recorded ?Last Taken ?Type galcanezumab-gnlm 120 mg/mL 120 mg subcut QMONTH 01/05/23 Unknown History subcutaneous pen injector (Emgality Pen) ondansetron HCl 4 mg tablet 4 mg PO Q8H PRN nausea and vomiting 01/05/23 Unknown History Diltiazem 2% / Lidocaine 5% #30 grams 12/18/24 Unknown Rx ointment (compound) bupropion HCl 150 mg 24 hr tablet, 150 mg PO QAM 12/18/24 Unknown History extended release (Wellbutrin XL) docusate sodium 100 mg capsule 200 mg PO QDAY PRN STOOL SOFTENER 12/18/24 Unknown History (Colace) hydroxyzine pamoate 25 mg capsule 25 mg PO QHS PRN anxiety 12/18/24 Unknown History omeprazole 40 mg capsule,delayed 40 mg PO QDAY 12/18/24 Unknown History release sodium sul 1.479 gram-potas ch See Rx Instructions PO PER PKG DIR 12/18/24 Unknown Rx 0.188 gram-magnes sul 0.225 gram #24 tabs tablet (Sutab) albuterol sulfate 90 mcg/actuation 2 puff inhalation Q4H PRN PRN 05/12/25 Unknown History aerosol inhaler wheezing Allergy/AdvReac Type Severity Reaction Status Date / Time latex Allergy Intermediate Other Verified 05/16/25 06:44 sumatriptan Allergy Intermediate Chest Verified 05/16/25 06:44 tightness promethazine HCl (From Allergy Other Verified 05/16/25 06:44 Phenergan) Family History Grandmother Esophageal cancer CVA (cerebral vascular accident) Mother HLD (hyperlipidemia) Migraines Surgical History History of tympanoplasty Previous section History of tonsillectomy and adenoidectomy H/O tubal ligation Social History Smoking Status: Former smoker alcohol intake: current Review of Systems (Anesthesia) ROS Narrative System reviewed and no additional complaints, except as documented. Physical Exam Narrative experiencing migraine headache and nausea has not vomited Const alert and oriented x3 General Appearance: anxious Orientation / Consciousness: awake HEENT dentition normal Neck General: normal visual inspection and trachea midline Resp normal respiratory effort Cardio regular rate Skin Rashes: no rashes Neuro Neuro Narrative: Patient currently complaining of Headache.
--- NOTE | 2025-05-16 07:30 | EGD_PTH ---
PATIENT: LINDA TOURE LOC: EN U#:[id number] AGE/SX: 40/F ROOM: RE05/16/[address]: Dr. Sharath Gonzalez DO : 1985 BED: DIS: 05/16/2025 SPEC #: [id number] RECD: 05/16/25 09:48 STATUS: DINA RERamiro #: [id number] OSCAR: 05/16/25 07:[address]: Sharath Gonzalez DEPT: SURGICAL PATHOLOGY RECD BY: Payam Wilson ENTERED: 05/16/25 10:50 SP TYPE: EGD BIOPSY OT DR: Zulay Guillory, MAKE READY WORKER-C Tissues: A - Gastric mucous membrane B - Ileum, NOS Procedures: Immunohistochemical Stains Surgery Specimen Level IV HEADER OPERATION: Colonoscopy, EGD with biopsy PRE-OP DIAGNOSIS: Family history of esophageal cancer, rectal pain, abdominal bloating, constipation, GERD TISSUE SUBMITTED: A- Gastric antrum biopsy, B- Terminal ileum biopsy MICROSCOPIC DIAGNOSIS A. Gastric antrum, biopsy: - Oxyntic mucosa with mild chronic inflammation. - IHC negative for H.pylori organisms. B. Terminal ileum, biopsy: - No specific pathologic change. MICROSCOPIC DESCRIPTION Slides are reviewed. All matched controls reacted appropriately. These tests were developed and their performance characteristics determined by [facility]. They may not have been cleared or approved by the U.S. Food and Drug Administration. The FDA has determined that such clearance or approval is not necessary. The above immunohistochemical/dualISH markers are viewed by the Pathologist. GROSS DESCRIPTION A. Received in fixative is one container labeled with the patient's name and designated Gastric antrum biopsy. The specimen consists of two irregular fragments of light buck soft tissue that in aggregate measure 0.4 and 0.8 cm. The specimen is totally submitted in one cassette. B. Received in fixative is one container labeled with the patient's name and designated Terminal ileum biopsy. The specimen consists of one irregular fragment of light buck soft tissue that measures 0.5 cm. The specimen is totally submitted in one cassette. IN 05/16/2025 CPT:35003n4,31705
--- NOTE | 2025-05-16 07:40 | HP.PCM_ITS ---
HPI - General General Date of Admission: 05/16/25 Date of Service: 05/16/25 HPI Narrative LINDA TOURE, is a 40 F who presents with the Chief Complaint: hemorrhoids 39y/o female presents for consultation with complaints of hemorrhoids. She was last seen by Dr. Gonzalez 03/22/2023 for CIC and GERD. Food allergen testing, IBD panel, GES were all unremarkable. KUB completed 04/19/2023 revealed moderate stool retention, no retained sitz markers. GES 04/21/2023 normal KUB 04/19/2023 Moderate stool in the colon which may represent constipation. - c/o external hemorrhoids - tried witch akin, hemorrhoids OTC creams - chronic constipation - feels like she tore her ass hole - has tried ice packs - BRBPR - symptoms present x2 months - does not want to have a BM due to the pain - has a BM One a week - with Colace she can go 2 maybe 3x a week - she has always had hard infrequent stools - denies any abdominal pain - denies any family h/o colon CA - denies any weight loss - reports her water intake is really good B: avocado L: parker chicken wrap - reports she does eat vegetables - she tried a Metamucil in the past - causes vomiting - Benefiber did not help - she will take Dulcolax laxative PRN but causes nausea - Mag Citrate 1/2 bottle when needed - Senna and Correctol caused too much pain/cramping - Miralax daily in coffee - Omeprazole 40mg daily - has been on this since July 2024 - has been on and off PPI for the past 20+ years - Maternal GM with esophageal CA - reports EGD many years ago was negative [facility] Medical History Wears partial dentures Wears glasses Anxiety Migraine headache Gastric reflux Non-smoker Asthma Chronic migraine PCOS (polycystic ovarian syndrome) HLD (hyperlipidemia) PMDD (premenstrual dysphoric disorder) Unspecified perforation of tympanic membrane, right ear Hair loss Low back pain Left breast mass Localized edema Depression GERD (gastroesophageal reflux disease) Home Medications ?Medication ?Instructions ?Recorded ?Last Taken ?Type galcanezumab-gnlm 120 mg/mL 120 mg subcut QMONTH 01/05 Unknown History subcutaneous pen injector (Emgality Pen) ondansetron HCl 4 mg tablet 4 mg PO Q8H PRN nausea and vomiting 01/05/23 Unknown History Diltiazem 2% / Lidocaine 5% #30 grams 12/18/24 Unknown Rx ointment (compound) bupropion HCl 150 mg 24 hr tablet, 150 mg PO QAM 12/18 Unknown History extended release (Wellbutrin XL) docusate sodium 100 mg capsule 200 mg PO QDAY PRN STOO L SOFTENER 12/18/24 Unk nown History (Colace) hydroxyzine pamoate 25 mg capsule 25 mg PO QHS PRN anx iety 12/18/24 Unknown History omeprazole 40 mg capsule,delayed 40 mg PO QDAY 5 Unknown History release sodium sul 1.479 gram-potas ch See Rx Instructions PO PER PKG DIR 12/18/24 Unknown Rx 0.188 gram-magnes sul 0.225 gram #24 tabs tablet (Sutab) albuterol sulfate 90 mcg/actuation 2 puff inhalation Q 4H PRN PRN 05/12/25 Unknown History aerosol inhaler wheezing Allergy/AdvReac Type Severity Reaction Status Date / Time latex Allergy Intermediate Other Verified 05/16/25 06:44 sumatriptan Allergy Intermediate Chest Verified 05/16/25 06:44 tightness promethazine HCl (From Allergy Other Verified 05/16/25 06:44 Phenergan) Family History Grandmother Esophageal cancer CVA (cerebral vascular accident) Mother HLD (hyperlipidemia) Migraines Surgical History History of tympanoplasty Previous section History of tonsillectomy and adenoidectomy H/O tubal ligation Social History Smoking Status: Former smoker alcohol intake: current ROS Constitutional Constitutional: Denies fatigue, fever(s), poor appetite, weight gain or weight loss Gastrointestinal Gastrointestinal: Denies belching, bloating, change in bowel habits, change in stool character, chewing difficulty, coffee ground emesis, constipation, cramping, diarrhea, dyspepsia, dysphagia, early satiety, excessive flatus, fecal incontinence, heartburn, hematemesis, hematochezia, hemorrhoids, loose stools, melena, nausea, odynophagia, rectal bleeding, tenesmus, vomiting or weight changes Vital Signs Vital Signs Vital Signs: 05/16/25 06:45 05/16/25 06:45 05/16/25 07:32 Temperature 97.8 F 97.8 F Temperature Source Temporal Pulse Rate 86 86 Respiratory Rate 16 16 Respiratory Pattern Normal Blood Pressure 130/84 H 130/84 H Blood Pressure Mean 99 Blood Pressure Source Monitor Blood Pressure Position Semi-Fowlers Blood Pressure Location Right Arm Pulse Ox 99 99 Oxygen Delivery Method Room Air Weight Weight: 274 lb 7.608 oz Body Mass Index (BMI) 43.0 Physical Exam Const alert, oriented x3, no apparent distress and healthy appearing General Appearance: cooperative GI normal to inspection, nondistended, normoactive bowel sounds, soft to palpation, non-tender and non-distended Percussion: normal to percussion Rectal Exam: deferred Assessment & Plan Assessment/Plan (1) Family history of esophageal cancer: (2) Rectal pain: (3) Abdominal bloating: (4) Constipation: (5) GERD (gastroesophageal reflux disease): PLAN: Assessment and Plan Assessment and Plan (1) Hemorrhoids: (2) Rectal pain: Status: Acute (3) GERD (gastroesophageal reflux disease): Status: Acute (4) Constipation: Status: Chronic (5) Abdominal bloating: Status: Acute (6) Family history of esophageal cancer: Status: Acute Orders: Referrals Gastroenterology K59.00 - Constipation, unspecified, K62.89 - Other specified diseases of anus and rectum, R14.0 - Abdominal distension (gaseous) Medications: New linaclotide (Linzess) take once daily 30 minutes before breakfast 145 mcg PO QAM 90 caps 1RF Diltiazem 2% / Lidocaine 5% ointment (compound) instill a pea sized amount into the rectum 2-3x a day for treatment of rectal pain 30 grams 0RF sod sulf-pot chloride-mag sulf 1.479-0.188- 0.225 gram (Sutab) as directed for split dose bowel prep 24 tabs 0RF Plan 39y/o female presents for consultation with complaints of rectal pain and bleeding with history of CIC and GERD. Stools are hard and infrequent. She complains fo severe rectal pain with a bowel movement and intermittent rectal bleeding. She is managing GERD symptoms with Omeprazole 40mg daily. I have ordered Sitz Marker testing and scheduled ARM. She will start Fiber Well gummy, Linzess 145mcg dialy and a daily probiotic. She will schedule EGD as well. Patient Instructions: - Sitz Marker - Colon & EGD - 1/2d Miralax and 1d SuTab - High Fiber Diet - FiberWell Gummies once daily with 8 ounces of water after a meal. May take up to 3 weeks for symptom improvement. - Start a probiotic (Inductly, [employer] or [employer]) once daily. These are all multispecies probiotics, pick the cheapest one. - Linzess 145mcg once daily, take 30 minutes before breakfast every morning - Diltiazem/Lidocaine compound sent to [facility]
--- NOTE | 2025-05-16 08:40 | OP.PROVAT_ITS ---
05/16/2025 Alayna Durant Do Re : Upper GI endoscopy procedure for Irlanda Tucker Dear Dr. Durant This procedure was performed on Friday, May 16, 2025. My impressions and recommendations are as follows: Impressions : - Normal esophagus. - Erythematous mucosa in the gastric body and antrum. Biopsied. - Normal examined duodenum. Recommendations : - Discharge patient to home. - Resume previous diet. - Continue present medications. - Await pathology results. My findings are described in the full procedure note, which is enclosed. If I can be of further assistance, please feel free to contact me at . Sincerely, Sharath Gonzalez DO 05/16/2025 8:40:03 AM This report has been signed electronically.
--- NOTE | 2025-05-16 08:40 | OP.EGD_ITS ---
Patient Name: Irlanda Tucker Procedure Date: 05/16/2025 8:10 AM Date of : 1985 Age: 40 Procedure: Upper GI endoscopy Indications: Epigastric abdominal pain, Functional Dyspepsia, Dyspepsia, Indigestion Providers: Sharath Gonzalez DO Medicines: Monitored Anesthesia Care Patient Profile: This is a 40 year old female. Refer to note in patient chart for documentation of history and physical. Patient has symptoms of acute abdominal cramping, acute epigastric abdominal pain and acute dyspepsia. Complications: No immediate complications. Procedure: Pre-Anesthesia Assessment: - Prior to the procedure, a History and Physical was performed, and patient medications and allergies were reviewed. The patient is competent. The risks and benefits of the procedure and the sedation options and risks were discussed with the patient. All questions were answered and informed consent was obtained. Patient identification and proposed procedure were verified by the physician in the pre-procedure area. Mental Status Examination: alert and oriented. Airway Examination: normal oropharyngeal airway and neck mobility. Respiratory Examination: clear to auscultation. CV Examination: normal. Prophylactic Antibiotics: The patient does not require prophylactic antibiotics. Prior Anticoagulants: The patient has taken no anticoagulant or antiplatelet agents. ASA Grade Assessment: II - A patient with mild systemic disease. After reviewing the risks and benefits, the patient was deemed in satisfactory condition to undergo the procedure. The anesthesia plan was to use monitored anesthesia care (MAC). Immediately prior to administration of medications, the patient was re-assessed for adequacy to receive sedatives. The heart rate, respiratory rate, oxygen saturations, blood pressure, adequacy of pulmonary ventilation, and response to care were monitored throughout the procedure. The physical status of the patient was re-assessed after the procedure. After obtaining informed consent, the endoscope was passed under direct vision. Throughout the procedure, the patient's blood pressure, pulse, and oxygen saturations were monitored continuously. The pediatric colonoscope was introduced through the mouth, and advanced to the third part of the duodenum. Small bowel enteroscopy was deemed necessary. The upper GI endoscopy was accomplished without difficulty. The patient tolerated the procedure well. Scope In: 8:20:37 AM Scope Out: 8:22:56 AM Total Procedure Duration Time 0 hours 2 minutes 19 seconds Findings: The examined esophagus was normal. Patchy moderately erythematous mucosa without bleeding was found in the gastric body and in the gastric antrum. Biopsies were taken with a cold forceps for histology. Biopsies were taken with a cold forceps for Helicobacter pylori testing. Verification of patient identification for the specimen was done. Estimated blood loss was minimal. The examined duodenum was normal. Impression: - Normal esophagus. - Erythematous mucosa in the gastric body and antrum. Biopsied. - Normal examined duodenum. Recommendation: - Discharge patient to home. - Resume previous diet. - Continue present medications. - Await pathology results. Procedure Code(s): --- Professional --- 34199, Small intestinal endoscopy, enteroscopy beyond second portion of duodenum, not including ileum; with biopsy, single or multiple CPT copyright 2021 [employer]. All rights reserved. The codes documented in this report are preliminary and upon cabin man review may be revised to meet current compliance requirements. Sharath Gonzalez DO 05/16/2025 8:40:03 AM This report has been signed electronically. Number of Addenda: 0 Note Initiated On: 05/16/2025 8:10 AM
--- NOTE | 2025-05-16 08:41 | PCM.POST.ANE ---
Anesthesia: Postop Eval I Current Vital Signs Temperature: 99.4 F Pulse Rate: 86 Blood Pressure: 145/93 Respiratory Rate: 16 Pulse Ox: 100 Oxygen Delivery Method: Room Air Assessment Airway patent: Yes Spontaneous unlabored respirations: Yes Mental status: Awake and Calm nausea: No Vomiting: No Anesthesia Complication: No Fluid Hydration Crystalloid volume administer (ml): 600 Total IV fluid infused: 600 Progress Note Anesthesia document: Postop Eval 1 completed: Yes
--- NOTE | 2025-05-16 08:42 | OP.COLON_ITS ---
Patient Name: Irlanda Tucker Procedure Date: 05/16/2025 8:23 AM Date of : 1985 Age: 40 Procedure: Colonoscopy Indications: Generalized abdominal pain Providers: Sharath Gonzalez DO Medicines: Monitored Anesthesia Care Patient Profile: This is a 40 year old female. Refer to note in patient chart for documentation of history and physical. Patient has symptoms of acute abdominal cramping, acute epigastric abdominal pain and acute dyspepsia. Last Colonoscopy: none. The patient's first colonoscopy is today. Complications: No immediate complications. Procedure: Pre-Anesthesia Assessment: - Prior to the procedure, a History and Physical was performed, and patient medications and allergies were reviewed. The patient is competent. The risks and benefits of the procedure and the sedation options and risks were discussed with the patient. All questions were answered and informed consent was obtained. Patient identification and proposed procedure were verified by the physician in the pre-procedure area. Mental Status Examination: alert and oriented. Airway Examination: normal oropharyngeal airway and neck mobility. Respiratory Examination: clear to auscultation. CV Examination: normal. Prophylactic Antibiotics: The patient does not require prophylactic antibiotics. Prior Anticoagulants: The patient has taken no anticoagulant or antiplatelet agents. ASA Grade Assessment: II - A patient with mild systemic disease. After reviewing the risks and benefits, the patient was deemed in satisfactory condition to undergo the procedure. The anesthesia plan was to use monitored anesthesia care (MAC). Immediately prior to administration of medications, the patient was re-assessed for adequacy to receive sedatives. The heart rate, respiratory rate, oxygen saturations, blood pressure, adequacy of pulmonary ventilation, and response to care were monitored throughout the procedure. The physical status of the patient was re-assessed after the procedure. After I obtained informed consent, the scope was passed under direct vision. Throughout the procedure, the patient's blood pressure, pulse, and oxygen saturations were monitored continuously. The pediatric colonoscope was introduced through the anus and advanced to the terminal ileum. The colonoscopy was performed without difficulty. The patient tolerated the procedure well. The quality of the bowel preparation was adequate. The terminal ileum, ileocecal valve, appendiceal orifice, and rectum were photographed. Scope In: 8:26:03 AM Scope Withdrawal Time 0 hours 6 minutes 37 seconds Scope Out: 8:33:11 AM Total Procedure Duration Time 0 hours 7 minutes 8 seconds Findings: The perianal and digital rectal examinations were normal. The colon (entire examined portion) appeared normal. Patchy mild inflammation characterized by congestion (edema) was found in the terminal ileum. Biopsies were taken with a cold forceps for histology. Verification of patient identification for the specimen was done. Estimated blood loss was minimal. Impression: - The entire examined colon is normal. - Mild inflammation was found in the ileum secondary to ileitis. Biopsied. Recommendation: - Discharge patient to home. - Resume previous diet. - Continue present medications. - Await pathology results. - Repeat colonoscopy in 5 years for surveillance based on pathology results. Procedure Code(s): --- Professional --- 94495, Colonoscopy, flexible; with biopsy, single or multiple CPT copyright 2021 [employer]. All rights reserved. The codes documented in this report are preliminary and upon district sales leader review may be revised to meet current compliance requirements. Sharath Gonzalez DO 05/16/2025 8:42:36 AM This report has been signed electronically. Number of Addenda: 0 Note Initiated On: 05/16/2025 8:23 AM
--- NOTE | 2025-05-16 08:43 | OP.PROVAT_ITS ---
05/16/2025 Alayna Durant Do Re : Colonoscopy procedure for Irlanda Tucker Dear Dr. Durant This procedure was performed on Friday, May 16, 2025. My impressions and recommendations are as follows: Impressions : - The entire examined colon is normal. - Mild inflammation was found in the ileum secondary to ileitis. Biopsied. Recommendations : - Discharge patient to home. - Resume previous diet. - Continue present medications. - Await pathology results. - Repeat colonoscopy in 5 years for surveillance based on pathology results. My findings are described in the full procedure note, which is enclosed. If I can be of further assistance, please feel free to contact me at . Sincerely, Sharath Gonzalez, 05/16/2025 8:42:36 AM This report has been signed electronically.
--- NOTE | 2025-05-16 10:51 | PCM.POSTANE2 ---
Anesthesia Postop Eval I Sum Postop Eval Completion status Anesthesia document: Postop Eval 1 completed: Yes Anesthesia Postop Eval I Summary Anesthesia Postop Eval I Summary: Anesthesia Postop Eval I: Assessment Summary Airway patent Yes 05/16/25 08:41 [email or web address] Spontaneous unlabored Yes 05/16/25 08:41 [email or web address] respirations Mental status Awake,Calm 05/16/25 08:41 [email or web address] nausea No 05/16/25 08:41 [email or web address] Vomiting No 05/16/25 08:41 [email or web address] Anesthesia Postop Eval I: Fluid Summary Crystalloid volume administer 600 05/16/25 08:41 [email or web address] (ml) Colloids volume administered ( ml) Blood Product volume administered (ml) Total IV fluid infused 600 05/16/25 08:41 [email or web address] Anesthesia Postop Eval I: Summary Notes Anesthesia Complication No 05/16/25 08:41 [email or web address] Anesthesia Complication Comment: Post-operative progress note Anesthesia: Postop Eval II Evaluation Mental status: Awake Pain Level: 0 nausea: No Vomiting: No
== END 2025-05-16 09:14 | disposition home or self-care (01) ==
LOC: EN 06:28 → AC 06:29
PROVIDERS: PCP Nurse Practitioner Family; Referring Provider Nurse Practitioner Family; Visit Provider Internal Medicine Gastroenterology
PROC: 0DJD8ZZ Inspection of Lower Intestinal Tract, Via Natural or Artificial Opening Endoscopic (ICD-10-PCS; CPT 45378; principal; 2025-05-16 07:25)
DX: K31.89 Other diseases of stomach and duodenum (principal); K50.00 Crohn's disease of small intestine without complications; K21.9 Gastro-esophageal reflux disease without esophagitis; K59.04 Chronic idiopathic constipation; K64.4 Residual hemorrhoidal skin tags; Z79.899 Other long term (current) drug therapy; Z87.891 Personal history of nicotine dependence; Z80.0 Family history of malignant neoplasm of digestive organs
CPT/HCPCS: 43239; 45380; 88305; 88342; J2405